=== PATIENT | male | born 1940 | race Caucasian/White ===

== ENCOUNTER → 2016-04-19 | Outpatient (CLI) | payer BC ==
[~2016-04-19] MED LIST: ACET-1256 PO; ASPI81TA28 PO; ATOR-22 PO; CARV12.5 PO; ESOM1CAP34 PO; FURO-85 PO; LISI40TA PO; NTRGSL/4 UT; SYMIN160 INH; URX/10 PO
[2016-04-19 12:24] LABS: MEAN CORPUSCULAR HEMOGLOBIN 34.9 pg (25-34); MEAN CORPUSCULAR HGB CONC 37.1 g/dl (32-36); MEAN PLATELET VOLUME 10.3 fL (7.4-10.4); PLATELET COUNT 162 K/uL (130-400); RED BLOOD COUNT 4.36 M/uL (4.7-6.1); WHITE BLOOD COUNT 7.56 K/uL (4.8-10.8)
[2016-04-19 12:33] LABS: ALT/SGPT 28 U/L (12-78); AST/SGOT 15 U/L (15-37); BLOOD UREA NITROGEN 13 mg/dl (7-18); BUN/CREATININE RATIO 15.6 (10-20); CARBON DIOXIDE 25 mmol/L (21-32); CHLORIDE 104 mmol/L (98-107); CHOLESTEROL 116 mg/dl (0-200); CREATININE 0.84 mg/dl (0.60-1.40); GLUCOSE 124 mg/dl (70-99); POTASSIUM 4.1 mmol/L (3.5-5.1); SODIUM 141 mmol/L (136-145); TRIGLYCERIDES 105 mg/dl (0-150); VERY LOW DENSITY LIPOPROT CALC 21 mg/dl
[2016-04-19 12:34] LABS: ALB/GLOB RATIO 1.2 (0.9-2); ALKALINE PHOSPHATASE 143 U/L (45-117); CHOLESTEROL/HDL RATIO 2.8; HDL CHOLESTEROL 42 mg/dl; LDL CHOLESTEROL CALCULATED 53 mg/dl
[2016-04-19 12:44] LABS: ESTIMATED AVERAGE GLUCOSE 128 mg/dl; HA1C FLAG Normal (Normal)
== END | disposition home or self-care (01) ==
LOC: C.LABBFT 08:46
PROVIDERS: ATTEND Internal Medicine
DX: J44.9 Chronic obstructive pulmonary disease, unspecified (principal); E78.5 Hyperlipidemia, unspecified; R73.01 Impaired fasting glucose

== ENCOUNTER → 2016-06-09 | Outpatient (CLI) | payer BC ==
--- NOTE | 2016-06-09 09:52 | DIAGNOSTIC IMAGING REPORT ---
BILATERAL CAROTID DOPPLER STUDY HISTORY: I65.29 Arteriosclerosis of carotid [id number] COMPARISON: None. TECHNIQUE: Real-time, grayscale, and color Doppler sonography of the carotid arteries was performed. Imaging reviewed in the transverse and longitudinal planes. All measurements were calculated based on NASCET criteria. FINDINGS: Antegrade flow is seen in the bilateral vertebral arteries. The brachial pressures were not performed. Mild right and moderate left carotid bifurcation calcification. The peak systolic velocity within the right ICA is 70 cm/s. The right systolic ratio is 1.1. The peak systolic velocity within the left ICA is 103 cm/s. The left systolic ratio is 1.5. Elevated velocities of approximately 170 cm/s within the bilateral external carotid arteries. IMPRESSION: No hemodynamically significant stenosis seen within the bilateral common or internal carotid arteries. Mild to moderate stenosis within the bilateral external carotid arteries due to the calcified plaque. Electronically signed by: Claudio Mallory M.D. 06/09/2016 9:51 AM Dictated Date/Time: 06/09/2016 9:48 AM
== END | disposition home or self-care (01) ==
LOC: C.ULTR 09:15
PROVIDERS: ATTEND Internal Medicine
DX: I65.23 Occlusion and stenosis of bilateral carotid arteries (principal)

== ENCOUNTER 2016-08-16 19:12 | Emergency (ER) | payer BC ==
[~2016-08-16] VITALS: Ht 177.8 cm; Wt 89.9 kg
[2016-08-16 19:31] VITALS: TEMP 36.7; Ht 177.8 cm; Wt 89.9 kg
[2016-08-16] MEDS ORDERED: ONDANSETRON INJ 2 MG/ML 2 ML VIAL IV STA (19:51)
[2016-08-16] MEDS ORDERED: SODIUM CHLORIDE 0.9% 500ML 500 ML IV STA (19:51)
[2016-08-16 20:02] LABS: BASO % 0.7 %; BASO ABS # 0.07 K/uL (0-0.2); COMPLETE YES; EOS % 2.2 %; HEMATOCRIT 44.8 % (42-52); IG% 0.2 %; LYMPH % 16.7 %; LYMPH ABS # 1.73 K/uL (1.2-3.4); MEAN CELL VOLUME 89.8 fL (80-100); MEAN CORPUSCULAR HEMOGLOBIN 31.5 pg (25-34); MEAN PLATELET VOLUME 9.8 fL (7.4-10.4); MONO % 7.1 %; NEUT % 73.1 %; PLATELET COUNT 199 K/uL (130-400); RED BLOOD COUNT 4.99 M/uL (4.7-6.1); WHITE BLOOD COUNT 10.38 K/uL (4.8-10.8)
[2016-08-16 20:19] LABS: MANUAL MICROSCOPIC REQUIRED? NO; REVIEW REQ? NO; URINE APPEARANCE CLEAR (CLEAR); URINE BILIRUBIN NEG (NEG); URINE COLOR YELLOW; URINE NITRITE NEG (NEG); URINE SPECIFIC GRAVITY 1.021 (1.000-1.030); UROBILINOGEN NEG (NEG); ZZUR CULT IF INDIC CLEAN CATCH NO
[2016-08-16 20:21] LABS: BUN/CREATININE RATIO 20.8 (10-20); CALCIUM 8.9 mg/dl (8.5-10.1); CREATININE 0.85 mg/dl (0.60-1.40); POTASSIUM 3.7 mmol/L (3.5-5.1)
--- NOTE | 2016-08-16 20:39 | DIAGNOSTIC IMAGING REPORT ---
ABDOMEN 2VIEW W/PA CHEST RTN CLINICAL HISTORY: abd pain pain COMPARISON STUDY: 03/04/2016 FINDINGS: The soft tissues, psoas shadows, renal outlines and intestinal gas pattern appear normal. There is no evidence for bowel obstruction. There is no evidence for free intraperitoneal air. No abnormal abdominal calcifications are seen. A frontal view of the chest was performed and is unremarkable. IMPRESSION: Normal study. Electronically signed by: German Rios M.D. 08/16/2016 8:38 PM Dictated Date/Time: 08/16/2016 8:37 PM
[2016-08-16 21:24] VITALS: BP 145/67; PULSE 67; O2SAT 95
--- NOTE | 2016-08-16 22:39 | EMERGENCY ROOM VISIT NOTE ---
History Report prepared by Connie: Kiara Barrett Under the Supervision of: Dr. Rojelio Raza D.O. First contact with patient: 19:37 Chief Complaint: ABDOMINAL PAIN Stated Complaint: SICK STOMACH, BLOODY NOSE (INGESTED CREAM) History of Present Illness The patient is a 76 year old male who presents to the Emergency Room with complaints of resolved nausea starting 1.5 hours ago. The patient applied an appointment which was an antifungal to his feet earlier today. After he was done , he washed his hands twice. He was eating a caramel 2 hours ago when it got stuck in his mouth. He stuck his finger into his mouth to loosen the caramel. 10 minutes later he began feeling nauseous. He has noticed some blood when blowing his nose. He had diarrhea upon arrival to the ED. His symptoms have resolved now. He denies any vomiting, abdominal pain, cough, runny nose, bloating, or sore throat. He did have one bowel movement of diarrhea. He denies any abdominal pain at all. He denies any sick contacts. He denies any previous abdominal surgeries. He is currently not on any blood thinners. 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 Source of History: patient Onset: 1.5 hours ago Position: other (global) Quality: other (nausea) Timing: resolved Associated Symptoms: + diarrhea, No abdominal pain, No cough, No sorethroat , No vomiting Note: Pt reports blood with blowing nose. Pt denies runny nose, bloating. Review of Systems See HPI for pertinent positives & negatives. A total of 10 systems reviewed and were otherwise negative. 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 Family History Cancer FH: heart disease FHx: lung disease Hypertension Social History Smoking Status: Never Smoker Alcohol Use: occasionally Housing Status: lives alone Occupation Status: retired Current/Historical Medications Scheduled Alfuzosin HCl (Alfuzosin HCl ER), 10 MG PO DAILY Aspirin (Aspirin Ec), 81 MG PO DAILY Atorvastatin (Lipitor), 20 MG PO QPM Budesonide/Formoterol Fumarate (Symbicort 160/4.5 Inhaler ), 2 PUFFS INH BID Carvedilol (Coreg), 12.5 MG PO BID Esomeprazole Magnesium (Esomeprazole Magnesium), 10 MG PO DAILY Furosemide (Lasix), 20 MG PO DAILY Lisinopril (Prinivil), 40 MG PO QAM Nitroglycerin (Nitrostat), 0.4 MG UT PRN Scheduled PRN Acetaminophen (Tylenol), 1 TAB PO Q6 PRN for Pain Allergies Coded Allergies: Atorvastatin (Verified Allergy, Unknown, per cardio note, 04/21/15) Tiotropium (Verified Allergy, Unknown, CHEST PAIN, PRESSURE, 04/21/15) Physical Exam Vital Signs Date Time Temp Pulse Resp B/P Pulse Ox O2 Delivery O2 Flow Rate FiO2 08/16/16 21:24 67 18 145/67 95 08/16/16 21:16 67 18 145/67 95 Room Air 08/16/16 19:31 36.7 67 21 134/74 96 Room Air Physical Exam GENERAL: sitting up in bed, disheveled, no acute distress, nontoxic EYE EXAM: normal conjunctiva NOSE: No bleeding in bilateral nares OROPHARYNX: no exudate, no erythema, lips, buccal mucosa, and tongue normal and mucous membranes are moist NECK: supple, no nuchal rigidity, no adenopathy, non-tender LUNGS: Clear to auscultation. Normal chest wall mechanics HEART: no murmurs, S1 normal and S2 normal ABDOMEN: abdomen soft, non-tender, normo-active bowel sounds, no masses, no rebound or guarding. BACK: Back is symmetrical on inspection and there is no deformity, no midline tenderness, no CVA tenderness. SKIN: no rashes and no bruising UPPER EXTREMITIES: upper extremities are grossly normal. LOWER EXTREMITIES: No pitting edema. NEURO EXAM: Normal sensorium, cranial nerves II-XII grossly intact, normal speech, no gross weakness of arms, no gross weakness of legs. Medical Decision & Procedures ER Provider Diagnostic Interpretation: Xray results as stated below per my and the radiologist's interpretation: ABDOMEN 2VIEW W/PA CHEST RTN CLINICAL HISTORY: abd pain pain COMPARISON STUDY: 03/04/2016 FINDINGS: The soft tissues, psoas shadows, renal outlines and intestinal gas pattern appear normal. There is no evidence for bowel obstruction. There is no evidence for free intraperitoneal air. No abnormal abdominal calcifications are seen. A frontal view of the chest was performed and is unremarkable. IMPRESSION: Normal study. Electronically signed by: German Rios M.D. 08/16/2016 8:38 PM Dictated Date/Time: 08/16/2016 8:37 PM Laboratory Results 08/16/16 19:48 Red Blood Count 4.99, Mean Corpuscular Volume 89.8, Mean Corpuscular Hemoglobin 31.5, Mean Corpuscular Hemoglobin Concent 35.0, Mean Platelet Volume 9.8, Neutrophils (%) (Auto) 73.1, Lymphocytes (%) (Auto) 16.7, Monocytes (%) (Auto) 7.1, Eosinophils (%) (Auto) 2.2, Basophils (%) (Auto) 0.7, Neutrophils # (Auto) 7.59, Lymphocytes # (Auto) 1.73, Monocytes # (Auto) 0.74, Eosinophils # (Auto) 0.23, Basophils # (Auto) 0.07 08/16/16 19:48 Test 08/16/16 19:48 08/16/16 20:00 White Blood Count 10.38 K/uL (4.8-10.8) Red Blood Count 4.99 M/uL (4.7-6.1) Hemoglobin 15.7 g/dL (14.0-18.0) Hematocrit 44.8 % (42-52) Mean Corpuscular Volume 89.8 fL (80-100) Mean Corpuscular Hemoglobin 31.5 pg (25-34) Mean Corpuscular Hemoglobin Concent 35.0 g/dl (32-36) Platelet Count 199 K/uL (130-400) Mean Platelet Volume 9.8 fL (7.4-10.4) Neutrophils (%) (Auto) 73.1 % Lymphocytes (%) (Auto) 16.7 % Monocytes (%) (Auto) 7.1 % Eosinophils (%) (Auto) 2.2 % Basophils (%) (Auto) 0.7 % Neutrophils # (Auto) 7.59 K/uL (1.4-6.5) Lymphocytes # (Auto) 1.73 K/uL (1.2-3.4) Monocytes # (Auto) 0.74 K/uL (0.11-0.59) Eosinophils # (Auto) 0.23 K/uL (0-0.5) Basophils # (Auto) 0.07 K/uL (0-0.2) RDW Standard Deviation 41.2 fL (36.4-46.3) RDW Coefficient of Variation 12.7 % (11.5-14.5) Immature Granulocyte % (Auto) 0.2 % Immature Granulocyte # (Auto) 0.02 K/uL (0.00-0.02) Anion Gap 8.0 mmol/L (3-11) Est Creatinine Clear Calc Drug Dose 80.8 ml/min Estimated GFR () 96.7 Estimated GFR (Non- 83.5 BUN/Creatinine Ratio 20.8 (10-20) Calcium Level 8.9 mg/dl (8.5-10.1) Total Bilirubin 0.5 mg/dl (0.2-1) Direct Bilirubin 0.1 mg/dl (0-0.2) Aspartate Amino Transf (AST/SGOT) 21 U/L (15-37) Alanine Aminotransferase (ALT/SGPT) 36 U/L (12-78) Alkaline Phosphatase 154 U/L (45-117) Total Protein 7.4 gm/dl (6.4-8.2) Albumin 4.2 gm/dl (3.4-5.0) Lipase 272 U/L (73-393) Urine Color YELLOW Urine Appearance CLEAR (CLEAR) Urine pH 5.0 (4.5-7.5) Urine Specific [place] 1.021 (1.000-1.030) Urine Protein NEG (NEG) Urine Glucose (UA) NEG (NEG) Urine Ketones NEG (NEG) Urine Occult Blood NEG (NEG) Urine Nitrite NEG (NEG) Urine Bilirubin NEG (NEG) Urine Urobilinogen NEG (NEG) Urine Leukocyte Esterase SMALL (NEG) Urine WBC (Auto) 1-5 /hpf (0-5) Urine RBC (Auto) 0-4 /hpf (0-4) Urine Hyaline Casts (Auto) 1-5 /lpf (0-5) Urine Epithelial Cells (Auto) 10-20 /lpf (0-5) Urine Bacteria (Auto) NEG (NEG) Laboratory results per my review. Medications Administered Medications (Trade) Dose Ordered Sig/Marky Route Start Time Stop Time Status Last Admin Dose Admin Ondansetron HCl 4 mg 4 mg NOW STAT IV 08/16/16 19:51 08/16/16 19:53 DC 08/16/16 20:10 4 MG Sodium Chloride (Nss 500ml) 500 ml @ 999 mls/hr Q31M STAT IV 08/16/16 19:51 08/16/16 20:21 DC 08/16/16 20:10 999 MLS/HR ED Course ED COURSE: Vital signs were reviewed and showed normal vitals. The patients medical record was reviewed The above diagnostic studies were performed and reviewed. ED treatments and interventions as stated above. 1944: The patient was evaluated in room A12B. A complete history and physical examination was performed. 1950: NSS 500 ml @ 999 mls/hr IV, Zofran Inj 4 mg IV. 2110: Upon reevaluation, the patient is resting comfortably and has no complaints. I discussed my findings with the patient and he understands and agrees with the treatment plan. Based on the patients age, coexisting illnesses, exam and lab findings the decision to treat as an outpatient was made. The patient remained stable while under my care. The patient appeared well at the time of discharge. Medical Decision Differential diagnoses includes but is not limited to gastritis, peptic ulcer disease, GERD, gallbladder disease, pancreatitis, small bowel obstruction, acute coronary syndrome, pericarditis, ischemic bowel, irritable bowel disease, irritable bowel syndrome, appendicitis, diverticulitis, malignancy, hernia, urinary tract infection, torsion, perforation, trauma, infectious. Patient is a 76-year-old male who presents the ER for an episode of nausea which has completely resolved associated with small flecks of blood from his nose. He denies any other complaints. He currently has no nausea or abdominal pain. He was concerned following using an antifungal cream on his leg and washing his hands twice that when he pulled the [place] off of the roof of his mouth he poison himself. I do not believe that he had any of the antifungal cream left after washing his hands twice. It was too short of an exposure. His abdominal exam was completely benign and he had no complaints. CBC along with BMP, LFTs, bilirubin and lipase are normal. UA was negative. Obstruction series was unremarkable. With him feeling completely back to baseline and felt was reasonable to discharge him and have him follow-up with his primary care doctor. Discussed with Pt concerning signs and symptoms to watch out for. Pt was instructed to follow up with their PCP and discussed with the patient their option to return to the ED at anytime for persistent or worsening symptoms. The appropriate anticipatory guidance and out-patient management, including indications for return to the emergency department, were explained at length to the patient and understood. Impression Primary Impression: Nausea Scribe Attestation The scribe's documentation has been prepared under my direction and personally reviewed by me in its entirety. I confirm that the note above accurately reflects all work, treatment, procedures, and medical decision making performed by me. Departure Information Dispostion Home / Self-Care Referrals No Doctor, Assigned (PCP) Forms HOME CARE DOCUMENTATION FORM, IMPORTANT VISIT INFORMATION Patient Instructions ED Nausea Vomiting, My [facility] Additional Instructions Please follow up with your primary care doctor with in the next 24 hours. Any worsening of your symptoms, please return to the ED immediately. This includes abdominal pain, persistent nausea vomiting, passing out, fevers greater than 100.4, or any recurrence of your symptoms/or any other concerning signs or symptoms from your standpoint.
[2017-01-14] MEDS ORDERED: ALFU10TA2 PO (06:25)
== END 2016-08-16 21:26 | disposition home or self-care (01) ==
LOC: C.EDB 19:14 → C.EDA 21:26
DX: R11.0 Nausea (principal); M16.10 Unilateral primary osteoarthritis, unspecified hip; Z82.49 Family history of ischemic heart disease and other diseases of the circulatory system; Z79.82 Long term (current) use of aspirin

== ENCOUNTER → 2016-09-06 | Outpatient (CLI) | payer BC ==
[~2016-09-06] MED LIST changes: +ALFU10TA2 PO; +MULT-506 PO; +NXM/40 PO; +SULF-183 PO; +TAMS0.4C38 PO
[2016-09-06 14:34] LABS: LYME DISEASE AB IGG NEG (NEG)
[2016-09-06 14:37] LABS: LYME DISEASE AB IGM NEG (NEG)
== END | disposition home or self-care (01) ==
LOC: C.LABBFT 09:50
PROVIDERS: ATTEND Physician Assistant Medical
DX: R21 Rash and other nonspecific skin eruption (principal)

== ENCOUNTER → 2016-11-22 | Outpatient (CLI) | payer BC ==
[~2016-11-22] MED LIST changes: -ALFU10TA2 PO; -MULT-506 PO; -NXM/40 PO; -SULF-183 PO; -TAMS0.4C38 PO
[2016-11-22 12:26] LABS: ALT/SGPT 35 U/L (12-78); BLOOD UREA NITROGEN 15 mg/dl (7-18); CALCIUM 8.6 mg/dl (8.5-10.1); CARBON DIOXIDE 26 mmol/L (21-32); CHLORIDE 105 mmol/L (98-107); CHOLESTEROL 101 mg/dl (0-200); CREATININE 0.72 mg/dl (0.60-1.40); GLUCOSE 118 mg/dl (70-99); SODIUM 140 mmol/L (136-145); TRIGLYCERIDES 75 mg/dl (0-150); VERY LOW DENSITY LIPOPROT CALC 15 mg/dl
[2016-11-22 12:35] LABS: ESTIMATED AVERAGE GLUCOSE 131 mg/dl; HA1C FLAG Normal (Normal)
[2016-11-22 12:36] LABS: ALB/GLOB RATIO 1.2 (0.9-2); ALKALINE PHOSPHATASE 131 U/L (45-117); AST/SGOT 19 U/L (15-37); CHOLESTEROL/HDL RATIO 2.7; HDL CHOLESTEROL 38 mg/dl; LDL CHOLESTEROL CALCULATED 48 mg/dl
[2016-11-22 12:38] LABS: BASO % 0.5 %; BASO ABS # 0.03 K/uL (0-0.2); COMPLETE YES; EOS % 3.1 %; HEMATOCRIT 38.7 % (42-52); IG% 0.4 %; LYMPH % 21.8 %; LYMPH ABS # 1.21 K/uL (1.2-3.4); MEAN CORPUSCULAR HEMOGLOBIN 35.7 pg (25-34); MEAN CORPUSCULAR HGB CONC 37.2 g/dl (32-36); MEAN PLATELET VOLUME 10.2 fL (7.4-10.4); MONO % 6.5 %; NEUT % 67.7 %; PLATELET COUNT 164 K/uL (130-400); RED BLOOD COUNT 4.03 M/uL (4.7-6.1); WHITE BLOOD COUNT 5.54 K/uL (4.8-10.8)
== END | disposition home or self-care (01) ==
LOC: C.LABBFT 07:27
PROVIDERS: ATTEND Internal Medicine
DX: J44.9 Chronic obstructive pulmonary disease, unspecified (principal); R73.01 Impaired fasting glucose; E78.5 Hyperlipidemia, unspecified

== ENCOUNTER → 2017-01-12 | Outpatient (CLI) | payer BC ==
[~2017-01-12] MED LIST changes: +ALFU10TA30 PO; +MULT-506 PO; +NXM/40 PO; +SULF-183 PO; +TAMS0.4C38 PO
[2017-01-12 12:22] LABS: URINE APPEARANCE CLEAR (CLEAR); URINE BILIRUBIN NEG (NEG); URINE COLOR DK YELLOW; URINE NITRITE NEG (NEG); URINE SPECIFIC GRAVITY 1.024 (1.000-1.030); UROBILINOGEN NEG (NEG)
[2017-01-12 12:25] LABS: MANUAL MICROSCOPIC REQUIRED? NO; REVIEW REQ? NO
== END | disposition home or self-care (01) ==
LOC: C.LABBFT 08:35
PROVIDERS: ATTEND Physician Assistant Medical
DX: R39.9 Unspecified symptoms and signs involving the genitourinary system (principal)

== ENCOUNTER 2017-01-14 06:01 | Emergency (ER) | payer BC ==
[~2017-01-14] VITALS: Ht 180.3 cm; Wt 90.9 kg
[~2017-01-14 06:01] MED LIST changes: -ALFU10TA30 PO; -MULT-506 PO; -NXM/40 PO; -SULF-183 PO; -TAMS0.4C38 PO
[2017-01-14 06:08] VITALS: TEMP 36.7; Ht 180.3 cm; Wt 90.9 kg
[2017-01-14] MEDS ORDERED: ALFU10TA30 PO (06:25)
[2017-01-14] MEDS ORDERED: NXM/40 PO (06:26)
[2017-01-14] MEDS ORDERED: MULT-506 PO (06:28)
[2017-01-14] MEDS ORDERED: SULF-183 PO (06:29)
[2017-01-14] MEDS ORDERED: MoRPHine SULFATE 4 MG/ML 1 ML CARP\\VIAL IV PRN (06:45)
--- NOTE | 2017-01-14 06:55 | EMERGENCY ROOM VISIT NOTE ---
History Report prepared by Connie: Julieth Ashton Under the Supervision of: Dr. Jose Balderas M.D. First contact with patient: 06:39 Chief Complaint: URINARY SYMPTOMS Stated Complaint: UTI,FEEL NEED TO URINATE CAN'T,BURINING PAIN History of Present Illness The patient is a 76 year old male who presents to the Emergency Room with complaints of persistent urinary symptoms that began over one week ago. He currently rates his discomfort as a 10/10 in severity. The patient states that 9 days ago he saw his primary care physician for his symptoms. He states that he was experiencing urinary retention. The patient states that he was placed on Bactrim and notes that he persistently has experienced burning with urination and urinary frequency. He states that he has been experiencing fever , chills, and diaphoresis. The patient states that he was recently on Prednisone for his lungs, but states that he has not been on that medication since last . He states that he follows with Dr. Omer from urology once per year, but denies any known history of an enlarged prostate. Source of History: patient Onset: over one week ago Position: other (global) Symptom Intensity: 10/10 Quality: other (urinary symptoms) Timing: other (persistent) Associated Symptoms: + fevers, + chills, + diaphoresis Review of Systems All systems have been listed, reviewed, and are negative other than those previously mentioned. Please see Additional Medical History Sheet. 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 (2) Hypertension Family History Cancer FH: heart disease FHx: lung disease Hypertension Social History Smoking Status: Never Smoker Smokeless Tobacco Use: No Alcohol Use: occasionally Marital Status: Housing Status: lives alone Occupation Status: retired Current/Historical Medications Scheduled Alfuzosin HCl (Alfuzosin HCl ER), 10 MG PO DAILY Aspirin (Aspirin Ec), 81 MG PO DAILY Carvedilol (Coreg), 12.5 MG PO BID Esomeprazole Magnesium (Nexium), 40 MG PO DAILY Furosemide (Lasix), 20 MG PO DAILY Lisinopril (Prinivil), 40 MG PO QAM Multivitamin (Multivitamin), 1 TAB PO DAILY Nitroglycerin (Nitrostat), 0.4 MG UT PRN Sulfamethoxazole-Trimethoprim (Smz-Tmp Ds), 1 TAB PO BID Tamsulosin Hcl (Flomax), 0.4 MG PO DAILY Allergies Coded Allergies: Atorvastatin (Verified Allergy, Unknown, per cardio note, 01/14/17) Tiotropium (Verified Allergy, Unknown, CHEST PAIN, PRESSURE, 01/14/17) Physical Exam Vital Signs Date Time Temp Pulse Resp B/P (MAP) Pulse Ox O2 Delivery O2 Flow Rate FiO2 01/14/17 10:02 69 16 129/76 95 01/14/17 08:40 67 15 133/74 91 Room Air 01/14/17 06:59 82 22 183/102 96 Room Air 01/14/17 06:08 36.7 84 20 214/84 97 Room Air Physical Exam GENERAL: Patient awake, alert, oriented x 3. Patient follows commands. Patient appears to be in moderate to severe distress. Patient is adequately hydrated and well-nourished. SKIN: No erythema, pallor, cyanosis or rash HEENT: Normal head, pupils equal, reactive to light and accommodation. Oral cavity and posterior pharynx appear normal. Neck: Without adenopathy, no neck vein distention. LUNGS: Clear to auscultation. No wheezes, no rales, no rhonchi. HEART: No murmurs. No gallops. No rubs ABDOMEN: Vague suprapubic tenderness, no CVA tenderness. No masses, no rebound, no hepatomegaly or splenomegaly. PROSTATE: Slightly enlarged, but nontender prostate. RECTAL: stool was brown and guaiac negative. EXTREMITIES: No signs of trauma or infection. NEUROLOGIC: Cranial nerves II-XII within normal limits. No gross motor sensory function deficits. Medical Decision & Procedures Laboratory Results 01/14/17 06:55 01/14/17 06:55 Test 01/14/17 06:45 01/14/17 06:55 Urine Color YELLOW Urine Appearance CLEAR (CLEAR) Urine pH 6.0 (4.5-7.5) Urine Specific [place] 1.011 (1.000-1.030) Urine Protein TRACE (NEG) Urine Glucose (UA) NEG (NEG) Urine Ketones NEG (NEG) Urine Occult Blood NEG (NEG) Urine Nitrite NEG (NEG) Urine Bilirubin NEG (NEG) Urine Urobilinogen NEG (NEG) Urine Leukocyte Esterase SMALL (NEG) Urine WBC (Auto) 5-10 /hpf (0-5) Urine RBC (Auto) 0-4 /hpf (0-4) Urine Hyaline Casts (Auto) 0 /lpf (0-5) Urine Epithelial Cells (Auto) 5-10 /lpf (0-5) Urine Bacteria (Auto) NEG (NEG) Red Blood Count 4.68 M/uL (4.7-6.1) Mean Corpuscular Volume 91.2 fL (80-100) Mean Corpuscular Hemoglobin 32.1 pg (25-34) Mean Corpuscular Hemoglobin Concent 35.1 g/dl (32-36) RDW Standard Deviation 42.9 fL (36.4-46.3) RDW Coefficient of Variation 12.9 % (11.5-14.5) Mean Platelet Volume 9.8 fL (7.4-10.4) Anion Gap 8.0 mmol/L (3-11) Est Creatinine Clear Calc Drug Dose 65.6 ml/min Estimated GFR () 76.7 Estimated GFR (Non- 66.1 BUN/Creatinine Ratio 10.5 (10-20) Calcium Level 8.8 mg/dl (8.5-10.1) Laboratory results as stated above per my review. Medications Administered Medications (Trade) Dose Ordered Sig/Marky Route Start Time Stop Time Status Last Admin Dose Admin Morphine Sulfate (MoRPHine SULFATE INJ) 4 mg Q1H PRN IV 01/14/17 06:45 01/14/17 10:35 DC 01/14/17 07:02 4 MG ED Course 0635: Past medical records reviewed. The patient was evaluated in room A11B. A complete history and physical examination was performed. 0645: Ordered Morphine Sulfate 4 mg IV. 0814: I reevaluated the patient and he is feeling much better with the Anne catheter in place. I additionally performed a Rectal and prostate examination at this time. See physical exam for further detail. 0923: I reevaluated the patient and I discussed all the exam findings with him and I discussed the treatment plan. He verbalized complete understanding and agreement. He is ready to go home. Medical Decision Nurses notes reviewed. Medical history sheet reviewed. Differential diagnosis includes but is not limited to: urinary retention, urinary tract infection, prostatic hypertrophy. 76-year-old male with urinary retention and probable urinary tract infection. Bladder scan revealed large amount of retained urine. After Anne was inserted 600 mL of urine was released. Urinalysis is consistent with a low-grade urinary tract infection. The patient is already on Bactrim. Prostate was slightly enlarged. The patient will go home with the catheter and leg bag. Patient will continue Bactrim and will be started on Flomax. The patient will need to follow-up with urology within the next few days. Medication Reconcilliation Current Medication List: was personally reviewed by me Blood Pressure Screening Patient's blood pressure: Elevated blood pressure Blood pressure disposition: Referred to PCP Impression Primary Impression: Urinary retention Additional Impression: Urinary tract infection Scribe Attestation The scribe's documentation has been prepared under my direction and personally reviewed by me in its entirety. I confirm that the note above accurately reflects all work, treatment, procedures, and medical decision making performed by me. Departure Information Dispostion Home / Self-Care Prescriptions Tamsulosin Hcl (FLOMAX) 0.4 Mg Cap 0.4 MG PO DAILY, #10 CAP Prov: Jose Balderas M.D. 01/14/17 Referrals Román Valentine M.D. (PCP) Forms HOME CARE DOCUMENTATION FORM, IMPORTANT VISIT INFORMATION Patient Instructions My [facility] Additional Instructions Take 1 Flomax every night. Follow-up with urology within the next 3-4 days. Continue your current antibiotic and all other current medications. Follow-up with your family physician regarding your blood pressure. Problem Qualifiers
[2017-01-14 07:08] LABS: URINE APPEARANCE CLEAR (CLEAR); URINE BILIRUBIN NEG (NEG); URINE COLOR YELLOW; URINE NITRITE NEG (NEG); URINE SPECIFIC GRAVITY 1.011 (1.000-1.030); UROBILINOGEN NEG (NEG); ZZURINE CULT IF INDIC CATH NO
[2017-01-14 07:09] LABS: MANUAL MICROSCOPIC REQUIRED? NO; REVIEW REQ? NO
[2017-01-14 07:11] LABS: HEMATOCRIT 42.7 % (42-52); MEAN CELL VOLUME 91.2 fL (80-100); MEAN CORPUSCULAR HEMOGLOBIN 32.1 pg (25-34); MEAN CORPUSCULAR HGB CONC 35.1 g/dl (32-36); MEAN PLATELET VOLUME 9.8 fL (7.4-10.4); PLATELET COUNT 153 K/uL (130-400); RED BLOOD COUNT 4.68 M/uL (4.7-6.1); WHITE BLOOD COUNT 9.51 K/uL (4.8-10.8)
[2017-01-14 07:27] LABS: BUN/CREATININE RATIO 10.5 (10-20); CALCIUM 8.8 mg/dl (8.5-10.1); CREATININE 1.07 mg/dl (0.60-1.40); POTASSIUM 4.3 mmol/L (3.5-5.1)
[2017-01-14] MEDS ORDERED: TAMS0.4C38 PO (09:46)
[2017-01-14 10:02] VITALS: BP 129/76; PULSE 69; O2SAT 95
== END 2017-01-14 10:04 | disposition home or self-care (01) ==
LOC: C.EDB 06:02 → C.EDA 10:04
DX: R33.9 Retention of urine, unspecified (principal); N39.0 Urinary tract infection, site not specified; R50.9 Fever, unspecified; R61 Generalized hyperhidrosis; I10 Essential (primary) hypertension; M16.10 Unilateral primary osteoarthritis, unspecified hip; Z79.82 Long term (current) use of aspirin; Z79.899 Other long term (current) drug therapy; Z83.49 Family history of other endocrine, nutritional and metabolic diseases; Z83.6 Family history of other diseases of the respiratory system

== ENCOUNTER → 2017-02-04 | Outpatient (CLI) | payer BC ==
[~2017-02-04] MED LIST changes: -ACET-1256 PO; -ATOR-22 PO; -ESOM1CAP34 PO; +MULT-506 PO; +NXM/40 PO; +OPTIRAY 320 IV PRN; +SULF-183 PO; -SYMIN160 INH
--- NOTE | 2017-02-04 11:16 | DIAGNOSTIC IMAGING REPORT ---
(CHEST FOR PE) ANGIO WITH CT DOSE: 668.04 mGy.cm HISTORY: Chest pain dyspnea TECHNIQUE: Multiaxial CT images of the chest were performed following the intravenous administration of contrast to evaluate the pulmonary arteries. Maximal intensity projection images were also obtained. A dose lowering technique was utilized adhering to the principles of ALARA. COMPARISON STUDY: None. FINDINGS: There is a normal caliber thoracic aorta with no evidence for dissection. There is no evidence for pulmonary embolus. No pleural effusions. No pneumothorax. The liver and spleen are unremarkable. No mediastinal or hilar lymphadenopathy. The central airways are patent. The lungs are clear. Slight basilar interstitial prominence IMPRESSION: 1. Study is negative for pulmonary embolus. 2. Slight bibasilar interstitial parenchymal prominence. The above report was generated using voice recognition software. It may contain grammatical, syntax or spelling errors. Electronically signed by: German Rios M.D. 02/04/2017 11:10 AM Dictated Date/Time: 02/04/2017 10:57 AM
== END | disposition home or self-care (01) ==
LOC: C.CTS 10:31
PROVIDERS: ATTEND Physician Assistant
DX: I82.409 Acute embolism and thrombosis of unspecified deep veins of unspecified lower extremity (principal)

== ENCOUNTER → 2017-07-20 | Outpatient (CLI) | payer BC ==
[~2017-07-20] MED LIST changes: +ATOR-22 PO; +DUTA0.5C PO; +FLUT1INH7 INH; -OPTIRAY 320 IV PRN; -SULF-183 PO; +SULF-302 PO
[2017-07-20 12:17] LABS: BASO % 0.3 %; BASO ABS # 0.02 K/uL (0-0.2); EOS % 1.9 %; EOS ABS # 0.12 K/uL (0-0.5); HEMATOCRIT 39.7 % (42-52); HEMOGLOBIN 14.4 g/dL (14.0-18.0); IG# 0.01 K/uL (0.00-0.02); LYMPH % 18.7 %; LYMPH ABS # 1.16 K/uL (1.2-3.4); MEAN CELL VOLUME 95.4 fL (80-100); MEAN CORPUSCULAR HEMOGLOBIN 34.6 pg (25-34); MEAN CORPUSCULAR HGB CONC 36.3 g/dl (32-36); MEAN PLATELET VOLUME 9.8 fL (7.4-10.4); MONO % 8.1 %; NEUT % 70.8 %; NEUT ABS # 4.38 K/uL (1.4-6.5); PLATELET COUNT 160 K/uL (130-400); RED CELL DISTRIBUTION WIDTH CV 13.3 % (11.5-14.5); RED CELL DISTRIBUTION WIDTH SD 45.2 fL (36.4-46.3); WHITE BLOOD COUNT 6.19 K/uL (4.8-10.8)
[2017-07-20 12:40] LABS: HEMOGLOBIN A1C 5.9 % (4.5-5.6)
[2017-07-20 13:25] LABS: ALBUMIN 3.4 gm/dl (3.4-5.0); BLOOD UREA NITROGEN 13 mg/dl (7-18); CALCIUM 8.8 mg/dl (8.5-10.1); CARBON DIOXIDE 28 mmol/L (21-32); CHOLESTEROL 99 mg/dl (0-200); CREATININE 0.82 mg/dl (0.60-1.40); GLUCOSE 114 mg/dl (70-99); POTASSIUM 4.1 mmol/L (3.5-5.1); SODIUM 140 mmol/L (136-145)
[2017-07-20 13:28] LABS: ALKALINE PHOSPHATASE 151 U/L (45-117); ALT/SGPT 39 U/L (12-78); AST/SGOT 26 U/L (15-37); LDL CHOLESTEROL CALCULATED 45 mg/dl; TOTAL PROTEIN 6.6 gm/dl (6.4-8.2)
== END | disposition home or self-care (01) ==
LOC: C.LABBFT 08:08
PROVIDERS: ATTEND Internal Medicine
DX: E78.5 Hyperlipidemia, unspecified (principal); R73.01 Impaired fasting glucose; I10 Essential (primary) hypertension

== ENCOUNTER 2017-07-30 13:56 | Emergency (ER) | payer BC ==
[~2017-07-30] VITALS: Ht 172.7 cm; Wt 90.0 kg
[~2017-07-30 13:56] MED LIST changes: -ATOR-22 PO; -DUTA0.5C PO; -FLUT1INH7 INH
[2017-07-30 14:01] VITALS: TEMP 36.7; Ht 172.7 cm; Wt 90.0 kg
[2017-07-30] MEDS ORDERED: SODIUM CHLORIDE 0.9% 500ML 500 ML IV STA (14:10)
[2017-07-30] MEDS ORDERED: SODIUM CHLORIDE 0.9% 1000ML 1,000 ML IV STA (14:10)
[2017-07-30] MEDS ORDERED: DUTA0.5C PO (14:42)
[2017-07-30] MEDS ORDERED: FLUT1INH7 INH (14:42)
[2017-07-30] MEDS ORDERED: ATOR-22 PO (14:42)
[2017-07-30 14:44] LABS: BASO % 0.1 %; BASO ABS # 0.01 K/uL (0-0.2); EOS % 1.4 %; EOS ABS # 0.14 K/uL (0-0.5); HEMATOCRIT 43.8 % (42-52); HEMOGLOBIN 15.6 g/dL (14.0-18.0); IG# 0.04 K/uL (0.00-0.02); LYMPH % 13.2 %; LYMPH ABS # 1.36 K/uL (1.2-3.4); MEAN CELL VOLUME 90.9 fL (80-100); MEAN CORPUSCULAR HEMOGLOBIN 32.4 pg (25-34); MEAN CORPUSCULAR HGB CONC 35.6 g/dl (32-36); MEAN PLATELET VOLUME 9.5 fL (7.4-10.4); MONO % 8.8 %; NEUT % 76.1 %; NEUT ABS # 7.83 K/uL (1.4-6.5); PLATELET COUNT 159 K/uL (130-400); RED CELL DISTRIBUTION WIDTH CV 13.2 % (11.5-14.5); RED CELL DISTRIBUTION WIDTH SD 43.6 fL (36.4-46.3); WHITE BLOOD COUNT 10.28 K/uL (4.8-10.8)
--- NOTE | 2017-07-30 15:01 | EMERGENCY ROOM VISIT NOTE ---
History Report prepared by Connie: Tanya Sherman Under the Supervision of: Dr. Miriam Escalera M.D. First contact with patient: 14:05 Chief Complaint: DIZZY Stated Complaint: DIZZINESS,PASSED OUT History of Present Illness The patient is a 77 year old male who presents to the Emergency Room with complaints of intermittent dizziness starting 11 hours ago. The patient states that he became dizzy when he woke up to use the restroom in the middle of the night. He states that he had a lot of diarrhea. He reports while sitting there he felt like he was getting diaphoretic, chills, lightening strikes in his vision, and hot flashes. He reports that he wanted to call 911, but could not get up to do so. He reports that it went away slowly and he went back to bed because he felt fine. He states that he awoke later and felt fine so he went out to breakfast. He states that when he came home he was tired so laid down for a nap. He reports that when he awoke he took a shower and had another bowel movement of diarrhea. He notes that the first bowel movement this morning was like baby poop and the second became watery. The patient states that at this time he took antidiarrheal pills. 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 He reports that it felt the same as the episode he had this morning on the toilet. He reports that he sat down and it helped his symptoms. He states that he tried to belch, but couldn't. The patient denies feeling like he was going to have a bowel movement before the most recent episode, vomiting, hematochezia, chest pain, shortness of breath, fevers, and taking blood thinners. 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 He states that he took the last dose two days ago. Source of History: patient Onset: 11 hours ago Position: other (global) Quality: other (dizziness) Timing: intermittent Modifying Factors (Relieving): other (sitting) Associated Symptoms: + chills, + diaphoresis, + diarrhea, + fatigue, No fevers, No chest pain, No SOB, No vomiting, No hematochezia Note: The patient complains of hot flashes and visions changes. The patient denies feeling like he needed to have a bowel movement before the last episode. Review of Systems See HPI for pertinent positives & negatives. A total of 10 systems reviewed and were otherwise negative. 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 (2) Hypertension Family History Cancer FH: heart disease FHx: lung disease Hypertension Social History Smoking Status: Never Smoker Alcohol Use: occasionally Marital Status: Housing Status: lives alone Occupation Status: retired Current/Historical Medications Scheduled Alfuzosin HCl (Alfuzosin HCl ER), 10 MG PO DAILY Aspirin (Aspirin Ec), 81 MG PO DAILY Atorvastatin (Lipitor), 20 MG PO DAILY Carvedilol (Coreg), 12.5 MG PO BID Dutasteride (Avodart), 0.5 MG PO DAILY Esomeprazole Magnesium (Nexium), 40 MG PO DAILY Furosemide (Lasix), 20 MG PO DAILY Lisinopril (Prinivil), 40 MG PO QAM Nitroglycerin (Nitrostat), 0.4 MG UT PRN Scheduled PRN Fluticasone Furoate-Vilanterol (Breo Ellipta 200-25 Mcg/INH), 1 DOSE INH DAILY PRN for Wheezing Allergies Coded Allergies: Tiotropium (Verified Adverse Reaction, Unknown, CHEST PAIN, PRESSURE, ) Physical Exam Vital Signs Date Time Temp Pulse Resp B/P (MAP) Pulse Ox O2 Delivery O2 Flow Rate FiO2 07/30/17 17:30 172/80 07/30/17 17:26 61 20 96 07/30/17 17:04 151/87 07/30/17 16:56 59 21 07/30/17 16:26 60 16 07/30/17 16:22 194/91 07/30/17 16:22 61 18 194/91 98 Room Air 07/30/17 14:33 62 20 166/80 68 126/74 74 139/76 07/30/17 14:33 62 20 166/80 97 Room Air 07/30/17 14:26 65 21 07/30/17 14:21 166/80 07/30/17 14:20 139/76 07/30/17 14:19 126/74 07/30/17 14:14 73 07/30/17 14:10 178/97 07/30/17 14:01 36.7 69 18 153/82 96 Room Air Physical Exam Vital signs reviewed. General: Well-appearing, in no significant distress. HEENT: No scleral icterus, PERRLA, neck supple. Atraumatic. Cardiovascular: Regular rate and rhythm, no extra sounds. Pulmonary: Clear to auscultation bilaterally, normal work of breathing. Abdomen: Soft, nontender, nondistended, positive bowel sounds. Musculoskeletal: Atraumatic, no peripheral edema. Neurologic: Patient awake alert and oriented x 3, full strength in all 4 extremities. Cranial nerves 2 through 12 grossly intact. Skin: Warm, dry, no rash Medical Decision & Procedures ER Provider Diagnostic Interpretation: Radiology results as stated below per my review and radiologist interpretation: ABDOMEN 2VIEW W/PA CHEST RTN CLINICAL HISTORY: 77 years-old Male presenting with diarrhea, sweats, near syncope. TECHNIQUE: PA view of the chest and supine and upright views of the abdomen were obtained. COMPARISON: 08/16/2016. FINDINGS: Atherosclerosis of the aortic arch. Cardiac silhouette top normal in size. Lungs and pleural spaces clear. Nonobstructive bowel gas pattern. No gross pneumoperitoneum. Allowing for bowel gas and stool, no calcifications to suggest nephrolithiasis. Splenic arterial calcification noted. Degenerative changes of the spine. Superior subluxation of the right humeral head with complete effacement of the acromiohumeral interval implying rotator cuff tear. 3 anchor fixation in the left humeral head. Total right hip arthroplasty. IMPRESSION: 1. No acute cardiopulmonary disease. 2. No radiographic evidence of acute intra-abdominal pathology. Electronically signed by: Derrick Kimble M.D. 07/30/2017 3:11 PM Dictated Date/Time: 07/30/2017 3:08 PM Laboratory Results 07/30/17 14:30 Red Blood Count 4.82, Mean Corpuscular Volume 90.9, Mean Corpuscular Hemoglobin 32.4, Mean Corpuscular Hemoglobin Concent 35.6, Mean Platelet Volume 9.5, Neutrophils (%) (Auto) 76.1, Lymphocytes (%) (Auto) 13.2, Monocytes (%) (Auto) 8.8, Eosinophils (%) (Auto) 1.4, Basophils (%) (Auto) 0.1, Neutrophils # (Auto) 7.83, Lymphocytes # (Auto) 1.36, Monocytes # (Auto) 0.90, Eosinophils # (Auto) 0.14, Basophils # (Auto) 0.01 07/30/17 14:30 Test 07/30/17 14:30 07/30/17 16:19 White Blood Count 10.28 K/uL (4.8-10.8) Red Blood Count 4.82 M/uL (4.7-6.1) Hemoglobin 15.6 g/dL (14.0-18.0) Hematocrit 43.8 % (42-52) Mean Corpuscular Volume 90.9 fL (80-100) Mean Corpuscular Hemoglobin 32.4 pg (25-34) Mean Corpuscular Hemoglobin Concent 35.6 g/dl (32-36) Platelet Count 159 K/uL (130-400) Mean Platelet Volume 9.5 fL (7.4-10.4) Neutrophils (%) (Auto) 76.1 % Lymphocytes (%) (Auto) 13.2 % Monocytes (%) (Auto) 8.8 % Eosinophils (%) (Auto) 1.4 % Basophils (%) (Auto) 0.1 % Neutrophils # (Auto) 7.83 K/uL (1.4-6.5) Lymphocytes # (Auto) 1.36 K/uL (1.2-3.4) Monocytes # (Auto) 0.90 K/uL (0.11-0.59) Eosinophils # (Auto) 0.14 K/uL (0-0.5) Basophils # (Auto) 0.01 K/uL (0-0.2) RDW Standard Deviation 43.6 fL (36.4-46.3) RDW Coefficient of Variation 13.2 % (11.5-14.5) Immature Granulocyte % (Auto) 0.4 % Immature Granulocyte # (Auto) 0.04 K/uL (0.00-0.02) Anion Gap 7.0 mmol/L (3-11) Est Creatinine Clear Calc Drug Dose 67.3 ml/min Estimated GFR () 85.7 Estimated GFR (Non- 73.9 BUN/Creatinine Ratio 21.9 (10-20) Calcium Level 8.5 mg/dl (8.5-10.1) Magnesium Level 2.0 mg/dl (1.8-2.4) Total Bilirubin 0.7 mg/dl (0.2-1) Direct Bilirubin 0.2 mg/dl (0-0.2) Aspartate Amino Transf (AST/SGOT) 17 U/L (15-37) Alanine Aminotransferase (ALT/SGPT) 39 U/L (12-78) Alkaline Phosphatase 177 U/L (45-117) Total Protein 6.5 gm/dl (6.4-8.2) Albumin 3.3 gm/dl (3.4-5.0) Lipase 211 U/L (73-393) Urine Color YELLOW Urine Appearance CLEAR (CLEAR) Urine pH 5.0 (4.5-7.5) Urine Specific [place] 1.019 (1.000-1.030) Urine Protein NEG (NEG) Urine Glucose (UA) NEG (NEG) Urine Ketones NEG (NEG) Urine Occult Blood NEG (NEG) Urine Nitrite NEG (NEG) Urine Bilirubin NEG (NEG) Urine Urobilinogen NEG (NEG) Urine Leukocyte Esterase MODERATE (NEG) Urine WBC (Auto) 1-5 /hpf (0-5) Urine RBC (Auto) 0-4 /hpf (0-4) Urine Hyaline Casts (Auto) 1-5 /lpf (0-5) Urine Epithelial Cells (Auto) 10-20 /lpf (0-5) Urine Bacteria (Auto) NEG (NEG) Laboratory results per my review. Medications Administered Medications (Trade) Dose Ordered Sig/Marky Route Start Time Stop Time Status Last Admin Dose Admin Sodium Chloride 500 ml @ 999 mls/hr Q31M STAT IV 07/30/17 14:10 07/30/17 14:40 DC 07/30/17 14:33 999 MLS/HR Sodium Chloride 1,000 ml @ 125 mls/hr Q8H STAT IV 07/30/17 14:10 07/30/17 19:07 DC 07/30/17 14:33 125 MLS/HR ECG Per My Interpretation Indication: other (dizziness) Rate (beats per minute): 61 Rhythm: sinus rhythm Findings: 1st degree AV block, PVC, no acute ischemic change, other (previosu inferior infarct, previous anterior infarct) ED Course 1407: Past medical records reviewed. The patient was evaluated in room C5. A complete history and physical examination was performed. 1410: Ordered NSS 1000 ml @ 125 mls/hr IV, NSS 500 ml @ 999 mls/hr IV. 1612: I reevlauted the patient and he is doing well. 1735: Upon reevaluation, the patient appeared to have improvement of his symptoms. I discussed findings with him. He verbalized agreement of the treatment plan. The patient was discharged home. Medical Decision Differential diagnoses include vasovagal reaction, dehydration, viral illness, electrolyte abnormality, cardiac arrhythmia, GI bleed. This patient was evaluated and appeared to be in no significant distress. IV access was obtained and laboratory work was drawn. 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 Patient did receive IV hydration. Vital signs have remained stable. Laboratory work is fairly unrevealing. Abdominal x-ray series reveals no evidence of obstruction or free air. Patient was not able to provide a stool specimen. I suspect he had a vasovagal reaction to the 2 episodes of diarrhea. At this time he is feeling well. He will be discharged to the care of his . He will return to the ER for worsening of symptoms or any medical concerns. Medication Reconcilliation Current Medication List: was personally reviewed by me Blood Pressure Screening Patient's blood pressure: Elevated blood pressure Blood pressure disposition: Referred to PCP Impression Primary Impression: Syncope, near Additional Impression: Diarrhea Scribe Attestation The scribe's documentation has been prepared under my direction and personally reviewed by me in its entirety. I confirm that the note above accurately reflects all work, treatment, procedures, and medical decision making performed by me. Departure Information Dispostion Home / Self-Care Referrals No Doctor, Assigned (PCP) Forms HOME CARE DOCUMENTATION FORM, IMPORTANT VISIT INFORMATION Patient Instructions My [facility] Additional Instructions Diagnosis: Near syncope, diarrhea Please drink plenty of clear fluids. Maintain a bland diet, avoid greasy and spicy foods. Avoid dairy until symptoms resolve. Follow-up with your primary care physician this week for reevaluation. Return to the ER for worsening of symptoms or any medical concerns. Problem Qualifiers
[2017-07-30 15:09] LABS: ALBUMIN 3.3 gm/dl (3.4-5.0); CALCIUM 8.5 mg/dl (8.5-10.1); CREATININE 0.97 mg/dl (0.60-1.40); POTASSIUM 3.7 mmol/L (3.5-5.1)
[2017-07-30 15:12] LABS: TOTAL PROTEIN 6.5 gm/dl (6.4-8.2)
--- NOTE | 2017-07-30 15:12 | DIAGNOSTIC IMAGING REPORT ---
ABDOMEN 2VIEW W/PA CHEST RTN CLINICAL HISTORY: 77 years-old Male presenting with diarrhea, sweats, near syncope. TECHNIQUE: PA view of the chest and supine and upright views of the abdomen were obtained. COMPARISON: 08/16/2016. FINDINGS: Atherosclerosis of the aortic arch. Cardiac silhouette top normal in size. Lungs and pleural spaces clear. Nonobstructive bowel gas pattern. No gross pneumoperitoneum. Allowing for bowel gas and stool, no calcifications to suggest nephrolithiasis. Splenic arterial calcification noted. Degenerative changes of the spine. Superior subluxation of the right humeral head with complete effacement of the acromiohumeral interval implying rotator cuff tear. 3 anchor fixation in the left humeral head. Total right hip arthroplasty. IMPRESSION: 1. No acute cardiopulmonary disease. 2. No radiographic evidence of acute intra-abdominal pathology. Electronically signed by: Derrick Kimble M.D. 07/30/2017 3:11 PM Dictated Date/Time: 07/30/2017 3:08 PM
[2017-07-30 17:26] VITALS: PULSE 61; O2SAT 96
[2017-07-30 17:30] VITALS: BP 172/80
== END 2017-07-30 18:00 | disposition home or self-care (01) ==
LOC: C.EDB 13:56 → C.EDC 18:00
DX: R55 Syncope and collapse (principal); R19.7 Diarrhea, unspecified; I10 Essential (primary) hypertension; Z79.82 Long term (current) use of aspirin; Z79.899 Other long term (current) drug therapy; Z88.8 Allergy status to other drugs, medicaments and biological substances

== ENCOUNTER → 2017-08-05 | Outpatient (CLI) | payer BC ==
[~2017-08-05] MED LIST changes: +ATOR-22 PO; +DUTA0.5C PO; +FLUT1INH7 INH; -MULT-506 PO; -SULF-302 PO
== END | disposition home or self-care (01) ==
LOC: C.LABBFT 12:46
PROVIDERS: ATTEND Nurse Practitioner
DX: R19.7 Diarrhea, unspecified (principal)

== ENCOUNTER 2017-11-08 08:13 | Inpatient (IN) | payer BC, OTHER ==
[2017-10-25 10:20] VITALS: BMI 26.0
[2017-10-26 09:13] VITALS: BMI 26.0
--- NOTE | 2017-10-26 09:41 | PAT Medication Instructions ---
Service Date Oct 26, 2017. Current Home Medication List Acetaminophen (Tylenol), 500 MG PO PRN Alfuzosin HCl (Alfuzosin HCl ER), 10 MG PO QAM Aspirin (Aspirin Ec), 81 MG PO QAM Atorvastatin (Lipitor), 20 MG PO QAM Carvedilol (Coreg), 12.5 MG PO BID Dutasteride (Avodart), 0.5 MG PO QAM Esomeprazole Magnesium (Nexium), 40 MG PO QAM Fluticasone Furoate-Vilanterol (Breo Ellipta 200-25 Mcg/INH), 1 PUFF INH QAM Furosemide (Lasix), 20 MG PO QAM Lisinopril (Prinivil), 40 MG PO QAM Nitroglycerin (Nitrostat), 0.4 MG UT PRN Medication Instructions For Your Scheduled Surgery -Continue as directed: Nitroglycerin (Nitrostat), 0.4 MG UT PRN - Hold the following medications the morning of surgery: Dutasteride (Avodart), 0.5 MG PO QAM Furosemide (Lasix), 20 MG PO QAM Lisinopril (Prinivil), 40 MG PO QAM - Take the following medications the morning of surgery with a sip of water: Acetaminophen (Tylenol), 500 MG PO PRN (if needed) Alfuzosin HCl (Alfuzosin HCl ER), 10 MG PO QAM Aspirin (Aspirin Ec), 81 MG PO QAM Atorvastatin (Lipitor), 20 MG PO QAM Carvedilol (Coreg), 12.5 MG PO BID Esomeprazole Magnesium (Nexium), 40 MG PO QAM Fluticasone Furoate-Vilanterol (Breo Ellipta 200-25 Mcg/INH), 1 PUFF INH QAM - Take the following medications as scheduled the night before surgery: Acetaminophen (Tylenol), 500 MG PO PRN (if needed) Carvedilol (Coreg), 12.5 MG PO BID If you have any questions please call us at [phone] or [phone] or [phone]
[2017-10-26 10:50] LABS: CALCIUM 8.9 mg/dl (8.5-10.1); CREATININE 0.87 mg/dl (0.60-1.40); PTT PATIENT 24.3 SECONDS (21.0-31.0)
[2017-10-26 11:33] LABS: HEMATOCRIT 41.5 % (42-52); HEMOGLOBIN 14.4 g/dL (14.0-18.0); MEAN CELL VOLUME 91.4 fL (80-100); MEAN CORPUSCULAR HEMOGLOBIN 31.7 pg (25-34); MEAN CORPUSCULAR HGB CONC 34.7 g/dl (32-36); MEAN PLATELET VOLUME 10.3 fL (7.4-10.4); PLATELET COUNT 153 K/uL (130-400); RED CELL DISTRIBUTION WIDTH CV 13.2 % (11.5-14.5); RED CELL DISTRIBUTION WIDTH SD 43.9 fL (36.4-46.3)
[2017-10-26 11:34] LABS: BASO % 0.3 %; BASO ABS # 0.02 K/uL (0-0.2); EOS % 1.7 %; EOS ABS # 0.11 K/uL (0-0.5); IG# 0.02 K/uL (0.00-0.02); LYMPH % 22.3 %; LYMPH ABS # 1.47 K/uL (1.2-3.4); MONO % 7.3 %; MONO ABS # 0.48 K/uL (0.11-0.59); NEUT % 68.1 %
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
[2017-11-08] VITALS (9 sets, daily range): BP systolic 144–198; BP diastolic 73–85; PULSE 48–71; TEMP 36.3–36.7; O2SAT 94–98; Ht 180.3 cm; Wt 85.9 kg
[~2017-11-08] VITALS: Ht 180.3 cm; Wt 85.9 kg
[~2017-11-08 08:13] MED LIST changes: +ACET-1256 PO; +ACETAMINOPHEN 500 MG TAB PO SCH; +BUPIVACAINE 0.25% 30 ML VIAL ONE; +CEFAZOLIN 2000MG IV PUSH 15 ML IV SCH; +DEXAMETHASONE SOD INJ 4 MG/ML VIAL ONE; +EpINEphrine INJ 1MG/ML AMP 1 MG/ML AMP ONE; +FAMOTIDINE 20 MG TAB PO SCH; +GABAPENTIN 300 MG CAP PO SCH; +LACTATED RINGER'S 1000ML 1,000 ML IV SCH; +ROPIVACAINE 5MG/ML 30 ML 150 MG, BUPIVACAINE 0.5% MPF INJ 30 ML, EpINEphrine HCL INJ 0.... INFIL SCH
--- NOTE | 2017-11-08 09:18 | History & Physical Bridge Note ---
H&P Re-Evaluation Bridge Note: I have examined the patient, reviewed the History & Physical and in the interval since the performance of the History & Physical I have noted the following changes of clinical significance: No changes noted
[2017-11-08] MEDS ORDERED: FENTANYL CITRATE INJ 50 MCG/1 ML 2 ML VIAL ONE ×2 (10:13→11:50)
[2017-11-08] MEDS ORDERED: LIDOCAINE HCL 2% 2 ML VIAL (20MG/ML) ONE ×2 (10:13→11:50)
[2017-11-08] MEDS ORDERED: ONDANSETRON INJ 2 MG/ML 2 ML VIAL ONE ×2 (10:13→11:50)
[2017-11-08] MEDS ORDERED: EpHEDrine SULFATE 50MG/5ML SYR ONE ×2 (10:13→12:06)
[2017-11-08] MEDS ORDERED: PHENYLEPHRINE HCL INJ 10 MG/ML VIAL ONE ×2 (10:13→12:05)
[2017-11-08] MEDS ORDERED: PROPOFOL IV EMULSION 10 MG/ML 20 ML VIAL ONE ×2 (10:13→11:50)
[2017-11-08] MEDS ORDERED: MIDAZOLAM HCL 1 MG/ML 2ML VIAL ONE (10:13)
[2017-11-08] MEDS ORDERED: ORTHO JOINT ANESTHETIC ONE (10:36)
[2017-11-08] MEDS ORDERED: BACITRACIN 50000 UNIT VIAL ONE (10:36)
[2017-11-08] MEDS: TRANEXAMIC ACID INJ 1,000 MG x 2 Bags IV SCH ×4 (11:03→14:56)
--- NOTE | 2017-11-08 12:36 | [facility] Post Operative Brief Note ---
Immediate Operative Summary Operative Date Nov 08, 2017. Pre-Operative Diagnosis Rotator cuff arthropathy of the left shoulder Post-Operative Diagnosis Rotator cuff arthropathy of the left shoulder Procedure(s) Performed Left Reverse Total Shoulder Arthroplasty Surgeon Dr. Oscar Pool Job Forwarder Surgeon(s) Wade Mancuso PA-C Estimated Blood Loss 150cc Findings Consistent with Post-Op Diagnosis Specimens humeral head Anesthesia Type General [facility]
[2017-11-08] MEDS ORDERED: OXYCODONE HCL IR 5 MG TAB (IMMEDIATE RELEASE) PO PRN (12:45)
[2017-11-08] MEDS ORDERED: BISACODYL 10 MG SUPP PR PRN (12:45)
[2017-11-08] MEDS ORDERED: MoRPHine SULFATE 2 MG/ML CARP IV PRN (12:45)
[2017-11-08] MEDS ORDERED: ONDANSETRON INJ 2 MG/ML 2 ML VIAL IV PRN (12:45)
[2017-11-08] MEDS ORDERED: SOD PHOSPHATE/SOD BIPHOSPHATE ENEMA 132 ML BTL PR PRN (12:45)
[2017-11-08] MEDS ORDERED: METOCLOPRAMIDE HCL INJ 5 MG/ML 2 ML VIAL IV PRN (12:45)
[2017-11-08] MEDS ORDERED: NITROGLYCERIN 0.4 MG SL PER TAB CHARGE UT SCH (12:45)
[2017-11-08] MEDS ORDERED: NALOXONE HCL 0.4 MG/1 ML VIAL/CARP IV PRN (12:45)
[2017-11-08] MEDS ORDERED: MAGNESIUM HYDROXIDE SUSP 30 ML UDC PO PRN (12:45)
--- NOTE | 2017-11-08 13:09 | Discharge Instructions ---
Discharge Instructions Date of Service Nov 08, 2017. Admission Reason for Admission: Left Shoulder Djd, Chronic Rotator Cuff Tear Discharge Discharge Diagnosis / Problem: Left Reverse Total Shoulder Discharge Goals Goal(s): Decrease discomfort, Improve function Activity Recommendations Activity Limitations: resume your previous activity . Instructions / Follow-Up Instructions / Follow-Up Activity and Therapy Recommendations: * Wear your sling for 3 weeks, unless otherwise instructed. You may remove your sling to shower and to dress, but otherwise, you should be in your sling at all times, including while sleeping * The shoulder replacement is very stable and you can use your hand while in the sling * Physical Therapy should start about 3-5 days from your day of surgery. Therapy will last about 8-12 weeks * You were shown a series of exercises in the hospital. Do these exercises daily including the exercises you were shown in physical therapy. Medications: * Narcotic You will likely be sent home from the hospital with a prescription for the narcotic pain medication that worked best throughout your stay. * Other medications may be prescribed for specific circumstances. If you have any questions, please call the office at . * Resume previous home medications unless otherwise instructed Dressing Care: If the incision is not draining then you may leave the katharina open to air. If there is a little bit of drainage or if the katharina are getting stuck on your clothing then cover the incision with a dry dressing. The katharina will be removed at your 2 week follow-up appointment. Showering: You may shower 5 days from the day of surgery. Let the soapy shower water run over the katharina and pat them dry. Do not scrub or soak the incision. Things To Watch For: * Drainage from the incision site that occurs more than one week after your surgery. * Increased redness at the incision site. * Fever above 102 degrees Fahrenheit. * Unusual chest pain or shortness of breath. * Call [facility] at with any of the above problems Follow-Up Visit: Follow-up with Dr. Pool 2 weeks after your day of surgery. An appointment was probably scheduled when you signed-up for surgery in the office. If you have any questions call Office Instructions: More detailed instructions as well as Frequently Asked Questions were provided in a folder by our office when you signed-up for surgery. Please review these instructions when you get home. If you have any further questions or concerns, please feel free to call the office at [phone] Current Hospital Diet Patient's current hospital diet: Regular Diet Discharge Diet Recommended Diet: Regular Diet Procedures Procedures Performed: Left Reverse Total Shoulder Arthroplasty Pending Studies Studies pending at discharge: no Medical Emergencies . Who to Call and When: Medical Emergencies: If at any time you feel your situation is an emergency, please call 911 immediately. . Non-Emergent Contact Non-Emergency issues call your: Surgeon Call Non-Emergent contact if: wound has increased drainage, wound has increased redness . "Provider Documentation" section prepared by Oscar Pool. .
--- NOTE | 2017-11-08 13:38 | DIAGNOSTIC IMAGING REPORT ---
L SHOULDER MIN 2 VIEWS ROUTINE CLINICAL HISTORY: 77 years-old Male presenting with Post shoulder surgery. TECHNIQUE: Frontal and transscapular Y views of the left shoulder were obtained. COMPARISON: 09/19/2017. FINDINGS: There has been interval reverse total shoulder arthroplasty. No malalignment. No gross evidence of a periprosthetic fracture. Expected soft tissue emphysema. Overlying skin katharina noted. No subluxation of the humeral component. The acromioclavicular joint is congruent. Visualized portion of the lungs demonstrates left basilar opacity, likely atelectasis. IMPRESSION: Expected postsurgical appearance status post reverse total left shoulder arthroplasty. Electronically signed by: Derrick Kimble M.D. 11/08/2017 1:36 PM Dictated Date/Time: 11/08/2017 1:35 PM
--- NOTE | 2017-11-08 13:50 | Anesthesiology Progress Note ---
Anesthesia Post Op Note Date & Time Nov 08, 2017 at 13:50 Vital Signs Pain Intensity: 0 Vital Signs Past 12 Hours Date Time Temp Pulse Resp B/P (MAP) Pulse Ox O2 Delivery O2 Flow Rate FiO2 11/08/17 13:40 54 18 140/72 7 Nasal Cannula 3 11/08/17 13:30 62 18 145/66 98 Nasal Cannula 3 11/08/17 13:20 62 18 157/69 97 Oxymask 10 11/08/17 13:10 66 18 166/76 97 Oxymask 10 11/08/17 13:04 36.1 62 12 159/93 99 Oxymask 10 11/08/17 08:54 36.6 57 18 182/85 94 Room Air Notes Mental Status: alert / awake / arousable, participated in evaluation Pt Amnestic to Procedure: Yes Nausea / Vomiting: adequately controlled Pain: adequately controlled Airway Patency, RR, SpO2: stable & adequate BP & HR: stable & adequate Hydration State: stable & adequate Anesthetic Complications: no major complications apparent Block working well in pacu
[2017-11-08] MEDS ORDERED: ATROPINE SULFATE 0.1 MG/ML 5ML SYR IV PRN (14:00)
[2017-11-08] MEDS ORDERED: EpHEDrine SULFATE INJ 50 MG/ML AMP IV PRN (14:00)
[2017-11-08] MEDS: POTASSIUM CHLORIDE INJ 10 MEQ in SODIUM CHLORIDE 0.9% 1000ML 1,000 ML IV SCH (14:58)
--- NOTE | 2017-11-08 15:12 | OPERATIVE REPORT ---
DATE OF OPERATION: 11/08/2017 PREOPERATIVE DIAGNOSIS: Rotator cuff arthropathy of the left shoulder. POSTOPERATIVE DIAGNOSIS: Rotator cuff arthropathy of the left shoulder. PROCEDURE: Reverse left total shoulder arthroplasty. SURGEON: Dr. Oscar Pool. APPLIANCE SERVICE SUPERVISOR: Maik Mancuso PA-C, whose assistance was necessary for retraction and closure. ANESTHESIA: General with a left interscalene nerve block. COMPLICATIONS: None. CONDITION: Stable to PACU. IMPLANTS USED: I used a [employer] comprehensive reverse left shoulder arthroplasty system with a size 10 mini pressfit stem, a 25 mm mini baseplate with a 45-mm central screw, 2 peripheral locking screws, a 36 mm standard eccentric glenosphere and a standard humeral tray and bearing. INDICATIONS: De is a pleasant 77-year-old male who underwent an open left rotator cuff repair many years ago. Unfortunately, more recently, he has been having increased shoulder pain and weakness. X-rays and clinical examination were diagnostic for rotator cuff arthropathy of the left shoulder. After failing conservative treatment, he elected to undergo a reverse left shoulder arthroplasty. DESCRIPTION OF PROCEDURE: On 11/08/2017, he arrived at [facility] for the above procedure. He was seen in the preoperative holding area and the operative extremity was identified and signed. He was given appropriate antibiotic and a left interscalene nerve block. He was taken back to the operating room, laid on the table in supine position and put under general anesthesia. He was then put into the beachchair position. Left shoulder was prepped and draped in sterile fashion. Time-out was done and the patient's operative extremity was properly identified. A deltopectoral approach was used. Dissection was taken down through the fascia and the deltoid was retracted laterally and the conjoined tendon was retracted medially. The subscapularis was already torn. The long head of the biceps tendon was tenodesed to the upper border of the pec major, but the intra-articular portion of the biceps was absent. The proximal humerus was then dislocated out of the wound. Sequential reaming of the humerus up to a size 10 reamer was done. Off that reamer, a proximal humeral resection guide was placed. The proximal humerus was resected at 135 degrees of inclination and 25 degrees of retroversion. The glenoid was then exposed. Time was spent doing a complete circumferential capsular and labral release. [employer] signature guide was then snapped on to the anterior rim of the glenoid and a guide pin was placed in the reverse shoulder arthroplasty hole. A 25 mm mini base plate reamer was then used to ream the glenoid and a 25 mm mini baseplate was then impacted into place. A single 45-mm central screw was placed followed by superior and inferior locking screws. A 36 mm eccentric glenosphere was then impacted into place. The proximal humerus was then exposed. Sequential broaching up to a size 10 broach was done. Off that broach, a standard humeral tray was trialed, the shoulder was reduced, brought through a full range of motion and felt to be stable. The broach was removed. The final size 10 mini pressfit stem was then impacted into place. The standard humeral bearing was snapped onto the humeral tray and the ring lock mechanism was engaged. The humeral tray was then impacted onto the humeral stem and the shoulder was reduced. The shoulder was brought through a full range of motion and once again felt to be stable. Surrounding soft tissues were then injected with 100 mL of an orthopedic pain control cocktail. The wound was then irrigated with 3 liters of normal saline solution with bacitracin. The subscapularis was not healthy enough to be repaired. Hemostasis was controlled. Skin was closed with 2-0 Vicryl, 3-0 V-Loc suture and katharina. He was then placed in a soft dressing and regular arm sling. He was then extubated, transferred to a [facility] and taken to the postanesthesia care unit in stable condition. He tolerated the procedure well. I attest to the content of the Intraoperative Record and any orders documented therein. Any exception s are noted below.
[2017-11-08] MEDS ORDERED: HydrALAZINE HCL 20 MG/ML VIAL IV. PRN (15:45)
--- NOTE | 2017-11-08 15:55 | History and Physical ---
History & Physical Date & Time of Service: Nov 08, 2017 at 15:45 Chief Complaint: Left Shoulder Djd, Chronic Rotator Cuff Tear Primary Care Physician: Román Valentine M.D. History of Present Illness Source: patient, hospital records, other 77 y/o M Hx HTN, HPL, BPH, COPD, diastolic CHF. The pt is post L total shoulder replacement. The medical service has been contacted to consult due to uncontrolled HTN in the post-op period. The pt is asymptomatic at the time of our evaluation. He denies a headache, visual changes, CP, SOB, N/V or fevers. He does not have excessive pain at the surgical site. Hi SBP has been as high as 195. He did not have his Lisinopril or Lasix prior to surgery. Past Medical/Surgical History 1) HTN 2) HPL 3) Diastolic dysfunction 4) BPH 5) COPD 6) Osteoarthritis Family History Cancer FH: heart disease FHx: lung disease Hypertension Social History Smoking Status: Never Smoker Marital Status: Occupational Status: retired Allergies Coded Allergies: Tiotropium (Verified Adverse Reaction, Unknown, CHEST PAIN, PRESSURE, 11/08) Home Medications Scheduled Acetaminophen (Tylenol), 500 MG PO PRN Alfuzosin HCl (Alfuzosin HCl ER), 10 MG PO QAM Aspirin (Aspirin Ec), 81 MG PO QAM Atorvastatin (Lipitor), 20 MG PO QAM Carvedilol (Coreg), 12.5 MG PO BID Dutasteride (Avodart), 0.5 MG PO QAM Esomeprazole Magnesium (Nexium), 40 MG PO QAM Fluticasone Furoate-Vilanterol (Breo Ellipta 200-25 Mcg/INH), 1 PUFF INH QAM Furosemide (Lasix), 20 MG PO QAM Lisinopril (Prinivil), 40 MG PO QAM Nitroglycerin (Nitrostat), 0.4 MG UT PRN Review of Systems Constitutional: No fever, No chills, No sweats Eyes: No worsening of vision ENT: No hearing loss, No unusual epistaxis, No nasal symptoms Respiratory: No cough, No sputum, No wheezing Cardiovascular: No chest pain, No orthopnea Abdomen: No pain, No nausea, No vomiting Musculoskeletal: No joint pain Genitourinary - Male: No hematuria, No dysuria Neurologic: No memory loss, No paralysis Psychiatric: No depression symptoms Endocrine: No excessive thirst Hematologic / Lymphatic: No abnormal bleeding/bruising Integumentary: No rash Allergic / Immunologic: No environmental allergies Physical Exam Vital Signs Date Time Temp Pulse Resp B/P (MAP) Pulse Ox O2 Delivery O2 Flow Rate FiO2 11/08/17 15:18 36.3 50 18 193/78 (116) 98 Nasal Cannula 2.0 11/08/17 15:03 Nasal Cannula 2.0 11/08/17 14:45 48 16 198/85 (122) 95 2.0 11/08/17 14:10 98 Nasal Cannula 2.0 11/08/17 14:10 98 Nasal Cannula 2.0 11/08/17 14:09 36.5 53 15 162/83 (109) 98 Nasal Cannula 2.0 11/08/17 13:50 36.2 52 18 140/89 98 Nasal Cannula 3 11/08/17 13:40 54 18 140/72 97 Nasal Cannula 3 11/08/17 13:30 62 18 145/66 98 Nasal Cannula 3 11/08/17 13:20 62 18 157/69 97 Oxymask 10 11/08/17 13:10 66 18 166/76 97 Oxymask 10 11/08/17 13:04 36.1 62 12 159/93 99 Oxymask 10 11/08/17 08:54 36.6 57 18 182/85 94 Room Air General Appearance: WD/WN, no apparent distress Head: normocephalic Eyes: normal inspection ENT: normal ENT inspection Neck: supple, no JVD Respiratory/Chest: chest non-tender, lungs clear, normal breath sounds Cardiovascular: regular rate, rhythm, no edema Abdomen/GI: normal bowel sounds, non tender, no organomegaly Back: normal inspection, no CVA tenderness Extremities/Musculoskelatal: + pertinent finding (L shoulder is splinted ) Neurologic/Psych: cane loader II-XII nml as tested, no motor/sensory deficits, alert Skin: normal color Impression Assessment and Plan 77 y/o M Hx HTN, HPL, BPH, COPD, diastolic CHF. The pt is post L total shoulder replacement. The medical service has been contacted to consult due to uncontrolled HTN in the post-op period. The pt is asymptomatic at the time of our evaluation. He denies a headache, visual changes, CP, SOB, N/V or fevers. He does not have excessive pain at the surgical site. Hi SBP has been as high as 195. He did not have his Lisinopril or Lasix prior to surgery. 1) HTN - uncontrolled post-op. We will start PRN Hydralazine. We will obtain post-op labs as if there is no acute derangement, we can likely administer Lisinopril this PM if needed. Lasix could be restarted AM. 2) CHF - euvolemic at the time of evaluation - Lasix held pre-op. Can provide additional if needed based on volume status. 3) COPD - no evidence of acute exacerbation - cont inhalers as prescribed 4) HPL - cont Atorvastatin 5) BPH - cont Alfuzosin Total time for this consult including review of labs, meds, imaging, records - discussion with pt and review of ortho notes - 33 min Please consider the above a consult Advanced Directives Existing Living Will: No Existing Power of Acute Care Clinical Nurse Specialist: No Resuscitation Status VTE Prophylaxis Will order VTE Prophylaxis: Yes
[2017-11-08] MEDS: ACETAMINOPHEN IV 1,000 MG in EMPTY BAG 0 ML IV SCH (16:23)
[2017-11-08] MEDS: KETOROLAC TROMETHAMINE 15 MG/ML VIAL IV. SCH ×2 (16:23→21:27)
[2017-11-08 16:48] LABS: CALCIUM 8.3 mg/dl (8.5-10.1); CREATININE 0.68 mg/dl (0.60-1.40); POTASSIUM 4.2 mmol/L (3.5-5.1)
[2017-11-08] MEDS: CEFAZOLIN IV 2,000 MG in SYRINGE 0 ML IV SCH (19:28)
[2017-11-08] MEDS ORDERED: SENNA 8.6 MG TAB PO SCH (21:00)
[2017-11-08] MEDS: CARVEDILOL 12.5 MG TAB PO SCH (21:24)
[2017-11-08] MEDS: DOCUSATE SODIUM 100 MG CAP PO SCH (21:24)
[2017-11-09] MEDS: ACETAMINOPHEN IV 1,000 MG in EMPTY BAG 0 ML IV SCH ×2 (00:27→07:57)
[2017-11-09] MEDS: POTASSIUM CHLORIDE INJ 10 MEQ in SODIUM CHLORIDE 0.9% 1000ML 1,000 ML IV SCH (00:29)
[2017-11-09 03:47] VITALS: BP 139/68; PULSE 67; TEMP 36.7; O2SAT 93
[2017-11-09] MEDS: KETOROLAC TROMETHAMINE 15 MG/ML VIAL IV. SCH ×2 (03:47→09:24)
[2017-11-09] MEDS: CEFAZOLIN IV 2,000 MG in SYRINGE 0 ML IV SCH (03:48)
[2017-11-09 07:04] LABS: HEMATOCRIT 36.6 % (42-52); HEMOGLOBIN 12.7 g/dL (14.0-18.0); MEAN CELL VOLUME 91.7 fL (80-100); MEAN CORPUSCULAR HEMOGLOBIN 31.8 pg (25-34); MEAN CORPUSCULAR HGB CONC 34.7 g/dl (32-36); MEAN PLATELET VOLUME 9.3 fL (7.4-10.4); PLATELET COUNT 137 K/uL (130-400); RED CELL DISTRIBUTION WIDTH CV 12.9 % (11.5-14.5); RED CELL DISTRIBUTION WIDTH SD 43.5 fL (36.4-46.3)
[2017-11-09] MEDS ORDERED: NURSING VERBAL MED ORDER ONE (07:15)
[2017-11-09] MEDS ORDERED: TRAM-10 PO (07:16)
[2017-11-09 07:37] VITALS: BP 177/72; PULSE 62; TEMP 36.8; O2SAT 94
[2017-11-09 07:37] LABS: CALCIUM 8.1 mg/dl (8.5-10.1); CREATININE 0.91 mg/dl (0.60-1.40); POTASSIUM 4.1 mmol/L (3.5-5.1)
--- NOTE | 2017-11-09 08:35 | PROGRESS NOTE ---
DATE: 11/09/2017 CHIEF COMPLAINT: Status post reverse left shoulder arthroplasty, postop day #1. SUBJECTIVE: De was seen and examined at bedside today. Overall, he has done very well. He does not have much pain in his shoulder. He was able to get some sleep last night. He has no complaints. OBJECTIVE: VITAL SIGNS: Stable on room air. He is voiding on his own. EXTREMITIES: On examination of the left shoulder, the dressing is clean and dry. He is wearing a sling as instructed. His radial, median, and ulnar nerves are checked and intact at his wrist. His axillary nerve is not definitively checked yet. LABORATORY DATA: He has an H and H today of 12.7 and 36.6. His PRP is still pending. IMAGING: X-rays postoperatively of the left shoulder show the prosthesis to be in anatomic alignment without any evidence of fracture, dislocation, or loosening. IMPRESSION: Status post reverse left shoulder arthroplasty, postop day #1. PLAN: At this point, he is doing about as well as expected. He will be seen by physical therapy today to do hand, wrist, elbow, and pendulum exercises. His pain is well controlled. He can be discharged to home later this morning.
--- NOTE | 2017-11-09 08:57 | Anesthesiology Progress Note ---
Anesthesia Post Op Note Date & Time Nov 09, 2017 at 08:57 Vital Signs Pain Intensity: 0.0 Vital Signs Past 12 Hours Date Time Temp Pulse Resp B/P (MAP) Pulse Ox O2 Delivery O2 Flow Rate FiO2 11/09/17 07:37 36.8 62 16 177/72 (107) 94 Room Air 11/09/17 03:47 36.7 67 17 139/68 (91) 93 Room Air 11/09/17 00:20 Room Air 11/08/17 23:30 36.7 62 16 144/76 (98) 94 Room Air Notes Mental Status: alert / awake / arousable, participated in evaluation Pt Amnestic to Procedure: Yes Nausea / Vomiting: adequately controlled Pain: adequately controlled Airway Patency, RR, SpO2: stable & adequate BP & HR: stable & adequate Hydration State: stable & adequate Anesthetic Complications: no major complications apparent
[2017-11-09] MEDS ORDERED: FUROSEMIDE 20 MG TAB PO SCH (09:00)
[2017-11-09] MEDS ORDERED: PANTOprazole SOD 40 MG TAB PO SCH (09:00)
[2017-11-09] MEDS ORDERED: MULTIVITAMIN TAB PO SCH (09:00)
[2017-11-09] MEDS ORDERED: LISINOPRIL 40 MG TAB PO SCH (09:00)
[2017-11-09] MEDS ORDERED: ATORVASTATIN 20 MG TAB PO SCH (09:00)
[2017-11-09] MEDS ORDERED: ASPIRIN 81 MG ECTAB PO SCH (09:00)
[2017-11-09] MEDS ORDERED: ALFUZosin TAB 10 MG TAB PO SCH (09:00)
[2017-11-09] MEDS: CARVEDILOL 12.5 MG TAB PO SCH (09:24)
[2017-11-09] MEDS: DOCUSATE SODIUM 100 MG CAP PO SCH (09:24)
--- NOTE | 2017-11-09 09:43 | DISCHARGE SUMMARY ---
DISCHARGE DIAGNOSIS: Rotator cuff arthropathy of the left shoulder. PROCEDURE: Left reverse shoulder arthroplasty on 11/08/[address] Oscar Pool. DISCHARGE INSTRUCTIONS: 1. Tramadol 50 mg every 4 hours as needed for pain. 2. Left arm sling for 3 weeks. 3. Start physical therapy this week. 4. Follow up with Dr. Pool in 2 weeks. 5. Call the office of Dr. Pool with any questions or concerns. 6. Tylenol 500 mg as needed for pain. 7. Alfuzosin 10 mg daily. 8. Aspirin 81 mg daily. 9. Lipitor 20 mg daily. 10. Coreg 12.5 mg twice a day. 11. Avodart 0.5 mg daily. 12. Nexium 40 mg daily. 13. Breo inhaler daily. 14. Lasix 20 mg daily. 15. Prinivil 40 mg daily. 16. Nitrostat 0.4 mg as needed. HOSPITAL COURSE: De is a pleasant 77-year-old male who presented to my office with chronic increasing left shoulder pain. He does have a history of an open rotator cuff repair many years ago. X-rays and clinical examination were diagnostic for rotator cuff arthropathy of the left shoulder. After failing conservative treatment, he elected to undergo a reverse left shoulder arthroplasty. On 11/08/2017, he arrived at [facility] and underwent a reverse left shoulder arthroplasty without complication. He had a general anesthetic and a left interscalene nerve block. Postoperatively, he was discharged to general orthopedic floor. His hospital course was uneventful. On postop day #1, his H and H was stable at 12.7 and 36.6 and is able to participate well with physical therapy, doing hand, wrist, elbow, and pendulum exercises. He was subsequently discharged to home with tramadol for pain and the above instructions.
[2017-11-09 10:11] VITALS: BP 148/77; PULSE 73; O2SAT 94
--- NOTE | 2017-11-09 10:12 | Hospitalist Progress Note ---
Hospitalist Progress Note Date of Service Nov 09, 2017. Subjective Pt evaluation today including: conversation w/ patient, physical exam, chart review, lab review, review of inpatient medication list Pain: None PO Intake: Tolerating PO diet Voiding: no voiding problems Patient reports feeling well. He denies any pain at this time. He does have some tingling in his first 3 digits of the left hand. He states that last night he did develop some nausea and lightheadedness but this is now resolved. He worked with physical and occupational therapy this morning without any lightheadedness. He is tolerating his PO diet well. He is voiding on his own and passing gas but has not yet had a bowel movement. The patient denies fevers , chills, sweats, chest pain, palpitations, claudication, cough, wheezing, shortness of breath, nausea, vomiting, abdominal pain, dysuria, hematuria, urinary retention, paralysis, weakness. Additional Comments: See HPI for pertinent positives and negatives. All other systems reviewed and negative. Objective Vital Signs Date Time Temp Pulse Resp B/P (MAP) Pulse Ox O2 Delivery O2 Flow Rate FiO2 11/09/17 07:37 36.8 62 16 177/72 (107) 94 Room Air 11/09/17 03:47 36.7 67 17 139/68 (91) 93 Room Air 11/09/17 00:20 Room Air 11/08/17 23:30 36.7 62 16 144/76 (98) 94 Room Air 11/08/17 19:06 36.7 71 16 151/74 (99) 94 Nasal Cannula 2.0 11/08/17 17:17 36.4 64 16 162/73 (102) 94 Nasal Cannula 2.0 11/08/17 16:01 36.4 54 18 191/74 (113) 98 Nasal Cannula 2.0 11/08/17 15:18 36.3 50 18 193/78 (116) 98 Nasal Cannula 2.0 11/08/17 15:03 Nasal Cannula 2.0 11/08/17 14:45 48 16 198/85 (122) 95 2.0 11/08/17 14:10 98 Nasal Cannula 2.0 11/08/17 14:10 98 Nasal Cannula 2.0 11/08/17 14:09 36.5 53 15 162/83 (109) 98 Nasal Cannula 2.0 11/08/17 13:50 36.2 52 18 140/89 98 Nasal Cannula 3 11/08/17 13:40 54 18 140/72 97 Nasal Cannula 3 11/08/17 13:30 62 18 145/66 98 Nasal Cannula 3 11/08/17 13:20 62 18 157/69 97 Oxymask 10 11/08/17 13:10 66 18 166/76 97 Oxymask 10 11/08/17 13:04 36.1 62 12 159/93 99 Oxymask 10 Physical Exam Notes: General appearance: Well-developed, well-nourished, no apparent distress Head: Normocephalic, atraumatic Eyes: Normal inspection, PERRL, EOMI ENT: Normal ENT inspection, hearing grossly normal, pharynx normal Neck: Supple, no JVD, trachea midline Respiratory/Chest: Lungs clear to auscultation, normal breath sounds, no respiratory distress Cardiovascular: Regular rate & rhythm, no gallop, no murmur Abdomen/GI: Normal bowel sounds, non-tender, soft Extremities/Musculoskeletal: +Left shoulder in sling. No calf tenderness, no pedal edema Neurological/Psych: Alert, normal mood/affect, oriented x 3 Skin: Normal color, warm/dry, no rash Laboratory Results Last 24 Hours Test 11/08/17 16:09 11/09/17 06:49 Sodium Level 140 mmol/L 138 mmol/L Potassium Level 4.2 mmol/L 4.1 mmol/L Chloride Level 105 mmol/L 106 mmol/L Carbon Dioxide Level 28 mmol/L 24 mmol/L Anion Gap 7.0 mmol/L 8.0 mmol/L Blood Urea Nitrogen 11 mg/dl 18 mg/dl Creatinine 0.68 mg/dl 0.91 mg/dl Est Creatinine Clear Calc Drug Dose 93.8 ml/min 70.1 ml/min Estimated GFR () 105.3 92.6 Estimated GFR (Non- 90.8 79.9 BUN/Creatinine Ratio 16.4 19.7 Random Glucose 140 mg/dl 130 mg/dl Calcium Level 8.3 mg/dl 8.1 mg/dl Magnesium Level 1.9 mg/dl White Blood Count 11.10 K/uL Red Blood Count 3.99 M/uL Hemoglobin 12.7 g/dL Hematocrit 36.6 % Mean Corpuscular Volume 91.7 fL Mean Corpuscular Hemoglobin 31.8 pg Mean Corpuscular Hemoglobin Concent 34.7 g/dl RDW Standard Deviation 43.5 fL RDW Coefficient of Variation 12.9 % Platelet Count 137 K/uL Mean Platelet Volume 9.3 fL Assessment and Plan 77 y/o male with a history of HTN, HLD, chronic diastolic CHF, COPD, BPH, and GERD who presents s/p left TSA with Dr. Pool on 11/08 for medical management of postop HTN. S/p left TSA--POD #1 -Pain management, DVT prophylaxis, and PT/OT as per primary team HTN--improving -BP up to 193/78 postop -Hydralazine 5 mg IV q8h prn SBP >165 -Given 1 dose hydralazine at 1600 on 11/08, BP improved since -Pt's home lisinopril and Lasix were held preop, this plus the surgery likely contributed -Renal function stable, home lisinopril 40 mg PO qd and Lasix 20 mg PO qd resumed today. SBP while working with PT in 140s -Continue Coreg 12.5 mg PO BID HLD -Continue Lipitor 20 mg PO qd Chronic diastolic CHF--stable, no acute exacerbation -Continue Coreg, lisinopril, Lasix as above COPD--stable, no acute exacerbation -Continue Breo BPH -Continue alfuzosin 10 mg PO qd and Avodart 0.5 mg PO qd GERD -Nexium converted to Protonix Code Status -Level I, FULL RESUSCITATION STATUS Pt. is stable from a medical standpoint, we will sign off. Clear for discharge as per primary team.
[2017-11-09 10:17] VITALS: BP_SYST 111; BP_SYST 177; BP_DIAS 66; BP_DIAS 72; PULSE 62; PULSE 71; TEMP 36.8; O2SAT 94
[2017-11-09 10:45] VITALS: BP 111/66; PULSE 71
== END 2017-11-09 11:34 | disposition home or self-care (01) | DRG 908 ==
LOC: C.ACU 08:13 → C.3E 12:40 → ENRESERV 13:52
PROVIDERS: ADMIT Orthopaedic Surgery; ATTEND Orthopaedic Surgery
PROC: 0RRK00Z Replacement of Left Shoulder Joint with Reverse Ball and Socket Synthetic Substitute, Open Approach (ICD-10-PCS; principal; 2017-11-08 11:20)
DX: S46.002A Unspecified injury of muscle(s) and tendon(s) of the rotator cuff of left shoulder, initial encounter (principal); I50.30 Unspecified diastolic (congestive) heart failure; I15.8 Other secondary hypertension; I11.0 Hypertensive heart disease with heart failure; E78.5 Hyperlipidemia, unspecified; N40.0 Benign prostatic hyperplasia without lower urinary tract symptoms; Z96.641 Presence of right artificial hip joint; K21.9 Gastro-esophageal reflux disease without esophagitis; J44.9 Chronic obstructive pulmonary disease, unspecified; M19.90 Unspecified osteoarthritis, unspecified site; Z82.49 Family history of ischemic heart disease and other diseases of the circulatory system; X50.0XXA Overexertion from strenuous movement or load, initial encounter; Y92.89 Other specified places as the place of occurrence of the external cause

== ENCOUNTER 2018-08-04 16:10 | Inpatient (IN) ==
[2018-08-04] MEDS ORDERED: GI COCKTAIL ED USE PO ONE (16:26)
[2018-08-04] MEDS ORDERED: ASPIRIN CHEW 324 MG PO STA (16:26)
[2018-08-04] MEDS ORDERED: NITROGLYCERIN SL 0.4 MG/TAB TAB SL STA (16:26)
[2018-08-04] MEDS ORDERED: SODIUM CHLORIDE 0.9% 500 ML IV SCH (16:30)
--- NOTE | 2018-08-04 16:41 | Emergency Department Note ---
Entered by Hortencia Weeks acting as a scribe for Paulino Ontiveros DO History of Present Illness General Chief complaint: Abdominal Pain Stated complaint: STOMACH FEELS LIKE IT'S GOING TO EXPLODE Time Seen by Provider: 08/04/18 16:19 Source: patient History of Present Illness Onset (ago): day(s) 1 Location: abdomen Severity: severe Pain Consistency: + other (Persistent) Maximum Pain Intensity: 10 Quality: + other (Abdominal pain) Relieved By: + medication (Pepto-Bismol, Tums) Associated symptoms: + nausea/vomiting (Positive nausea. Negative vomiting.) and + weakness Treatments prior to arrival: other (Pepto-Bismol, Tums) The patient is an 78 year old male presenting to the Emergency Department complaining of persistent abdominal pain starting 1 day ago. The patient reports that he has severe abdominal pain. He describes this pain as a pressure. He explains that he is nauseous and weak. He notes that his right knee became hot while he was experiencing this abdominal pain. The patient reports that he has been passing gas that partially relieved his abdominal pain. He states that he took Pepto-Bismol and Tums that also helped to relieve the pain but that the pain came back. He adds that he has a history of hypertension, heart attack and blood clots. He denies vomiting. Home Medications Home Medications Medication Instructions Recorded Confirmed Type acetaminophen 500 mg PO QID PRN 08/04/18 08/04/18 History alfuzosin 10 mg PO DAILY 08/04/18 08/04/18 History aspirin [Aspir-81] 81 mg PO DAILY 08/04/18 08/04/18 History atorvastatin 20 mg PO HS 08/04/18 08/04/18 History carvedilol 12.5 mg PO BID 08/04/18 08/04/18 History dutasteride 0.5 mg PO DAILY 08/04/18 08/04/18 History esomeprazole magnesium 40 mg PO DAILY 08/04/18 08/04/18 History fluticasone furoate-vilanterol 1 puff INHALATION DAILY 08/04/18 08/04/18 History [Breo Ellipta] furosemide 20 mg PO QAM 08/04/18 08/04/18 History lisinopril 40 mg PO DAILY 08/04/18 08/04/18 History nitroglycerin [Nitrostat] 0.4 mg SUBLINGUAL UD PRN 08/04/18 08/04/18 History tramadol 50 mg PO Q4H PRN 08/04/18 08/04/18 History Allergies Allergy/AdvReac Type Severity Reaction Status Date / Time tiotropium AdvReac Unknown CHEST Verified 11/08/17 08:50 PAIN, PRESSURE atorvastatin [From Lipitor] AdvReac Nausea Unverified 08/04/18 17:40 Past Med/Surg History Medical History Heart attack Degenerative joint disease (DJD) of hip Hypertension (Chronic) BPH (benign prostatic hyperplasia) COPD (chronic obstructive pulmonary disease) Essential (primary) hypertension HLD (hyperlipidemia) History of DVT (deep vein thrombosis) SVT (supraventricular tachycardia) Surgical History History of hip surgery History of shoulder surgery History of cardiac cath History of total hip replacement Family History Mother Coronary heart disease Stroke Father Hypertension Social History marital status: Current Living Situation: Spouse current occupational status: retired Feels Safe at Home: Yes Smoking Status: Never smoker Hx Alcohol Use: No Hx Substance Use: No Review of Systems See HPI for pertinent positives & negatives. and A total of 10 systems reviewed and were otherwise negative Physical Exam Vital Signs Vital Signs - 24 hr 08/04/18 16:12 08/04/18 17:17 08/04/18 18:46 Temperature 37.1 C Temperature Source Oral Sepsis Recent Fever Within 48 Hours No Sepsis New/Unexplained Change in Mental Status No Sepsis Action Taken by Nursing No Action Required Pulse Rate 72 Pulse Rate [Apical] 76 96 H Respiratory Rate 20 22 26 H Blood Pressure 204/79 H Blood Pressure [Left Arm] 168/95 H Blood Pressure Mean 120 Blood Pressure Mean [Left Arm] 119 Pulse Oximetry 97 95 94 Oxygen Delivery Method Room Air Room Air Nasal Cannula Oxygen Flow Rate 1 CONSTITUTIONAL/VITAL SIGNS: Reviewed / noted above. GENERAL: Non-toxic in appearance. INTEGUMENTARY: Warm, dry, and [place]. HEAD: Normocephalic. EYES: without scleral icterus or trauma. ENT/OROPHARYNX: clear and moist. LYMPHADENOPATHY/NECK: Is supple without lymphadenopathy or meningismus. RESPIRATORY: Lungs clear and equal. CARDIOVASCULAR: Regular rate and rhythm. GI/ABDOMEN: Soft. No organomegaly or pulsatile mass. No rebound or guarding. Normal bowel sounds. Tenderness in epigastric region. EXTREMITIES: Warm and well perfused. BACK: No CVA tenderness. NEUROLOGICAL: Intact without focal deficits. PSYCHIATRIC: normal affect. MUSCULOSKELETAL: Normally developed with good muscle tone. Course 1621: The patient was evaluated in room A3, and a complete history and physical examination were performed. 1814: I discussed the patients case with Dr. Dimitri ATKINS hospitalist. He will evaluate the patient for further management. 1904: I updated the patient at this time. Consultations Consultation #1: I discussed the patients case with Dr. Dimitri ATKINS hospitalist. He will evaluate the patient for further management. Time: 18:15 Administered Medications Ioversol (Optiray 320 100ml) 94 ml IV ONCE PRN PRN Reason: Interaction Checking Stop: 08/08/18 17:46 Last Admin: 08/04/18 17:48 Dose: 94 ml Documented by: [id number] Discontinued Medications Al Hydrox/Mg Hydrox/Simethicone () 1 dose PO ONE ONE Stop: 08/04/18 16:27 Last Admin: 08/04/18 16:44 Dose: 1 dose Documented by: [id number] Aspirin (Aspirin) 324 mg PO NOW STA Stop: 08/04/18 16:27 Last Admin: 08/04/18 16:43 Dose: 324 mg Documented by: [id number] Sodium Chloride (Nss) 500 mls @ 999 mls/hr IV .Q31M POLO Stop: 08/04/18 17:00 Last Infusion: 08/04/18 18:28 Dose: 0 mls/hr Documented by: [id number] Admin: 08/04/18 16:44 Dose: 999 mls/hr Documented by: [id number] Morphine Sulfate (Morphine Sulfate) 4 mg IV NOW STA Stop: 08/04/18 17:28 Last Admin: 08/04/18 17:30 Dose: 4 mg Documented by: [id number] Nitroglycerin (Nitrostat) 0.4 mg SL NOW STA Stop: 08/04/18 16:27 Last Admin: 08/04/18 16:44 Dose: 0.4 mg Documented by: [id number] Medical Decision Making Differential Diagnosis the differential was considered includes acute myocardial infarction, acute coronary syndrome, myocarditis, pericarditis, pericardial effusions /tamponad, esophageal perforation, thoracic aortic dissection, pulmonary embolism, pneumonia, pneumothorax, pancreatitis, shingles, acute cholecystitis, perforated abdominal viscus. Medical Records Attestation: I reviewed the patient's medical records. Home Medications Current Medication List: was personally reviewed by me Laboratory Data Attestation: I reviewed the patient's lab results. Result diagrams: 08/04/18 16:29 08/04/18 16:29 Lab Results 08/04/18 08/04/18 08/04/18 Range/Units 16:29 16:29 16:29 WBC 7.95 (4.8-10.8) K/uL RBC 4.66 L (4.7-6.1) M/uL Hgb 15.2 (14.0-18.0) g/dL Hct 42.0 (42-52) % MCV 90.1 (80-100) fL MCH 32.6 (25-34) pg MCHC 36.2 H (32-36) g/dL RDW Std Deviation 40.9 (36.4-46.3) fL RDW Coeff of Negro 12.7 (11.5-14.5) % Plt Count 168 (130-400) K/uL MPV 9.9 (7.4-10.4) fL Immature Gran % (Auto) 0.3 % Neut % (Auto) 82.8 % Lymph % (Auto) 11.3 % [place] % (Auto) 4.5 % Eos % (Auto) 0.8 % Baso % (Auto) 0.3 % Immature Gran # (Auto) 0.02 (0.00-0.02) K/uL Neut # (Auto) 6.59 H (1.4-6.5) K/uL Lymph # (Auto) 0.90 L (1.2-3.4) K/uL [place] # (Auto) 0.36 (0.11-0.59) K/uL Eos # (Auto) 0.06 (0-0.5) K/uL Baso # (Auto) 0.02 (0-0.2) K/uL PT 10.9 (9.0-12.0) Seconds INR 1.1 (0.9-1.1) Sodium 138 (136-145) mmol/L Potassium 3.7 (3.5-5.1) mmol/L Chloride 103 (98-107) mmol/L Carbon Dioxide 29 (21-32) mmol/L Anion Gap 6.0 (3-11) BUN 14 (7-18) mg/dl Creatinine 1.03 (0.6-1.4) mg/dl Est Cr Clr Drug Dosing 62.4 ml/min Est GFR ( Amer) 79.1 Est GFR (Non-Af Amer) 68.3 BUN/Creatinine Ratio 13.1 (10-20) Glucose 138 H (70-99) mg/dl Calcium 9.0 (8.5-10.1) mg/dl Total Bilirubin 2.2 H (0.2-1) mg/dl AST 211 H (15-37) U/L ALT 204 H (12-78) U/L Alkaline Phosphatase 280 H (45-117) U/L Troponin I < 0.015 (0-0.045) ng/ml Total Protein 6.9 (6.4-8.2) gm/dl Albumin 3.7 (3.4-5.0) gm/dl Globulin 3.2 (2.5-4.0) gm/dl Albumin/Globulin Ratio 1.2 (0.9-2) Lipase 166 (73-393) U/L Urine Color Urine Appearance (Clear) Urine pH (4.5-7.5) Ur Specific [place] (1.000-1.030) Urine Protein (Negative) Urine Glucose (UA) (Negative) Urine Ketones (Negative) Urine Blood (Negative) Urine Nitrite (Negative) Urine Bilirubin (Negative) Urine Urobilinogen (Negative) Ur Leukocyte Esterase (Negative) 08/04/18 08/04/18 Range/Units 16:29 16:29 WBC (4.8-10.8) K/uL RBC (4.7-6.1) M/uL Hgb (14.0-18.0) g/dL Hct (42-52) % MCV (80-100) fL MCH (25-34) pg MCHC (32-36) g/dL RDW Std Deviation (36.4-46.3) fL RDW Coeff of Negro (11.5-14.5) % Plt Count (130-400) K/uL MPV (7.4-10.4) fL Immature Gran % (Auto) % Neut % (Auto) % Lymph % (Auto) % [place] % (Auto) % Eos % (Auto) % Baso % (Auto) % Immature Gran # (Auto) (0.00-0.02) K/uL Neut # (Auto) (1.4-6.5) K/uL Lymph # (Auto) (1.2-3.4) K/uL [place] # (Auto) (0.11-0.59) K/uL Eos # (Auto) (0-0.5) K/uL Baso # (Auto) (0-0.2) K/uL PT (9.0-12.0) Seconds INR (0.9-1.1) Sodium (136-145) mmol/L Potassium (3.5-5.1) mmol/L Chloride (98-107) mmol/L Carbon Dioxide (21-32) mmol/L Anion Gap (3-11) BUN (7-18) mg/dl Creatinine (0.6-1.4) mg/dl Est Cr Clr Drug Dosing ml/min Est GFR ( Amer) Est GFR (Non-Af Amer) BUN/Creatinine Ratio (10-20) Glucose (70-99) mg/dl Calcium (8.5-10.1) mg/dl Total Bilirubin (0.2-1) mg/dl AST (15-37) U/L ALT (12-78) U/L Alkaline Phosphatase (45-117) U/L Troponin I Cancelled (0-0.045) ng/ml Total Protein (6.4-8.2) gm/dl Albumin (3.4-5.0) gm/dl Globulin (2.5-4.0) gm/dl Albumin/Globulin Ratio (0.9-2) Lipase (73-393) U/L Urine Color Yellow Urine Appearance Clear (Clear) Urine pH 8.5 H (4.5-7.5) Ur Specific [place] 1.015 (1.000-1.030) Urine Protein Negative (Negative) Urine Glucose (UA) Negative (Negative) Urine Ketones Negative (Negative) Urine Blood Negative (Negative) Urine Nitrite Negative (Negative) Urine Bilirubin Negative (Negative) Urine Urobilinogen Negative (Negative) Ur Leukocyte Esterase Negative (Negative) Imaging Data Radiologist's Impression: Radiology results as stated below per my review and the radiologist's interpretation: CT abd pelvis IV con only CLINICAL HISTORY: Right upper quadrant abdominal pain, elevated LFTs, elevated bilirubin. COMPARISON STUDY: None. TECHNIQUE: The patient was scanned in a dynamic helical fashion during intravenous administration of 94 cc of Optiray 320 A dose lowering technique was utilized adhering to the principles of ALARA. CT DOSE: 614.64 mGy.cm FINDINGS: Lower chest: There are bibasilar atelectatic changes. Liver: There is mild central intrahepatic biliary ductal dilatation. No focal hepatic masses are visualized. The hepatic veins and portal vein appear patent. Gallbladder: The gallbladder appears minimally distended. The common bile duct is dilated measuring 10 mm. There is a suspected distal common bile duct filling defect. Spleen: Normal in size and attenuation. Pancreas: There is no pancreatic ductal dilatation. 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 Adrenal glands: Unremarkable. Kidneys: No solid renal masses are visualized. There are bilateral renal cysts, the largest of which is located on the right measuring 21 mm Bowel: There are no transition zones indicate bowel obstruction. The appendix appears normal. There is no acute diverticulitis. Peritoneum: There are bilateral inguinal hernias. There is no free air. There is trace free fluid within the right lower quadrant. Vasculature: The abdominal aorta is normal in course and caliber. Adenopathy: None. Pelvic viscera: The prostate is mildly prominent. A portion of the right anterior lateral aspect of the bladder extends into the right inguinal hernia Skeletal structures: No destructive osseous lesions are seen. IMPRESSION: 1. Mild intra and extrahepatic biliary ductal dilatation. A distal common bile duct filling defect is visualized. On a statistical basis this represents a noncalcified stone. An MRCP or ERCP could be obtained in follow-up for confirmation 2. No evidence of bowel obstruction. No evidence of free air 3. Normal appendix. No evidence of acute diverticulitis. 4. Bilateral inguinal hernias Electronically signed by: Kip Atkinson M.D. 08/04/2018 5:59 PM US gallbladder CLINICAL HISTORY: Right upper quadrant abdominal pain. Elevated bilirubin. Abnormal CT scan. COMPARISON STUDY: CT scan dated 08/04/2018 FINDINGS: The pancreas was not visualized. There is mild central intrahepatic biliary ductal dilatation. No gallstones are visualized. There is borderline gallbladder wall thickening. The common bile duct is dilated measuring 17 mm. There is echogenic material within the common bile duct, possibly representing calculi. There is no right-sided hydronephrosis. There is a 23 mm mid pole cyst.. IMPRESSION: 1. Dilated common bile duct containing echogenic material, possibly representing calculi 2. Borderline gallbladder wall thickening. No gallbladder calculi identified 3. Nonvisualization of the pancreas Electronically signed by: Kip Atkinson M.D. 08/04/2018 6:39 PM XR chest 1V portable CLINICAL HISTORY: Atypical chest pain COMPARISON STUDY: 07/30/2017 FINDINGS: The heart is enlarged. There is no overt failure. There is no focal pulmonary consolidation. There are no pleural effusions. There is minor interstitial thickening. There are postsurgical changes involving the left shoulder.[ IMPRESSION: No active disease in the chest. Electronically signed by: Kip Atkinson M.D. 08/04/2018 7:03 PM ECG Data Attestation: I personally reviewed and interpreted this ECG as follows: Indication: abdominal pain Rate (beats per minute): 70 Rhythm: sinus rhythm Findings: + 1st degree AV block; no ST elevation and no ectopy Blood Pressure Blood Pressure Findings: Elevated blood pressure Blood Pressure Disposition: further management by hospitalist NIKKIE Narrative This is an 78-year-old male who presents to the ED with a chief complaint of abdominal pain. The patient's pain is in the epigastric area and in the chest. He states that this started yesterday evening. He took Pepto-Bismol and Tums that seemed to help. He also reported the burping helped. His symptoms resolved and then around 2 PM today, his symptoms returned. He tried Tums and Pepto-Bismol again without improvement. The patient reported some weakness today. He also describes his discomfort as a pressure in the retrosternal area with a little nausea. He has history of hypertension. He also reports history of DVT after a hip replacement in the past. He is not currently on anticoagulation. His EKG shows a sinus rhythm at a rate of 70 with a first- degree AV block and no acute injury or ectopy. A CT scan of the abdomen pelvis reveals some mild intra-and extrahepatic biliary ductal dilatation with possibly common bile duct stone. ERCP was recommended. CBC was normal. Total bilirubin is elevated 2.2, AST is 211, ALT is 204 and alkaline phosphatase was 281. Lipase was negative. Troponin was negative. Gallbladder ultrasound reveals a dilated common bile duct with some echogenic material possibly representing a stone. The patient was told the results of the test. He will be seen by the hospitalist for further inpatient evaluation care. He was treated with a GI cocktail and a sublingual nitroglycerin as well as aspirin p.o. initially. He was then given IV morphine for continued discomfort. A chest x- ray did not show acute disease and a urinalysis did not show infection. Impression & Plan Transaminitis, Hyperbilirubinemia, Common bile duct calculi Discharge Plan Visit Data Chief Complaint: Abdominal Pain Stated Complaint: STOMACH FEELS LIKE IT'S GOING TO EXPLODE ED Provider: Paulino Ontiveros Discharge Problem: Transaminitis, Hyperbilirubinemia, Common bile duct calculi Patient Disposition: Being Evaluated by Hospitalist Discharge Instructions Interventions: ED Discharge Assessment Last Done: 08/04/18 19:02 Forms Stand Alone Forms: Call Back Authorization, [facility], Important Visit Information Prescriptions Prescriptions: No Action acetaminophen 500 mg Tablet 500 mg PO QID PRN (Reason: Pain) RF: 0 alfuzosin 10 mg tablet extended release 24 hr 10 mg PO DAILY RF: 0 aspirin [Aspir-81] 81 mg Tablet,Delayed Release (Dr/Ec) 81 mg PO DAILY RF: 0 atorvastatin 20 mg tablet 20 mg PO HS RF: 0 Breo Ellipta 100-25 mcg/dose blister with device 1 puff inhalation DAILY RF: 0 dutasteride 0.5 mg capsule 0.5 mg PO DAILY RF: 0 esomeprazole magnesium 40 mg capsule,delayed release(DR/EC) 40 mg PO DAILY RF: 0 lisinopril 40 mg Tablet 40 mg PO DAILY RF: 0 carvedilol 12.5 mg Tablet 12.5 mg PO BID RF: 0 nitroglycerin [Nitrostat] 0.4 mg Tablet, Sublingual 0.4 mg sublingual UD PRN (Reason: Chest Pain) RF: 0 tramadol 50 mg tablet 50 mg PO Q4H PRN (Reason: Pain) RF: 0 furosemide 20 mg Tablet 20 mg PO QAM RF: 0 Referrals Referrals: Román Valentine III, MD [Primary Care Provider] - The scribe's documentation has been prepared under my direction and personally reviewed by me in its entirety. I confirm that the note above accurately reflects all work, treatment, procedures, and medical decision making performed by me.
[2018-08-04 16:50] LABS: Basophils # (auto) 0.02 K/uL (0-0.2); Basophils % (auto) 0.3 %; Eosinophils # (auto) 0.06 K/uL (0-0.5); Eosinophils % (auto) 0.8 %; Hemoglobin 15.2 g/dL (14.0-18.0); Immature Granulocytes # (auto) 0.02 K/uL (0.00-0.02); Immature Granulocytes % (auto) 0.3 %; Lymphocytes % (auto) 11.3 %; Mean Corpuscular Hgb Conc 36.2 g/dL (32-36); Mean Corpuscular Volume 90.1 fL (80-100); Mean Platelet Volume 9.9 fL (7.4-10.4); Monocytes # (auto) 0.36 K/uL (0.11-0.59); Monocytes % (auto) 4.5 %; Neutrophils # (auto) 6.59 K/uL (1.4-6.5); Neutrophils % (auto) 82.8 %; Platelet Count 168 K/uL (130-400); RDW Coefficient of Variation 12.7 % (11.5-14.5); RDW Standard Deviation 40.9 fL (36.4-46.3); Red Blood Count 4.66 M/uL (4.7-6.1); White Blood Count 7.95 K/uL (4.8-10.8)
[2018-08-04 17:01] LABS: INR 1.1 (0.9-1.1); Prothrombin Time 10.9 Seconds (9.0-12.0)
[2018-08-04 17:10] LABS: Appearance Urine Clear (Clear); Bilirubin Urine Negative (Negative); Blood Urine Negative (Negative); Color Urine Yellow; Glucose Urine UA Negative (Negative); Ketones Urine Negative (Negative); Leukocyte Esterase Urine Negative (Negative); Nitrite Urine Negative (Negative); Protein Urine Negative (Negative); Specific Gravity Urine 1.015 (1.000-1.030); Urobilinogen Urine Negative (Negative); pH Urine 8.5 (4.5-7.5)
[2018-08-04 17:19] LABS: Alanine Aminotransferase 204 U/L (12-78); Albumin Level 3.7 gm/dl (3.4-5.0); Aspartate Aminotransferase 211 U/L (15-37); BUN Creatinine Ratio 13.1 (10-20); Blood Urea Nitrogen 14 mg/dl (7-18); Carbon Dioxide 29 mmol/L (21-32); Chloride 103 mmol/L (98-107); Creatinine Clr Calc Pharmacy 62.4 ml/min; Est GFR (African American) 79.1; Est GFR (Non-African American) 68.3; Glucose 138 mg/dl (70-99); Potassium 3.7 mmol/L (3.5-5.1); Sodium 138 mmol/L (136-145)
[2018-08-04 17:22] LABS: Albumin Globulin Ratio 1.2 (0.9-2); Alkaline Phosphatase 280 U/L (45-117); Bilirubin,Total 2.2 mg/dl (0.2-1); Globulin 3.2 gm/dl (2.5-4.0); Total Protein 6.9 gm/dl (6.4-8.2)
[2018-08-04] MEDS ORDERED: MoRPHine SULFATE 4 MG/ML 1 ML CARP\\VIAL IV STA (17:27)
[2018-08-04 17:36] LABS: Troponin I < 0.015 ng/ml (0-0.045)
[2018-08-04] MEDS ORDERED: IOVERSOL 100ml IV PRN (17:47)
--- NOTE | 2018-08-04 18:01 | CT Scan Report ---
CT abd pelvis IV con only CLINICAL HISTORY: Right upper quadrant abdominal pain, elevated LFTs, elevated bilirubin. COMPARISON STUDY: None. TECHNIQUE: The patient was scanned in a dynamic helical fashion during intravenous administration of 94 cc of Optiray 320 A dose lowering technique was utilized adhering to the principles of ALARA. CT DOSE: 614.64 mGy.cm FINDINGS: Lower chest: There are bibasilar atelectatic changes. Liver: There is mild central intrahepatic biliary ductal dilatation. No focal hepatic masses are visu alized. The hepatic veins and portal vein appear patent. Gallbladder: The gallbladder appears minimally distended. The common bile duct is dilated measuring 1 0 mm. There is a suspected distal common bile duct filling defect. Spleen: Normal in size and attenuation. Pancreas: There is no pancreatic ductal dilatation. 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 Adrenal glands: Unremarkable. Kidneys: No solid renal masses are visualized. There are bilateral renal cysts, the largest of which is located on the right measuring 21 mm Bowel: There are no transition zones indicate bowel obstruction. The appendix appears normal. There i s no acute diverticulitis. Peritoneum: There are bilateral inguinal hernias. There is no free air. There is trace free fluid wit hin the right lower quadrant. Vasculature: The abdominal aorta is normal in course and caliber. Adenopathy: None. Pelvic viscera: The prostate is mildly prominent. A portion of the right anterior lateral aspect of t he bladder extends into the right inguinal hernia Skeletal structures: No destructive osseous lesions are seen. IMPRESSION: 1. Mild intra and extrahepatic biliary ductal dilatation. A distal common bile duct filling defect is visualized. On a statistical basis this represents a noncalcified stone. An MRCP or ERCP could be ob tained in follow-up for confirmation 2. No evidence of bowel obstruction. No evidence of free air 3. Normal appendix. No evidence of acute diverticulitis. 4. Bilateral inguinal hernias Electronically signed by: Kip Atkinson M.D. 08/04/2018 5:59 PM
--- NOTE | 2018-08-04 18:41 | Ultrasound Report ---
US gallbladder CLINICAL HISTORY: Right upper quadrant abdominal pain. Elevated bilirubin. Abnormal CT scan. COMPARISON STUDY: CT scan dated 08/04/2018 FINDINGS: The pancreas was not visualized. There is mild central intrahepatic biliary ductal dilatati on. No gallstones are visualized. There is borderline gallbladder wall thickening. The common bile du ct is dilated measuring 17 mm. There is echogenic material within the common bile duct, possibly repr esenting calculi. There is no right-sided hydronephrosis. There is a 23 mm mid pole cyst.. IMPRESSION: 1. Dilated common bile duct containing echogenic material, possibly representing calculi 2. Borderline gallbladder wall thickening. No gallbladder calculi identified 3. Nonvisualization of the pancreas Electronically signed by: Kip Atkinson M.D. 08/04/2018 6:39 PM
--- NOTE | 2018-08-04 18:56 | History & Physical Report ---
Date of Service August 04, 2018 Assessment & Plan (1) Abdominal pain: - Presented with acute abdominal pain in setting of elevated LFTs, bile duct obstruction. - Initial trop and EKG negative; will trend Trop q6hr x 2 and repeat EKG in the morning. Did receive Aspirin 325 mg & Nitro 0.4 mg in the ER. - CT A/P showed intra and extrahepatic biliary duct dilatation with noncalcified stone. - Gallbladder US showed dilated common bile duct with echogenic material (likely calculi) - MRCP is pending completion; will likely need ERCP. - GI consulted for evaluation; may require surgery consult for evaluation of lap peter. - Will start Zosyn for empiric coverage; has been afebrile, hemodynamically stable. - Morphine IV prn pain; Zofran prn N/V. - NPO except meds & sips of water; NS at 80 cc/hr for gentle fluid hydration. (2) Hyperbilirubinemia: - T bili elevated, 2.2 -- likely related to bile duct obstruction. - Trend qAM. (3) Transaminitis: - LFTs elevated in setting of bile duct obstruction. - Holding home statin. - Trend qAM. (4) COPD (chronic obstructive pulmonary disease): - Continue home Breo-Ellipta as prescribed. (5) HTN (hypertension): - Continue home Coreg 12.5 mg BID, Lisinopril 40 mg daily as prescribed. - Holding home Lasix as pt. is NPO. - Has been hypertensive -- Hydralazine 10 mg IV q6hr prn. (6) HLD (hyperlipidemia): - Continue home statin as prescribed. (7) BPH (benign prostatic hyperplasia): - Continue home meds. (8) History of DVT (deep vein thrombosis): - Not currently on anticoagulation therapy. - SCDs ordered; pharmacologic ppx contraindicated due to possible procedure. (9) Hyperglycemia: - Most recent A1C was 6.2 this spring. - Encourage CCD and exercise. (10) DVT prophylaxis: - SCDs; holding Lovenox due to possible procedure. Dispo: Med/surg for evaluation of abdominal pain. History of Present Illness Chief Complaint: Abdominal Pain Primary Care Provider: Román Valentine MD Mr. Adame is an 78 year old male with past medical history of COPD, HLD, HTN, BPH, h/o DVT who presented to the ER with acute abdominal pain. He developed acute epigastric pain yesterday afternoon around 4 pm. Pt. states pain was described as a pressure; he took Pepto-bismol and Tums with resolution. He developed recurrent epigastric pain around 2 pm today -- pain was very similar to previous episode. Pain was rated as a 10/10 on pain scale, constant and described as pressure. He had associated nausea, denied vomiting along with loss of appetite. He has chronic SOB in setting of SOB; denies acute shortness of breath or chest pain. Denies fever/chills, LE edema, URI symptoms, headache, dysuria or hematuria, diarrhea or constipation. ER course: He received Aspirin 324 mg, Nitroglycerin 0.4 mg SL and Morphine sulfate 4 mg IV due to concern for cardiac source. Had transaminitis noted on labs; CT showed mild intra and extrahepatic biliary duct dilatation. Pt. will be admitted for further evaluation of abdominal pain. Allergies Allergy/AdvReac Type Severity Reaction Status Date / Time tiotropium AdvReac Unknown CHEST Verified 11/08/17 08:50 PAIN, PRESSURE atorvastatin [From Lipitor] AdvReac Nausea Unverified 08/04/18 17:40 Home Medications Home Medications Medication Instructions Recorded Confirmed Type acetaminophen 500 mg PO QID PRN 08/04/18 08/04/18 History alfuzosin 10 mg PO DAILY 08/04/18 08/04/18 History aspirin [Aspir-81] 81 mg PO DAILY 08/04/18 08/04/18 History atorvastatin 20 mg PO HS 08/04/18 08/04/18 History carvedilol 12.5 mg PO BID 08/04/18 08/04/18 History dutasteride 0.5 mg PO DAILY 08/04/18 08/04/18 History esomeprazole magnesium 40 mg PO DAILY 08/04/18 08/04/18 History fluticasone furoate-vilanterol 1 puff INHALATION DAILY 08/04/18 08/04/18 History [Breo Ellipta] furosemide 20 mg PO QAM 08/04/18 08/04/18 History lisinopril 40 mg PO DAILY 08/04/18 08/04/18 History multivitamin [Multiple Vitamins] 1 tab PO DAILY 08/04/18 08/04/18 History nitroglycerin [Nitrostat] 0.4 mg SUBLINGUAL UD PRN 08/04/18 08/04/18 History Past Med/Surg History Medical History Heart attack Degenerative joint disease (DJD) of hip Hypertension (Chronic) BPH (benign prostatic hyperplasia) COPD (chronic obstructive pulmonary disease) Essential (primary) hypertension HLD (hyperlipidemia) History of DVT (deep vein thrombosis) SVT (supraventricular tachycardia) Surgical History History of hip surgery History of shoulder surgery History of cardiac cath History of total hip replacement Family History Mother Coronary heart disease Stroke Father Hypertension Social History Preferred Language: [place] Communication Ability: 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 Beliefs That Will Affect Care: None marital status: Current Living Situation: Alone current occupational status: retired Other Information That Helps Us Care for You: No Feels Safe at Home: Yes Safety Concerns: Feels Safe At This Time Smoking Status: Former smoker Hx Alcohol Use: Yes Alcohol type: beer Hx Substance Use: No Review of Systems Review of Systems: All systems reviewed & are unremarkable except as noted in HPI & below Constitutional: + fatigue, + weakness and + anorexia; no fever and no chills Ear, Nose, Mouth, Throat: no nasal congestion, no nasal discharge and no sore throat Respiratory: + dyspnea (Chronic ) and + dyspnea on exertion (Chronic ); no cough and no wheezing Cardiovascular: no chest pain, no chest pain at rest, no chest pain with activity, no radiating jaw, neck or arm pain, no palpitations, no lightheadedness, no syncope and no edema Gastrointestinal: + abdominal pain and + nausea; no vomiting, no constipation, no diarrhea/loose stools and no melena Genitourinary: no dysuria, no difficulty urinating and no urinary frequency Musculoskeletal: no back pain and no joint pain Integumentary: no non-healing lesions Neurologic: no dizziness, no headache(s) and no confusion Allergy / Immunological: no rash Physical Exam Physical Exam: General: Resting comfortably in no apparent distress HEENT: NC/AT; PERRLA with EOMI; [place] conjunctiva, MMM. No erythema of posterior pharynx Neck: Supple and nontender Cardiac: RRR w/o murmurs, gallops or rubs Lungs: on 2L via NC; scattered wheezing noted throughout. Abdomen: Bowel normoactive X 4; Nontender to palpation Rectal: Deferred : Deferred Back: NO spinous tenderness Extremities: Warm. No edema present Neuro: No focal weakness Skin: No rash Results & Data Vital Signs (Past 12 Hours) Vital Signs Temp Pulse Pulse Resp BP BP Pulse Ox 08/04/18 17:17 76 22 168/95 H 95 08/04/18 16:12 37.1 C 72 20 204/79 H 97 Laboratory Results 08/04/18 08/04/18 08/04/18 Range/Units 16:29 16:29 16:29 WBC (4.8-10.8) K/uL RBC (4.7-6.1) M/uL Hgb (14.0-18.0) g/dL Hct (42-52) % MCV (80-100) fL MCH (25-34) pg MCHC (32-36) g/dL RDW Std Deviation (36.4-46.3) fL RDW Coeff of Negro (11.5-14.5) % Plt Count (130-400) K/uL MPV (7.4-10.4) fL Immature Gran % (Auto) % Neut % (Auto) % Lymph % (Auto) % [place] % (Auto) % Eos % (Auto) % Baso % (Auto) % Immature Gran # (Auto) (0.00-0.02) K/uL Neut # (Auto) (1.4-6.5) K/uL Lymph # (Auto) (1.2-3.4) K/uL [place] # (Auto) (0.11-0.59) K/uL Eos # (Auto) (0-0.5) K/uL Baso # (Auto) (0-0.2) K/uL PT (9.0-12.0) Seconds INR (0.9-1.1) Sodium 138 (136-145) mmol/L Potassium 3.7 (3.5-5.1) mmol/L Chloride 103 (98-107) mmol/L Carbon Dioxide 29 (21-32) mmol/L Anion Gap 6.0 (3-11) BUN 14 (7-18) mg/dl Creatinine 1.03 (0.6-1.4) mg/dl Est Cr Clr Drug Dosing 62.4 ml/min Est GFR ( Amer) 79.1 Est GFR (Non-Af Amer) 68.3 BUN/Creatinine Ratio 13.1 (10-20) Glucose 138 H (70-99) mg/dl Calcium 9.0 (8.5-10.1) mg/dl Total Bilirubin 2.2 H (0.2-1) mg/dl AST 211 H (15-37) U/L ALT 204 H (12-78) U/L Alkaline Phosphatase 280 H (45-117) U/L Troponin I Cancelled < 0.015 (0-0.045) ng/ml Total Protein 6.9 (6.4-8.2) gm/dl Albumin 3.7 (3.4-5.0) gm/dl Globulin 3.2 (2.5-4.0) gm/dl Albumin/Globulin Ratio 1.2 (0.9-2) Lipase 166 (73-393) U/L Urine Color Yellow Urine Appearance Clear (Clear) Urine pH 8.5 H (4.5-7.5) Ur Specific [place] 1.015 (1.000-1.030) Urine Protein Negative (Negative) Urine Glucose (UA) Negative (Negative) Urine Ketones Negative (Negative) Urine Blood Negative (Negative) Urine Nitrite Negative (Negative) Urine Bilirubin Negative (Negative) Urine Urobilinogen Negative (Negative) Ur Leukocyte Esterase Negative (Negative) 08/04/18 08/04/18 Range/Units 16:29 16:29 WBC 7.95 (4.8-10.8) K/uL RBC 4.66 L (4.7-6.1) M/uL Hgb 15.2 (14.0-18.0) g/dL Hct 42.0 (42-52) % MCV 90.1 (80-100) fL MCH 32.6 (25-34) pg MCHC 36.2 H (32-36) g/dL RDW Std Deviation 40.9 (36.4-46.3) fL RDW Coeff of Negro 12.7 (11.5-14.5) % Plt Count 168 (130-400) K/uL MPV 9.9 (7.4-10.4) fL Immature Gran % (Auto) 0.3 % Neut % (Auto) 82.8 % Lymph % (Auto) 11.3 % Young % (Auto) 4.5 % Eos % (Auto) 0.8 % Baso % (Auto) 0.3 % Immature Gran # (Auto) 0.02 (0.00-0.02) K/uL Neut # (Auto) 6.59 H (1.4-6.5) K/uL Lymph # (Auto) 0.90 L (1.2-3.4) K/uL Young # (Auto) 0.36 (0.11-0.59) K/uL Eos # (Auto) 0.06 (0-0.5) K/uL Baso # (Auto) 0.02 (0-0.2) K/uL PT 10.9 (9.0-12.0) Seconds INR 1.1 (0.9-1.1) Sodium (136-145) mmol/L Potassium (3.5-5.1) mmol/L Chloride (98-107) mmol/L Carbon Dioxide (21-32) mmol/L Anion Gap (3-11) BUN (7-18) mg/dl Creatinine (0.6-1.4) mg/dl Est Cr Clr Drug Dosing ml/min Est GFR ( Amer) Est GFR (Non-Af Amer) BUN/Creatinine Ratio (10-20) Glucose (70-99) mg/dl Calcium (8.5-10.1) mg/dl Total Bilirubin (0.2-1) mg/dl AST (15-37) U/L ALT (12-78) U/L Alkaline Phosphatase (45-117) U/L Troponin I (0-0.045) ng/ml Total Protein (6.4-8.2) gm/dl Albumin (3.4-5.0) gm/dl Globulin (2.5-4.0) gm/dl Albumin/Globulin Ratio (0.9-2) Lipase (73-393) U/L Urine Color Urine Appearance (Clear) Urine pH (4.5-7.5) Ur Specific [place] (1.000-1.030) Urine Protein (Negative) Urine Glucose (UA) (Negative) Urine Ketones (Negative) Urine Blood (Negative) Urine Nitrite (Negative) Urine Bilirubin (Negative) Urine Urobilinogen (Negative) Ur Leukocyte Esterase (Negative) Code Status & VTE Plan Code Status FULL CODE Supervising Physician Co-Signing Physician Notes Patient was seen and examined by me. Discussed with SHAHID Gallegos. I agree with the assessment and plan.
--- NOTE | 2018-08-04 19:04 | XRay Report ---
XR chest 1V portable CLINICAL HISTORY: Atypical chest pain COMPARISON STUDY: 07/30/2017 FINDINGS: The heart is enlarged. There is no overt failure. There is no focal pulmonary consolidation . There are no pleural effusions. There is minor interstitial thickening. There are postsurgical doe ges involving the left shoulder.[ IMPRESSION: No active disease in the chest. Electronically signed by: Kip Atkinson M.D. 08/04/2018 7:03 PM
[2018-08-04] MEDS ORDERED: ONDANSETRON INJ 2 MG/ML 2 ML VIAL IV PRN (19:40)
[2018-08-04] MEDS ORDERED: POLYETHYLENE (MIRALAX) 17 GM PACK PO PRN (19:40)
[2018-08-04] MEDS ORDERED: TRAMADOL HCL 50 MG TABLET PO PRN (19:40)
[2018-08-04] MEDS ORDERED: PIPERACILL/TAZOBAC CONSULT ACTIVE PRN (19:40)
[2018-08-04] MEDS ORDERED: PIPERACILLIN/TAZOBACTAM 3.375 GM in DEXTROSE 5% 100 ML IV ONE (20:30)
--- NOTE | 2018-08-04 20:50 | Magnetic Resonance Report ---
MR MRCP CLINICAL HISTORY: Right upper quadrant abdominal pain, elevated bilirubin, abnormal CT scan. COMPARISON STUDY: CT scan dated 08/04/2018 FINDINGS: Breath-hold images were acquired in the axial and coronal planes. MIP imaging was acquired There is borderline gallbladder wall thickening. The common bile duct is dilated measuring 8 mm. Ther e is a 7 mm distal common bile duct filling defect consistent with a calculus. There is mild central intrahepatic biliary ductal prominence. There is mild dilatation of the pancreatic duct at the pancre atic head level. The duct within the pancreatic tail is of normal caliber. 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 There are bilateral renal cysts. The pancreatic nec k level. IMPRESSION: 7 mm filling defect within the distal common bile duct consistent with a calculus. Mild secondary ductal dilatation. Electronically signed by: Kip Atkinson M.D. 08/04/2018 8:49 PM
[2018-08-04] MEDS: SODIUM CHLORIDE 0.9% 1000ML 1,000 ML IV SCH (21:20)
[2018-08-04] MEDS: CARVEDILOL 12.5 MG TAB PO SCH (21:23)
[2018-08-04] MEDS ORDERED: ACETAMINOPHEN 65 ML IV ONE (21:44)
[2018-08-05] MEDS: PIPERACILLIN/TAZOBACTAM 3.375 GM in DEXTROSE 5% 100 ML IV SCH ×3 (02:29→17:39)
[2018-08-05 04:24] LABS: Hematocrit (blood only) 35.7 % (42-52); Mean Corpuscular Hgb Conc 36.4 g/dL (32-36); Mean Platelet Volume 9.6 fL (7.4-10.4); Platelet Count 140 K/uL (130-400); RDW Coefficient of Variation 12.7 % (11.5-14.5); RDW Standard Deviation 41.2 fL (36.4-46.3); Red Blood Count 4.01 M/uL (4.7-6.1); White Blood Count 10.42 K/uL (4.8-10.8)
[2018-08-05 05:04] LABS: Albumin Level 2.7 gm/dl (3.4-5.0); BUN Creatinine Ratio 17.4 (10-20); Bilirubin Direct 2.7 mg/dl (0-0.2); Bilirubin,Total 3.9 mg/dl (0.2-1); Calcium 8.2 mg/dl (8.5-10.1); Creatinine Clr Calc Pharmacy 62.6 ml/min; Est GFR (African American) 79.1; Est GFR (Non-African American) 68.3; Magnesium 1.8 mg/dl (1.8-2.4); Potassium 3.1 mmol/L (3.5-5.1); Total Protein 5.5 gm/dl (6.4-8.2); Troponin I 0.019 ng/ml (0-0.045)
[2018-08-05] MEDS: SODIUM CHLORIDE 0.9% 1000ML 1,000 ML IV SCH (05:46)
[2018-08-05] MEDS ORDERED: ACETAMINOPHEN 65 ML IV SCH (06:00)
[2018-08-05] MEDS: CARVEDILOL 12.5 MG TAB PO SCH ×2 (08:19→20:43)
[2018-08-05] MEDS: LISINOPRIL 40 MG TAB PO SCH (08:19)
[2018-08-05] MEDS: PANTOprazole 40 MG TAB PO SCH (08:21)
[2018-08-05] MEDS ORDERED: POTASSIUM CHLORIDE 20 MEQ TABCR PO STA (08:52)
[2018-08-05] MEDS ORDERED: ASPIRIN 81 MG ECTAB PO SCH (09:00)
--- NOTE | 2018-08-05 12:40 | Hospitalist Progress Note ---
Date of Service August 05, 2018 Assessment & Plan (1) Abdominal pain: - Presented with acute abdominal pain in setting of elevated LFTs, bile duct obstruction. - Trop was negative; EKG did show T waves in lateral leads -- denies cardiac symptoms. - CT A/P showed intra and extrahepatic biliary duct dilatation with noncalcified stone. - Gallbladder US showed dilated common bile duct with echogenic material (likely calculi) - MRCP: 7 mm filling defect within distal CBD. - GI consulted for evaluation, plan for ERCP on 08/06/18. - Continue Zosyn for empiric coverage. - Morphine IV prn pain; Zofran prn N/V. - CLD today, NPO after midnight. (2) Hyperbilirubinemia: - T bili trending up in setting of bile duct obstruction. - Trend qAM. (3) Transaminitis: - LFTs trending up in setting of bile duct obstruction. - Holding home statin; avoid all Tylenol containing products. - Trend qAM. (4) COPD (chronic obstructive pulmonary disease): - Continue home Breo-Ellipta as prescribed (will need to bring from home) (5) HTN (hypertension): - Continue home Coreg 12.5 mg BID, Lisinopril 40 mg daily as prescribed. - Holding home Lasix due to NPO status. - Hydralazine 10 mg IV q6hr prn. (6) HLD (hyperlipidemia): - Holding home statin due to elevated LFTs. (7) BPH (benign prostatic hyperplasia): - Continue home meds. (8) History of DVT (deep vein thrombosis): - Not currently on anticoagulation therapy. - SCDs ordered; pharmacologic ppx contraindicated due to possible procedure. (9) Hyperglycemia: - Most recent A1C was 6.2 this spring. - Encourage CCD and exercise. (10) Electrolyte abnormality: - K level was 3.1 -- ordered K 60 mEq PO. - Monitor qAM. (11) DVT prophylaxis: - SCDs; holding Lovenox due to procedure. Dispo: Med/surg for evaluation of abdominal pain. Plan for ERCP on 08/06/18. Supervising Physician Co-Signing Physician Notes Attending Attestation: Chart reviewed in detail, care plan d/w SHAHID Oconnell. I agree w/ the truong components of her documentation. Patient with choledocholithiasis and abnormal LFTs including elevated bilirubin. In light of fever last evening cannot exclude element of cholangitis. ERCP planned for tomorrow. Remains on IV antibiotic therapy. Fortunately BPs are stable. Robert Sanchez MD Subjective Pt. is doing well today. Did not have abd pain overnight. Had mild epigastric abd pain this morning after drinking sip of water with AM pills. Denies nausea/vomiting. Has not had a BM, is passing gas. Had urinary retention overnight, was bladder scanned. Pt. has h/o BPH, has been voiding without difficulty this morning. Denies chest pain, SOB. Plan for GI consult today. Review of Systems Review of Systems: All systems reviewed & are unremarkable except as noted in HPI & below Constitutional: no fever, no chills, no fatigue and no weakness Respiratory: no cough, no dyspnea, no dyspnea on exertion and no wheezing Cardiovascular: no chest pain, no palpitations, no lightheadedness, no syncope and no edema Gastrointestinal: + abdominal pain and + constipation; no bloating, no nausea, no vomiting and no diarrhea/loose stools Genitourinary: no dysuria and no difficulty urinating Musculoskeletal: no back pain and no joint pain Integumentary: no non-healing lesions Allergy / Immunological: no rash Physical Exam Physical Exam: General: Resting comfortably in no apparent distress HEENT: NC/AT; PERRLA with EOMI; [place] conjunctiva, MMM. No erythema of posterior pharynx Neck: Supple and nontender Cardiac: RRR w/o murmurs, gallops or rubs Lungs: room air; clear throughout all lung garcia. Abdomen: Bowel normoactive X 4; Nontender to palpation Extremities: Warm. No edema present Neuro: No focal weakness Skin: No rash Results & Data Vital Signs (Past 12 Hours) Vital Signs Temp Pulse Resp BP Pulse Ox 08/05/18 07:31 36.4 C L 48 L 16 112/56 L 94 08/05/18 05:40 36.4 C L Laboratory Results 08/05/18 08/05/18 08/04/18 Range/Units 04:12 04:12 22:31 WBC 10.42 (4.8-10.8) K/uL RBC 4.01 L (4.7-6.1) M/uL Hgb 13.0 L (14.0-18.0) g/dL Hct 35.7 L (42-52) % MCV 89.0 (80-100) fL MCH 32.4 (25-34) pg MCHC 36.4 H (32-36) g/dL RDW Std Deviation 41.2 (36.4-46.3) fL RDW Coeff of Negro 12.7 (11.5-14.5) % Plt Count 140 (130-400) K/uL MPV 9.6 (7.4-10.4) fL Immature Gran % (Auto) % Neut % (Auto) % Lymph % (Auto) % [place] % (Auto) % Eos % (Auto) % Baso % (Auto) % Immature Gran # (Auto) (0.00-0.02) K/uL Neut # (Auto) (1.4-6.5) K/uL Lymph # (Auto) (1.2-3.4) K/uL [place] # (Auto) (0.11-0.59) K/uL Eos # (Auto) (0-0.5) K/uL Baso # (Auto) (0-0.2) K/uL PT (9.0-12.0) Seconds INR (0.9-1.1) Sodium 137 (136-145) mmol/L Potassium 3.1 L D (3.5-5.1) mmol/L Chloride 104 (98-107) mmol/L Carbon Dioxide 26 (21-32) mmol/L Anion Gap 7.0 (3-11) BUN 18 (7-18) mg/dl Creatinine 1.03 (0.6-1.4) mg/dl Est Cr Clr Drug Dosing 62.6 ml/min Est GFR ( Amer) 79.1 Est GFR (Non-Af Amer) 68.3 BUN/Creatinine Ratio 17.4 (10-20) Glucose 160 H (70-99) mg/dl Calcium 8.2 L (8.5-10.1) mg/dl Magnesium 1.8 (1.8-2.4) mg/dl Total Bilirubin 3.9 H D (0.2-1) mg/dl Direct Bilirubin 2.7 H (0-0.2) mg/dl AST 512 H (15-37) U/L ALT 566 H (12-78) U/L Alkaline Phosphatase 277 H (45-117) U/L Troponin I 0.019 0.020 (0-0.045) ng/ml Total Protein 5.5 L D (6.4-8.2) gm/dl Albumin 2.7 L (3.4-5.0) gm/dl Globulin (2.5-4.0) gm/dl Albumin/Globulin Ratio (0.9-2) Lipase (73-393) U/L Urine Color Urine Appearance (Clear) Urine pH (4.5-7.5) Ur Specific [place] (1.000-1.030) Urine Protein (Negative) Urine Glucose (UA) (Negative) Urine Ketones (Negative) Urine Blood (Negative) Urine Nitrite (Negative) Urine Bilirubin (Negative) Urine Urobilinogen (Negative) Ur Leukocyte Esterase (Negative) 08/04/18 08/04/18 08/04/18 Range/Units 16:29 16:29 16:29 WBC (4.8-10.8) K/uL RBC (4.7-6.1) M/uL Hgb (14.0-18.0) g/dL Hct (42-52) % MCV (80-100) fL MCH (25-34) pg MCHC (32-36) g/dL RDW Std Deviation (36.4-46.3) fL RDW Coeff of [place] (11.5-14.5) % Plt Count (130-400) K/uL MPV (7.4-10.4) fL Immature Gran % (Auto) % Neut % (Auto) % Lymph % (Auto) % [place] % (Auto) % Eos % (Auto) % Baso % (Auto) % Immature Gran # (Auto) (0.00-0.02) K/uL Neut # (Auto) (1.4-6.5) K/uL Lymph # (Auto) (1.2-3.4) K/uL [place] # (Auto) (0.11-0.59) K/uL Eos # (Auto) (0-0.5) K/uL Baso # (Auto) (0-0.2) K/uL PT (9.0-12.0) Seconds INR (0.9-1.1) Sodium 138 (136-145) mmol/L Potassium 3.7 (3.5-5.1) mmol/L Chloride 103 (98-107) mmol/L Carbon Dioxide 29 (21-32) mmol/L Anion Gap 6.0 (3-11) BUN 14 (7-18) mg/dl Creatinine 1.03 (0.6-1.4) mg/dl Est Cr Clr Drug Dosing 62.4 ml/min Est GFR ( Amer) 79.1 Est GFR (Non-Af Amer) 68.3 BUN/Creatinine Ratio 13.1 (10-20) Glucose 138 H (70-99) mg/dl Calcium 9.0 (8.5-10.1) mg/dl Magnesium (1.8-2.4) mg/dl Total Bilirubin 2.2 H (0.2-1) mg/dl Direct Bilirubin (0-0.2) mg/dl AST 211 H (15-37) U/L ALT 204 H (12-78) U/L Alkaline Phosphatase 280 H (45-117) U/L Troponin I Cancelled < 0.015 (0-0.045) ng/ml Total Protein 6.9 (6.4-8.2) gm/dl Albumin 3.7 (3.4-5.0) gm/dl Globulin 3.2 (2.5-4.0) gm/dl Albumin/Globulin Ratio 1.2 (0.9-2) Lipase 166 (73-393) U/L Urine Color Yellow Urine Appearance Clear (Clear) Urine pH 8.5 H (4.5-7.5) Ur Specific [place] 1.015 (1.000-1.030) Urine Protein Negative (Negative) Urine Glucose (UA) Negative (Negative) Urine Ketones Negative (Negative) Urine Blood Negative (Negative) Urine Nitrite Negative (Negative) Urine Bilirubin Negative (Negative) Urine Urobilinogen Negative (Negative) Ur Leukocyte Esterase Negative (Negative) 08/04/18 08/04/18 Range/Units 16:29 16:29 WBC 7.95 (4.8-10.8) K/uL RBC 4.66 L (4.7-6.1) M/uL Hgb 15.2 (14.0-18.0) g/dL Hct 42.0 (42-52) % MCV 90.1 (80-100) fL MCH 32.6 (25-34) pg MCHC 36.2 H (32-36) g/dL RDW Std Deviation 40.9 (36.4-46.3) fL RDW Coeff of Negro 12.7 (11.5-14.5) % Plt Count 168 (130-400) K/uL MPV 9.9 (7.4-10.4) fL Immature Gran % (Auto) 0.3 % Neut % (Auto) 82.8 % Lymph % (Auto) 11.3 % [place] % (Auto) 4.5 % Eos % (Auto) 0.8 % Baso % (Auto) 0.3 % Immature Gran # (Auto) 0.02 (0.00-0.02) K/uL Neut # (Auto) 6.59 H (1.4-6.5) K/uL Lymph # (Auto) 0.90 L (1.2-3.4) K/uL [place] # (Auto) 0.36 (0.11-0.59) K/uL Eos # (Auto) 0.06 (0-0.5) K/uL Baso # (Auto) 0.02 (0-0.2) K/uL PT 10.9 (9.0-12.0) Seconds INR 1.1 (0.9-1.1) Sodium (136-145) mmol/L Potassium (3.5-5.1) mmol/L Chloride (98-107) mmol/L Carbon Dioxide (21-32) mmol/L Anion Gap (3-11) BUN (7-18) mg/dl Creatinine (0.6-1.4) mg/dl Est Cr Clr Drug Dosing ml/min Est GFR ( Amer) Est GFR (Non-Af Amer) BUN/Creatinine Ratio (10-20) Glucose (70-99) mg/dl Calcium (8.5-10.1) mg/dl Magnesium (1.8-2.4) mg/dl Total Bilirubin (0.2-1) mg/dl Direct Bilirubin (0-0.2) mg/dl AST (15-37) U/L ALT (12-78) U/L Alkaline Phosphatase (45-117) U/L Troponin I (0-0.045) ng/ml Total Protein (6.4-8.2) gm/dl Albumin (3.4-5.0) gm/dl Globulin (2.5-4.0) gm/dl Albumin/Globulin Ratio (0.9-2) Lipase (73-393) U/L Urine Color Urine Appearance (Clear) Urine pH (4.5-7.5) Ur Specific [place] (1.000-1.030) Urine Protein (Negative) Urine Glucose (UA) (Negative) Urine Ketones (Negative) Urine Blood (Negative) Urine Nitrite (Negative) Urine Bilirubin (Negative) Urine Urobilinogen (Negative) Ur Leukocyte Esterase (Negative)
[2018-08-05] MEDS ORDERED: POTASSIUM CHLORIDE 20 MEQ TABCR PO ONE (13:00)
--- NOTE | 2018-08-05 13:00 | Gastrointestinal Consultation ---
Date of Consultation August 05, 2018 Assessment & Plan (1) Common bile duct calculi: 78 yo male admitted with abd pain, nausea, vomiting and labs and imaging consistent with choledocholithiasis. No evidence of concomitant pancreatitis. No fevers. - OK to have sips of clear liquids today. - continue IV abx. - Please hold aspirin. - NPO after midnight tonight for ERCP in the OR with at 7:30 Am tomorrow. - Discussed in detail with patient and his family at the bedside. (2) Hyperbilirubinemia: (3) Transaminitis: (4) Abdominal pain: History of Present Illness Reason for Consultation: elevated LFTs; choledocholithiasis Attending Physician: Robert Sanchez History of Present Illness Mr. Sharma is an 78 yo male with a PMH significant for CAD, COPD, HTN who presented to the ER yesterday evening with complaints of worsening generalized abdominal with associated nausea and vomiting which began around 2PM yesterday. On arrival in the ER he was noted to have elevated bilirubin and AP and transaminases suggestive of biliary obstruction. Imaging (US and MRCP ) confirmed biliary dilation to 17mm as well as a stone in the CBD. Lfts this AM up a bit from yesterday. No fevers. Lipase is OK. Feeling better this AM. No further nausea or vomiting. He did receive ASA 325 mg in the ER when concern for cardiac source was raised. On ASA 81 mg daily at home. Allergies Allergy/AdvReac Type Severity Reaction Status Date / Time tiotropium AdvReac Unknown CHEST Verified 11/08/17 08:50 PAIN, PRESSURE atorvastatin [From Lipitor] AdvReac Nausea Unverified 08/04/18 17:40 Home Medications Home Medications Medication Instructions Recorded Confirmed Type acetaminophen 500 mg PO QID PRN 08/04/18 08/04/18 History alfuzosin 10 mg PO DAILY 08/04/18 08/04/18 History aspirin [Aspir-81] 81 mg PO DAILY 08/04/18 08/04/18 History atorvastatin 20 mg PO HS 08/04/18 08/04/18 History carvedilol 12.5 mg PO BID 08/04/18 08/04/18 History dutasteride 0.5 mg PO DAILY 08/04/18 08/04/18 History esomeprazole magnesium 40 mg PO DAILY 08/04/18 08/04/18 History fluticasone furoate-vilanterol 1 puff INHALATION DAILY 08/04/18 08/04/18 History [Breo Ellipta] furosemide 20 mg PO QAM 08/04/18 08/04/18 History lisinopril 40 mg PO DAILY 08/04/18 08/04/18 History multivitamin [Multiple Vitamins] 1 tab PO DAILY 08/04/18 08/04/18 History nitroglycerin [Nitrostat] 0.4 mg SUBLINGUAL UD PRN 08/04/18 08/04/18 History Patient History Medical History Heart attack Degenerative joint disease (DJD) of hip Hypertension (Chronic) BPH (benign prostatic hyperplasia) COPD (chronic obstructive pulmonary disease) Essential (primary) hypertension HLD (hyperlipidemia) History of DVT (deep vein thrombosis) SVT (supraventricular tachycardia) Surgical History History of hip surgery History of shoulder surgery History of cardiac cath History of total hip replacement Family History Mother Coronary heart disease Stroke Father Hypertension Social History Preferred Language: Tamazight Communication Ability: Effective 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 Required: No Beliefs That Will Affect Care: None marital status: Current Living Situation: Alone current occupational status: retired Other Information That Helps Us Care for You: No Feels Safe at Home: Yes Safety Concerns: Feels Safe At This Time Smoking Status: Former smoker Hx Alcohol Use: Yes Alcohol type: beer Hx Substance Use: No Review of Systems Review of Systems: 12 systems reviewed and negative except as noted Physical Exam Constitutional: WD/WN, vitals as above Respiratory: normal respiratory effort, lungs clear to auscultation Cardiovascular: RRR, no murmur, no edema Gastrointestinal (Abdomen): normal bowel sounds, soft, nontender, no hepatosplenomegaly Results & Data Vital Signs (Past 12 Hours) Vital Signs Temp Pulse Resp BP Pulse Ox 08/05/18 07:31 36.4 C L 48 L 16 112/56 L 94 08/05/18 05:40 36.4 C L
[2018-08-05] MEDS: MoRPHine SULFATE 2 MG/ML CARP IV PRN ×2 (15:00→19:00)
[2018-08-05] MEDS: HydrALAZINE HCL 20 MG/ML VIAL IV PRN (15:00)
[2018-08-05] MEDS ORDERED: LISINOPRIL 40 MG TAB PO ONE (17:25)
[2018-08-05] MEDS: ALFUZOSIN HCL 10 MG TAB PO SCH (17:33)
--- NOTE | 2018-08-05 20:36 | Ultrasound Report ---
US venous doppler LE RT CLINICAL HISTORY: Rule out DVT in setting of calf pain PAIN. EDEMA. COMPARISON STUDY: No previous studies for comparison. FINDINGS: Real-time and color flow Doppler imaging were performed. Flow was seen within the femoral, popliteal and calf veins with no intraluminal thrombus demonstrated. The saphenous vein is patent. IMPRESSION: No evidence of deep venous thrombosis. The above report was generated using voice recognition software. It may contain grammatical, syntax or spelling errors. Electronically signed by: German Rios M.D. 08/05/2018 8:35 PM
[2018-08-06] MEDS: PIPERACILLIN/TAZOBACTAM 3.375 GM in DEXTROSE 5% 100 ML IV SCH ×3 (02:09→17:38)
[2018-08-06 06:08] LABS: Hematocrit (blood only) 37.1 % (42-52); Hemoglobin 13.2 g/dL (14.0-18.0); Mean Corpuscular Hgb Conc 35.6 g/dL (32-36); Mean Corpuscular Volume 89.6 fL (80-100); Mean Platelet Volume 9.6 fL (7.4-10.4); Platelet Count 108 K/uL (130-400); RDW Coefficient of Variation 13.1 % (11.5-14.5); RDW Standard Deviation 42.8 fL (36.4-46.3); Red Blood Count 4.14 M/uL (4.7-6.1); White Blood Count 6.74 K/uL (4.8-10.8)
[2018-08-06 06:26] LABS: Albumin Level 2.6 gm/dl (3.4-5.0); BUN Creatinine Ratio 21.8 (10-20); Bilirubin Direct 1.5 mg/dl (0-0.2); Calcium 8.2 mg/dl (8.5-10.1); Creatinine Clr Calc Pharmacy 70.8 ml/min; Est GFR (African American) 91.9; Est GFR (Non-African American) 79.3; Potassium 3.6 mmol/L (3.5-5.1)
[2018-08-06 06:32] LABS: Bilirubin,Total 2.4 mg/dl (0.2-1); Total Protein 5.7 gm/dl (6.4-8.2)
--- NOTE | 2018-08-06 07:37 | History & Physical Bridge Note ---
Date of Service August 06, 2018 History & Physical Bridge Note Dr. Esquivel evalauted the patient on 08/05/18 and requested ERCP for a stone in the distal CBD seen on MRCP. The patient continues to have abdominal pain today in addition to nausea. PE: No distress mild scleral icterus RUQ tender to palpation Impression: symptomatic choledocholithiaiss. Plan ERCP today Indocin 100 mg DC please obtain a general surgery consultation for cholecystectomy. I have examined the patient, reviewed the History & Physical and in the interval since the performance of the History & Physical I have noted the following changes of clinical significance: no changes noted
[2018-08-06] MEDS ORDERED: LIDOCAINE HCL 2% 2 ML VIAL/AMP(20MG/ML) INFIL ONE (07:42)
[2018-08-06] MEDS ORDERED: PROPOFOL IV EMULSION 10 MG/ML 20 ML VIAL IV ONE (07:42)
[2018-08-06] MEDS ORDERED: ONDANSETRON INJ 2 MG/ML 2 ML VIAL ONE (07:42)
[2018-08-06] MEDS ORDERED: fentaNYL citrate 100 MCG/2 ML VIAL ONE (07:42)
[2018-08-06] MEDS ORDERED: INDOMETHACIN 50 MG SUPP PR ONE (07:48)
[2018-08-06] MEDS ORDERED: INDOMETHACIN 50 MG SUPP PR SCH (07:50)
--- NOTE | 2018-08-06 08:20 | Anesthesiology Consultation ---
Date of Service August 06, 2018 Assessment & Plan Chart Review Chart Review: Acceptable Risk for Surgery and Patient NOT seen in Pre Admission Testing Consults Requested none ASA ASA4 Proposed Anesthesia Anesthesia Type: General Risk / Benefits Reviewed With: PT / POA / Parent / Guardian, Accepts Plan and Informed Consent Obtained History Surgery Operation Date: 08/06/18 08:00 Proposed Procedures p Endoscopic Retrograde Cholangiopancreato - Juan Jose Jean Baptiste Height/Weight Height: 5 ft 9 in Weight: 87.3 kg Allergies Allergy/AdvReac Type Severity Reaction Status Date / Time tiotropium AdvReac Unknown CHEST Verified 11/08/17 08:50 PAIN, PRESSURE atorvastatin [From Lipitor] AdvReac Nausea Unverified 08/04/18 17:40 Medications Home Medications Medication Instructions Recorded Confirmed Last Taken acetaminophen 500 mg PO QID PRN 08/04/18 08/04/18 Unknown alfuzosin 10 mg PO DAILY 08/04/18 08/04/18 Unknown aspirin [Aspir-81] 81 mg PO DAILY 08/04/18 08/04/18 Unknown atorvastatin 20 mg PO HS 08/04/18 08/04/18 Unknown carvedilol 12.5 mg PO BID 08/04/18 08/04/18 Unknown dutasteride 0.5 mg PO DAILY 08/04/18 08/04/18 Unknown esomeprazole magnesium 40 mg PO DAILY 08/04/18 08/04/18 Unknown fluticasone furoate-vilanterol 1 puff INHALATION DAILY 08/04/18 08/04/18 Unknown [Breo Ellipta] furosemide 20 mg PO QAM 08/04/18 08/04/18 Unknown lisinopril 40 mg PO DAILY 08/04/18 08/04/18 Unknown multivitamin [Multiple Vitamins] 1 tab PO DAILY 08/04/18 08/04/18 Unknown nitroglycerin [Nitrostat] 0.4 mg SUBLINGUAL UD PRN 08/04/18 08/04/18 Unknown Active Medications Generic Name Dose Route Start Last Admin Trade Name Freq PRN Reason Stop Dose Admin Alfuzosin HCl 10 mg 08/05/18 17:30 08/05/18 17:33 Uroxatral PO 09/04/18 17:29 10 mg DAILY@1730 POLO Administration Aspirin 81 mg 08/05/18 09:00 08/05/18 08:21 Ecotrin Ectab PO 09/04/18 08:59 81 mg DAILY OPLO Administration Carvedilol 12.5 mg 08/04/18 21:00 08/05/18 20:43 Coreg PO 09/03/18 20:59 12.5 mg BID POLO Administration Hydralazine HCl 10 mg 08/04/18 19:40 08/05/18 15:00 Hydralazine Hcl IV 09/03/18 19:39 10 mg Q6H PRN Administration hypertension Piperacillin Sod/Tazobactam 115 mls @ 28.75 mls/hr 08/05/18 02:00 08/06/18 06:09 Sod 3.375 gm/ Dextrose IV 08/15/18 01:59 Infused Q8H POLO Infusion Protocol Ioversol 94 ml 08/04/18 17:47 08/04/18 17:48 Optiray 320 100ml IV 08/08/18 17:46 94 ml ONCE PRN Administration Interaction Checking Lisinopril 40 mg 08/05/18 09:00 08/05/18 08:19 Zestril PO 09/04/18 08:59 Not Given DAILY POLO Miscellaneous 1 ea 08/05/18 00:00 08/06/18 07:34 Order Awaiting Action N/A 09/04/18 00:00 Not Given QS POLO Miscellaneous 1 ea 08/05/18 00:00 08/06/18 07:34 Order Awaiting Action N/A 09/04/18 00:00 Not Given QS POLO Morphine Sulfate 2 mg 08/04/18 19:40 08/05/18 19:00 Morphine Sulfate IV 08/18/18 19:39 2 mg Q4H PRN Administration Pain Ondansetron HCl 4 mg 08/04/18 19:40 08/05/18 16:56 Zofran IV 09/03/18 19:39 4 mg Q6H PRN Administration Nausea Pantoprazole Sodium 40 mg 08/05/18 09:00 08/05/18 08:21 Protonix PO 09/04/18 08:59 40 mg QAM POLO Administration NPO Date Last Intake of Fluids: 08/05/18 Time Last Intake of Fluids: 21:00 Date Last Intake of Solids: 08/04/18 Time Last Intake of Solids: 11:30 Past Medical History Medical History Heart attack Degenerative joint disease (DJD) of hip Hypertension (Chronic) BPH (benign prostatic hyperplasia) CAD (coronary artery disease) COPD (chronic obstructive pulmonary disease) Essential (primary) hypertension HLD (hyperlipidemia) History of DVT (deep vein thrombosis) SVT (supraventricular tachycardia) Exercise / Class Metabolic Activity III < 4 Walking/Shop/Light housework Past Family History Family History Mother Coronary heart disease Stroke Father Hypertension Past Surgical History Surgical History History of hip surgery History of shoulder surgery History of cardiac cath History of total hip replacement Past Anesthesia History No Hx of Anesthesia Complications and No Family Hx of Anesthesia Complications History of PONV No Hx of PONV and No Hx of Motion Sickness Social History Smoking Status: Former smoker Hx Alcohol Use: Yes Alcohol type: beer alcohol intake frequency: a few times a month Hx Substance Use: No Physical Exam Vital Signs Last Vital Signs Temp 37.1 C 08/06/18 07:11 Pulse 56 L 08/06/18 07:11 Resp 16 08/06/18 07:11 BP 144/68 H 08/06/18 07:11 Pulse Ox 93 08/06/18 07:11 Constitutional not obese ENMT Mouth: + edentulous Thyromental Distance: > or= 3.5 Finger Breadths Mallampati Class: II Neck normal visual inspection and trachea midline; neck extension not limited Respiratory normal respiratory effort Auscultation: lungs clear to auscultation bilaterally Cardiovascular Rate/Rhythm: regular rate and regular rhythm Heart Sounds: no murmur Vessels: no carotid bruit Musculoskeletal Spine: normal cervical ROM Neurologic moves all extremities Motor/Sensory: no sensory deficit Psychiatric Orientation: alert and oriented x 3 Testing Electrocardiogram Date: 08/05/18 Findings: + SB @ (at 46;1st degree AV block;T wave abnormality;? lateral ischemi a) Chest X-Ray Date: 08/04/18 Findings: + NAD and + cardiomegaly Laboratory Results 08/06/18 05:55 08/06/18 05:55 PT 10.9 Seconds (9.0-12.0) 08/04/18 16:29 INR 1.1 (0.9-1.1) 08/04/18 16:29 Urine Color Yellow 08/04/18 16:29 Urine Appearance Clear (Clear) 08/04/18 16: Urine pH 8.5 (4.5-7.5) H 08/04/18 16:29 Ur Specific [place] 1.015 (1.000-1.030) 08/04/18 16:29 Urine Protein Negative (Negative) 08/04/18 16:29 Urine Glucose (UA) Negative (Negative) 08/04/18 16:29 Urine Ketones Negative (Negative) 08/04/18 16:29 Urine Nitrite Negative (Negative) 08/04/18 16:29 Ur Leukocyte Esterase Negative (Negative) 08/04/18 16:29
--- NOTE | 2018-08-06 09:10 | Post Operative Brief Note ---
Immediate Post Op Note v1 Date of Surgery August 06, 2018 Pre & Post Diagnosis Operation Date: 08/06/18 08:00 Pre-Op Diagnosis: Common Bile Duct Calculi Post-Op Diagnosis: Common Bile Duct Calculi Procedure Operation Date: 08/06/18 08:00 Actual Procedures p Endoscopic Retrograde Cholangiopancreatography in Operating Room with In sertion of Pancreatic and Biliary Stents(Not Applicable) - Juan Jose Jean Baptiste Surgeon Juan Jose Jean Baptiste Sewer Line Repairer none Estimated Blood Loss 0 Findings Consistent with Post-Op Diagnosis
[2018-08-06] MEDS ORDERED: SUCCINYLCHOLINE CHLORIDE 20 MG/ML 10 ML VIAL ONE (09:24)
--- NOTE | 2018-08-06 09:27 | GI REPORT ---
Patient Name: De Sharma Procedure Date: 08/06/2018 7:51 AM Date of : 1940 Admit Type: Inpatient Age: 78 Gender: Male Attending MD: Juan Jose Jean Baptiste DO Procedure: ERCP Providers: Juan Jose Jean Baptiste DO Referring MD: Robert Sanchez, Román Valentine, Sabina Esquivel DO Indications: Abdominal pain of suspected biliary origin, Abnormal MRCP, Elevated liver enzymes Medicines: General Anesthesia Complications: No immediate complications. Estimated blood loss: Minimal. Estimated Blood Loss: Estimated blood loss was minimal. Procedure: Pre-Anesthesia Assessment: - Prior to the procedure, a History and Physical was performed, and patient medications, allergies and sensitivities were reviewed. The patient's tolerance of previous anesthesia was reviewed. - The risks and benefits of the procedure and the sedation options and risks were discussed with the patient. All questions were answered and informed consent was obtained. - Patient identification and proposed procedure were verified prior to the procedure by the physician, the anesthesiologist and the stock plan administrator. The procedure was verified in the procedure room. - Pre-procedure physical examination revealed no contraindications to sedation. - ASA Grade Assessment: III - A patient with severe systemic disease. - After reviewing the risks and benefits, the patient was deemed in satisfactory condition to undergo the procedure. - The anesthesia plan was to use general anesthesia. - Immediately prior to administration of medications, the patient was re-assessed for adequacy to receive sedatives. - The heart rate, respiratory rate, oxygen saturations, blood pressure, adequacy of pulmonary ventilation, and response to care were monitored throughout the procedure. - The physical status of the patient was re-assessed after the procedure. After obtaining informed consent, the scope was passed under direct vision. Throughout the procedure, the patient's blood pressure, pulse, and oxygen saturations were monitored continuously. The Scope was introduced through the mouth, and advanced to the duodenum and used to inject contrast into the bile duct. The patient tolerated the procedure well. The ERCP was somewhat difficult due to challenging cannulation because of abnormal anatomy. Successful completion of the procedure was aided by performing the maneuvers documented (below) in this report. Findings: The pleat taper film was normal. The esophagus was successfully intubated under direct vision without detailed examination of the pharynx, larynx, and associated structures, and upper GI tract. The upper GI tract was grossly normal. The major papilla was located partially within a diverticulum. The major papilla was bulging. Inital cannulation was performed and after some investigation we found that we had cannulated the ventral pancreatic duct. The ventral pancreatic duct was cannulated and opacified with the short-nosed traction sphincterotome and guidewire. The ventral pancreatic duct in the head of the pancreas was dilated mildly and locally. 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 A short sphincterotomy was made with a monofilament Fusion OMNI sphincterotome using ERBE electrocautery. There was no post-sphincterotomy bleeding. The bile duct was then deeply cannulated with the short-nosed traction sphincterotome and guidewire, an obstructing stone made passage of the wire difficult. Contrast was injected. The lower third of the main bile duct contained a single mild stenosis. The lower third of the main bile duct contained stone(s). The biliary sphincterotomy was extended with a Fusion OMNI sphincterotome using ERBE electrocautery. There was no post-sphincterotomy bleeding. To discover objects, the biliary tree was swept with an 8.5 to 15 mm balloon starting at the bifurcation. Sludge was swept from the duct. A few stones were removed. One 5 Fr by 7 cm pancreatic stent with a full external pigtail and a single internal flap was placed 7 cm into the ventral pancreatic duct. Clear fluid flowed through the stent. The stent was in good position. One 10 Fr by 8 cm biliary stent with a single external flap and a single internal flap was placed 8 cm into the common bile duct. Bile and sludge flowed through the stent. The stent was in good position. Indomethacin 100 mg was given via suppository to decrease the risk of post-ERCP pancreatitis (PEP). The endoscope was withdrawn from the patient. Impression: - The major papilla was located partially within a diverticulum. - The major papilla appeared to be bulging. - A single mild biliary stricture was found in the lower third of the main bile duct. The stricture was inflammatory. 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 Complete removal was accomplished by biliary sphincterotomy and balloon extraction. - One pancreatic stent was placed into the ventral pancreatic duct. - One biliary stent was placed into the common bile duct. - Indomethacin given to decrease risk of post-ERCP pancreatitis. Recommendation: - Avoid aspirin and nonsteroidal anti-inflammatory medicines for 5 days. - Clear liquid diet today. - Refer to a surgeon for cholecystectomy. - Repeat ERCP in 6 weeks to remove stent. - Continue broade spectrum antibiotics. Juan Jose Jean Baptiste D.O. Juan Jose Jean Baptiste DO 08/06/2018 9:27:16 AM This report has been signed electronically. Note Initiated On: 08/06/2018 7:51 AM Number of Addenda: 0 I attest to the content of the Intraoperative Record and orders documented therein, exceptions below {[id number]}
--- NOTE | 2018-08-06 09:30 | Fluoroscopy Report ---
[place] ERCP biliary ductal CLINICAL HISTORY: Choledocholithiasis COMPARISON STUDY: MRCP dated 08/04/2018 FLUOROSCOPY TIME: 133 seconds. NUMBER OF FLUOROSCOPIC IMAGES: 12 FINDINGS: 12 fluoroscopic spot images were acquired during an ERCP. The common bile duct was cannulat ed and contrast was instilled. Contrast is also visualized within the pancreatic duct. The pancreatic duct was also cannulated and a guidewire was visualized in the pancreatic duct. A sphincterotomy fortino ears to have been performed. A biliary enteric stent was placed. A pancreatic ductal stent was also p laced. IMPRESSION: Fluoroscopic spot images during ERCP with placement of a pancreatic enteric duct stent a nd biliary enteric stent Electronically signed by: Kip Atkinson M.D. 08/06/2018 9:29 AM
[2018-08-06] MEDS ORDERED: ONDANSETRON INJ 2 MG/ML 2 ML VIAL IV PRN (09:43)
[2018-08-06] MEDS ORDERED: LABETALOL HCL IV 5 MG/ML 20ML IV PRN (09:43)
[2018-08-06] MEDS ORDERED: fentaNYL citrate 100 MCG/2 ML VIAL IV PRN (09:43)
[2018-08-06] MEDS ORDERED: FLUMAZENIL 0.1 MG/1 ML 10 ML VIAL IV PRN (09:43)
[2018-08-06] MEDS ORDERED: NALOXONE HCL 0.4 MG/1 ML VIAL/CARP IV PRN (09:43)
[2018-08-06] MEDS ORDERED: ePHEDrine sulfate 50 MG/ML AMP IV PRN (09:43)
[2018-08-06] MEDS ORDERED: PROMETHAZINE HCL 12.5 MG in SODIUM CHLORIDE 0.9% 50 ML IV PRN (09:43)
--- NOTE | 2018-08-06 10:03 | Anesthesiology Progress Note ---
Date of Service August 06, 2018 Anesthesia Post Procedure Vital Signs Vital Signs: Temp Pulse Pulse Pulse Resp BP Pulse Ox 08/06/18 09:55 36.3 C L 58 L 21 146/69 H 96 08/06/18 09:45 36.3 C L 58 L 16 151/79 H 97 08/06/18 09:35 59 L 16 154/79 H 97 08/06/18 09:25 36.1 C L 65 16 155/83 H 97 08/06/18 09:17 36.1 C L 62 16 139/65 99 08/06/18 07:11 37.1 C 56 L 16 144/68 H 93 08/06/18 06:15 37.1 C 57 L 16 147/58 H 93 08/05/18 23:39 74 08/05/18 22:47 37.8 C H 120 H 20 148/77 H 91 08/05/18 20:42 78 180/76 H 08/05/18 18:56 87 20 215/83 H 92 08/05/18 16:45 37.4 C 81 20 186/79 H 92 08/05/18 15:15 201/75 H 08/05/18 14:47 37.5 C 62 18 205/92 H 97 08/05/18 14:18 57 L Pain Intensity Abdomen: Pain Intensity: 6 Transfer of Care Handoff Completed per policy Notes Mental Status: alert / awake / arousable Patient Amnestic to Procedure: Yes Nausea / Vomiting: adequately controlled Pain: adequately controlled Airway Patency, RR, SpO2: stable & adequate BP & HR: stable & adequate Hydration State: stable & adequate Anesthetic Complications: no major complications apparent
[2018-08-06] MEDS ORDERED: ACETAMINOPHEN 500 MG TAB PO PRN (10:14)
[2018-08-06] MEDS ORDERED: NITROGLYCERIN SL 0.4 MG/TAB TAB SL PRN (10:14)
[2018-08-06] MEDS: CARVEDILOL 12.5 MG TAB PO SCH ×2 (10:16→20:42)
[2018-08-06] MEDS: PANTOprazole 40 MG TAB PO SCH (10:17)
[2018-08-06] MEDS: LISINOPRIL 40 MG TAB PO SCH (10:17)
[2018-08-06] MEDS: LACTATED RINGER'S 1,000 ML IV SCH ×2 (12:40→20:42)
--- NOTE | 2018-08-06 14:32 | Hospitalist Progress Note ---
Date of Service August 06, 2018 Assessment & Plan (1) Abdominal pain: - Presented with acute abdominal pain in setting of elevated LFTs, bile duct obstruction. - CT A/P showed intra and extrahepatic biliary duct dilatation with noncalcified stone. - Gallbladder US showed dilated common bile duct with echogenic material (likely calculi) - MRCP: 7 mm filling defect within distal CBD. - GI consulted for evaluation, s/p ERCP today with placement of one pancreatic stent and one CBD stent. - Continue Zosyn for empiric coverage. - Morphine IV prn pain; Zofran prn N/V. - CLD as tolerated; IVF at 125 cc/hr per GI. (2) Hyperbilirubinemia: - T bili improving over last 24 hours. - Trend qAM. (3) Transaminitis: - LFTs now improving; s/p ERCP today, expect levels to continue to improve. - Holding home statin; avoid all Tylenol containing products. - Trend qAM. (4) COPD (chronic obstructive pulmonary disease): - Continue home Breo-Ellipta as prescribed (will need to bring from home) (5) HTN (hypertension): - Continue home Coreg 12.5 mg BID (with hold parameters, pt. has been bradycardic), Lisinopril 40 mg daily as prescribed. - Resume home Lasix at 20 mg PO daily. - BP remains elevated - Hydralazine IV prn. (6) HLD (hyperlipidemia): - Holding home statin due to elevated LFTs. (7) BPH (benign prostatic hyperplasia): - Continue home meds. (8) History of DVT (deep vein thrombosis): - Not currently on anticoagulation therapy. - SCDs ordered; will resume pharmacologic ppx on 08/07 if no procedure is planned per surgery. (9) Hyperglycemia: - Most recent A1C was 6.2 this spring. - Encourage CCD and exercise. (10) Electrolyte abnormality: - No replacement required. (11) DVT prophylaxis: - SCDs; holding Lovenox, can restart on 08/07 if no procedure is scheduled. Dispo: Med/surg for evaluation of abdominal pain. Discharge on 08/07 if pt. is tolerating PO intake, abd pain resolved. Supervising Physician Co-Signing Physician Notes Attending Attestation: Chart reviewed in detail, care plan d/w SHAHID Oconnell. I agree w/ the truong components of her documentation. ERCP today with significant choledocholithiasis. Successful stone extraction and placement of pancreatic duct stent and CBD stent. Needs lap peter. Remains on IV antibiotic therapy to cover for cholangitis. Labs and vitals stable. Repeat labs in am including LFTs. Robert Sanchez MD Subjective Pt. is doing well. Abd pain now improving, took PO meds this morning with water and did not develop increased pain. Restarted CLD following ERCP with stent placement. LFTs improving. Doppler RLE was negative for DVT. Review of Systems Review of Systems: All systems reviewed & are unremarkable except as noted in HPI & below Constitutional: no fever, no chills, no fatigue and no weakness Respiratory: no cough, no dyspnea, no dyspnea on exertion and no wheezing Cardiovascular: no chest pain, no palpitations and no edema Gastrointestinal: + abdominal pain; no nausea, no vomiting, no constipation and no diarrhea/loose stools Genitourinary: no difficulty urinating Musculoskeletal: no back pain and no joint pain Integumentary: no non-healing lesions Allergy / Immunological: no rash Physical Exam Physical Exam: General: Resting comfortably in no apparent distress HEENT: NC/AT; PERRLA with EOMI; [place] conjunctiva, MMM. No erythema of posterior pharynx Neck: Supple and nontender Cardiac: RRR w/o murmurs, gallops or rubs Lungs: room air; clear throughout all lung garcia. Abdomen: Bowel normoactive X 4; Nontender to palpation Extremities: Warm. No edema present Neuro: No focal weakness Skin: No rash Results & Data Vital Signs (Past 12 Hours) Vital Signs Temp Pulse Pulse Resp BP Pulse Ox 08/06/18 13:24 36.3 C L 46 L 14 167/67 H 94 08/06/18 12:09 36.5 C 48 L 16 175/76 H 94 08/06/18 11:10 54 L 16 186/73 H 94 08/06/18 10:37 54 L 16 162/64 H 95 08/06/18 10:10 37 C 56 L 18 153/70 H 94 08/06/18 09:55 36.3 C L 58 L 21 146/69 H 96 08/06/18 09:45 36.3 C L 58 L 16 151/79 H 97 08/06/18 09:35 59 L 16 154/79 H 97 08/06/18 09:25 36.1 C L 65 16 155/83 H 97 08/06/18 09:17 36.1 C L 62 16 139/65 99 08/06/18 07:11 37.1 C 56 L 16 144/68 H 93 08/06/18 06:15 37.1 C 57 L 16 147/58 H 93 Laboratory Results 08/06/18 08/06/18 Range/Units 05:55 05:55 WBC 6.74 (4.8-10.8) K/uL RBC 4.14 L (4.7-6.1) M/uL Hgb 13.2 L (14.0-18.0) g/dL Hct 37.1 L (42-52) % MCV 89.6 (80-100) fL MCH 31.9 (25-34) pg MCHC 35.6 (32-36) g/dL RDW Std Deviation 42.8 (36.4-46.3) fL RDW Coeff of Negro 13.1 (11.5-14.5) % Plt Count 108 L (130-400) K/uL MPV 9.6 (7.4-10.4) fL Sodium 138 (136-145) mmol/L Potassium 3.6 D (3.5-5.1) mmol/L Chloride 106 (98-107) mmol/L Carbon Dioxide 24 (21-32) mmol/L Anion Gap 8.0 (3-11) BUN 20 H (7-18) mg/dl Creatinine 0.91 (0.6-1.4) mg/dl Est Cr Clr Drug Dosing 70.8 ml/min Est GFR ( Amer) 91.9 Est GFR (Non-Af Amer) 79.3 BUN/Creatinine Ratio 21.8 H (10-20) Glucose 151 H (70-99) mg/dl Calcium 8.2 L (8.5-10.1) mg/dl Total Bilirubin 2.4 H (0.2-1) mg/dl Direct Bilirubin 1.5 H (0-0.2) mg/dl AST 168 H (15-37) U/L ALT 355 H (12-78) U/L Alkaline Phosphatase 210 H (45-117) U/L Total Protein 5.7 L (6.4-8.2) gm/dl Albumin 2.6 L (3.4-5.0) gm/dl
--- NOTE | 2018-08-06 15:56 | Surgery Consultation ---
Date of Consultation August 06, 2018 Assessment & Plan (1) Abdominal pain: 78 yo male- elevated bili, LFTs, Choledocholithiasis, s/p ERCP (stent placement x 2) today with Dr. Jean Baptiste -labwork, recent imaging, provider notes reviewed. -LFTs, bili trending down. -denies abdominal pain, abdomen non-tender on exam, denies nausea -pt started on clear liquid diet following ERCP and is tolerating well. -continue IV abx. -discussed case with Dr. Hart- patient may require Cholecystectomy during this hospital stay. Discussed possible surgery with patient and patient is agreeable. Will continue to follow closely for possible Cholecystectomy. -All questions answered. Patient voiced understanding and agreement with treatment plan. Dr Hart- I evaluated pt and discussed need for cholecystectomy sometime before stent removed and he would rather proceed while here- will plan for tomorrow- npo, on Zosyn- Dr Hart History of Present Illness Reason for Consultation: Evaluate for cholecystectomy Attending Physician: Robert Sanchez History of Present Illness Mr. Sharma is an 78-year-old male with past medical history significant for COPD, CAD, hyperlipidemia, hypertension , DVT of right lower extremity roughly 3 years ago per patient, VT (s/p cardiac catheterization, patient unaware of date) who presented to [facility] 2 days ago with abdominal pain, nausea and vomiting. Patient reports that pain radiated up into his chest. Admission bloodwork revealed elevated bilirubin, AST, ALT, and Alk Phos. WBC within normal limits. Lipase level within normal limits. Patient does take a daily 81 mg Aspirin. Patient denies prior abdominal surgeries. Imaging in ED: GB US: IMPRESSION: 1. Dilated common bile duct containing echogenic material, possibly representing calculi 2. Borderline gallbladder wall thickening. No gallbladder calculi identified CT Abdomen/Pelvis w IV con 1. Mild intra and extrahepatic biliary ductal dilatation. A distal common bile duct filling defect is visualized. On a statistical basis this represents a noncalcified stone. An MRCP or ERCP could be obtained in follow-up for confirmation MRCP: IMPRESSION: 7 mm filling defect within the distal common bile duct consistent with a calculus. Mild secondary ductal dilatation. Patient was evaluated by GI- ERCP (08/06/18)- Choledocholithiasis- biliary sphincterotomy, pancreatic stent placement, biliary stent placement into CBD. Currently, patient is afebrile. Pt denies abdominal pain, denies nausea. Tolerating clear liquids following ERCP this AM. Allergies Allergy/AdvReac Type Severity Reaction Status Date / Time tiotropium AdvReac Unknown CHEST Verified 11/08/17 08:50 PAIN, PRESSURE atorvastatin [From Lipitor] AdvReac Nausea Unverified 08/04/18 17:40 Home Medications Home Medications Medication Instructions Recorded Confirmed Type acetaminophen 500 mg PO QID PRN 08/04/18 08/04/18 History alfuzosin 10 mg PO DAILY 08/04/18 08/04/18 History aspirin [Aspir-81] 81 mg PO DAILY 08/04/18 08/04/18 History atorvastatin 20 mg PO HS 08/04/18 08/04/18 History carvedilol 12.5 mg PO BID 08/04/18 08/04/18 History dutasteride 0.5 mg PO DAILY 08/04/18 08/04/18 History esomeprazole magnesium 40 mg PO DAILY 08/04/18 08/04/18 History fluticasone furoate-vilanterol 1 puff INHALATION DAILY 08/04/18 08/04/18 History [Breo Ellipta] furosemide 20 mg PO QAM 08/04/18 08/04/18 History lisinopril 40 mg PO DAILY 08/04/18 08/04/18 History multivitamin [Multiple Vitamins] 1 tab PO DAILY 08/04/18 08/04/18 History nitroglycerin [Nitrostat] 0.4 mg SUBLINGUAL UD PRN 08/04/18 08/04/18 History Patient History Medical History Heart attack Degenerative joint disease (DJD) of hip Hypertension (Chronic) BPH (benign prostatic hyperplasia) CAD (coronary artery disease) COPD (chronic obstructive pulmonary disease) Essential (primary) hypertension HLD (hyperlipidemia) History of DVT (deep vein thrombosis) SVT (supraventricular tachycardia) Surgical History History of hip surgery History of shoulder surgery History of cardiac cath History of total hip replacement Family History Mother Coronary heart disease Stroke Father Hypertension Social History Preferred Language: Maltese Communication Ability: Effective Marketing Liaison Required: No Beliefs That Will Affect Care: None marital status: Current Living Situation: Alone current occupational status: retired Other Information That Helps Us Care for You: No Feels Safe at Home: Yes Safety Concerns: Feels Safe At This Time Smoking Status: Former smoker Hx Alcohol Use: Yes Alcohol type: beer Hx Substance Use: No Physical Exam Constitutional: no acute distress Gastrointestinal (Abdomen): Percussion/Palpation: abdomen soft; abdomen nontender Results & Data Vital Signs (Past 12 Hours) Vital Signs Temp Pulse Pulse Pulse Resp BP Pulse Ox 08/06/18 15:00 36.6 C 49 L 16 169/72 H 95 08/06/18 13:24 36.3 C L 46 L 14 167/67 H 94 08/06/18 12:09 36.5 C 48 L 16 175/76 H 94 08/06/18 11:10 54 L 16 186/73 H 94 08/06/18 10:37 54 L 16 162/64 H 95 08/06/18 10:10 37 C 56 L 18 153/70 H 94 08/06/18 09:55 36.3 C L 58 L 21 146/69 H 96 08/06/18 09:45 36.3 C L 58 L 16 151/79 H 97 08/06/18 09:35 59 L 16 154/79 H 97 08/06/18 09:25 36.1 C L 65 16 155/83 H 97 08/06/18 09:17 36.1 C L 62 16 139/65 99 08/06/18 07:11 37.1 C 56 L 16 144/68 H 93 08/06/18 06:15 37.1 C 57 L 16 147/58 H 93
[2018-08-06] MEDS: ALFUZOSIN HCL 10 MG TAB PO SCH (17:37)
[2018-08-06] MEDS: ATORVASTATIN 20 MG TAB PO SCH (20:42)
[2018-08-07] MEDS: PIPERACILLIN/TAZOBACTAM 3.375 GM in DEXTROSE 5% 100 ML IV SCH ×3 (02:31→18:50)
[2018-08-07] MEDS: LACTATED RINGER'S 1,000 ML IV SCH ×2 (04:50→11:52)
[2018-08-07 06:31] LABS: Albumin Level 2.2 gm/dl (3.4-5.0); BUN Creatinine Ratio 25.8 (10-20); Calcium 8.3 mg/dl (8.5-10.1); Creatinine Clr Calc Pharmacy 83.7 ml/min; Est GFR (African American) 99.3; Est GFR (Non-African American) 85.7; Potassium 3.4 mmol/L (3.5-5.1)
[2018-08-07 06:37] LABS: Albumin Globulin Ratio 0.7 (0.9-2); Bilirubin,Total 1.4 mg/dl (0.2-1); Total Protein 5.2 gm/dl (6.4-8.2)
--- NOTE | 2018-08-07 06:45 | Anesthesiology Consultation ---
Date of Service August 07, 2018 Assessment & Plan Chart Review Chart Review: Acceptable Risk for Surgery and Patient NOT seen in Pre Admission Testing Consults Requested none ASA ASA3 Proposed Anesthesia Anesthesia Type: General Risk / Benefits Reviewed With: PT / POA / Parent / Guardian, Accepts Plan and Informed Consent Obtained History Surgery Operation Date: 08/06/18 08:00 Proposed Procedures p Endoscopic Retrograde Cholangiopancreato - Juan Jose Jean Baptiste Operation Date: 08/07/18 08:50 Proposed Procedures p Laparoscopic Cholecystectomy - Arian Hargrove MD Height/Weight Height: 1.75 m Weight: 87.3 kg Allergies Allergy/AdvReac Type Severity Reaction Status Date / Time tiotropium AdvReac Unknown CHEST Verified 11/08/17 08:50 PAIN, PRESSURE atorvastatin [From Lipitor] AdvReac Nausea Unverified 08/04/18 17:40 Medications Home Medications Medication Instructions Recorded Confirmed Last Taken acetaminophen 500 mg PO QID PRN 08/04/18 08/04/18 Unknown alfuzosin 10 mg PO DAILY 08/04/18 08/04/18 Unknown aspirin [Aspir-81] 81 mg PO DAILY 08/04/18 08/04/18 Unknown atorvastatin 20 mg PO HS 08/04/18 08/04/18 Unknown carvedilol 12.5 mg PO BID 08/04/18 08/04/18 Unknown dutasteride 0.5 mg PO DAILY 08/04/18 08/04/18 Unknown esomeprazole magnesium 40 mg PO DAILY 08/04/18 08/04/18 Unknown fluticasone furoate-vilanterol 1 puff INHALATION DAILY 08/04/18 08/04/18 Unknown [Breo Ellipta] furosemide 20 mg PO QAM 08/04/18 08/04/18 Unknown lisinopril 40 mg PO DAILY 08/04/18 08/04/18 Unknown multivitamin [Multiple Vitamins] 1 tab PO DAILY 08/04/18 08/04/18 Unknown nitroglycerin [Nitrostat] 0.4 mg SUBLINGUAL UD PRN 08/04/18 08/04/18 Unknown Active Medications Generic Name Dose Route Start Last Admin Trade Name Freq PRN Reason Stop Dose Admin Alfuzosin HCl 10 mg 08/05/18 17:30 08/06/18 17:37 Uroxatral PO 09/04/18 17:29 10 mg DAILY@1730 POLO Administration Aspirin 81 mg 08/05/18 09:00 08/05/18 08:21 Ecotrin Ectab PO 09/04/18 08:59 81 mg DAILY POLO Administration Atorvastatin Calcium 20 mg 08/06/18 21:00 08/06/18 20:42 Lipitor PO 09/05/18 20:59 20 mg HS POLO Administration Carvedilol 12.5 mg 08/04/18 21:00 08/06/18 20:42 Coreg PO 09/03/18 20:59 Not Given BID POLO Hydralazine HCl 10 mg 08/04/18 19:40 08/05/18 15:00 Hydralazine Hcl IV 09/03/18 19:39 10 mg Q6H PRN Administration hypertension Piperacillin Sod/Tazobactam 115 mls @ 28.75 mls/hr 08/05/18 02:00 08/07/18 06:31 Sod 3.375 gm/ Dextrose IV 08/15/18 01:59 Infused Q8H POLO Infusion Protocol Lactated Ringer's 1,000 mls @ 125 mls/hr 08/06/18 09:15 08/07/18 04:50 Lr IV 09/05/18 09:14 125 mls/hr .Q8H POLO Administration Ioversol 94 ml 08/04/18 17:47 08/04/18 17:48 Optiray 320 100ml IV 08/08/18 17:46 94 ml ONCE PRN Administration Interaction Checking Lisinopril 40 mg 08/05/18 09:00 08/06/18 10:17 Zestril PO 09/04/18 08:59 40 mg DAILY POLO Administration Miscellaneous 1 ea 08/05/18 00:00 08/06/18 23:39 Order Awaiting Action N/A 09/04/18 00:00 Not Given QS POLO Morphine Sulfate 2 mg 08/04/18 19:40 08/05/18 19:00 Morphine Sulfate IV 08/18/18 19:39 2 mg Q4H PRN Administration Pain Ondansetron HCl 4 mg 08/04/18 19:40 08/05/18 16:56 Zofran IV 09/03/18 19:39 4 mg Q6H PRN Administration Nausea Pantoprazole Sodium 40 mg 08/05/18 09:00 08/06/18 10:17 Protonix PO 09/04/18 08:59 40 mg QAM POLO Administration NPO Date Last Intake of Fluids: 08/06/18 Time Last Intake of Fluids: 21:00 Date Last Intake of Solids: 08/06/18 Time Last Intake of Solids: 17:00 Past Medical History Medical History Heart attack 20 years ago per patient. No stents/angioplasty. No recent issues. Has never had to use NTG Degenerative joint disease (DJD) of hip Hypertension (Chronic) BPH (benign prostatic hyperplasia) CAD (coronary artery disease) COPD (chronic obstructive pulmonary disease) No h/o hospitalization or intubation. No home O2 Essential (primary) hypertension HLD (hyperlipidemia) History of DVT (deep vein thrombosis) SVT (supraventricular tachycardia) Exercise / Class Metabolic Activity II 4-5 Yardwork/Stairs/Walk up hill (No CP. Does get SOB) Past Family History Family History Mother Coronary heart disease Stroke Father Hypertension Past Surgical History Surgical History History of hip surgery History of shoulder surgery History of cardiac cath History of total hip replacement S/P ERCP 08/06/18 Past Anesthesia History No Hx of Anesthesia Complications and No Family Hx of Anesthesia Complications History of PONV No Hx of PONV and No Hx of Motion Sickness Social History Smoking Status: Former smoker Hx Alcohol Use: Yes Alcohol type: beer alcohol intake frequency: a few times a month Hx Substance Use: No Review of Systems Respiratory: no dyspnea Cardiovascular: no chest pain and no chest pain with activity Gastrointestinal: no nausea and no vomiting Physical Exam Vital Signs Last Vital Signs Temp 36.8 C 08/07/18 04:03 Pulse 53 L 08/07/18 04:03 Resp 16 08/07/18 04:03 BP 155/67 H 08/07/18 04:03 Pulse Ox 93 08/07/18 04:03 ENMT Mouth: + edentulous; no TMJ abnormality and no TMJ clicking Thyromental Distance: > or= 3.5 Finger Breadths Mallampati Class: II Neck normal visual inspection; neck extension not limited Respiratory Auscultation: lungs clear to auscultation bilaterally Cardiovascular Rate/Rhythm: regular rate and regular rhythm Psychiatric Orientation: alert and oriented x 3 Testing Electrocardiogram Date: 08/05/18 Findings: + SB @ (at 46;1st degree AV block;T wave abnormality;? lateral ischem ia) Chest X-Ray Date: 08/04/18 Findings: + NAD and + cardiomegaly Stress Test Date: 02/06/15 Type: exercise Resting EF: 65-70% Resting LV Function: normal Resting RWMA: + none Valvular Disease: (Mild) Nondiagnostic @ 67% MPHR. Hypertensive response. Laboratory Results 08/06/18 05:55 08/07/18 05:39 PT 10.9 Seconds (9.0-12.0) 08/04/18 16:29 INR 1.1 (0.9-1.1) 08/04/18 16:29 Urine Color Yellow 08/04/18 16:29 Urine Appearance Clear (Clear) 08/04/18 16:29 Urine pH 8.5 (4.5-7.5) H 08/04/18 16:29 Ur Specific [place] 1.015 (1.000-1.030) 08/04/18 16:29 Urine Protein Negative (Negative) 08/04/18 16:29 Urine Glucose (UA) Negative (Negative) 08/04/18 16:29 Urine Ketones Negative (Negative) 08/04/18 16:29 Urine Nitrite Negative (Negative) 08/04/18 16:29 Ur Leukocyte Esterase Negative (Negative) 08/04/18 16:29
--- NOTE | 2018-08-07 07:36 | History & Physical Bridge Note ---
Date of Service August 07, 2018 History & Physical Bridge Note I have examined the patient, reviewed the History & Physical and in the interval since the performance of the History & Physical I have noted the following changes of clinical significance: no changes noted minaml abd tenderness ruq guarding all questions answered pt states he will call SO post op chart reviewed permit signed Supervising Physician Co-Signing Physician Notes Patient was seen and examined by me. Discussed with SHAHID Oconnell. I agree with the assessment and plan.
[2018-08-07] MEDS ORDERED: LIDOCAINE HCL 2% 2 ML VIAL/AMP(20MG/ML) INFIL ONE (07:40)
[2018-08-07] MEDS ORDERED: PROPOFOL IV EMULSION 10 MG/ML 20 ML VIAL IV ONE (07:40)
[2018-08-07] MEDS ORDERED: ROCURONIUM BROMIDE 10 MG/ML 5 ML VIAL ONE (07:40)
[2018-08-07] MEDS ORDERED: fentaNYL citrate 100 MCG/2 ML VIAL ONE ×2 (07:40→09:54)
[2018-08-07] MEDS ORDERED: ePHEDrine sulfate 50 MG/ML AMP IV PRN (07:49)
[2018-08-07] MEDS ORDERED: ONDANSETRON INJ 2 MG/ML 2 ML VIAL IV PRN (07:49)
[2018-08-07] MEDS ORDERED: HYDROmorphone INJ 1 MG/ML SYRINGE IV PRN (07:49)
[2018-08-07] MEDS ORDERED: PHENYLEPHRINE 100MCG/ML 5ML SYR IV PRN (07:49)
[2018-08-07] MEDS ORDERED: ATROPINE SULFATE 0.1 MG/ML 10ML SYR IV PRN (07:49)
[2018-08-07] MEDS ORDERED: POTASSIUM CHLORIDE 20 MEQ TABCR PO STA (08:03)
[2018-08-07] MEDS ORDERED: LIDOCAINE/EPINEPHRINE 1% 20 ML VIAL ONE (08:24)
[2018-08-07] MEDS ORDERED: CONRAY 60% 50 ML VIAL ONE (08:24)
[2018-08-07] MEDS ORDERED: NON-FORMULARY MEDICATION (Esomeprazole Magnesium 40 MG) PO SCH (09:00)
[2018-08-07] MEDS ORDERED: GLUCAGON FOR INJ 1 MG VIAL ONE (09:25)
[2018-08-07] MEDS ORDERED: ENDOSCOPIC MARKER 5 ML SYR TOP ONE (09:25)
[2018-08-07] MEDS ORDERED: ONDANSETRON INJ 2 MG/ML 2 ML VIAL ONE (09:50)
[2018-08-07] MEDS ORDERED: NEOSTIGMINE METHYLSULFATE 5 MG/5 ML SYR ONE (09:50)
[2018-08-07] MEDS ORDERED: GLYCOPYRROLATE 0.2 MG/ML VIAL ONE (09:50)
--- NOTE | 2018-08-07 09:53 | Post Operative Brief Note ---
Immediate Post Op Note v1 Date of Surgery August 07, 2018 Pre & Post Diagnosis Operation Date: 08/06/18 08:00 Pre-Op Diagnosis: Common Bile Duct Calculi Post-Op Diagnosis: Common Bile Duct Calculi Operation Date: 08/07/18 08:50 Pre-Op Diagnosis: Choledocholithiasis Post-Op Diagnosis: Choledocholithiasis Procedure Operation Date: 08/06/18 08:00 Actual Procedures p Endoscopic Retrograde Cholangiopancreatography in Operating Room with Insertion of Pancreatic and Biliary Stents(Not Applicable) - Juan Jose Jean Baptiste Operation Date: 08/07/18 08:50 Actual Procedures p Laparoscopic Cholecystectomy with cholangiogram(Not Applicable) - Arian Hargrove MD Surgeon Arian Hargrove MD [employer] [place] KEY Estimated Blood Loss 15 Findings Consistent with Post-Op Diagnosis Drains Natalio Drain
--- NOTE | 2018-08-07 10:17 | Operative Report ---
Post Operative Report Pre & Post Diagnosis Operation Date: 08/06/18 08:00 Pre-Op Diagnosis: Common Bile Duct Calculi Post-Op Diagnosis: Common Bile Duct Calculi Operation Date: 08/07/18 08:50 Pre-Op Diagnosis: Choledocholithiasis Post-Op Diagnosis: Choledocholithiasis Procedure Operation Date: 08/06/18 08:00 Actual Procedures p Endoscopic Retrograde Cholangiopancreatography in Operating Room with Insertion of Pancreatic and Biliary Stents(Not Applicable) - Juan Jose Jean Baptiste Operation Date: 08/07/18 08:50 Actual Procedures p Laparoscopic Cholecystectomy with cholangiogram(Not Applicable) - Arian Hargrove MD The patient was brought into the operating theater supine position general endotracheal anesthesia the abdomen was prepped Betadine solution properly draped patient identified timeout was had small incision was made supraumbilically sufficient for a Veress needle followed by CO2 followed by 5 mm trocar point of entry inspected no injury identified direct visualization 5 mm gastric to family also positive trochars were placed under preemptive analgesic 0.5% Marcaine plain gallbladder was thick-walled adhesions to the gallbladder were taken down by blunt dissection we worked our way towards the neck of the gallbladder with significant amount of edema and wall thickness was appreciated he had placed the patient in reverse Trendelenburg position and rotated to the left we worked bluntly to identify the triangle REKHA where the cystic duct appea red to be a bit larger than normal we freed it up sufficiently into its takeoff small artery along with the duct was clipped clipped was placed into the takeoff of the cystic duct small opening the cystic duct was made and #4 urethral catheter transverse to the abdominal wall was positioned in the cystic duct serial x-rays were taken cystic duct was slightly corkscrewed the common bile duct was dilated the stent visualized at this point the catheter was removed the cystic duct was doubly clipped and divided the artery some identified doubly clipped and divided gallbladder was removed in antegrade fashion using electrocautery trying to leave as much as the peritoneum posteriorly as possible although the gallbladder was quite friable small opening some pale drainage from the gallbladder was appreciated no stones gallbladder was then taken off completely off the liver placed in an Endopouch taken out through the epigastric port cultures will be taken we then suctioned out the subhepatic suprahepatic area small bleeder from the liver bed was appreciated nothing significant we placed the camera right upper quadrant port to visualize the entry in the umbilical area there were no lesions appreciated at this point I elected to drain the subhepatic area with a Natalio drain putting a 5 mm entering from the 5 mm epigastric port taken out lateral to the 5 mm lateral port placement subhepatically attached to skin edge with 2-0 silk individual trochars removed under direct visualization last the umbilical trocar wounds were closed with 4-0 Monocryl Steri-Strips applied procedure was tolerated well estimated blood loss approximately 15 cc addendum [place] present whole case help with exposure retraction and wound closure Surgeon Arian Hargrove MD [employer] Sorting Machine Operator [place] [facility] Estimated Blood Loss 15 Findings Consistent with Post-Op Diagnosis Specimens gallbladder and contents Description of Procedure merda I attest to the content of the Intraoperative Record and any orders documented therein. Any exceptions are noted below. Supervising Physician Co-Signing Physician Notes Patient was seen and examined by me. Discussed with SHAHID Oconnell. I agree with the assessment and plan.
[2018-08-07] MEDS: fentaNYL citrate 100 MCG/2 ML VIAL IV PRN ×2 (10:25→10:47)
[2018-08-07] MEDS ORDERED: HydrALAZINE HCL 20 MG/ML VIAL IV ONE (10:27)
--- NOTE | 2018-08-07 10:38 | History & Physical Bridge Note ---
Date of Service August 07, 2018 History & Physical Bridge Note GI short note: Pt is a 78 y/o male s/p ERCP on 08/06/[address] Jean Baptiste for choledocholithiasis removal, sphincterectomy, biliary and pancreatic ducts stents placement. He is currently in OR for lap cholecystectomy. Chart reviewed, afebrile overnight, LFTs decreasing, Lipase normal. Will f/u after lap peter is completed.
--- NOTE | 2018-08-07 10:51 | Fluoroscopy Report ---
INTRAOPERATIVE CHOLANGIOGRAM HISTORY: Post cholecystectomy. FLUOROSCOPY TIME: 3 seconds. FINDINGS: Fluoroscopy was provided for an intraoperative cholangiogram status post cholecystectomy. C ontrast was injected through the cystic duct remnant. The common bile duct is normal in course and ca liber. There are no filling defects seen within the common bile duct to suggest a retained stone. Co ntrast extends into the small bowel. There is no intrahepatic bile duct dilatation. The common bile d uct stent is in good position and appears patent. There is also a stent within the main pancreatic du ct which is likely in good position. IMPRESSION: Fluoroscopy provided for an intraoperative cholangiogram status post cholecystectomy. No filling defects within the common bile duct. The common bile duct stent appears patent. Electronically signed by: Claudio Mallory M.D. 08/07/2018 10:50 AM
--- NOTE | 2018-08-07 11:03 | Anesthesiology Progress Note ---
Date of Service August 07, 2018 Anesthesia Post Procedure Vital Signs Vital Signs: Temp Pulse Pulse Pulse Resp BP Pulse Ox 08/07/18 10:55 57 L 20 144/60 H 95 08/07/18 10:45 57 L 18 180/69 H 97 08/07/18 10:35 51 L 18 181/70 H 95 08/07/18 10:25 56 L 19 209/79 H 98 08/07/18 10:15 53 L 20 174/83 H 97 08/07/18 10:07 36.3 C L 55 L 17 185/73 H 98 08/07/18 07:42 36.8 C 96 H 58 L 18 203/75 H 08/07/18 04:03 36.8 C 53 L 16 155/67 H 93 08/06/18 22:13 36.6 C 50 L 16 173/82 H 93 08/06/18 20:41 52 L 164/104 H 08/06/18 15:00 36.6 C 49 L 16 169/72 H 95 08/06/18 13:24 36.3 C L 46 L 14 167/67 H 94 08/06/18 12:09 36.5 C 48 L 16 175/76 H 94 08/06/18 11:10 54 L 16 186/73 H 94 Pain Intensity Abdomen: Pain Intensity: 3 Transfer of Care Handoff Completed per policy Notes Mental Status: alert / awake / arousable Patient Amnestic to Procedure: Yes Nausea / Vomiting: adequately controlled Pain: adequately controlled Airway Patency, RR, SpO2: stable & adequate BP & HR: stable & adequate Hydration State: stable & adequate Anesthetic Complications: no major complications apparent Notes: Pt doing well. BP improved after 10mg IV of hydralazine. VSS.
[2018-08-07] MEDS: FUROSEMIDE 20 MG TAB PO SCH (11:47)
[2018-08-07] MEDS: FLUTICASONE/VILANTEROL INHALER INH SCH (11:47)
[2018-08-07] MEDS: MULTIVITAMIN TAB PO SCH (11:47)
[2018-08-07] MEDS: LISINOPRIL 40 MG TAB PO SCH (11:47)
[2018-08-07] MEDS: PANTOprazole 40 MG TAB PO SCH (11:48)
[2018-08-07] MEDS: CARVEDILOL 12.5 MG TAB PO SCH ×2 (11:51→21:26)
--- NOTE | 2018-08-07 12:13 | Gastroenterology Progress Note ---
Date of Service August 07, 2018 Assessment & Plan (1) Common bile duct calculi: 78 yo male admitted with abd pain, nausea, vomiting and labs and imaging consistent with choledocholithiasis. No evidence of concomitant pancreatitis. No fevers. -Now status post ERCP 1 day as well as cholecystectomy today. No apparent complications and tolerated well. -Advance diet per surgery -We will need stent removal per Dr. Jean Baptiste of the biliary stent, and pancreatic stent should pass spontaneously. Will need x-ray in 10 to 12 days if not documented passing on this admission. -Call with questions (2) Hyperbilirubinemia: (3) Transaminitis: (4) Abdominal pain: Subjective Walking in the room postoperative from cholecystectomy, no complaints. No complaints earlier this morning concerning for complication from ERCP prior to cholecystectomy. Physical Exam Physical Exam: Alert and oriented x3 Heart is regular Lungs are clear Normal active soft nontender No peripheral edema Ambulatory Results & Data Vital Signs (Past 12 Hours) Vital Signs Temp Pulse Pulse Pulse Resp BP Pulse Ox 08/07/18 11:42 37.1 C 19 157/72 H 92 08/07/18 11:15 54 L 17 143/62 H 96 08/07/18 11:05 36.6 C 54 L 20 141/64 H 95 08/07/18 10:55 57 L 20 144/60 H 95 08/07/18 10:45 57 L 18 180/69 H 97 08/07/18 10:35 51 L 18 181/70 H 95 08/07/18 10:25 56 L 19 209/79 H 98 08/07/18 10:15 53 L 20 174/83 H 97 08/07/18 10:07 36.3 C L 55 L 17 185/73 H 98 08/07/18 07:42 36.8 C 96 H 58 L 18 203/75 H 08/07/18 04:03 36.8 C 53 L 16 155/67 H 93
[2018-08-07] MEDS: MoRPHine SULFATE 2 MG/ML CARP IV PRN (12:30)
--- NOTE | 2018-08-07 13:13 | Hospitalist Progress Note ---
Date of Service August 07, 2018 Assessment & Plan (1) Abdominal pain: - Presented with acute abdominal pain in setting of elevated LFTs, bile duct obstruction. - CT A/P showed intra and extrahepatic biliary duct dilatation with noncalcified stone. - Gallbladder US showed dilated common bile duct with echogenic material (likely calculi) - MRCP: 7 mm filling defect within distal CBD. - GI consulted for evaluation, s/p ERCP on 08/06/18 with placement of one pancreatic stent and one CBD stent. - Will need XR in 10-12 days for re-evaluation of stent; will need removed in future by Dr. Jean Baptiste. - General surgery consulted, s/p lap cholecystectomy today. - Continue Zosyn for empiric coverage. - Morphine IV prn pain; Zofran prn N/V. - CLD as tolerated following procedure; d/c IV fluids. (2) Hyperbilirubinemia: - T bili trending down, monitor qAM. (3) Transaminitis: - LFTs improving following ERCP with stone removal. - Holding home statin; avoid Tylenol - Trend qAM. (4) COPD (chronic obstructive pulmonary disease): - Continue home Breo-Ellipta as prescribed (will need to bring from home) (5) HTN (hypertension): - Continue home Coreg 12.5 mg BID (has been held for persistent bradycardia), Lisinopril 40 mg daily as prescribed. - Resumed home Lasix 20 mg daily. - BP remains elevated with SBP 150-170's - Hydralazine IV prn. (6) HLD (hyperlipidemia): - Holding home statin due to elevated LFTs. - Holding home aspirin for procedure. (7) BPH (benign prostatic hyperplasia): - Continue home meds. (8) History of DVT (deep vein thrombosis): - Not currently on anticoagulation therapy. - SCDs; resume pharmacologic ppx per surgery. (9) Hyperglycemia: - Most recent A1C was 6.2 this spring. - Encourage CCD and exercise. (10) Electrolyte abnormality: - K level 3.4 - ordered KCl 20 mEq PO. (11) DVT prophylaxis: - SCDs; restart Lovenox ppx per surgery recs. Dispo: Med/surg; s/p ERCP on 08/06 and lap peter today. Discharge likely on 08/08 pending pain control. Subjective Pt. is doing well overall. Did have abd pain this afternoon post op, received IV morphine with relief. Denies chest pain, SOB, N/V, constipation. Plan for discharge tomorrow pending pain control. Review of Systems Review of Systems: All systems reviewed & are unremarkable except as noted in HPI & below Constitutional: no fever, no chills, no fatigue and no weakness Respiratory: no cough, no dyspnea, no dyspnea on exertion and no wheezing Cardiovascular: no chest pain, no palpitations and no edema Gastrointestinal: + abdominal pain; no nausea, no vomiting and no constipation Genitourinary: no difficulty urinating Musculoskeletal: no back pain and no joint pain Integumentary: no non-healing lesions Allergy / Immunological: no rash Physical Exam Physical Exam: General: Resting comfortably in no apparent distress HEENT: NC/AT; PERRLA with EOMI; [place] conjunctiva, MMM. No erythema of posterior pharynx Neck: Supple and nontender Cardiac: RRR w/o murmurs, gallops or rubs Lungs: CTA bilaterally; No rhonchi, wheezing, or rales Abdomen: Bowel normoactive X 4; Tender to light palpation over RUQ Extremities: Warm. No edema present Neuro: No focal weakness Skin: No rash Results & Data Vital Signs (Past 12 Hours) Vital Signs Temp Pulse Pulse Pulse Resp BP Pulse Ox 08/07/18 12:40 36.8 C 54 L 18 169/72 H 94 08/07/18 12:10 36.6 C 58 L 20 170/76 H 92 08/07/18 11:42 37.1 C 19 157/72 H 92 08/07/18 11:15 54 L 17 143/62 H 96 08/07/18 11:05 36.6 C 54 L 20 141/64 H 95 08/07/18 10:55 57 L 20 144/60 H 95 08/07/18 10:45 57 L 18 180/69 H 97 08/07/18 10:35 51 L 18 181/70 H 95 08/07/18 10:25 56 L 19 209/79 H 98 08/07/18 10:15 53 L 20 174/83 H 97 08/07/18 10:07 36.3 C L 55 L 17 185/73 H 98 08/07/18 07:42 36.8 C 96 H 58 L 18 203/75 H 08/07/18 04:03 36.8 C 53 L 16 155/67 H 93 Laboratory Results 08/07/18 Range/Units 05:39 Sodium 139 (136-145) mmol/L Potassium 3.4 L (3.5-5.1) mmol/L Chloride 107 (98-107) mmol/L Carbon Dioxide 27 (21-32) mmol/L Anion Gap 5.0 (3-11) BUN 20 H (7-18) mg/dl Creatinine 0.77 (0.6-1.4) mg/dl Est Cr Clr Drug Dosing 83.7 ml/min Est GFR ( Amer) 99.3 Est GFR (Non-Af Amer) 85.7 BUN/Creatinine Ratio 25.8 H (10-20) Glucose 103 H (70-99) mg/dl Calcium 8.3 L (8.5-10.1) mg/dl Total Bilirubin 1.4 H (0.2-1) mg/dl AST 56 H (15-37) U/L ALT 208 H (12-78) U/L Alkaline Phosphatase 145 H (45-117) U/L Total Protein 5.2 L (6.4-8.2) gm/dl Albumin 2.2 L (3.4-5.0) gm/dl Globulin 3.0 (2.5-4.0) gm/dl Albumin/Globulin Ratio 0.7 L (0.9-2) Lipase 249 (73-393) U/L
[2018-08-07] MEDS: HydrALAZINE HCL 20 MG/ML VIAL IV PRN (16:42)
[2018-08-07] MEDS: ALFUZOSIN HCL 10 MG TAB PO SCH (18:50)
[2018-08-07] MEDS: ATORVASTATIN 20 MG TAB PO SCH (21:26)
[2018-08-08] MEDS: PIPERACILLIN/TAZOBACTAM 3.375 GM in DEXTROSE 5% 100 ML IV SCH ×3 (03:04→18:39)
[2018-08-08 06:35] LABS: Eosinophils # (auto) 0.05 K/uL (0-0.5); Eosinophils % (auto) 1.1 %; Hematocrit (blood only) 33.5 % (42-52); Hemoglobin 11.8 g/dL (14.0-18.0); Immature Granulocytes # (auto) 0.01 K/uL (0.00-0.02); Immature Granulocytes % (auto) 0.2 %; Lymphocytes # (auto) 0.58 K/uL (1.2-3.4); Lymphocytes % (auto) 13.1 %; Mean Corpuscular Hgb Conc 35.2 g/dL (32-36); Mean Corpuscular Volume 89.6 fL (80-100); Monocytes # (auto) 0.45 K/uL (0.11-0.59); Monocytes % (auto) 10.1 %; Neutrophils # (auto) 3.35 K/uL (1.4-6.5); Neutrophils % (auto) 75.5 %; Platelet Count 117 K/uL (130-400); RDW Coefficient of Variation 13.1 % (11.5-14.5); RDW Standard Deviation 43.2 fL (36.4-46.3); Red Blood Count 3.74 M/uL (4.7-6.1); White Blood Count 4.44 K/uL (4.8-10.8)
[2018-08-08 07:13] LABS: Albumin Level 2.2 gm/dl (3.4-5.0); BUN Creatinine Ratio 18.1 (10-20); Bilirubin Direct 0.5 mg/dl (0-0.2); Calcium 7.8 mg/dl (8.5-10.1); Creatinine Clr Calc Pharmacy 92.1 ml/min; Est GFR (African American) 103.3; Est GFR (Non-African American) 89.1; Potassium 3.3 mmol/L (3.5-5.1)
[2018-08-08 07:15] LABS: Bilirubin,Total 1.2 mg/dl (0.2-1); Total Protein 5.6 gm/dl (6.4-8.2)
[2018-08-08] MEDS: HydrALAZINE HCL 20 MG/ML VIAL IV PRN (07:16)
[2018-08-08] MEDS: LISINOPRIL 40 MG TAB PO SCH (07:56)
[2018-08-08] MEDS: PANTOprazole 40 MG TAB PO SCH (07:57)
[2018-08-08] MEDS: MULTIVITAMIN TAB PO SCH (07:57)
[2018-08-08] MEDS: FUROSEMIDE 20 MG TAB PO SCH (07:57)
[2018-08-08] MEDS: CARVEDILOL 12.5 MG TAB PO SCH ×2 (07:57→21:06)
[2018-08-08] MEDS: FLUTICASONE/VILANTEROL INHALER INH SCH (07:57)
--- NOTE | 2018-08-08 11:29 | Surgery Progress Note ---
Date of Service August 08, 2018 Assessment & Plan (1) Common bile duct calculi: POD #1 s/p Laparoscopic Cholecystectomy with Intraoperative Cholangiogram, POD #2 s/p Endoscopic Retrograde Cholangiopancreatography in Operating Room with Insertion of Pancreatic and Biliary Stents Pt seen and examined with Dr. Hargrove. Patient has minimal pain. Tolerating diet. +PEDRO drain with approximately 270cc of bloody drainage since surgery. Will monitor H and H Q6H BPs have been elevated- on PRN Hydralazine- management per primary service. If H and H remain stable, possible discharge tomorrow. Subjective Patient resting comfortably in bed- states that he only having discomfort at surgical incision sites. Tolerating diet without issue. Physical Exam Gastrointestinal (Abdomen): Percussion/Palpation: + abdomen tender (at surgical incision sites. ) and abdomen soft +PEDRO drain in right abdomen- bloody drainage 270 cc total drainage since arriving back on floor following surgery. Results & Data Vital Signs (Past 12 Hours) Vital Signs Temp Pulse Resp BP Pulse Ox 08/08/18 10:30 37.0 C 59 L 18 172/67 H 93 08/08/18 07:05 37.2 C 58 L 20 186/78 H 90 08/08/18 03:01 37.0 C 57 L 16 177/71 H 93 08/08/18 00:10 175/75 H
[2018-08-08 12:06] LABS: Eosinophils # (auto) 0.03 K/uL (0-0.5); Eosinophils % (auto) 0.5 %; Hematocrit (blood only) 34.5 % (42-52); Hemoglobin 12.2 g/dL (14.0-18.0); Immature Granulocytes # (auto) 0.03 K/uL (0.00-0.02); Immature Granulocytes % (auto) 0.5 %; Lymphocytes % (auto) 8.3 %; Mean Corpuscular Hgb Conc 35.4 g/dL (32-36); Mean Corpuscular Volume 89.4 fL (80-100); Mean Platelet Volume 10.2 fL (7.4-10.4); Monocytes # (auto) 0.49 K/uL (0.11-0.59); Monocytes % (auto) 8.2 %; Neutrophils # (auto) 4.95 K/uL (1.4-6.5); Neutrophils % (auto) 82.5 %; Platelet Count 135 K/uL (130-400); RDW Coefficient of Variation 13.2 % (11.5-14.5); RDW Standard Deviation 42.9 fL (36.4-46.3); Red Blood Count 3.86 M/uL (4.7-6.1)
[2018-08-08] MEDS: ALFUZOSIN HCL 10 MG TAB PO SCH (18:04)
[2018-08-08 18:41] LABS: Eosinophils # (auto) 0.08 K/uL (0-0.5); Eosinophils % (auto) 1.1 %; Hematocrit (blood only) 35.8 % (42-52); Hemoglobin 12.9 g/dL (14.0-18.0); Immature Granulocytes # (auto) 0.02 K/uL (0.00-0.02); Immature Granulocytes % (auto) 0.3 %; Lymphocytes # (auto) 0.97 K/uL (1.2-3.4); Lymphocytes % (auto) 13.8 %; Mean Corpuscular Volume 89.9 fL (80-100); Monocytes # (auto) 0.77 K/uL (0.11-0.59); Monocytes % (auto) 10.9 %; Neutrophils # (auto) 5.21 K/uL (1.4-6.5); Neutrophils % (auto) 73.9 %; Platelet Count 153 K/uL (130-400); RDW Coefficient of Variation 13.1 % (11.5-14.5); RDW Standard Deviation 42.8 fL (36.4-46.3); Red Blood Count 3.98 M/uL (4.7-6.1); White Blood Count 7.05 K/uL (4.8-10.8)
[2018-08-08] MEDS: ATORVASTATIN 20 MG TAB PO SCH (21:06)
--- NOTE | 2018-08-08 21:17 | Hospitalist Progress Note ---
Date of Service August 08, 2018 Assessment & Plan (1) Common bile duct calculi: - CT with intra and extrahepatic biliary duct dilatation with noncalcified stone; GB U/S with dilated CBD and possible calculi with MRCP with filing defect within distal CBD - S/P ERCP 08/06 with pancreatic and CBD stenting -- Will need F/U XR in 10-12 days for re-evaluation and then removal by Dr. Jean Baptiste - S/P Kaitlyn Vilma on 08/07 - Diet to be advanced as tolerated and currently on low fat diet - Zosyn for empiric coverage - [facility] following - appreciate input Present on Admission?: Yes (2) Acute blood loss anemia: - Likely in the setting of surgical losses and dilution; asymptomatic - Due to continued increased PEDRO output will trend H&H through the day which is actually showing an up trend Present on Admission?: Yes (3) Hyperbilirubinemia: - T bili trending down will check CMP in AM - cause from above Present on Admission?: Yes (4) Transaminitis: - LFTs improving following ERCP with stone removal; check CMP in AM - Resumed Atorvastatin 20 mg daily Present on Admission?: Yes (5) COPD (chronic obstructive pulmonary disease): - STABLE without exacerbation - Continue home Breo-Ellipta as prescribed (will need to bring from home) Present on Admission?: Yes (6) HTN (hypertension): - Continue home Coreg 12.5 mg BID (has been held for persistent bradycardia), Lisinopril 40 mg daily; Lasix 20 mg daily - BP remains elevated with SBP 150-170's - Hydralazine IV prn. - Can be monitored when acute issues improved and adjusted per PCP Present on Admission?: Yes (7) HLD (hyperlipidemia): - Statin therapy resumed - Holding home aspirin for procedure - likely can be resumed in coming days Present on Admission?: Yes (8) BPH (benign prostatic hyperplasia): - Continue Alfuzosin 10 mg daily; Dutasteride 0.5 mg daily Present on Admission?: Yes (9) History of DVT (deep vein thrombosis): - Not currently on anticoagulation therapy. - SCDs; resume pharmacologic ppx per surgery however still with increased bloody PEDRO output Present on Admission?: Yes (10) Hyperglycemia: - Most recent A1C was 6.2 this spring. - Encourage CCD and exercise. Present on Admission?: Yes (11) DVT prophylaxis: - SCDs Dispo: Pending stability of H&H and decreased PEDRO drainage can likely D/C tomorrow Subjective Reports feeling well and tolerating diet advancement. Mild surgical site pain but otherwise no complaints. States he plans to stay with his lady friend on D/C for he next couple days while he recovers. Still having increased PEDRO drainage and planned to monitor H&H through the day Still hasnt moved his bowels but states he normally doesn't everyday and currently doesnt feel constipated Review of Systems Constitutional: no fever, no chills and no anorexia Ear, Nose, Mouth, Throat: no sore throat and no dysphagia Respiratory: no cough and no dyspnea Cardiovascular: no chest pain, no palpitations and no edema Gastrointestinal: + abdominal pain (mild at surgical incisions); no nausea, no vomiting, no constipation and no diarrhea/loose stools Genitourinary: no dysuria Musculoskeletal: no joint pain Integumentary: no rash Physical Exam Constitutional: well developed and well nourished; no acute distress and not ill appearing Eyes: + anicteric sclerae Neck: normal visual inspection and trachea midline Respiratory: normal respiratory effort, lungs clear to auscultation Cardiovascular: Rate/Rhythm: regular rate and regular rhythm Gastrointestinal (Abdomen): Inspection/Auscultation: normal bowel sounds Percussion/Palpation: abdomen soft; abdomen nontender surgical incisions open to air and well-approximated without redness or drainage; PEDRO drain with bloody discharge Musculoskeletal: Head/Neck/Chest: normocephalic and head atraumatic Extremities: no cyanosis and no clubbing Skin: no rashes, warm and dry Neurologic: moves all extremities Psychiatric: A+Ox3, euthymic affect Results & Data Vital Signs (Past 12 Hours) Vital Signs Temp Pulse Pulse Resp BP Pulse Ox 08/08/18 21:04 63 168/74 H 08/08/18 15:22 37.1 C 63 17 189/68 H 94 08/08/18 10:30 37.0 C 59 L 18 172/67 H 93
[2018-08-09 00:04] LABS: Basophils # (auto) 0.01 K/uL (0-0.2); Basophils % (auto) 0.2 %; Eosinophils # (auto) 0.13 K/uL (0-0.5); Eosinophils % (auto) 2.2 %; Hematocrit (blood only) 33.9 % (42-52); Hemoglobin 12.1 g/dL (14.0-18.0); Immature Granulocytes # (auto) 0.02 K/uL (0.00-0.02); Immature Granulocytes % (auto) 0.3 %; Lymphocytes # (auto) 0.77 K/uL (1.2-3.4); Lymphocytes % (auto) 12.8 %; Mean Corpuscular Hgb Conc 35.7 g/dL (32-36); Mean Corpuscular Volume 89.4 fL (80-100); Mean Platelet Volume 9.8 fL (7.4-10.4); Monocytes # (auto) 0.58 K/uL (0.11-0.59); Monocytes % (auto) 9.6 %; Neutrophils # (auto) 4.52 K/uL (1.4-6.5); Neutrophils % (auto) 74.9 %; Platelet Count 133 K/uL (130-400); RDW Coefficient of Variation 13.1 % (11.5-14.5); RDW Standard Deviation 42.9 fL (36.4-46.3); Red Blood Count 3.79 M/uL (4.7-6.1); White Blood Count 6.03 K/uL (4.8-10.8)
[2018-08-09] MEDS: PIPERACILLIN/TAZOBACTAM 3.375 GM in DEXTROSE 5% 100 ML IV SCH ×2 (01:50→09:03)
[2018-08-09] MEDS: HydrALAZINE HCL 20 MG/ML VIAL IV PRN ×2 (01:52→16:44)
[2018-08-09] MEDS ORDERED: POTASSIUM CHLORIDE 20 MEQ TABCR PO STA (07:57)
[2018-08-09] MEDS: FLUTICASONE/VILANTEROL INHALER INH SCH (08:59)
[2018-08-09] MEDS: CARVEDILOL 12.5 MG TAB PO SCH (09:00)
[2018-08-09] MEDS: FUROSEMIDE 20 MG TAB PO SCH (09:00)
[2018-08-09] MEDS: MULTIVITAMIN TAB PO SCH (09:00)
[2018-08-09] MEDS: PANTOprazole 40 MG TAB PO SCH (09:01)
[2018-08-09] MEDS: LISINOPRIL 40 MG TAB PO SCH (09:01)
--- NOTE | 2018-08-09 09:04 | Surgery Progress Note ---
Date of Service August 09, 2018 Assessment & Plan (1) Common bile duct calculi: POD #2 Pt seen and examined with Dr. Hargrove Doing well this AM. Potassium was low yesterday- will give 20mEq this AM and then 5 days worth as outpatient. PO Cipro for 5 days. Patient to follow-up in clinic for drain removal- case management made appointment. Patient to follow-up as outpatient with GI for stent removal Return precautions reviewed. Discharge instructions provided. POD #1 s/p Laparoscopic Cholecystectomy with Intraoperative Cholangiogram, POD #2 s/p Endoscopic Retrograde Cholangiopancreatography in Operating Room with Insertion of Pancreatic and Biliary Stents Pt seen and examined with Dr. Hargrove. Patient has minimal pain. Tolerating diet. +PEDRO drain with approximately 270cc of bloody drainage since surgery. Will monitor H and H Q6H BPs have been elevated- on PRN Hydralazine- management per primary service. If H and H remain stable, possible discharge tomorrow. Subjective Patient resting comfortably in bed- pain well controlled. No new concerns or issues. Physical Exam Gastrointestinal (Abdomen): Inspection/Auscultation: abdomen not distended Percussion/Palpation: abdomen nontender and no guarding PEDRO drain- more serosang drainage today. Results & Data Vital Signs (Past 12 Hours) Vital Signs Temp Pulse Pulse Pulse Resp BP BP 08/09/18 07:48 37.2 C 62 49 H 148/72 H 08/09/18 07:07 37.2 C 56 L 18 189/72 H 08/09/18 05:51 59 L 179/73 H 08/09/18 03:36 164/69 H 08/09/18 01:52 194/73 H 08/08/18 23:36 37.3 C 65 16 179/76 H 08/08/18 21:04 63 168/74 H Pulse Ox 08/09/18 07:48 93 08/09/18 07:07 94 08/09/18 05:51 08/09/18 03:36 08/09/18 01:52 08/08/18 23:36 91 08/08/18 21:04
--- NOTE | 2018-08-09 13:56 | Discharge Summary ---
Date of Service August 09, 2018 Admission HPI Per Admitting Provider Mr. Adame is an 78 year old male with past medical history of COPD, HLD, HTN, BPH, h/o DVT who presented to the ER with acute abdominal pain. He developed acute epigastric pain yesterday afternoon around 4 pm. Pt. states pain was described as a pressure; he took Pepto-bismol and Tums with resolution. He developed recurrent epigastric pain around 2 pm today -- pain was very similar to previous episode. Pain was rated as a 10/10 on pain scale, constant and described as pressure. He had associated nausea, denied vomiting along with loss of appetite. He has chronic SOB in setting of SOB; denies acute shortness of sakina ath or chest pain. Denies fever/chills, LE edema, URI symptoms, headache, dysuria or hematuria, diarrhea or constipation. ER course: He received Aspirin 324 mg, Nitroglycerin 0.4 mg SL and Morphine sulfate 4 mg IV due to concern for cardiac source. Had transaminitis noted on labs; CT showed mild intra and extrahepatic biliary duct dilatation. Pt. will be admitted for further evaluation of abdominal pain. Principal Diagnosis Biliary Calculi with Transaminitis S/P Stenting and Lap Vilma Discharge Exam Constitutional well developed and well nourished; no acute distress and not ill appearing Eyes + anicteric sclerae ENMT Ears: no hearing impairment Neck normal visual inspection and trachea midline Respiratory normal respiratory effort, lungs clear to auscultation Cardiovascular Rate/Rhythm: regular rate and regular rhythm Gastrointestinal (Abdomen) Inspection/Auscultation: normal bowel sounds Percussion/Palpation: abdomen soft; abdomen nontender PEDRO drain present; lap incisions well-approximated without drainage or erythema Musculoskeletal Head/Neck/Chest: normocephalic and head atraumatic Extremities: no cyanosis and no clubbing Skin no rashes, warm and dry Neurologic moves all extremities Psychiatric A+Ox3, euthymic affect Discharge Data Allergies Allergy/AdvReac Type Severity Reaction Status Date / Time tiotropium AdvReac Unknown CHEST Verified 11/08/17 08:50 PAIN, PRESSURE atorvastatin [From Lipitor] AdvReac Nausea Unverified 08/04/18 17:40 Consultations 08/04/18 19:40 Consult Gastroenterology Routine 08/06/18 08:22 Consult General Surgery Routine Procedures Performed Operation Date: 08/06/18 08:00 Actual Procedures p Endoscopic Retrograde Cholangiopancreatography in Operating Room with Insertion of Pancreatic and Biliary Stents(Not Applicable) - Juan Jose Jean Baptiste Operation Date: 08/07/18 08:50 Actual Procedures p Laparoscopic Cholecystectomy with cholangiogram(Not Applicable) - Arian Hargrove MD Ordered Studies 08/04/18 17:24 US gallbladder Stat 08/04/18 17:25 CT abd pelvis IV con only Stat 08/04/18 19:40 MR MRCP Routine 08/05/18 17:16 US venous doppler LE RT Routine 08/06/18 07:30 FL ERCP biliary ductal Routine 08/07/18 08:30 FL cholangiogram OR Routine Hospital Course (1) Common bile duct calculi: - CT with intra and extrahepatic biliary duct dilatation with noncalcified stone; GB U/S with dilated CBD and possible calculi with MRCP with filing defect within distal CBD - S/P ERCP 08/06 with pancreatic and CBD stenting -- Will need F/U XR in 10-12 days for re-evaluation and then removal by Dr. Jean Baptiste ([facility]) - S/P Lap Vilma on 08/[address] Hargrove - plan to keep PEDRO drain in until F/U in 5 days for removal - Will finish course of Ciprofloxacin for antibiotic coverage (2) Acute blood loss anemia: - Likely in the setting of surgical losses and dilution; asymptomatic - Due to continued increased PEDRO output his H&H was trended on 08/08 with stable cunts (3) Hyperbilirubinemia: - T bili trending down (4) Transaminitis: - LFTs improving following ERCP with stone removal - Resumed Atorvastatin 20 mg daily (5) COPD (chronic obstructive pulmonary disease): - STABLE without exacerbation - Continue home Breo-Ellipta (6) HTN (hypertension): - Continue home Coreg 12.5 mg BID, Lisinopril 40 mg daily; Lasix 20 mg daily (7) HLD (hyperlipidemia): - Statin therapy resumed (8) BPH (benign prostatic hyperplasia): - Continue Alfuzosin 10 mg daily; Dutasteride 0.5 mg daily (9) History of DVT (deep vein thrombosis): - Not currently on anticoagulation therapy. (10) Hyperglycemia: - Most recent A1C was 6.2 this spring Total Time Total Time Spent Total Time Spent (In Minutes): Greater than 30 minutes Discharge Plan Discharge Items Patient Disposition: Home - Self-Care Reason For Visit: CONTRAINDICATED Discharge Diagnosis: Gallbladder Stone and Gallbladder Removal Discharge Goals: Decrease discomfort, Improve disease control and Increase independence Activity: As commented below Bathing Comment: May shower, but do not soak or scrub your incisions. Driving/Machine Use Comment: Do not drive until drain is removed. Non-emergency contact: Surgeon Call non-emergency contact if: you have any medication questions, your pain is not controlled, your temperature is above 101.5, your wound has increased redness and your wound has increased drainage Follow-up/Referrals: Román Valentine III, MD [Primary Care Provider] - 08/17/18 3:00 pm (Please, follow up at Dr. Valentine's office with his chiropractor assistant, Christina Deal PA-C on August 17 at 3:00 pm. *If you need to change this appointment, call their office at [phone].) Arian Hargrove MD [Surgeon] - 08/14/18 1:10 pm (Please, follow up at [facility] with Dr. Hargrove on TuesdayAugust 14 at 1:10 pm. *This office is located at [address] [facility] in [place]. If you need to reschedule this appointment, call the office at [phone]. ) Juan Jose Jean Baptiste [Physician] - (Please, follow up with Dr. Juan Jose Jean Baptiste. *A nurse from this office will call you to coordinate the appointment. If you have any questions, call his office at [phone].) Diet: Low Fat Addtl Provider Instructions: Gallstone in Bile Ducts and Gallbladder Removal - You had stents placed in the pancreatic duct and the common bile ducts due to gallstones and ultimately had your gallbladder out. - The stents are still in place and the GI doctors ([facility]) will have these removed in the near future. They will have a follow-up appointment with you -- If you do not hear from them in the coming days please call their office [phone] - they can direct you to the GI Office which is located in [place] - You will finish a course of antibiotics and a prescription will be provided. This is Ciprofloxacin which you will take twice a day - You still have a drain placed and will have this removed in the coming days at the Surgeon's office (Dr. Hargrove) Prescriptions: New potassium chloride [Klor-Con M20] 20 mEq tablet,ER particles/crystals 20 meq PO DAILY 5 Days Qty: 5 RF: 0 ciprofloxacin HCl [Cipro] 500 mg tablet 500 mg PO BID 5 Days Qty: 10 RF: 0 Continued acetaminophen 500 mg Tablet 500 mg PO QID PRN (Reason: Pain) RF: 0 alfuzosin 10 mg tablet extended release 24 hr 10 mg PO DAILY RF: 0 aspirin [Aspir-81] 81 mg Tablet,Delayed Release (Dr/Ec) 81 mg PO DAILY RF: 0 atorvastatin 20 mg tablet 20 mg PO HS RF: 0 Breo Ellipta 100-25 mcg/dose blister with device 1 puff inhalation DAILY RF: 0 dutasteride 0.5 mg capsule 0.5 mg PO DAILY RF: 0 esomeprazole magnesium 40 mg capsule,delayed release(DR/EC) 40 mg PO DAILY RF: 0 lisinopril 40 mg Tablet 40 mg PO DAILY RF: 0 carvedilol 12.5 mg Tablet 12.5 mg PO BID RF: 0 nitroglycerin [Nitrostat] 0.4 mg Tablet, Sublingual 0.4 mg sublingual UD PRN (Reason: Chest Pain) RF: 0 furosemide 20 mg Tablet 20 mg PO QAM RF: 0 multivitamin [Multiple Vitamins] Tablet 1 tab PO DAILY RF: 0 Stand-Alone Forms: Call Back Authorization, [facility]/Other Patient Handouts: Surgery Prevent DVT After, Cholecystectomy Laparoscopic Discharge Orders: Discharge Order (Routine); Ordered 08/09/18 Ordered By: Rosalinda Crawford Admission Data Admit Date/Time: 08/04/18 18:34 Attending Provider: [employer] Admit Provider: Bridgette Gallegos Primary Care Provider: Román Valentine III Other Providers: Sabina Esquivel ; Harlan Hart Service: Medical Other Interventions: Discharge Summary Assessment (RN) Last Done: 08/09/18 17:47 Pending Studies at Discharge: No DC Date/Time DO NOT enter until pt leaves facility: 08/09/18 17:55 Supervising Physician Co-Signing Physician Notes Attending note: patient seen and examined with Rosalinda Crawford PA-C. I agree with her discharge summary. Patient feeling well after lap vilma. Tolerating diet, minimal pain. Cleared to go home from surgery standpoint. - s/p lap vilma for cholecystitis pain controlled, drain still in place, will follow up with Dr. Hargrove in two days tolerating diet - HTN: pressures up prior to discharge, improved with Hydralazine likely from anxiety no symptoms
== END 2018-08-09 17:55 | disposition home or self-care (01) | DRG 418 ==
LOC: ED 16:10 → 3N 18:34 → SUATTDRO 18:34 → 3N 19:02

== ENCOUNTER 2020-11-21 21:51 | Inpatient (IN) ==
[2020-11-21] MEDS ORDERED: ONDANSETRON INJ 2 MG/ML 2 ML VIAL IV STA (22:58)
[2020-11-21] MEDS ORDERED: MoRPHine SULFATE 2 MG/ML CARP IV STA (22:58)
--- NOTE | 2020-11-21 23:01 | Emergency Department Note ---
History of Present Illness General Chief complaint: Chest Pain Stated complaint: CHEST PAINS Time Seen by Provider: 11/21/20 22:45 History of Present Illness This is an 80-year-old male who presents to the ED with a chief complaint that he started not feeling well around 5 PM. He states that he ate some spaghetti and then laid down. He was having some epigastric abdominal pain. He states that he passing gas from below and burped and that did not seem to help. He vomited once and that seemed to help a little. He states that he did have a little diarrhea earlier in the morning. He also reported that it felt like it was a little hard for him to breathe. Getting oxygen here seem to help. He was noted to be 88% on room air. The patient does report a recent runny nose and a slight scratchy throat but otherwise no upper respiratory symptoms. Denies any specific chest pains. No fevers. No injury. Prior cholecystectomy. Home Medications Medication Instructions Recorded Confirmed Type acetaminophen 500 mg tablet 500 mg PO QID PRN 08/04/18 07/24/20 History aspirin 81 mg tablet,delayed 81 mg PO QAM 08/04/18 07/24/20 History release (Aspir-) multivitamin (Multiple Vitamins) 1 tab PO QAM 08/04/18 07/24/20 History nitroglycerin 0.4 mg sublingual 0.4 mg SUBLINGUAL UD PRN 08/04/18 07/24/20 History tablet (Nitrostat) betamethasone, augmented 0.05 % 1 appln TOP BID PRN #45 gm 02/26/19 07/24/20 Rx topical ointment (Diprolene (augmented)) esomeprazole magnesium 40 mg 40 mg PO QAM #90 cap 12/06/19 07/24/20 Rx capsule,delayed release atorvastatin 20 mg tablet 20 mg PO HS #90 tab 01/10/20 07/24/20 Rx carvedilol 12.5 mg tablet 12.5 mg PO BID #180 tab 01/23/20 07/24/20 Rx dutasteride 0.5 mg capsule 0.5 mg PO DAILY #90 cap 02/04/20 07/24/20 Rx amlodipine 5 mg tablet 5 mg PO DAILY #90 tab 03/06/20 07/24/20 Rx furosemide 20 mg tablet 20 mg PO DAILY #90 tab 05/29/20 07/24/20 Rx alfuzosin 10 mg tablet,extended 10 mg PO DAILY 07/23/20 07/24/20 History release 24 hr fluticasone furoate 200 1 inh INHALATION DAILY #3 inhaler 07/23/20 07/24/20 Rx mcg-vilanterol 25 mcg/dose inhalation powder (Breo Ellipta) Allergies Allergy/AdvReac Type Severity Reaction Status Date / Time tiotropium Allergy Mild CHEST Verified 07/23/20 10:07 PAIN, PRESSURE ciprofloxacin [From Cipro] Allergy Unknown Unknown Verified 07/23/20 10:07 metronidazole Allergy Unknown Unknown Verified 07/23/20 10:07 atorvastatin [From Lipitor] AdvReac Intermediate Nausea Verified 07/23/20 10:07 lisinopril AdvReac Mild Cough Verified 07/23/20 10:07 Past Med/Surg History Medical History Acquired deviated nasal septum Actinic keratosis Acute blood loss anemia BPH (benign prostatic hyperplasia) CAD (coronary artery disease) Cerumen impaction Common bile duct calculi COPD (chronic obstructive pulmonary disease) Degenerative joint disease (DJD) of hip Essential (primary) hypertension GERD (gastroesophageal reflux disease) Heart attack 20 years ago per patient. No stents/angioplasty. No recent issues. Has never had to use NTG Hemorrhoids History of DVT (deep vein thrombosis) RLE - 3-4 YEARS AGO - POST OP HIP REPLACEMENT - TREATED WITH AC THERAPY History of DVT (deep vein thrombosis) HLD (hyperlipidemia) Hyperbilirubinemia Hypertension Hypertrophy of nasal turbinates Prostatitis SVT (supraventricular tachycardia) Transaminitis Surgical History History of cardiac cath 2000 - [facility] - NO STENTS/ANGIOPLASTY - FOLLOWS W/ DR. FONTENOT History of cholecystectomy 08/07/18 [facility] History of colonoscopy (03/06/19) Dr. Conti, 4 polyps removed (2 tubular adenomas and 2 hyperplastic), diverticulosis noted, recheck not recommended due to age History of hip surgery History of knee surgery History of left shoulder replacement History of right cataract extraction History of right hip replacement History of shoulder surgery History of shoulder surgery left rotator cuff tear---had pins placed S/P ERCP w/ stenting - 08/06/18 [facility] Family History Mother Coronary heart disease Stroke Myocardial infarction Father Hypertension Brother Alopecia Hypertension Grandmother (Maternal) Coronary heart disease Grandfather (Maternal) Coronary heart disease Uncle Coronary heart disease Other No family history of adverse response to anesthesia Denies family history of Ovarian cancer Prostate cancer Breast cancer Colorectal cancer Social History Smoking Status: Never smoker Tobacco Type: Pipe Second Hand Exposure: Yes (previous exposure); Hx Alcohol Use: Yes Alcohol type: beer Alcohol Intake Frequency: 2-3 x/Week Alcohol Intake Frequency Comment: 1-2, 6pks Hx Substance Use: No Preferred Language: Irish Communication Ability: Effective Visual Impairment: No Limitations Hearing Ability: Normal Styrene Dehydration Reactor 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 Required: No Beliefs That Will Affect Care: None marital status: Current Living Situation: Significant Other current occupational status: retired Feels Safe at Home: Yes Dental Care, Regularly: No Physical Activity Frequency: Does not Exercise Seatbelt Use: never Assistive Devices: Denture - Upper Review of Systems A total of 10 systems reviewed and were otherwise negative Physical Exam Vital Signs Vital Signs - 24 hr 11/21/20 21:52 11/21/20 22:45 11/21/20 22:46 Temperature 36.6 C 36.7 C Temperature Source Temporal Artery Scan Oral Pulse Rate 94 H Pulse Rate from SpO2 Sensor Respiratory Rate 20 25 H Respiratory Effort / Characteristics Non-Labored Non-Labored Respiratory Depth Normal Normal Blood Pressure Blood Pressure [Right Arm] 185/68 H Blood Pressure Mean Blood Pressure Mean [Right Arm] 107 Pulse Oximetry 96 88 L Oxygen Delivery Method Room Air Nasal Cannula Oxygen Flow Rate 2 Sepsis Recent Fever Within 48 Hours No Sepsis New/Unexplained Change in Mental Status N/A Sepsis Action Taken by Nursing No Action Required Pulse Oximetry Post Tiitration 95 11/21/20 22:48 11/21/20 23:05 Temperature Temperature Source Pulse Rate 77 Pulse Rate from SpO2 Sensor 77 Respiratory Rate 24 Respiratory Effort / Characteristics Respiratory Depth Blood Pressure 187/116 H Blood Pressure [Right Arm] 187/116 H Blood Pressure Mean 139 Blood Pressure Mean [Right Arm] 139 Pulse Oximetry 96 96 Oxygen Delivery Method Room Air Oxygen Flow Rate Sepsis Recent Fever Within 48 Hours Sepsis New/Unexplained Change in Mental Status Sepsis Action Taken by Nursing Pulse Oximetry Post Tiitration CONSTITUTIONAL/VITAL SIGNS: Reviewed / noted above. GENERAL: Non-toxic in appearance. INTEGUMENTARY: Warm, dry, and [place]. HEAD: Normocephalic. EYES: without scleral icterus or trauma. ENT/OROPHARYNX: clear and moist. LYMPHADENOPATHY/NECK: Is supple without lymphadenopathy or meningismus. RESPIRATORY: Clear to auscultation bilaterally. No increased work of breathing. CARDIOVASCULAR: Regular rate and rhythm. GI/ABDOMEN: Soft and tender in the epigastric area and left upper quadrant. No organomegaly or pulsatile mass. EXTREMITIES: Warm and well perfused. BACK: No CVA tenderness. NEUROLOGICAL: Intact without focal deficits. PSYCHIATRIC: normal affect. MUSCULOSKELETAL: Normally developed with good muscle tone. TRIAGE NURSING DOCUMENTATION REVIEWED. Course Administered Medications Discontinued Medications Ioversol (Optiray 320 125ml) 120 ml IV ONCE ONE Stop: 11/21/20 23:49 Last Admin: 11/21/20 23:49 Dose: 120 ml Documented by: [id number] Morphine Sulfate (Morphine Sulfate 2 Mg/Ml Carp) 2 mg IV NOW STA Stop: 11/21/20 22:59 Last Admin: 11/21/20 23:07 Dose: 2 mg Documented by: [id number] Ondansetron HCl (Ondansetron Inj 2 Mg/Ml 2 Ml Vial) 4 mg IV NOW STA Stop: 11/21/20 22:59 Last Admin: 11/21/20 23:07 Dose: 4 mg Documented by: [id number] Ondansetron HCl (Ondansetron Inj 2 Mg/Ml 2 Ml Vial) 4 mg IV NOW STA Stop: 11/22/20 00:46 Last Admin: 11/22/20 01:06 Dose: 4 mg Documented by: [id number] Medical Decision Making Differential Diagnosis Differential considered: pancreatitis, hepatitis, acute cholecystitis, AAA, UTI, pyelonephritis, kidney stones, appendicitis, diverticulitis, shingles, bowel obstruction, mesenteric ischemia, intussusception,hernia, testicular torsion, ovarian torsion, ruptured ovarian cyst,ectopic , . Medical Records Attestation: I reviewed the patient's medical records. Home Medications Current Medication List: was personally reviewed by me Laboratory Data Attestation: I reviewed the patient's lab results. Result diagrams: 11/21/20 22:41 11/21/20 22:48 Lab Results 11/21/20 11/21/20 11/21/20 Range/Units 22:41 22:48 23:10 WBC 16.85 H (4.8-10.8) K/uL RBC 4.93 (4.7-6.1) M/uL Hgb 16.4 (14.0-18.0) g/dL Hct 44.5 (42-52) % MCV 90.3 (80-100) fL MCH 33.3 (25-34) pg MCHC 36.9 H (32-36) g/dL RDW Std Deviation 41.3 (36.4-46.3) fL RDW Coeff of Negro 12.7 (11.5-14.5) % Plt Count 253 (130-400) K/uL MPV 9.9 (7.4-10.4) fL Immature Gran % (Auto) 0.3 % Neut % (Auto) 80.0 % Lymph % (Auto) 14.2 % [place] % (Auto) 5.0 % Eos % (Auto) 0.4 % Baso % (Auto) 0.1 % Neut # (Auto) 13.48 H (1.4-6.5) K/uL Lymph # (Auto) 2.40 (1.2-3.4) K/uL [place] # (Auto) 0.84 H (0.11-0.59) K/uL Eos # (Auto) 0.06 (0-0.5) K/uL Baso # (Auto) 0.02 (0-0.2) K/uL Immature Gran # (Auto) 0.05 H (0.00-0.02) K/uL Sodium 139 (136-145) mmol/L Potassium 3.2 L (3.5-5.1) mmol/L Chloride 105 (98-107) mmol/L Carbon Dioxide 23 (21-32) mmol/L Anion Gap 11.0 (3-11) BUN 10 (7-18) mg/dl Creatinine 0.84 (0.6-1.4) mg/dl Est Cr Clr Drug Dosing 72.2 ml/min Est GFR ( Amer) 94.5 ml/min Est GFR (Non-Af Amer) 81.5 ml/min BUN/Creatinine Ratio 11.8 (10-20) Glucose 148 H (70-99) mg/dl Calcium 9.2 (8.5-10.1) mg/dl Total Bilirubin 0.7 (0.2-1) mg/dl AST 24 (15-37) U/L ALT 31 (12-78) U/L Alkaline Phosphatase 164 H (45-117) U/L Troponin I < 0.015 (0-0.045) ng/ml Total Protein 7.1 (6.4-8.2) gm/dl Albumin 3.8 (3.4-5.0) gm/dl Globulin 3.3 (2.5-4.0) gm/dl Albumin/Globulin Ratio 1.2 (0.9-2) Specimen Hemolysis Urine Color Urine Appearance (Clear) Urine pH (4.5-7.5) Ur Specific [place] (1.000-1.030) Urine Protein (Negative) Urine Glucose (UA) (Negative) Urine Ketones (Negative) Urine Blood (Negative) Urine Nitrite (Negative) Urine Bilirubin (Negative) Urine Urobilinogen (Negative) Ur Leukocyte Esterase (Negative) COVID-19 Eval Order Covid19 at [facility] SARS-CoV-2 (PCR) (Negative) 11/21/20 11/22/20 Range/Units 23:10 00:43 WBC (4.8-10.8) K/uL RBC (4.7-6.1) M/uL Hgb (14.0-18.0) g/dL Hct (42-52) % MCV (80-100) fL MCH (25-34) pg MCHC (32-36) g/dL RDW Std Deviation (36.4-46.3) fL RDW Coeff of Negro (11.5-14.5) % Plt Count (130-400) K/uL MPV (7.4-10.4) fL Immature Gran % (Auto) % Neut % (Auto) % Lymph % (Auto) % [place] % (Auto) % Eos % (Auto) % Baso % (Auto) % Neut # (Auto) (1.4-6.5) K/uL Lymph # (Auto) (1.2-3.4) K/uL [place] # (Auto) (0.11-0.59) K/uL Eos # (Auto) (0-0.5) K/uL Baso # (Auto) (0-0.2) K/uL Immature Gran # (Auto) (0.00-0.02) K/uL Sodium (136-145) mmol/L Potassium (3.5-5.1) mmol/L Chloride (98-107) mmol/L Carbon Dioxide (21-32) mmol/L Anion Gap (3-11) BUN (7-18) mg/dl Creatinine (0.6-1.4) mg/dl Est Cr Clr Drug Dosing ml/min Est GFR ( Amer) ml/min Est GFR (Non-Af Amer) ml/min BUN/Creatinine Ratio (10-20) Glucose (70-99) mg/dl Calcium (8.5-10.1) mg/dl Total Bilirubin (0.2-1) mg/dl AST (15-37) U/L ALT (12-78) U/L Alkaline Phosphatase (45-117) U/L Troponin I (0-0.045) ng/ml Total Protein (6.4-8.2) gm/dl Albumin (3.4-5.0) gm/dl Globulin (2.5-4.0) gm/dl Albumin/Globulin Ratio (0.9-2) Specimen Hemolysis Urine Color Yellow Urine Appearance Clear (Clear) Urine pH 7.5 (4.5-7.5) Ur Specific [place] 1.039 H (1.000-1.030) Urine Protein Negative (Negative) Urine Glucose (UA) Negative (Negative) Urine Ketones 2+ H (Negative) Urine Blood Negative (Negative) Urine Nitrite Negative (Negative) Urine Bilirubin Negative (Negative) Urine Urobilinogen Negative (Negative) Ur Leukocyte Esterase Negative (Negative) COVID-19 Eval Order SARS-CoV-2 (PCR) NEGATIVE (Negative) Imaging Data Radiologist's Impression: CT scan of the abdomen pelvis shows findings suggesting a focal colitis or possibly an inflammatory neoplasm at the hepatic flexure. Colonoscopy recommended. CT scan of the chest was negative for PE. Again the inflammatory neoplasm versus focal colitis was noted. ECG Data Attestation: I personally reviewed and interpreted this ECG as follows: Additional Comments: Twelve-lead EKG: Per my interpretation there is a sinus rhythm at a rate of 87 with a first-degree AV block. No ST elevation. No PVCs. Normal QTC. MDM Narrative Patient presents with epigastric abdominal pain and tenderness in that area. He is hypertensive. His twelve-lead EKG shows a sinus rhythm. The patient's white blood cell count was 16.85. Troponin was negative. Metabolic panel was unremarkable. Urine showed 2+ ketones. Covid test was negative. A CT scan of the abdomen pelvis shows findings suggesting inflammatory neoplasm versus focal colitis in the hepatic flexure of the intestine. The CT scan of the abdomen pelvis showed the same. No CT findings suggesting an acute pulmonary issue. The patient was treated with some IV Zofran, IV morphine and additional IV Zofran. He still rather uncomfortable. He was told the results. He does not feel comfortable going home at this point. He would like to stay overnight to monitor his symptoms to see if things worsen. I will speak to the hospitalist about the patient. Impression & Plan Colitis, Abdominal pain, acute, epigastric, Vomiting Discharge Plan Visit Data Chief Complaint: Chest Pain Stated Complaint: CHEST PAINS Discharge Problem: Colitis, Abdominal pain, acute, epigastric, Vomiting Patient Disposition: Being Evaluated by Hospitalist Forms Stand Alone Forms: My [facility] Prescriptions Prescriptions: No Action esomeprazole magnesium 40 mg capsule,delayed release(DR/EC) 40 mg PO QAM Qty: 90 RF: 3 atorvastatin 20 mg tablet 20 mg PO HS Qty: 90 RF: 3 amlodipine 5 mg tablet 5 mg PO DAILY Qty: 90 RF: 3 furosemide 20 mg tablet 20 mg PO DAILY Qty: 90 RF: 3 betamethasone, augmented [Diprolene (augmented)] 0.05 % ointment 1 appln TOP BID PRN (Reason: skin irritation) Qty: 45 RF: 0 carvedilol 12.5 mg tablet 12.5 mg PO BID Qty: 180 RF: 3 dutasteride 0.5 mg capsule 0.5 mg PO DAILY Qty: 90 RF: 3 fluticasone furoate-vilanterol [Breo Ellipta] 200-25 mcg/dose blister with device RF: 0 alfuzosin 10 mg tablet extended release 24 hr 10 mg PO DAILY RF: 0 Breo Ellipta 200-25 mcg/dose blister with device 1 inh INHALATION DAILY Qty: 3 RF: 1 Hold Instructions: Home Medication placed on hold at Doctor's office acetaminophen 500 mg Tablet 500 mg PO QID PRN (Reason: Pain) RF: 0 aspirin [Aspir-81] 81 mg Tablet,Delayed Release (Dr/Ec) 81 mg PO QAM RF: 0 nitroglycerin [Nitrostat] 0.4 mg Tablet, Sublingual 0.4 mg sublingual UD PRN (Reason: Chest Pain) RF: 0 multivitamin [Multiple Vitamins] Tablet 1 tab PO QAM RF: 0 Referrals Referrals: Román Valentine III, MD [Primary Care Provider] -
[2020-11-21 23:03] LABS: Basophils # (auto) 0.02 K/uL (0-0.2); Basophils % (auto) 0.1 %; Eosinophils # (auto) 0.06 K/uL (0-0.5); Eosinophils % (auto) 0.4 %; Hematocrit (blood only) 44.5 % (42-52); Hemoglobin 16.4 g/dL (14.0-18.0); Immature Granulocytes # (auto) 0.05 K/uL (0.00-0.02); Immature Granulocytes % (auto) 0.3 %; Lymphocytes % (auto) 14.2 %; Mean Corpuscular Hemoglobin 33.3 pg (25-34); Mean Corpuscular Hgb Conc 36.9 g/dL (32-36); Mean Corpuscular Volume 90.3 fL (80-100); Mean Platelet Volume 9.9 fL (7.4-10.4); Monocytes # (auto) 0.84 K/uL (0.11-0.59); Neutrophils # (auto) 13.48 K/uL (1.4-6.5); Platelet Count 253 K/uL (130-400); RDW Coefficient of Variation 12.7 % (11.5-14.5); RDW Standard Deviation 41.3 fL (36.4-46.3); Red Blood Count 4.93 M/uL (4.7-6.1); White Blood Count 16.85 K/uL (4.8-10.8)
[2020-11-21 23:36] LABS: Alanine Aminotransferase 31 U/L (12-78); Albumin Level 3.8 gm/dl (3.4-5.0); Aspartate Aminotransferase 24 U/L (15-37); BUN Creatinine Ratio 11.8 (10-20); Blood Urea Nitrogen 10 mg/dl (7-18); Calcium 9.2 mg/dl (8.5-10.1); Carbon Dioxide 23 mmol/L (21-32); Chloride 105 mmol/L (98-107); Creatinine Clr Calc Pharmacy 72.2 ml/min; Est GFR (African American) 94.5 ml/min; Est GFR (Non-African American) 81.5 ml/min; Glucose 148 mg/dl (70-99); Potassium 3.2 mmol/L (3.5-5.1); Sodium 139 mmol/L (136-145)
[2020-11-21 23:37] LABS: Albumin Globulin Ratio 1.2 (0.9-2); Alkaline Phosphatase 164 U/L (45-117); Bilirubin,Total 0.7 mg/dl (0.2-1); Globulin 3.3 gm/dl (2.5-4.0); Total Protein 7.1 gm/dl (6.4-8.2); Troponin I < 0.015 ng/ml (0-0.045)
[2020-11-21] MEDS ORDERED: OPTIRAY 320 125ml IV ONE (23:48)
[2020-11-22] MEDS ORDERED: ONDANSETRON INJ 2 MG/ML 2 ML VIAL IV STA (00:45)
[2020-11-22 01:09] LABS: Appearance Urine Clear (Clear); Bilirubin Urine Negative (Negative); Blood Urine Negative (Negative); Color Urine Yellow; Glucose Urine UA Negative (Negative); Ketones Urine 2+ (Negative); Leukocyte Esterase Urine Negative (Negative); Nitrite Urine Negative (Negative); Protein Urine Negative (Negative); Specific Gravity Urine 1.039 (1.000-1.030); Urobilinogen Urine Negative (Negative); pH Urine 7.5 (4.5-7.5)
--- NOTE | 2020-11-22 02:10 | History & Physical Report ---
Date of Service November 22, 2020 Assessment & Plan (1) Abdominal pain, acute, epigastric: Plan: De Sharma is a 80-year-old male with past medical history significant for coronary artery disease, COPD, peripheral artery disease, hypertension, hyperlipidemia, BPH; who presents for concerns of upper abdominal pain. Abdominal pain: -CT demonstrating concerns for focal colitis versus inflammatory neoplasm -Previously had colonoscopy in 2019 with multiple polyps (4) removed at that time; 2/4 demonstrating tubular adenomas, other 2 demonstrating hyperplastic polyps -Given persistent pain, and inability to tolerate oral intake will admit for observation -Alk phos of 164 on admission -Patient is status post cholecystectomy (08/07/2018) -Zofran 4 mg IV PRN -Morphine 2 mg PRN -N.p.o. overnight, with consideration of advancement of diet as pain subsides Diet: N.p.o. CODE STATUS: Conditional (no chest compressions) DVT prophylaxis: Deferred at this time (2) Vomiting: History of Present Illness Primary Care Provider: Román Valentine MD De Sharma is a 80-year-old male with past medical history significant for coronary artery disease, COPD, peripheral artery disease, hypertension, hyperlipidemia, BPH; who presents for concerns of upper abdominal pain. Started this evening following eating dinner, despite passing gas and belching/burping continued without improvement. Did have multiple rounds of vomiting, as well as an episode of diarrhea earlier in the day. Feels like the pain is causing for him to be hard to get her breath, and given his heart history he wanted to make sure to get checked. Denies any specific chest pains, shortness of breath, dyspnea on exertion, fevers, chills, sweats. Did have nasal congestion and sore throat several days ago. Allergies Allergy/AdvReac Type Severity Reaction Status Date / Time tiotropium Allergy Mild CHEST Verified 07/23/20 10:07 PAIN, PRESSURE ciprofloxacin [From Cipro] Allergy Unknown Unknown Verified 07/23/20 10:07 metronidazole Allergy Unknown Unknown Verified 07/23/20 10:07 atorvastatin [From Lipitor] AdvReac Intermediate Nausea Verified 07/23/20 10:07 lisinopril AdvReac Mild Cough Verified 07/23/20 10:07 Home Medications Medication Instructions Recorded Confirmed Type acetaminophen 500 mg tablet 500 mg PO QID PRN 08/04/18 07/24/20 History aspirin 81 mg tablet,delayed 81 mg PO QAM 08/04/18 07/24/20 History release (Aspir-) multivitamin (Multiple Vitamins) 1 tab PO QAM 08/04/18 07/24/20 History nitroglycerin 0.4 mg sublingual 0.4 mg SUBLINGUAL UD PRN 08/04/18 07/24/20 History tablet (Nitrostat) betamethasone, augmented 0.05 % 1 appln TOP BID PRN #45 gm 02/26/19 07/24/20 Rx topical ointment (Diprolene (augmented)) esomeprazole magnesium 40 mg 40 mg PO QAM #90 cap 12/06/19 07/24/20 Rx capsule,delayed release atorvastatin 20 mg tablet 20 mg PO HS #90 tab 01/10/20 11/22/20 Rx carvedilol 12.5 mg tablet 12.5 mg PO BID #180 tab 01/23/20 07/24/20 Rx dutasteride 0.5 mg capsule 0.5 mg PO DAILY #90 cap 02/04/20 07/24/20 Rx amlodipine 5 mg tablet 5 mg PO DAILY #90 tab 03/06/20 11/22/20 Rx furosemide 20 mg tablet 20 mg PO DAILY #90 tab 05/29/20 11/22/20 Rx alfuzosin 10 mg tablet,extended 10 mg PO DAILY 07/23/20 07/24/20 History release 24 hr fluticasone furoate 200 1 inh INHALATION DAILY #3 inhaler 07/23/20 07/24/20 Rx mcg-vilanterol 25 mcg/dose inhalation powder (Breo Ellipta) Past Med/Surg History Medical History Acquired deviated nasal septum Actinic keratosis Acute blood loss anemia BPH (benign prostatic hyperplasia) CAD (coronary artery disease) Cerumen impaction Common bile duct calculi COPD (chronic obstructive pulmonary disease) Degenerative joint disease (DJD) of hip Essential (primary) hypertension GERD (gastroesophageal reflux disease) Heart attack 20 years ago per patient. No stents/angioplasty. No recent issues. Has never had to use NTG Hemorrhoids History of DVT (deep vein thrombosis) RLE - 3-4 YEARS AGO - POST OP HIP REPLACEMENT - TREATED WITH AC THERAPY History of DVT (deep vein thrombosis) HLD (hyperlipidemia) Hyperbilirubinemia Hypertension Hypertrophy of nasal turbinates Prostatitis SVT (supraventricular tachycardia) Transaminitis Surgical History History of cardiac cath 2000 - [facility] - NO STENTS/ANGIOPLASTY - FOLLOWS W/ DR. FONTENOT History of cholecystectomy 08/07/18 [facility] History of colonoscopy (03/06/19) Dr. Conti, 4 polyps removed (2 tubular adenomas and 2 hyperplastic), diverticulosis noted, recheck not recommended due to age History of hip surgery History of knee surgery History of left shoulder replacement History of right cataract extraction History of right hip replacement History of shoulder surgery History of shoulder surgery left rotator cuff tear---had pins placed S/P ERCP w/ stenting - 08/06/18 [facility] Family History Mother Coronary heart disease Stroke Myocardial infarction Father Hypertension Brother Alopecia Hypertension Grandmother (Maternal) Coronary heart disease Grandfather (Maternal) Coronary heart disease Uncle Coronary heart disease Other No family history of adverse response to anesthesia Denies family history of Ovarian cancer Prostate cancer Breast cancer Colorectal cancer Social History Smoking Status: Never smoker Tobacco Type: Pipe Second Hand Exposure: Yes (previous exposure); Hx Alcohol Use: Yes Alcohol type: beer Alcohol Intake Frequency: 2-3 x/Week Alcohol Intake Frequency Comment: 1-2, 6pks Hx Substance Use: No Preferred Language: Syrian Communication Ability: Effective Visual Impairment: No Limitations Hearing Ability: Normal Tunnel Man Required: No Beliefs That Will Affect Care: None marital status: Current Living Situation: Significant Other current occupational status: retired Other Information That Helps Us Care for You: No Feels Safe at Home: Yes Safety Concerns: Feels Safe At This Time Dental Care, Regularly: No Physical Activity Frequency: Does not Exercise Seatbelt Use: never Assistive Devices: None Review of Systems Review of Systems: All systems reviewed & are unremarkable except as noted in HPI & below Physical Exam Constitutional: WD/WN, vitals as above Eyes: PERRL, conjunctivae normal, anicteric sclerae Respiratory: normal respiratory effort, lungs clear to auscultation Auscultation: no crackles, no rales, no rhonchi and no wheezes Cardiovascular: Rate/Rhythm: regular rate and regular rhythm Heart Sounds: no gallop, no murmur and no cardiac rub Vessels: normal peripheral pulses; no JVD Extremities: no edema Gastrointestinal (Abdomen): Inspection/Auscultation: abdomen normal to inspection and normal bowel sounds; abdomen not distended Percussion/ Palpation: + abdomen tender, + guarding and abdomen soft; abdomen not rigid and no hepatosplenomegaly Neurologic: PERRL, EOMI, accommodation nl, no face palsy, no dysarthria CN's II-XI intact bilaterally and moves all extremities Psychiatric: Orientation: alert and oriented x 3 Results & Data Results & Data ([facility]) Vital Signs (Past 12 Hours) Vital Signs Temp Pulse Resp BP BP Pulse Ox 11/22/20 01:00 37 C 24 98 11/22/20 00:42 90 25 H 166/91 H 96 11/21/20 23:05 77 24 187/116 H 187/116 H 96 11/21/20 22:48 96 11/21/20 22:46 36.7 C 25 H 11/21/20 22:45 185/68 H 88 L 11/21/20 21:52 36.6 C 94 H 20 96 Laboratory Results 11/22/20 11/21/20 11/21/20 Range/Units 00:43 23:10 23:10 WBC (4.8-10.8) K/uL RBC (4.7-6.1) M/uL Hgb (14.0-18.0) g/dL Hct (42-52) % MCV (80-100) fL MCH (25-34) pg MCHC (32-36) g/dL RDW Std Deviation (36.4-46.3) fL RDW Coeff of Negro (11.5-14.5) % Plt Count (130-400) K/uL MPV (7.4-10.4) fL Immature Gran % (Auto) % Neut % (Auto) % Lymph % (Auto) % [place] % (Auto) % Eos % (Auto) % Baso % (Auto) % Neut # (Auto) (1.4-6.5) K/uL Lymph # (Auto) (1.2-3.4) K/uL [place] # (Auto) (0.11-0.59) K/uL Eos # (Auto) (0-0.5) K/uL Baso # (Auto) (0-0.2) K/uL Immature Gran # (Auto) (0.00-0.02) K/uL Sodium (136-145) mmol/L Potassium (3.5-5.1) mmol/L Chloride (98-107) mmol/L Carbon Dioxide (21-32) mmol/L Anion Gap (3-11) BUN (7-18) mg/dl Creatinine (0.6-1.4) mg/dl Est Cr Clr Drug Dosing ml/min Est GFR ( Amer) ml/min Est GFR (Non-Af Amer) ml/min BUN/Creatinine Ratio (10-20) Glucose (70-99) mg/dl Calcium (8.5-10.1) mg/dl Total Bilirubin (0.2-1) mg/dl AST (15-37) U/L ALT (12-78) U/L Alkaline Phosphatase (45-117) U/L Troponin I (0-0.045) ng/ml Total Protein (6.4-8.2) gm/dl Albumin (3.4-5.0) gm/dl Globulin (2.5-4.0) gm/dl Albumin/Globulin Ratio (0.9-2) Specimen Hemolysis Urine Color Yellow Urine Appearance Clear (Clear) Urine pH 7.5 (4.5-7.5) Ur Specific [place] 1.039 H (1.000-1.030) Urine Protein Negative (Negative) Urine Glucose (UA) Negative (Negative) Urine Ketones 2+ H (Negative) Urine Blood Negative (Negative) Urine Nitrite Negative (Negative) Urine Bilirubin Negative (Negative) Urine Urobilinogen Negative (Negative) Ur Leukocyte Esterase Negative (Negative) COVID-19 Eval Order Covid19 at [facility] SARS-CoV-2 (PCR) NEGATIVE (Negative) 11/21/20 11/21/20 Range/Units 22:48 22:41 WBC 16.85 H (4.8-10.8) K/uL RBC 4.93 (4.7-6.1) M/uL Hgb 16.4 (14.0-18.0) g/dL Hct 44.5 (42-52) % MCV 90.3 (80-100) fL MCH 33.3 (25-34) pg MCHC 36.9 H (32-36) g/dL RDW Std Deviation 41.3 (36.4-46.3) fL RDW Coeff of Negro 12.7 (11.5-14.5) % Plt Count 253 (130-400) K/uL MPV 9.9 (7.4-10.4) fL Immature Gran % (Auto) 0.3 % Neut % (Auto) 80.0 % Lymph % (Auto) 14.2 % [place] % (Auto) 5.0 % Eos % (Auto) 0.4 % Baso % (Auto) 0.1 % Neut # (Auto) 13.48 H (1.4-6.5) K/uL Lymph # (Auto) 2.40 (1.2-3.4) K/uL [place] # (Auto) 0.84 H (0.11-0.59) K/uL Eos # (Auto) 0.06 (0-0.5) K/uL Baso # (Auto) 0.02 (0-0.2) K/uL Immature Gran # (Auto) 0.05 H (0.00-0.02) K/uL Sodium 139 (136-145) mmol/L Potassium 3.2 L (3.5-5.1) mmol/L Chloride 105 (98-107) mmol/L Carbon Dioxide 23 (21-32) mmol/L Anion Gap 11.0 (3-11) BUN 10 (7-18) mg/dl Creatinine 0.84 (0.6-1.4) mg/dl Est Cr Clr Drug Dosing 72.2 ml/min Est GFR ( Amer) 94.5 ml/min Est GFR (Non-Af Amer) 81.5 ml/min BUN/Creatinine Ratio 11.8 (10-20) Glucose 148 H (70-99) mg/dl Calcium 9.2 (8.5-10.1) mg/dl Total Bilirubin 0.7 (0.2-1) mg/dl AST 24 (15-37) U/L ALT 31 (12-78) U/L Alkaline Phosphatase 164 H (45-117) U/L Troponin I < 0.015 (0-0.045) ng/ml Total Protein 7.1 (6.4-8.2) gm/dl Albumin 3.8 (3.4-5.0) gm/dl Globulin 3.3 (2.5-4.0) gm/dl Albumin/Globulin Ratio 1.2 (0.9-2) Specimen Hemolysis Urine Color Urine Appearance (Clear) Urine pH (4.5-7.5) Ur Specific [place] (1.000-1.030) Urine Protein (Negative) Urine Glucose (UA) (Negative) Urine Ketones (Negative) Urine Blood (Negative) Urine Nitrite (Negative) Urine Bilirubin (Negative) Urine Urobilinogen (Negative) Ur Leukocyte Esterase (Negative) COVID-19 Eval Order SARS-CoV-2 (PCR) (Negative) Diagnostic Findings CT ABDOMEN & PELVIS With Contrast: Mild bilateral lower lobe atelectasis. Borderline cardiomegaly with coronary artery calcifications. Atherosclerotic disease of aorta with tortuosity. No an eurysm. Status post cholecystectomy with mild biliary distention, nonspecific. Otherwise unremarkable liver, pancreas, spleen, bilateral adrenal glands. Normal right kidney. Small left mid lower renal pole simple cyst measuring 1.5 cm, otherwise normal left kidney. Unremarkable stomach and small bowel. Normal appendix. Abnormal thickening of the wall with irregularity and surrounding stranding of the colon at the level of the hepatic flexure concerning for focal colitis, cannot exclude inflammatory neoplasm. Recommend follow-up with colonoscopy. There is mild scattered diverticulosis. No signs of bowel obstruction. Unremarkable urinary bladder. Normal size of prostate gland. Small fat- containing bilateral inguinal hernias. Osteopenia with multilevel degenerative disease of the spine, bilateral SI joints and visualized left hip. Status post surgery through the right hip with prosthesis normal alignment. Radiologist: Arianna Parr MD CTA CHEST: Mild posterior subpleural dependent atelectasis from the lower lobes with minimal bronchiectasis. Interstitial changes does not exclude early pulmonary fibrosis. Remainder of the lung parenchyma unremarkable. No pleural effusion or pneumothorax. Atherosclerotic disease of aorta with no aneurysm or dissection. Normal enhancement of the pulmonary arteries with no evidence of pulmonary embolus. Mild cardiomegaly with coronary artery calcifications. Upper abdomen reveals peripheral calcifications with a spleen, likely dystrophic. Thickening of the wall throughout the colon with irregularity and surrounding stranding raising the concern of inflammatory neoplasm versus focal colitis. Follow-up with colonoscopy recommended. Status post cholecystectomy,. Possible minimal hiatal hernia. Remainder of the visualized upper abdominal structures unremarkable. Degenerative disease of the spine. Radiologist: Arianna Parr MD Medications Administered Home Medication List Medication Instructions Recorded acetaminophen 500 mg tablet 500 mg PO QID PRN 08/04/18 aspirin 81 mg tablet,delayed 81 mg PO QAM 08/04/18 release (Aspir-) multivitamin (Multiple Vitamins) 1 tab PO QAM 08/04/18 nitroglycerin 0.4 mg sublingual 0.4 mg SUBLINGUAL UD PRN 08/04/18 tablet (Nitrostat) betamethasone, augmented 0.05 % 1 appln TOP BID PRN #45 gm 02/26/19 topical ointment (Diprolene (augmented)) esomeprazole magnesium 40 mg 40 mg PO QAM #90 cap 12/06/19 capsule,delayed release atorvastatin 20 mg tablet 20 mg PO HS #90 tab 01/10/20 carvedilol 12.5 mg tablet 12.5 mg PO BID #180 tab 01/23/20 dutasteride 0.5 mg capsule 0.5 mg PO DAILY #90 cap 02/04/20 amlodipine 5 mg tablet 5 mg PO DAILY #90 tab 03/06/20 furosemide 20 mg tablet 20 mg PO DAILY #90 tab 05/29/20 alfuzosin 10 mg tablet,extended 10 mg PO DAILY 07/23/20 release 24 hr fluticasone furoate 200 1 inh INHALATION DAILY #3 inhaler 07/23/20 mcg-vilanterol 25 mcg/dose inhalation powder (Breo Ellipta) Supervising Physician Co-Signing Physician Notes Attending addendum: I have physically seen this patient, have supervised the medical residents activities, and agree with the H&P unless as otherwise noted. Assessment and Plan: Focal colitis versus inflammatory neoplasm- N.p.o. Follow stool studies NSS + KCl 20 mEq 100 mils per hour Zofran 4 mg IV every 6 hours as needed Famotidine 20 mg IV every 12 hours Allergic to Cipro and Flagyl with unknown reactions. When stool studies return, may add IV Zosyn at that time Consult gastroenterology. If no improvement with therapy, will need repeat colonoscopy. Remaining orders and notations as noted Resident Activity Tracking Resident Involvement: Resident Care Provided Care Provided: Adult [facility]
[2020-11-22] MEDS ORDERED: ONDANSETRON INJ 2 MG/ML 2 ML VIAL IV PRN (03:27)
[2020-11-22] MEDS: MoRPHine SULFATE 2 MG/ML CARP IV PRN ×2 (04:21→09:23)
[2020-11-22 07:16] LABS: Basophils # (auto) 0.01 K/uL (0-0.2); Basophils % (auto) 0.1 %; Eosinophils # (auto) 0.01 K/uL (0-0.5); Eosinophils % (auto) 0.1 %; Hemoglobin 16.3 g/dL (14.0-18.0); Immature Granulocytes # (auto) 0.04 K/uL (0.00-0.02); Immature Granulocytes % (auto) 0.2 %; Lymphocytes # (auto) 1.46 K/uL (1.2-3.4); Lymphocytes % (auto) 8.1 %; Mean Corpuscular Hemoglobin 33.9 pg (25-34); Mean Corpuscular Volume 91.5 fL (80-100); Monocytes # (auto) 1.02 K/uL (0.11-0.59); Monocytes % (auto) 5.7 %; Neutrophils % (auto) 85.8 %; Platelet Count 227 K/uL (130-400); RDW Coefficient of Variation 12.9 % (11.5-14.5); RDW Standard Deviation 41.6 fL (36.4-46.3); Red Blood Count 4.81 M/uL (4.7-6.1); White Blood Count 18.04 K/uL (4.8-10.8)
[2020-11-22 07:34] LABS: Albumin Level 3.4 gm/dl (3.4-5.0); BUN Creatinine Ratio 12.3 (10-20); Calcium 8.5 mg/dl (8.5-10.1); Creatinine Clr Calc Pharmacy 84.2 ml/min; Est GFR (African American) 100.7 ml/min; Est GFR (Non-African American) 86.9 ml/min; Magnesium 1.4 mg/dl (1.8-2.4)
--- NOTE | 2020-11-22 07:35 | CT Scan Report ---
CT ANGIOGRAM OF THE CHEST; CT SCAN OF THE ABDOMEN AND PELVIS WITH IV CONTRAST CLINICAL HISTORY: Dyspnea. Epigastric abdominal pain. COMPARISON STUDY: Chest CT dated 09/20/2019. Abdominal CT dated 08/04/2018. TECHNIQUE: Following the IV administration of 120 of Optiray 320, CT angiogram of the chest is perfor med from the upper abdomen to the thoracic inlet utilizing the pulmonary embolus protocol. Images are reviewed in the axial, sagittal, coronal planes. 3-D MIPS images are created and assessed. Subsequen tly, CT scan of the abdomen and pelvis was performed from the lung bases to the proximal femora. Imag es are reviewed in the axial, sagittal, and coronal planes. IV contrast was administered without comp lication. A dose lowering technique was utilized adhering to the principles of ALARA. CT DOSE: 1117.73 mGy.cm FINDINGS: CHEST: Thyroid: Imaged portions of the thyroid gland are normal in size and attenuation. Thoracic aorta: There is atherosclerotic calcification of the thoracic aorta, which is normal in batsheva kilo and demonstrates standard 3-vessel arch anatomy. No dissection is seen. Pulmonary vasculature: The pulmonary trunk is normal in caliber. There are no filling defects identif ied in the main, lobar, or segmental pulmonary arteries to indicate pulmonary embolus. Heart: The heart is mildly enlarged and without pericardial effusion. The coronary arteries are dense ly calcified. Lungs and pleural spaces: There is no airspace consolidation typical for pneumonia or pleural effusio n. Scarring/atelectasis is seen at the lung bases. There are scattered calcified granulomas. The trac hea and central airways are clear. Mediastinum: There is no mediastinal lymphadenopathy. Diane: Clear. Axillae: There is no axillary lymphadenopathy. Bony thorax: The skeletal structures are osteopenic. Spondylotic change is seen throughout the thorac ic spine. No lytic or blastic lesions are identified. A left shoulder arthroplasty is in place. Advan karol arthritic change is seen in the right shoulder. There are healed left-sided rib fractures. ABDOMEN AND PELVIS: Liver: The contrast-enhanced liver is normal in size, contour, and attenuation. There is mild intrahe patic biliary ductal dilatation. The hepatic veins and portal veins are patent. Minimal pneumobilia i s similar to previous. Gallbladder: Surgically absent noting clips in the gallbladder fossa. Spleen: Normal in size and attenuation. Calcification of the splenic capsule is unchanged. Pancreas: There is trace gas within the pancreatic duct. The pancreas is otherwise normal as imaged. Adrenal glands: Unremarkable. Kidneys: The contrast enhanced kidneys demonstrate mild cortical atrophy and are without hydronephros is. The kidneys enhance and excrete symmetrically. A 2.6 cm exophytic cyst is seen in the right. A 1. 8 cm cortical cyst is noted on the left. Abdominal vasculature: There is advanced atherosclerotic calcification and mild ectasia of the abdomi nal aorta. Stomach and bowel: There is a small to moderate hiatal hernia. No bowel obstruction is seen. Duodenal diverticula are noted. There is a long segment of wall thickening and edema involving the right colo n. This is greatest involving the ascending colon and hepatic flexure, and there are surrounding infl ammation. The appearance is consistent with a nonspecific colitis. There is no pneumatosis intestinal is or mesenteric venous gas. There are scattered colonic diverticula without CT evidence of acute div erticulitis. The appendix is well-visualized and normal. Peritoneum: There is no intraperitoneal free air or abdominal ascites. Lymphadenopathy: None. Pelvic viscera: Evaluation of the pelvis is degraded by streak artifact from a right hip arthroplasty . The prostate gland is mildly enlarged and heterogeneous noting median lobe hypertrophy. The bladder wall appears thickened and trabeculated indicating chronic outlet obstruction. There are bilateral f at-containing inguinal hernias. Skeletal structures: The skeletal structures are osteopenic. There is moderate lumbosacral spondylosi s. A right hip arthroplasty is in place. No lytic or blastic lesions are seen. IMPRESSION: 1. There is no evidence of pulmonary embolus in the main, lobar, or segmental pulmonary arteries. 2. There is no airspace consolidation or pleural effusion. 3. Cardiomegaly. 4. Findings consistent with a nonspecific colitis of the right colon as detailed above. This could be on an infectious, inflammatory, or ischemic basis and clinical correlation will be essential. 5. No intraperitoneal free air is identified. 6. Additional findings as above. ACT 112: Negative or not required by law. Electronically signed by: Kenney Herrera M.D. 11/22/2020 7:34 AM
[2020-11-22 07:36] LABS: Albumin Globulin Ratio 1.1 (0.9-2); Bilirubin,Total 0.9 mg/dl (0.2-1); Globulin 3.1 gm/dl (2.5-4.0); Phosphorus 3.2 mg/dl (2.5-4.9); Total Protein 6.5 gm/dl (6.4-8.2)
[2020-11-22] MEDS ORDERED: POTASSIUM CHLORIDE / WTR 10 MEQ/100 ML PLCT IV ONE (08:45)
[2020-11-22] MEDS: NSS + 20MEQ KCL 20 MEQ/1,000 ML BAG IV SCH ×2 (09:24→19:11)
[2020-11-22] MEDS ORDERED: PIPERACILL/TAZOBAC CONSULT ACTIVE PRN (09:34)
[2020-11-22] MEDS: MAGNESIUM SULFATE / D5W 1 GM/100 ML BAG IV SCH ×2 (09:45→11:46)
[2020-11-22] MEDS ORDERED: PIPERACILLIN/TAZOBACTAM 3.375 GM in DEXTROSE 5% 100 ML IV SCH (10:00)
[2020-11-22] MEDS ORDERED: MoRPHine SULFATE 2 MG/ML CARP IV PRN (12:27)
[2020-11-22] MEDS ORDERED: NITROGLYCERIN SL 0.4 MG/TAB TAB SL PRN (12:49)
[2020-11-22] MEDS ORDERED: ALBUTEROL 0.083% NEBU SOLN 3 ML VIAL NEB PRN (12:50)
--- NOTE | 2020-11-22 12:52 | Hospitalist Progress Note ---
Date of Service November 22, 2020 Assessment & Plan (1) Abdominal pain, acute, epigastric: Plan: BRIDGE NOTE, ADMITTED AFTER MIDNIGHT Several days abd pain, fever, chills, worsening abd pain with vomiting CTA/P IMPRESSION: 1. There is no evidence of pulmonary embolus in the main, lobar, or segmental pulmonary arteries. 2. There is no airspace consolidation or pleural effusion. 3. Cardiomegaly. 4. Findings consistent with a nonspecific colitis of the right colon as detailed above. This could be on an infectious, inflammatory, or ischemic basis and clinical correlation will be essential. 5. No intraperitoneal free air is identified. 6. Additional findings as above. CTA Chest negative for PE WBC elevated, L shift --> no abx on admission and will start Zosyn ALP elevated, hx cholecystectomy July 2018. TB wnl. ?maybe retained stone Mag 1.4 on admit, no replacement --> IV replacement ordered Dehydrated on exam, no IVF on admission and patient NPO --> will order NSS + 20K @ 100cc/hr K low (IV rider and added to IVF) Increased frequency of morphine given significant discomfort on examination No acidosis at this time, but will add lactic acid to labs Messaged Dr Fletcher about consultation for concerns for ischemic bowel -- will await CT results Adding lactic acid, none ordered on admission GI consulted -- Dr Conti did last c-scope 2018 for hx unexplained CONTRERAS which showed polyps, diverticulosis (see HPI). 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 Placing on IVP protonix daily while NPO, may need to increase if evidence of bleeding Continue to monitor (2) Vomiting: Plan: no further since admit -- unclear if blood in emesis due to eating spaghetti (3) CAD (coronary artery disease): Plan: Most recent ECHO 2019 with normal LV size, wall motion and systolic function. Mild LVH. EF 55-60%. Mild TR No appreciated murmur on examination NPO at current time --> may need moved to monitored bed if need for IV medications if needed On carvedilol 12.5mg PO BID, atorvastatin 20mg HS, [id number], amlodipine 5mg daily, furosemide 20mg donna for cardiac meds Nitro prn Trop negative on admission but will add w AM labs given L shoulder pain EKG c CP Continue to monitor (4) Dyspnea: Plan: reported secondary to pain 95% on 2L currently Lungs diminished, but also with hx of COPD CTA negative for PE Resumed home inhalers, but will add nebs prn (5) Hypertension: Plan: BP currently stable at 143/77 however remains NPO Continue to monitor and if needed move to tele for IV medications (6) Arteriosclerosis of carotid artery: Plan: Noted Concerns for ischemic bowel as above (7) Diastolic dysfunction: Plan: Dehydrated at present IVF as above Resume PO when appropriate based on volume status (8) HLD (hyperlipidemia): Plan: Resume meds when no longer NPO (9) Hypokalemia: Plan: K 3.0 -- IV replacement and added to IVF Mag also low and ordered IV replacement Continue to monitor (10) Hypomagnesemia: Plan: as above continue to monitor Admission and Anticipated Discharge Date Admission Date: November 22, 2020 Subjective BRIDGE NOTE, ADMITTED AFTER MIDNIGHT patient seen around lunch extreme pain in abd but not wanting to continue dosing of morphine pain to abdomen from epigastric to suprapubic region, coming and doing in extreme bouts of pain lasting for several minutes discussed dose of pain medication may help w pain and that we have recently starting IVF and antibiotics for findings on imaging but concerns for colitis but now ischemic bowel given exam he states fevers, chills, shortness of breath from pain endorses night sweats and back pain (which has gone away since last night) diarrhea for past several weeks after eating and eating causing significant pain hx c-scope in 2019 w ab polyps and discussed getting GI/general surgery on consult along w CTangio of abd/pelvis he notes no known cardiac hx NH except being told he must have had one in the past endorses L shoulder pain along with chest pain but coming and going no jaw pain does endorse headache and n/v. not clear if blood in emesis as he was having spaghetti and vegetable soup no blood reported in stool no further bowel movements since admission no futher vomiting at this time he did endorse increased urinary frequency and pain with urination over previous several days prior to admission Review of Systems Review of Systems: All systems reviewed & are unremarkable except as noted in HPI & below Physical Exam Physical Exam: seen around lunch in room 281-1 laying flat in bed, not moving due to discomfort well developed/well nourished, appears stated age but in mild distress due to pain Eyes anicteric, PERRLA ENT: dry mm Neck: trachea midline without deviation skin: warm, clammy Resp: no respiratory distress but diminished in the bases with crackles, no wheezing appreciated, 95% on 2L NC CV: RRR, no m/r/g appreciated GI: +BS throughout, tympanic, however exquisitely tender to palpation diffusely with voluntary guarding and rigidity Neuro/Psych: AOx4, answers questions appropriately, no focal deficits : no reis Results & Data Results & Data ([facility]) Vital Signs (Past 12 Hours) Vital Signs Temp Pulse Pulse Resp BP BP BP 11/22/20 12:15 37.1 C 75 16 143/77 H 11/22/20 08:16 37.0 C 83 20 160/69 H 11/22/20 07:48 80 11/22/20 04:56 36.8 C 94 H 22 162/88 H 11/22/20 04:20 89 22 159/75 H 11/22/20 03:38 88 11/22/20 02:58 37.1 C 75 22 11/22/20 02:45 22 186/87 H 11/22/20 01:00 37 C 24 11/22/20 00:42 90 25 H 166/91 H Pulse Ox 11/22/20 12:15 95 11/22/20 08:16 90 11/22/20 07:48 11/22/20 04:56 95 11/22/20 04:20 93 11/22/20 03:38 11/22/20 02:58 11/22/20 02:45 96 11/22/20 01:00 98 11/22/20 00:42 96 Laboratory Results 11/22/20 11/22/20 11/22/20 Range/Units 08:32 06:41 06:41 WBC 18.04 H (4.8-10.8) K/uL RBC 4.81 (4.7-6.1) M/uL Hgb 16.3 (14.0-18.0) g/dL Hct 44.0 (42-52) % MCV 91.5 (80-100) fL MCH 33.9 (25-34) pg MCHC 37.0 H (32-36) g/dL RDW Std Deviation 41.6 (36.4-46.3) fL RDW Coeff of Negro 12.9 (11.5-14.5) % Plt Count 227 (130-400) K/uL MPV 10.0 (7.4-10.4) fL Immature Gran % (Auto) 0.2 % Neut % (Auto) 85.8 % Lymph % (Auto) 8.1 % [place] % (Auto) 5.7 % Eos % (Auto) 0.1 % Baso % (Auto) 0.1 % Neut # (Auto) 15.50 H (1.4-6.5) K/uL Lymph # (Auto) 1.46 (1.2-3.4) K/uL [place] # (Auto) 1.02 H (0.11-0.59) K/uL Eos # (Auto) 0.01 (0-0.5) K/uL Baso # (Auto) 0.01 (0-0.2) K/uL Immature Gran # (Auto) 0.04 H (0.00-0.02) K/uL Sodium 139 (136-145) mmol/L Potassium 3.0 L (3.5-5.1) mmol/L Chloride 104 (98-107) mmol/L Carbon Dioxide 27 (21-32) mmol/L Anion Gap 8.0 (3-11) BUN 9 (7-18) mg/dl Creatinine 0.72 (0.6-1.4) mg/dl Est Cr Clr Drug Dosing 84.2 ml/min Est GFR ( Amer) 100.7 ml/min Est GFR (Non-Af Amer) 86.9 ml/min BUN/Creatinine Ratio 12.3 (10-20) Glucose 147 H (70-99) mg/dl Calcium 8.5 (8.5-10.1) mg/dl Phosphorus 3.2 (2.5-4.9) mg/dl Magnesium 1.4 L (1.8-2.4) mg/dl Total Bilirubin 0.9 (0.2-1) mg/dl AST 16 (15-37) U/L ALT 27 (12-78) U/L Alkaline Phosphatase 124 H (45-117) U/L Troponin I (0-0.045) ng/ml Total Protein 6.5 (6.4-8.2) gm/dl Albumin 3.4 (3.4-5.0) gm/dl Globulin 3.1 (2.5-4.0) gm/dl Albumin/Globulin Ratio 1.1 (0.9-2) Procalcitonin < 0.05 (0-0.5) ng/ml Specimen Hemolysis Urine Color Urine Appearance (Clear) Urine pH (4.5-7.5) Ur Specific [place] (1.000-1.030) Urine Protein (Negative) Urine Glucose (UA) (Negative) Urine Ketones (Negative) Urine Blood (Negative) Urine Nitrite (Negative) Urine Bilirubin (Negative) Urine Urobilinogen (Negative) Ur Leukocyte Esterase (Negative) COVID-19 Eval Order SARS-CoV-2 (PCR) (Negative) 11/22/20 11/21/20 11/21/20 Range/Units 00:43 23:10 23:10 WBC (4.8-10.8) K/uL RBC (4.7-6.1) M/uL Hgb (14.0-18.0) g/dL Hct (42-52) % MCV (80-100) fL MCH (25-34) pg MCHC (32-36) g/dL RDW Std Deviation (36.4-46.3) fL RDW Coeff of Negro (11.5-14.5) % Plt Count (130-400) K/uL MPV (7.4-10.4) fL Immature Gran % (Auto) % Neut % (Auto) % Lymph % (Auto) % [place] % (Auto) % Eos % (Auto) % Baso % (Auto) % Neut # (Auto) (1.4-6.5) K/uL Lymph # (Auto) (1.2-3.4) K/uL [place] # (Auto) (0.11-0.59) K/uL Eos # (Auto) (0-0.5) K/uL Baso # (Auto) (0-0.2) K/uL Immature Gran # (Auto) (0.00-0.02) K/uL Sodium (136-145) mmol/L Potassium (3.5-5.1) mmol/L Chloride (98-107) mmol/L Carbon Dioxide (21-32) mmol/L Anion Gap (3-11) BUN (7-18) mg/dl Creatinine (0.6-1.4) mg/dl Est Cr Clr Drug Dosing ml/min Est GFR ( Amer) ml/min Est GFR (Non-Af Amer) ml/min BUN/Creatinine Ratio (10-20) Glucose (70-99) mg/dl Calcium (8.5-10.1) mg/dl Phosphorus (2.5-4.9) mg/dl Magnesium (1.8-2.4) mg/dl Total Bilirubin (0.2-1) mg/dl AST (15-37) U/L ALT (12-78) U/L Alkaline Phosphatase (45-117) U/L Troponin I (0-0.045) ng/ml Total Protein (6.4-8.2) gm/dl Albumin (3.4-5.0) gm/dl Globulin (2.5-4.0) gm/dl Albumin/Globulin Ratio (0.9-2) Procalcitonin (0-0.5) ng/ml Specimen Hemolysis Urine Color Yellow Urine Appearance Clear (Clear) Urine pH 7.5 (4.5-7.5) Ur Specific [place] 1.039 H (1.000-1.030) Urine Protein Negative (Negative) Urine Glucose (UA) Negative (Negative) Urine Ketones 2+ H (Negative) Urine Blood Negative (Negative) Urine Nitrite Negative (Negative) Urine Bilirubin Negative (Negative) Urine Urobilinogen Negative (Negative) Ur Leukocyte Esterase Negative (Negative) COVID-19 Eval Order Covid19 at [facility] SARS-CoV-2 (PCR) NEGATIVE (Negative) 11/21/20 11/21/20 Range/Units 22:48 22:41 WBC 16.85 H (4.8-10.8) K/uL RBC 4.93 (4.7-6.1) M/uL Hgb 16.4 (14.0-18.0) g/dL Hct 44.5 (42-52) % MCV 90.3 (80-100) fL MCH 33.3 (25-34) pg MCHC 36.9 H (32-36) g/dL RDW Std Deviation 41.3 (36.4-46.3) fL RDW Coeff of Negro 12.7 (11.5-14.5) % Plt Count 253 (130-400) K/uL MPV 9.9 (7.4-10.4) fL Immature Gran % (Auto) 0.3 % Neut % (Auto) 80.0 % Lymph % (Auto) 14.2 % [place] % (Auto) 5.0 % Eos % (Auto) 0.4 % Baso % (Auto) 0.1 % Neut # (Auto) 13.48 H (1.4-6.5) K/uL Lymph # (Auto) 2.40 (1.2-3.4) K/uL [place] # (Auto) 0.84 H (0.11-0.59) K/uL Eos # (Auto) 0.06 (0-0.5) K/uL Baso # (Auto) 0.02 (0-0.2) K/uL Immature Gran # (Auto) 0.05 H (0.00-0.02) K/uL Sodium 139 (136-145) mmol/L Potassium 3.2 L (3.5-5.1) mmol/L Chloride 105 (98-107) mmol/L Carbon Dioxide 23 (21-32) mmol/L Anion Gap 11.0 (3-11) BUN 10 (7-18) mg/dl Creatinine 0.84 (0.6-1.4) mg/dl Est Cr Clr Drug Dosing 72.2 ml/min Est GFR ( Amer) 94.5 ml/min Est GFR (Non-Af Amer) 81.5 ml/min BUN/Creatinine Ratio 11.8 (10-20) Glucose 148 H (70-99) mg/dl Calcium 9.2 (8.5-10.1) mg/dl Phosphorus (2.5-4.9) mg/dl Magnesium (1.8-2.4) mg/dl Total Bilirubin 0.7 (0.2-1) mg/dl AST 24 (15-37) U/L ALT 31 (12-78) U/L Alkaline Phosphatase 164 H (45-117) U/L Troponin I < 0.015 (0-0.045) ng/ml Total Protein 7.1 (6.4-8.2) gm/dl Albumin 3.8 (3.4-5.0) gm/dl Globulin 3.3 (2.5-4.0) gm/dl Albumin/Globulin Ratio 1.2 (0.9-2) Procalcitonin (0-0.5) ng/ml Specimen Hemolysis Urine Color Urine Appearance (Clear) Urine pH (4.5-7.5) Ur Specific [place] (1.000-1.030) Urine Protein (Negative) Urine Glucose (UA) (Negative) Urine Ketones (Negative) Urine Blood (Negative) Urine Nitrite (Negative) Urine Bilirubin (Negative) Urine Urobilinogen (Negative) Ur Leukocyte Esterase (Negative) COVID-19 Eval Order SARS-CoV-2 (PCR) (Negative) Diagnostic Findings Abdomen/Pelvis CT 11/21/20 22:52 CT ANGIOGRAM OF THE CHEST; CT SCAN OF THE ABDOMEN AND PELVIS WITH IV CONTRAST CLINICAL HISTORY: Dyspnea. Epigastric abdominal pain. COMPARISON STUDY: Chest CT dated 09/20/2019. Abdominal CT dated 08/04/2018. TECHNIQUE: Following the IV administration of 120 of Optiray 320, CT angiogram of the chest is performed from the upper abdomen to the thoracic inlet utilizing the pulmonary embolus protocol. Images are reviewed in the axial, sagittal, coronal planes. 3-D MIPS images are created and assessed. Subsequently, CT scan of the abdomen and pelvis was performed from the lung bases to the proximal femora. Images are reviewed in the axial, sagittal, and coronal planes. IV contrast was administered without complication. A dose lowering technique was utilized adhering to the principles of ALARA. CT DOSE: 1117.73 mGy.cm FINDINGS: CHEST: Thyroid: Imaged portions of the thyroid gland are normal in size and attenuation. Thoracic aorta: There is atherosclerotic calcification of the thoracic aorta, which is normal in caliber and demonstrates standard 3-vessel arch anatomy. No dissection is seen. Pulmonary vasculature: The pulmonary trunk is normal in caliber. There are no filling defects identified in the main, lobar, or segmental pulmonary arteries to indicate pulmonary embolus. Heart: The heart is mildly enlarged and without pericardial effusion. The coronary arteries are densely calcified. Lungs and pleural spaces: There is no airspace consolidation typical for pneumonia or pleural effusion. Scarring/atelectasis is seen at the lung bases. There are scattered calcified granulomas. The trachea and central airways are clear. Mediastinum: There is no mediastinal lymphadenopathy. Diane: Clear. Axillae: There is no axillary lymphadenopathy. Bony thorax: The skeletal structures are osteopenic. Spondylotic change is seen throughout the thoracic spine. No lytic or blastic lesions are identified. A left shoulder arthroplasty is in place. Advanced arthritic change is seen in the right shoulder. There are healed left-sided rib fractures. ABDOMEN AND PELVIS: Liver: The contrast-enhanced liver is normal in size, contour, and attenuation. There is mild intrahepatic biliary ductal dilatation. The hepatic veins and portal veins are patent. Minimal pneumobilia is similar to previous. Gallbladder: Surgically absent noting clips in the gallbladder fossa. Spleen: Normal in size and attenuation. Calcification of the splenic capsule is unchanged. Pancreas: There is trace gas within the pancreatic duct. The pancreas is otherwise normal as imaged. Adrenal glands: Unremarkable. Kidneys: The contrast enhanced kidneys demonstrate mild cortical atrophy and are without hydronephrosis. The kidneys enhance and excrete symmetrically. A 2.6 cm exophytic cyst is seen in the right. A 1.8 cm cortical cyst is noted on the left. Abdominal vasculature: There is advanced atherosclerotic calcification and mild ectasia of the abdominal aorta. Stomach and bowel: There is a small to moderate hiatal hernia. No bowel obstruction is seen. Duodenal diverticula are noted. There is a long segment of wall thickening and edema involving the right colon. This is greatest involving the ascending colon and hepatic flexure, and there are surrounding inflammation. The appearance is consistent with a nonspecific colitis. There is no pneumatosis intestinalis or mesenteric venous gas. There are scattered colonic diverticula without CT evidence of acute diverticulitis. The appendix is well-visualized and normal. Peritoneum: There is no intraperitoneal free air or abdominal ascites. Lymphadenopathy: None. Pelvic viscera: Evaluation of the pelvis is degraded by streak artifact from a right hip arthroplasty. The prostate gland is mildly enlarged and heterogeneous noting median lobe hypertrophy. The bladder wall appears thickened and trabeculated indicating chronic outlet obstruction. There are bilateral fat- containing inguinal hernias. Skeletal structures: The skeletal structures are osteopenic. There is moderate lumbosacral spondylosis. A right hip arthroplasty is in place. No lytic or blastic lesions are seen. IMPRESSION: 1. There is no evidence of pulmonary embolus in the main, lobar, or segmental pulmonary arteries. 2. There is no airspace consolidation or pleural effusion. 3. Cardiomegaly. 4. Findings consistent with a nonspecific colitis of the right colon as detailed above. This could be on an infectious, inflammatory, or ischemic basis and clinical correlation will be essential. 5. No intraperitoneal free air is identified. 6. Additional findings as above. ACT 112: Negative or not required by law. Electronically signed by: Kenney Herrera M.D. 11/22/2020 7:34 AM Chest CTA 11/21/20 22:52 CT ANGIOGRAM OF THE CHEST; CT SCAN OF THE ABDOMEN AND PELVIS WITH IV CONTRAST CLINICAL HISTORY: Dyspnea. Epigastric abdominal pain. COMPARISON STUDY: Chest CT dated 09/20/2019. Abdominal CT dated 08/04/2018. TECHNIQUE: Following the IV administration of 120 of Optiray 320, CT angiogram of the chest is performed from the upper abdomen to the thoracic inlet utilizing the pulmonary embolus protocol. Images are reviewed in the axial, sagittal, coronal planes. 3-D MIPS images are created and assessed. Subsequently, CT scan of the abdomen and pelvis was performed from the lung bases to the proximal femora. Images are reviewed in the axial, sagittal, and coronal planes. IV contrast was administered without complication. A dose lowering technique was utilized adhering to the principles of ALARA. CT DOSE: 1117.73 mGy.cm FINDINGS: CHEST: Thyroid: Imaged portions of the thyroid gland are normal in size and attenuation. Thoracic aorta: There is atherosclerotic calcification of the thoracic aorta, which is normal in caliber and demonstrates standard 3-vessel arch anatomy. No dissection is seen. Pulmonary vasculature: The pulmonary trunk is normal in caliber. There are no filling defects identified in the main, lobar, or segmental pulmonary arteries to indicate pulmonary embolus. Heart: The heart is mildly enlarged and without pericardial effusion. The coronary arteries are densely calcified. Lungs and pleural spaces: There is no airspace consolidation typical for pneumonia or pleural effusion. Scarring/atelectasis is seen at the lung bases. There are scattered calcified granulomas. The trachea and central airways are clear. Mediastinum: There is no mediastinal lymphadenopathy. Diane: Clear. Axillae: There is no axillary lymphadenopathy. Bony thorax: The skeletal structures are osteopenic. Spondylotic change is seen throughout the thoracic spine. No lytic or blastic lesions are identified. A left shoulder arthroplasty is in place. Advanced arthritic change is seen in the right shoulder. There are healed left-sided rib fractures. ABDOMEN AND PELVIS: Liver: The contrast-enhanced liver is normal in size, contour, and attenuation. There is mild intrahepatic biliary ductal dilatation. The hepatic veins and portal veins are patent. Minimal pneumobilia is similar to previous. Gallbladder: Surgically absent noting clips in the gallbladder fossa. Spleen: Normal in size and attenuation. Calcification of the splenic capsule is unchanged. Pancreas: There is trace gas within the pancreatic duct. The pancreas is otherwise normal as imaged. Adrenal glands: Unremarkable. Kidneys: The contrast enhanced kidneys demonstrate mild cortical atrophy and are without hydronephrosis. The kidneys enhance and excrete symmetrically. A 2.6 cm exophytic cyst is seen in the right. A 1.8 cm cortical cyst is noted on the left. Abdominal vasculature: There is advanced atherosclerotic calcification and mild ectasia of the abdominal aorta. Stomach and bowel: There is a small to moderate hiatal hernia. No bowel obstruction is seen. Duodenal diverticula are noted. There is a long segment of wall thickening and edema involving the right colon. This is greatest involving the ascending colon and hepatic flexure, and there are surrounding inflammation. The appearance is consistent with a nonspecific colitis. There is no pneumatosis intestinalis or mesenteric venous gas. There are scattered colonic diverticula without CT evidence of acute diverticulitis. The appendix is well-visualized and normal. Peritoneum: There is no intraperitoneal free air or abdominal ascites. Lymphadenopathy: None. Pelvic viscera: Evaluation of the pelvis is degraded by streak artifact from a right hip arthroplasty. The prostate gland is mildly enlarged and heterogeneous noting median lobe hypertrophy. The bladder wall appears thickened and trabeculated indicating chronic outlet obstruction. There are bilateral fat-containing inguinal hernias. Skeletal structures: The skeletal structures are osteopenic. There is moderate lumbosacral spondylosis. A right hip arthroplasty is in place. No lytic or blastic lesions are seen. IMPRESSION: 1. There is no evidence of pulmonary embolus in the main, lobar, or segmental pulmonary arteries. 2. There is no airspace consolidation or pleural effusion. 3. Cardiomegaly. 4. Findings consistent with a nonspecific colitis of the right colon as detailed above. This could be on an infectious, inflammatory, or ischemic basis and clinical correlation will be essential. 5. No intraperitoneal free air is identified. 6. Additional findings as above. ACT 112: Negative or not required by law. Electronically signed by: Kenney Herrera M.D. 11/22/2020 7:34 AM PG Care Time/CCT Total # of Minutes Spent Total Time Spent with Patient: Total time spent is greater than 50% in coordination of care (as documented) at patient's floor/unit and/or counseling patient: Coding Level of Care Code None Diagnoses Abdominal pain, acute, epigastric R10.13 Vomiting R11.10 CAD (coronary artery disease) I25.10 Dyspnea R06.00 Hypertension I10 Arteriosclerosis of carotid artery I65.29 Diastolic dysfunction I51.89 HLD (hyperlipidemia) E78.5 Hypokalemia E87.6 Hypomagnesemia E83.42
[2020-11-22] MEDS ORDERED: SODIUM CHLORIDE 0.9% 1000ML 500 ML IV ONE (13:39)
[2020-11-22] MEDS ORDERED: VANCOMYCIN CONSULT ACTIVE PRN (13:58)
[2020-11-22] MEDS ORDERED: VANCOMYCIN HCL 2,000 MG in SODIUM CHLORIDE 0.9% 500 ML IV ONE (14:30)
[2020-11-22] MEDS: FLUTICASONE/VILANTEROL 200/25MCG 14 PUFFS/INHALER INH SCH (15:32)
[2020-11-22] MEDS ORDERED: OPTIRAY 320 125ml IV ONE (15:36)
--- NOTE | 2020-11-22 16:54 | CT Scan Report ---
CT ANGIOGRAM OF THE ABDOMEN AND PELVIS COMBO CLINICAL HISTORY: Generalized abdominal pain. Colitis. COMPARISON STUDY: Abdominal CT dated 11/21/2020. TECHNIQUE: Before and following the IV administration of 119 of Optiray 320, CT angiogram of the abdo men and pelvis is performed from the upper abdomen to the pelvic inlet. Images are reviewed in the ax ial, sagittal, coronal planes. 3-D MIPS images are created and assessed. IV contrast was administered without complication. A dose lowering technique was utilized adhering to the principles of ALARA. CT DOSE: 1242.15 mGy.cm FINDINGS: Lower chest: The heart is top normal in size noting trace pericardial effusion. The coronary arteries and aortic valve leaflets are densely calcified. There is trace right pleural effusion. Scarring/ate lectasis is noted at both lung bases. There is no airspace consolidation typical for pneumonia or ple ural effusion. A small hiatal hernia is noted. Liver: The contrast-enhanced liver is normal in size, contour, and attenuation. There is mild intrahe patic biliary ductal dilatation. The hepatic veins and portal veins are patent. Minimal pneumobilia i s similar to previous. Gallbladder: Surgically absent noting clips in the gallbladder fossa. Spleen: Normal in size and attenuation. Calcification of the splenic capsule is unchanged. Pancreas: There is trace gas within the pancreatic duct. The pancreas is otherwise normal as imaged. Adrenal glands: Unremarkable. Kidneys: The contrast enhanced kidneys demonstrate mild cortical atrophy and are without hydronephros is. No renal calculi are identified on the unenhanced series. The kidneys enhance symmetrically. Bila teral renal cysts are unchanged and measure up to 2.6 cm. Abdominal aorta and iliac arteries: There is advanced atherosclerotic calcification of the abdominal aorta which is normal in course and caliber. The abdominal aorta and iliac arteries are widely patent . No dissection is seen. 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 This is best seen on axial image #161 and extends approximately 1.5 c m in length. There may be of the celiac artery is normal in caliber. Hepatic arterial anatomy is conv entional. The splenic artery is patent noting atherosclerotic calcification and irregularity. There i s advanced atherosclerotic calcification an irregularity of the superior mesenteric artery which is p atent. The inferior mesenteric artery is patent. There is likely moderate stenosis at the origin of t he SHAN. Single bilateral renal arteries are patent noting atherosclerotic plaque and irregularity Bowel: No bowel obstruction is seen. Duodenal diverticula are noted. There is unchanged appearance of a long segment of wall thickening and edema involving the right colon. This is greatest involving th e ascending colon and hepatic flexure, and there is surrounding inflammation and fluid. The appearanc e remains consistent with a nonspecific colitis. There is no pneumatosis intestinalis or mesenteric v enous gas. There are scattered colonic diverticula without CT evidence of acute diverticulitis. The a ppendix is well-visualized and normal. Peritoneum: No intraperitoneal free air is identified. Trace fluid is seen in the right paracolic gut ter and pelvis. Lymphadenopathy: None. Pelvic viscera: Evaluation of the pelvis is degraded by streak artifact from a right hip arthroplasty . The bladder is filled with excreted IV contrast. The prostate gland is mildly enlarged and heteroge neous noting median lobe hypertrophy. The bladder wall appears thickened and trabeculated indicating chronic outlet obstruction. There are bilateral fat-containing inguinal hernias. Skeletal structures: The skeletal structures are osteopenic. There is moderate lumbosacral spondylosi s. A right hip arthroplasty is in place. No lytic or blastic lesions are seen. There are healed left- sided rib fractures. IMPRESSION: 1. There is unchanged appearance of a nonspecific colitis of the right colon as detailed above. This could be on an infectious, inflammatory, or ischemic basis. 2. There is no intraperitoneal free air, pneumatosis intestinalis, or mesenteric venous gas. 3. There is a short segment of high-grade stenosis with near complete occlusion at the origin of the celiac artery. The remainder of the vessel is patent. 4. The superior mesenteric artery is patent noting atherosclerotic plaque and irregularity. 5. Suspect at least moderate stenosis at the origin of the inferior mesenteric artery. 6. Additional findings as above. ACT 112: Negative or not required by law. Electronically signed by: Kenney Herrera M.D. 11/22/2020 4:53 PM
--- NOTE | 2020-11-22 17:07 | Surgery Consultation ---
Date of Consultation November 22, 2020 Assessment & Plan (1) Abdominal pain, acute, epigastric: (2) Colitis: No indication for emergent surgery. We will need to keep a close eye on him. If his symptoms rapidly worsen or he deteriorates we would have a low threshold for exploratory laparotomy. Clinically more consistent with an infectious colitis than an ischemic colitis. Currently asymptomatic and his vitals are stable. I agree with the Zosyn and IV fluid. I would keep him n.p.o. I would consider vascular surgery consult regarding the celiac stenosis. This would not be the etiology of his right colitis but could be contributing to his postprandial pain and vomiting. We will follow along closely. (3) Stenosis of celiac artery: History of Present Illness Attending Physician: Naman Cisneros MD History of Present Illness 80-year-old male who presented with postprandial epigastric pain as well as nausea and vomiting. He has a rather extensive past medical history including peripheral artery disease coronary artery disease hypertension COPD hyperlipidemia among others. CT scan last night revealed a right colon colitis potentially being infectious versus ischemic versus other. He was started on IV fluids and antibiotics earlier today and actually is already feeling some improvement. During my interview he was not having any pain. CT angiogram performed this afternoon shows high-grade stenosis of his celiac artery, persistent right-sided colitis as well as some additional findings as described in the report. Allergies Allergy/AdvReac Type Severity Reaction Status Date / Time tiotropium Allergy Mild CHEST Verified 07/23/20 10:07 PAIN, PRESSURE ciprofloxacin [From Cipro] Allergy Unknown Unknown Verified 07/23/20 10:07 metronidazole Allergy Unknown Unknown Verified 07/23/20 10:07 atorvastatin [From Lipitor] AdvReac Intermediate Nausea Verified 07/23/20 10:07 lisinopril AdvReac Mild Cough Verified 07/23/20 10:07 Home Medications Medication Instructions Recorded Confirmed Type acetaminophen 500 mg tablet 500 mg PO QID PRN 08/04/18 07/24/20 History aspirin 81 mg tablet,delayed 81 mg PO QAM 08/04/18 07/24/20 History release (Aspir-) multivitamin (Multiple Vitamins) 1 tab PO QAM 08/04/18 07/24/20 History nitroglycerin 0.4 mg sublingual 0.4 mg SUBLINGUAL UD PRN 08/04/18 07/24/20 History tablet (Nitrostat) betamethasone, augmented 0.05 % 1 appln TOP BID PRN #45 gm 02/26/19 07/24/20 Rx topical ointment (Diprolene (augmented)) esomeprazole magnesium 40 mg 40 mg PO QAM #90 cap 12/06/19 07/24/20 Rx capsule,delayed release atorvastatin 20 mg tablet 20 mg PO HS #90 tab 01/10/20 11/22/20 Rx carvedilol 12.5 mg tablet 12.5 mg PO BID #180 tab 01/23/20 07/24/20 Rx dutasteride 0.5 mg capsule 0.5 mg PO DAILY #90 cap 02/04/20 07/24/20 Rx amlodipine 5 mg tablet 5 mg PO DAILY #90 tab 03/06/20 11/22/20 Rx furosemide 20 mg tablet 20 mg PO DAILY #90 tab 05/29/20 11/22/20 Rx alfuzosin 10 mg tablet,extended 10 mg PO DAILY 07/23/20 07/24/20 History release 24 hr fluticasone furoate 200 1 inh INHALATION DAILY #3 inhaler 07/23/20 07/24/20 Rx mcg-vilanterol 25 mcg/dose inhalation powder (Breo Ellipta) Patient History Medical History Acquired deviated nasal septum Actinic keratosis Acute blood loss anemia BPH (benign prostatic hyperplasia) CAD (coronary artery disease) Cerumen impaction Common bile duct calculi COPD (chronic obstructive pulmonary disease) Degenerative joint disease (DJD) of hip Essential (primary) hypertension GERD (gastroesophageal reflux disease) Heart attack 20 years ago per patient. No stents/angioplasty. No recent issues. Has never had to use NTG Hemorrhoids History of DVT (deep vein thrombosis) RLE - 3-4 YEARS AGO - POST OP HIP REPLACEMENT - TREATED WITH AC THERAPY History of DVT (deep vein thrombosis) HLD (hyperlipidemia) Hyperbilirubinemia Hypertension Hypertrophy of nasal turbinates Prostatitis SVT (supraventricular tachycardia) Transaminitis Surgical History History of cardiac cath 2000 - [facility] - NO STENTS/ANGIOPLASTY - FOLLOWS W/ DR. FONTENOT History of cholecystectomy 08/07/18 [facility] History of colonoscopy (03/06/19) Dr. Conti, 4 polyps removed (2 tubular adenomas and 2 hyperplastic), diverticulosis noted, recheck not recommended due to age History of hip surgery History of knee surgery History of left shoulder replacement History of right cataract extraction History of right hip replacement History of shoulder surgery History of shoulder surgery left rotator cuff tear---had pins placed S/P ERCP w/ stenting - 08/06/18 [facility] Family History Mother Coronary heart disease Stroke Myocardial infarction Father Hypertension Brother Alopecia Hypertension Grandmother (Maternal) Coronary heart disease Grandfather (Maternal) Coronary heart disease Uncle Coronary heart disease Other No family history of adverse response to anesthesia Denies family history of Ovarian cancer Prostate cancer Breast cancer Colorectal cancer Social History Smoking Status: Never smoker Tobacco Type: Pipe Second Hand Exposure: Yes (previous exposure); Hx Alcohol Use: Yes Alcohol type: beer Alcohol Intake Frequency: 2-3 x/Week Alcohol Intake Frequency Comment: 1-2, 6pks Hx Substance Use: No Preferred Language: Bahraini Communication Ability: Effective Visual Impairment: No Limitations Hearing Ability: Normal 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: No Beliefs That Will Affect Care: None marital status: Current Living Situation: Significant Other current occupational status: retired Other Information That Helps Us Care for You: No Feels Safe at Home: Yes Safety Concerns: Feels Safe At This Time Dental Care, Regularly: No Physical Activity Frequency: Does not Exercise Seatbelt Use: never Assistive Devices: None Physical Exam Constitutional: WD/WN, vitals as above no acute distress and not ill appearing Eyes: PERRL, conjunctivae normal, anicteric sclerae EOM intact bilaterally ENMT: external ear and nose normal, oropharynx normal Ears: no hearing impairment Neck: trachea midline, no thyromegaly Respiratory: normal respiratory effort; no respiratory distress and does not use accessory muscles Cardiovascular: Rate/Rhythm: regular rate and regular rhythm Gastrointestinal (Abdomen): Soft. Mild distention ( baseline per patient). Mild epigastric tenderness. Mild right mid abdominal tenderness. No peritoneal signs. Skin: no rashes, warm and dry Psychiatric: Orientation: alert, oriented x 3 and cooperative Results & Data ([facility]) Vital Signs (Past 12 Hours) Vital Signs Temp Pulse Pulse Resp BP Pulse Ox 11/22/20 16:22 37.6 C H 84 18 171/70 H 93 11/22/20 15:44 76 11/22/20 12:15 37.1 C 75 16 143/77 H 95 11/22/20 08:16 37.0 C 83 20 160/69 H 90 11/22/20 07:48 80 PG Care Time/CCT Total # of Minutes Spent Total Time Spent with Patient: Total time spent is greater than 50% in coordination of care (as documented) at patient's floor/unit and/or counseling patient: Coding Level of Care Code 12808 Initial Inpt Care Lvl 3 Diagnoses Abdominal pain, acute, epigastric R10.13 Colitis K52.9 Stenosis of celiac artery I77.4
[2020-11-22] MEDS: PIPERACILLIN/TAZOBACTAM 3.375 GM in DEXTROSE 5% 100 ML IV SCH (18:02)
[2020-11-22] MEDS: HEPARIN SOD 5,000 UNIT/0.5 ML VIAL SQ SCH (20:42)
--- NOTE | 2020-11-22 20:46 | Pharmacy Report ---
Pharmacy Vanc AUC Short Note - Date of Service November 22, 2020 - Assessment & Plan Assessment 80 year old M receiving empiric vancomycin and zosyn for treatment of possible infectious colitis, r/o endocarditis. * BC pending Plan Vancomycin * Loading dose: 2000 mg IV (23.5 mg/mL) * Maintenance dose: 1000 mg (12 mg/kg) IV every 12 hours * Will target an AUC/LAW of 400-600 mg/L.hr * AUC/LAW is the preferred PK/PD target for vancomycin * AUC guided dosing is effective and associated with decreased risk of nephrotoxicity compared to traditional trough targets * Trough level will be ordered if therapy is planned to continue beyond 48 hours Zosyn * 3.375 g IV q8h (extended infusion) for CrCl > 20 mL/min Pharmacy will continue to follow and will adjust dose/frequency as necessary. Thank you.
--- NOTE | 2020-11-22 23:04 | Consultation Report ---
REFERRED BY: Dr. Zac Molina. HISTORY OF PRESENT ILLNESS: I was asked by Dr. Molina to consult on this gentleman for evaluation of abdominal pain. The patient is an 80-year-old gentleman who states over the past month or so, he has had bouts of colicky abdominal pain starting in the periumbilical area and radiating to the epigastric area and right upper quadrant. Over the past several days, this got significantly worse and was so severe that he presented to the Emergency Room. He denies fevers. He states he had his gallbladder removed several years ago for gallstone disease. He does not feel that these symptoms are related. He denies any diarrhea or rectal bleeding. He has had no vomiting, though he has had some associated nausea. He states that he gets occasional diarrhea with the severe pain and it does relieve his symptoms for a brief period of time. The pain is colicky in nature. I reviewed his medical records and his past medical history. PAST MEDICAL HISTORY: Significant for BPH, coronary artery disease, COPD, degenerative joint disease, hypertension, GERD. He is status post NM. He has a history of DVT. He has hyperlipidemia, hypertension, history of SVT. PAST SURGICAL HISTORY: Significant for cardiac catheterization, right hip replacement, left shoulder replacement. He had a colonoscopy 02/[address] Conti removing multiple polyps. FAMILY HISTORY: Negative for gastrointestinal disease. OUTPATIENT MEDICATIONS: Include baby aspirin a day, vitamins, Nexium, atorvastatin, carvedilol, dutasteride, amlodipine, furosemide, alfuzosin, inhaler. ALLERGIES: He states he is allergic to TIOTROPIUM, CIPROFLOXACIN, LIPITOR, LISINOPRIL, AND METRONIDAZOLE. SOCIAL HISTORY: Significant for pipe smoking and social alcohol use. REVIEW OF SYSTEMS: As above, otherwise, he denies any fevers. He has had no heat or cold intolerance. He has had no hair loss. He has had no easy bruising. He denies any change in vision or hearing. He denies any change in mood or seizure activity. He has had no joint swelling. He has had no productive cough or worsening shortness of breath. He denies any exertional chest pain or palpitations recently. He has had no dysuria or polyuria. He denies any easy bruising. He denies any icterus or pruritus. PHYSICAL EXAMINATION: GENERAL: Reveals a pleasant gentleman, lying in bed. Blood pressure is 143/77, pulse is 75, temperature is 37.1. SKIN: Anicteric. HEENT: Eyes show anicteric sclerae. Mouth is clear lesions. NECK: Supple. CHEST: Clear. HEART: Regular. ABDOMEN: Good bowel sounds, but some tenderness to deep palpation in the right upper quadrant, but no masses or rebound tenderness. EXTREMITIES: Warm with fair distal pulses. NEUROLOGICAL: He is grossly intact. Alert and oriented x 3. LABORATORY DATA: Show a white blood cell count of 18 that is up from 16 from admission, hemoglobin is 16.3. Lactate is 2.9. Liver enzymes show a normal AST and ALT and total bilirubin. His alkaline phosphatase is slightly elevated at 124. IMAGING: CT of the abdomen and pelvis shows surgically absent gallbladder. Minimal pneumobilia consistent with prior ERCP, but there is wall thickening and edema involving the right colon at the area of the ascending colon and hepatic flexure with some surrounding inflammation. IMPRESSION: An 80-year-old gentleman with abdominal pain which seems to have been progressive and abnormal imaging of the colon. I am concerned about possible ischemic colitis or infectious colitis. This also could be a more sinister pathology such as invasive polyp or even a micro perforation. This does not appear to be biliary in origin given the available data. I agree with covering him with broad-spectrum antibiotics given his increasing white blood cell count, elevated lactate and symptoms. I do not think a colonoscopy is appropriate at this time because of possible concerns of perforation risk. He may need colonoscopy in the near future to evaluate CT findings of colon, but I would recommend following him symptomatically and hoping he will respond to his antibiotics. Consider repeat CT if symptoms get worse. Job ID: [id number] G[facility] CORNING HOSPITALVeronica
[2020-11-23] MEDS: VANCOMYCIN HCL 1,000 MG in SODIUM CHLORIDE 0.9% 250 ML IV SCH ×3 (00:39→23:36)
[2020-11-23] MEDS: PIPERACILLIN/TAZOBACTAM 3.375 GM in DEXTROSE 5% 100 ML IV SCH ×4 (02:00→23:39)
[2020-11-23] MEDS: NSS + 20MEQ KCL 20 MEQ/1,000 ML BAG IV SCH ×3 (05:17→23:36)
[2020-11-23] MEDS: HEPARIN SOD 5,000 UNIT/0.5 ML VIAL SQ SCH ×3 (05:21→22:08)
--- NOTE | 2020-11-23 06:01 | Billing Data ---
Date of Service November 23, 2020 Coding Level of Care Code 71018 Initial Inpt Care Lvl 2
--- NOTE | 2020-11-23 06:23 | Surgery Progress Note ---
Date of Service November 23, 2020 Assessment & Plan (1) Colitis: Plan: Patient has been admitted by the hospitalist service and we recommend proceeding as follows: Continue analgesics Continue antiemetics Continue hydration with IV fluid Continue antibiotics in the form of Zosyn We will continue to follow along closely with the patient. His symptoms have markedly improved with antibiotics and fluid resuscitation. At the present time there is not appear to be any indication for acute surgical intervention. as above. clinically improving. wbc slightly improved. will continue to follow closely. would keep npo one more day...if continues to improve could start clears tomorrow. Admission and Anticipated Discharge Date Admission Date: November 22, 2020 Subjective Patient is resting in bed. He denies any nausea vomiting overnight. He says his bowels have not moved since admission. Patient notes that the abdominal pain that was present at time of admission is markedly improved. Physical Exam Gastrointestinal (Abdomen): Patient's abdomen is soft and nondistended. He does have pain noted with palpation which is greatest in the right lower and right upper quadrants. There is no rebound tenderness or guarding. Results & Data ([facility]) Vital Signs (Past 12 Hours) Vital Signs Temp Pulse Pulse Resp BP Pulse Ox 11/23/20 04:07 37.0 C 64 18 144/64 H 91 11/23/20 00:00 64 11/22/20 22:28 37.6 C H 70 18 166/72 H 91 11/22/20 19:00 37.8 C H 73 18 176/72 H 90 PG Care Time/CCT Total # of Minutes Spent Total Time Spent with Patient: Total time spent is greater than 50% in coordination of care (as documented) at patient's floor/unit and/or counseling patient: Coding Level of Care Code 34049 Subseq Hosp Care Lvl 3 Diagnoses Colitis K52.9
[2020-11-23 06:53] LABS: Basophils # (auto) 0.02 K/uL (0-0.2); Basophils % (auto) 0.1 %; Eosinophils # (auto) 0.06 K/uL (0-0.5); Eosinophils % (auto) 0.4 %; Hematocrit (blood only) 38.1 % (42-52); Hemoglobin 13.9 g/dL (14.0-18.0); Immature Granulocytes # (auto) 0.03 K/uL (0.00-0.02); Immature Granulocytes % (auto) 0.2 %; Lymphocytes # (auto) 1.46 K/uL (1.2-3.4); Lymphocytes % (auto) 10.1 %; Mean Corpuscular Hemoglobin 34.7 pg (25-34); Mean Corpuscular Hgb Conc 36.5 g/dL (32-36); Monocytes # (auto) 0.97 K/uL (0.11-0.59); Monocytes % (auto) 6.7 %; Neutrophils # (auto) 11.92 K/uL (1.4-6.5); Neutrophils % (auto) 82.5 %; Platelet Count 212 K/uL (130-400); RDW Coefficient of Variation 13.3 % (11.5-14.5); RDW Standard Deviation 44.7 fL (36.4-46.3); Red Blood Count 4.01 M/uL (4.7-6.1); White Blood Count 14.46 K/uL (4.8-10.8)
[2020-11-23 07:32] LABS: Albumin Globulin Ratio 0.9 (0.9-2); Albumin Level 2.8 gm/dl (3.4-5.0); BUN Creatinine Ratio 13.2 (10-20); Bilirubin,Total 1.1 mg/dl (0.2-1); Calcium 8.2 mg/dl (8.5-10.1); Est GFR (African American) 99.6 ml/min; Est GFR (Non-African American) 85.9 ml/min; Magnesium 1.9 mg/dl (1.8-2.4); Potassium 3.5 mmol/L (3.5-5.1); Total Protein 5.8 gm/dl (6.4-8.2)
--- NOTE | 2020-11-23 07:36 | Electrocardiogram Report ---
Test Reason : Blood Pressure : / mmHG Vent. Rate : 087 BPM Atrial Rate : 087 BPM P-R Int : 294 ms QRS Dur : 108 ms QT Int : 362 ms P-R-T Axes : 030 007 008 degrees QTc Int : 435 ms Sinus rhythm with 1st degree A-V block Septal infarct (cited on or before 19-AUG-2019) Inferior infarct (cited on or before 19-AUG-2019) Abnormal ECG When compared with ECG of 19-AUG-2019 06:07, Premature ventricular complexes are no longer Present Septal infarct is now Present Confirmed by Tony Trujillo ([id number]) on 11/23/2020 7:35:58 AM Referred By: REFERRED SELF Confirmed By:Tony Trujillo
[2020-11-23] MEDS: FLUTICASONE/VILANTEROL 200/25MCG 14 PUFFS/INHALER INH SCH (07:44)
--- NOTE | 2020-11-23 08:58 | Hospitalist Progress Note ---
Date of Service November 23, 2020 Assessment & Plan (1) Colitis: Plan: Several days abd pain, fever, chills, worsening abd pain with vomiting (reported red emesis but after sphaghetti) CTA/P IMPRESSION: 1. There is no evidence of pulmonary embolus in the main, lobar, or segmental pulmonary arteries. 2. There is no airspace consolidation or pleural effusion. 3. Cardiomegaly. 4. Findings consistent with a nonspecific colitis of the right colon as detailed above. This could be on an infectious, inflammatory, or ischemic basis and clinical correlation will be essential. 5. No intraperitoneal free air is identified. 6. Additional findings as above. CTA Chest negative for PE WBC elevated, L shift --> no abx on admission and started Zosyn ALP elevated, hx cholecystectomy July 2018. TB wnl Mag 1.4 on admit, no replacement --> IV replacement ordered Dehydrated on exam, no IVF on admission and patient NPO --> will order NSS + 20K @ 100cc/hr K low (IV rider and added to IVF) Increased frequency of morphine given significant discomfort on examination --> has not required dose since initiation of IVF/ABX No acidosis at this time, but lactic was elevated to 2.9 --> 2.1 --> 1.5 after fluid bolus. GI consulted -- Dr Conti did last c-scope 2018 for hx unexplained CONTRERAS which showed polyps, diverticulosis (see HPI). 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 Placed on IVP protonix daily while NPO, may need to increase if evidence of bleeding Added Heparin SQ for DVT prophylaxis (resumed ASA but will hold given bleeding now 11/23) Messaged Dr Fletcher about consultation for concerns for ischemic bowel CT angio done last night for concerns for ischemic bowel/acute abdomen 11/22 * IMPRESSION: * 1. There is unchanged appearance of a nonspecific colitis of the right colon as detailed above. This could be on an infectious, inflammatory, or ischemic basis. * 2. There is no intraperitoneal free air, pneumatosis intestinalis, or mesenteric venous gas. * 3. There is a short segment of high-grade stenosis with near complete occlusion at the origin of the celiac artery. The remainder of the vessel is patent. * 4. The superior mesenteric artery is patent noting atherosclerotic plaque and irregularity * 5. Suspect at least moderate stenosis at the origin of the inferior mesenteric artery. * 6. Additional findings as above. Discussed with general surgery --> celiac near occlusion not at side of most reported pain (RUQ) however if epigastric discomfort worsens, worsening concerns/need for transfer/more urgent vascular evaluation CHANGED TO A FULL ADMIT, WAS OBSERVATION ON ADMISSION Lactic elevated, bolus provided -- now wnl WBC trending down 18k--> 14k Low grade temp, likely atelectasis. NO further fevers NO further shortness of breath since abdominal pain controlled. Breathing stable on ROOM AIR Remains on Zosyn, but added Vanco 11/22 for concerns of back pain/cardiac involvement but will continue empirically ECHO pending. Trop negative. SR on telemetry Hgb 16.3--> 13.9 but suspected significant dehydration on admission/sepsis as Hgb appears to be closer to 11-13 over past 2 years. (will also add iron studies to AM labs) Sending fecal occult for reported dark stools (reported had been happening at home for every diarrhea as well) Protonix increased to IV BID GI on consult last evening -- no inpatient scope at this time for risk for perf, obv concerns for ischemic colitis as above Resumed his Discussed with general surgery this morning and given clinical improvement will continue current course for now, Vascular surgery consulted to see tomorrow (would also discuss with Dr. Mehta coag clinic to see about options at d/c to prevent progression) Continue IVF, supportive care, pain control, antiemetics at this time --> replacement of mag/potassium to ensure stable (2) Melena: Plan: Reported this morning (had been happening at home) Hx anemia (3) Stenosis of celiac artery: Plan: As above On Heparin for DVT prophylaxis as also with SMA noting plaque/irregularity and at least moderate stenosis at origin of inferior mesenteric artery as well Also checking A1c given vascular disease given prior hx pre-DM with A1c July 2019 6.2 to better control other modifiable risk factors (4) Vomiting: Plan: no further since admit -- unclear if blood in emesis due to eating spaghetti (5) CAD (coronary artery disease): Plan: Most recent ECHO 2019 with normal LV size, wall motion and systolic function. Mild LVH. EF 55-60%. Mild TR No appreciated murmur on examination NPO at current time --> may need moved to monitored bed if need for IV medications if needed On carvedilol 12.5mg PO BID, atorvastatin 20mg HS, [id number], amlodipine 5mg daily, furosemide 20mg donna for cardiac meds --> Resumed his carvedilol, amlodipine but will hold ASA, Atorvastatin, lasix for now Nitro prn Trop negative EKG c CP Continue to monitor (6) Dyspnea: Plan: reported secondary to pain 95% on 2L --> titrated to ROOM AIR, and reports no further SOB Lungs diminished, but also with hx of COPD CTA negative for PE Resumed home inhalers, but will add nebs prn (7) Hypertension: Plan: BP currently stable at 145/73 Resumed his BB, CCB but hold diuretic Continue to monitor (8) Arteriosclerosis of carotid artery: Plan: Noted Concerns for ischemic bowel as above (9) Diastolic dysfunction: Plan: Dehydrated at present IVF as above, holding diuretics No volume overload at this time (10) HLD (hyperlipidemia): Plan: Resume meds when able, will hold for today (but may also need increased does given significant atherosclerosis throughout as above) Will add lipid panel to AM labs (11) Hypokalemia: Plan: K 3.0 -- IV replacement and added to IVF Mag also low and ordered IV replacement Additional 40meq K to keep closer to 4/mag 2 RESOLVED --> continued to monitor and replace as needed (12) Hypomagnesemia: Plan: as above continue to monitor Plan: Continue to monitor response on supportive treatment Vascular consult for tomorrow GI/General surgery following Repeat imaging if condition worsens Discuss with coag clinic for celiac stenosis/coag at d/c Admission and Anticipated Discharge Date Admission Date: November 22, 2020 Subjective Patient evaluated this morning. Feeling MUCH better. Much less abdominal pain and not required any further medications. RUQ/epigastric (however not very tender to palpation on exam). Still not very hungry and ok to keep NPO except meds/sips. Had multiple dark/blackened stools x 3. He states this is always how it is with his diarrhea. Will check for blood to make sure but discussed likely from the colitis. Denies any NSAID use ibuprofen/aleeve/Motrin but does endorse daily baby aspirin. No further fevers. Discussed with general surgery and ok to monitor response. Vascular to see tomorrow. No further shortness of breath. No fever, chills, chest pain, nausea or vomiting, dysuria at this time. Questions/concerns addressed at this time -- he is to alert nursing of any increased pain/nausea/vomiting/fevers/any worsening of symptoms that would prompt repeat eval/further imaging/possible transfer as discussed. Review of Systems Review of Systems: All systems reviewed & are unremarkable except as noted in HPI & below Physical Exam Physical Exam: WD/WN, no acute distress, laying comfortably in bed, NAD Eyes anicteric, PERRLA ENT: slightly dry mm (improved) Neck: trachea midline without deviation skin: warm, moist Resp: no respiratory distress but diminished in the bases with crackles, no wheezing appreciated, 92% on RA CV: regular rhythm, NOT tachycardic, no m/r/g appreciated, no edema, cap refill normal GI: +BS throughout, tympanic, less distended, mild discomfort epigastric/RUQ but only on deep palpation, not on light palpation. no ecchymosis Neuro/Psych: AOx4, answers questions appropriately, no focal deficits : no reis *darkened liquid stool noted in bathroom -- asked RN to collect and send for occult blood Results & Data Results & Data ([facility]) Vital Signs (Past 12 Hours) Vital Signs Temp Pulse Pulse Resp BP Pulse Ox 11/23/20 07:27 62 11/23/20 07:06 37.3 C 61 18 145/73 H 92 11/23/20 04:07 37.0 C 64 18 144/64 H 91 11/23/20 00:00 64 11/22/20 22:28 37.6 C H 70 18 166/72 H 91 Laboratory Results 11/23/20 11/23/20 11/23/20 Range/Units 06:05 06:05 06:05 WBC 14.46 H (4.8-10.8) K/uL RBC 4.01 L (4.7-6.1) M/uL Hgb 13.9 L (14.0-18.0) g/dL Hct 38.1 L (42-52) % MCV 95.0 (80-100) fL MCH 34.7 H (25-34) pg MCHC 36.5 H (32-36) g/dL RDW Std Deviation 44.7 (36.4-46.3) fL RDW Coeff of Negro 13.3 (11.5-14.5) % Plt Count 212 (130-400) K/uL MPV 10.0 (7.4-10.4) fL Immature Gran % (Auto) 0.2 % Neut % (Auto) 82.5 % Lymph % (Auto) 10.1 % [place] % (Auto) 6.7 % Eos % (Auto) 0.4 % Baso % (Auto) 0.1 % Neut # (Auto) 11.92 H (1.4-6.5) K/uL Lymph # (Auto) 1.46 (1.2-3.4) K/uL [place] # (Auto) 0.97 H (0.11-0.59) K/uL Eos # (Auto) 0.06 (0-0.5) K/uL Baso # (Auto) 0.02 (0-0.2) K/uL Immature Gran # (Auto) 0.03 H (0.00-0.02) K/uL Sodium 140 (136-145) mmol/L Potassium 3.5 D (3.5-5.1) mmol/L Chloride 108 H (98-107) mmol/L Carbon Dioxide 26 (21-32) mmol/L Anion Gap 6.0 (3-11) BUN 10 (7-18) mg/dl Creatinine 0.74 (0.6-1.4) mg/dl Est Cr Clr Drug Dosing 82.0 ml/min Est GFR ( Amer) 99.6 ml/min Est GFR (Non-Af Amer) 85.9 ml/min BUN/Creatinine Ratio 13.2 (10-20) Glucose 122 H (70-99) mg/dl Estimat Average Glucose Pending Hemoglobin A1c Pending Lactate (0.4-2.0) mmol/L Calcium 8.2 L (8.5-10.1) mg/dl Magnesium 1.9 (1.8-2.4) mg/dl Total Bilirubin 1.1 H (0.2-1) mg/dl AST 14 L (15-37) U/L ALT 20 (12-78) U/L Alkaline Phosphatase 82 (45-117) U/L Troponin I (0-0.045) ng/ml Total Protein 5.8 L (6.4-8.2) gm/dl Albumin 2.8 L (3.4-5.0) gm/dl Globulin 3.0 (2.5-4.0) gm/dl Albumin/Globulin Ratio 0.9 (0.9-2) Procalcitonin (0-0.5) ng/ml 11/22/20 11/22/20 11/22/20 Range/Units 20:16 17:57 12:47 WBC (4.8-10.8) K/uL RBC (4.7-6.1) M/uL Hgb (14.0-18.0) g/dL Hct (42-52) % MCV (80-100) fL MCH (25-34) pg MCHC (32-36) g/dL RDW Std Deviation (36.4-46.3) fL RDW Coeff of Negro (11.5-14.5) % Plt Count (130-400) K/uL MPV (7.4-10.4) fL Immature Gran % (Auto) % Neut % (Auto) % Lymph % (Auto) % [place] % (Auto) % Eos % (Auto) % Baso % (Auto) % Neut # (Auto) (1.4-6.5) K/uL Lymph # (Auto) (1.2-3.4) K/uL [place] # (Auto) (0.11-0.59) K/uL Eos # (Auto) (0-0.5) K/uL Baso # (Auto) (0-0.2) K/uL Immature Gran # (Auto) (0.00-0.02) K/uL Sodium (136-145) mmol/L Potassium (3.5-5.1) mmol/L Chloride (98-107) mmol/L Carbon Dioxide (21-32) mmol/L Anion Gap (3-11) BUN (7-18) mg/dl Creatinine (0.6-1.4) mg/dl Est Cr Clr Drug Dosing ml/min Est GFR ( Amer) ml/min Est GFR (Non-Af Amer) ml/min BUN/Creatinine Ratio (10-20) Glucose (70-99) mg/dl Estimat Average Glucose Hemoglobin A1c Lactate 1.5 2.1 H* 2.9 H* (0.4-2.0) mmol/L Calcium (8.5-10.1) mg/dl Magnesium (1.8-2.4) mg/dl Total Bilirubin (0.2-1) mg/dl AST (15-37) U/L ALT (12-78) U/L Alkaline Phosphatase (45-117) U/L Troponin I (0-0.045) ng/ml Total Protein (6.4-8.2) gm/dl Albumin (3.4-5.0) gm/dl Globulin (2.5-4.0) gm/dl Albumin/Globulin Ratio (0.9-2) Procalcitonin (0-0.5) ng/ml 11/22/20 11/22/20 Range/Units 12:47 08:32 WBC (4.8-10.8) K/uL RBC (4.7-6.1) M/uL Hgb (14.0-18.0) g/dL Hct (42-52) % MCV (80-100) fL MCH (25-34) pg MCHC (32-36) g/dL RDW Std Deviation (36.4-46.3) fL RDW Coeff of Negro (11.5-14.5) % Plt Count (130-400) K/uL MPV (7.4-10.4) fL Immature Gran % (Auto) % Neut % (Auto) % Lymph % (Auto) % [place] % (Auto) % Eos % (Auto) % Baso % (Auto) % Neut # (Auto) (1.4-6.5) K/uL Lymph # (Auto) (1.2-3.4) K/uL [place] # (Auto) (0.11-0.59) K/uL Eos # (Auto) (0-0.5) K/uL Baso # (Auto) (0-0.2) K/uL Immature Gran # (Auto) (0.00-0.02) K/uL Sodium (136-145) mmol/L Potassium (3.5-5.1) mmol/L Chloride (98-107) mmol/L Carbon Dioxide (21-32) mmol/L Anion Gap (3-11) BUN (7-18) mg/dl Creatinine (0.6-1.4) mg/dl Est Cr Clr Drug Dosing ml/min Est GFR ( Amer) ml/min Est GFR (Non-Af Amer) ml/min BUN/Creatinine Ratio (10-20) Glucose (70-99) mg/dl Estimat Average Glucose Hemoglobin A1c Lactate (0.4-2.0) mmol/L Calcium (8.5-10.1) mg/dl Magnesium (1.8-2.4) mg/dl Total Bilirubin (0.2-1) mg/dl AST (15-37) U/L ALT (12-78) U/L Alkaline Phosphatase (45-117) U/L Troponin I < 0.015 (0-0.045) ng/ml Total Protein (6.4-8.2) gm/dl Albumin (3.4-5.0) gm/dl Globulin (2.5-4.0) gm/dl Albumin/Globulin Ratio (0.9-2) Procalcitonin < 0.05 (0-0.5) ng/ml Diagnostic Findings Abdomen/Pelvis CTA 11/22/20 12:23 CT ANGIOGRAM OF THE ABDOMEN AND PELVIS COMBO CLINICAL HISTORY: Generalized abdominal pain. Colitis. COMPARISON STUDY: Abdominal CT dated 11/21/2020. TECHNIQUE: Before and following the IV administration of 119 of Optiray 320, CT angiogram of the abdomen and pelvis is performed from the upper abdomen to the pelvic inlet. Images are reviewed in the axial, sagittal, coronal planes. 3-D MIPS images are created and assessed. IV contrast was administered without complication. A dose lowering technique was utilized adhering to the principles of ALARA. CT DOSE: 1242.15 mGy.cm FINDINGS: Lower chest: The heart is top normal in size noting trace pericardial effusion. The coronary arteries and aortic valve leaflets are densely calcified. There is trace right pleural effusion. Scarring/atelectasis is noted at both lung bases. There is no airspace consolidation typical for pneumonia or pleural effusion. A small hiatal hernia is noted. Liver: The contrast-enhanced liver is normal in size, contour, and attenuation. There is mild intrahepatic biliary ductal dilatation. The hepatic veins and portal veins are patent. Minimal pneumobilia is similar to previous. Gallbladder: Surgically absent noting clips in the gallbladder fossa. Spleen: Normal in size and attenuation. Calcification of the splenic capsule is unchanged. Pancreas: There is trace gas within the pancreatic duct. The pancreas is otherwise normal as imaged. Adrenal glands: Unremarkable. Kidneys: The contrast enhanced kidneys demonstrate mild cortical atrophy and are without hydronephrosis. No renal calculi are identified on the unenhanced series. The kidneys enhance symmetrically. Bilateral renal cysts are unchanged and measure up to 2.6 cm. Abdominal aorta and iliac arteries: There is advanced atherosclerotic calcification of the abdominal aorta which is normal in course and caliber. The abdominal aorta and iliac arteries are widely patent. No dissection is seen. 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 This is best seen on axial image #161 and extends approximately 1.5 cm in length. There may be of the celiac artery is normal in caliber. Hepatic arterial anatomy is conventional. The splenic artery is patent noting atherosclerotic calcification and irregularity. There is advanced atherosclerotic calcification an irregularity of the superior mesenteric artery which is patent. The inferior mesenteric artery is patent. There is likely moderate stenosis at the origin of the SHAN. Single bilateral renal arteries are patent noting atherosclerotic plaque and irregularity Bowel: No bowel obstruction is seen. Duodenal diverticula are noted. There is unchanged appearance of a long segment of wall thickening and edema involving the right colon. This is greatest involving the ascending colon and hepatic flexure, and there is surrounding inflammation and fluid. The appearance remains consistent with a nonspecific colitis. There is no pneumatosis intestinalis or mesenteric venous gas. There are scattered colonic diverticula without CT evidence of acute diverticulitis. The appendix is well-visualized and normal. Peritoneum: No intraperitoneal free air is identified. Trace fluid is seen in the right paracolic gutter and pelvis. Lymphadenopathy: None. Pelvic viscera: Evaluation of the pelvis is degraded by streak artifact from a right hip arthroplasty. The bladder is filled with excreted IV contrast. The prostate gland is mildly enlarged and heterogeneous noting median lobe hypertrophy. The bladder wall appears thickened and trabeculated indicating chronic outlet obstruction. There are bilateral fat-containing inguinal hernias. Skeletal structures: The skeletal structures are osteopenic. There is moderate lumbosacral spondylosis. A right hip arthroplasty is in place. No lytic or blastic lesions are seen. There are healed left-sided rib fractures. IMPRESSION: 1. There is unchanged appearance of a nonspecific colitis of the right colon as detailed above. This could be on an infectious, inflammatory, or ischemic basis. 2. There is no intraperitoneal free air, pneumatosis intestinalis, or mesenteric venous gas. 3. There is a short segment of high-grade stenosis with near complete occlusion at the origin of the celiac artery. The remainder of the vessel is patent. 4. The superior mesenteric artery is patent noting atherosclerotic plaque and irregularity. 5. Suspect at least moderate stenosis at the origin of the inferior mesenteric artery. 6. Additional findings as above. ACT 112: Negative or not required by law. Electronically signed by: Kenney Herrera M.D. 11/22/2020 4:53 PM PG Care Time/CCT Total # of Minutes Spent Total Time Spent with Patient: Total time spent is greater than 50% in coordination of care (as documented) at patient's floor/unit and/or counseling patient: Coding Level of Care Code 20185 Subseq Hosp Care Lvl 3 Diagnoses Vomiting R11.10 CAD (coronary artery disease) I25.10 Dyspnea R06.00 Hypertension I10 Arteriosclerosis of carotid artery I65.29 Diastolic dysfunction I51.89 HLD (hyperlipidemia) E78.5 Hypokalemia E87.6 Hypomagnesemia E83.42 Colitis K52.9 Stenosis of celiac artery I77.4 Melena K92.1
[2020-11-23] MEDS ORDERED: ASPIRIN 81 MG ECTAB PO SCH (09:00)
[2020-11-23] MEDS: amLODIPine BESYLATE 5 MG TAB PO SCH (10:00)
[2020-11-23] MEDS: carvediloL 12.5 MG TAB PO SCH ×2 (10:00→22:07)
[2020-11-23] MEDS ORDERED: PANTOprazole 40 MG in SYRINGE 0 ML IV SCH (11:00)
[2020-11-23] MEDS ORDERED: POTASSIUM CHLORIDE CRTAB 20 MEQ TABCR PO STA (11:44)
[2020-11-23] MEDS: ATORVASTATIN 20 MG TAB PO SCH (22:08)
[2020-11-23] MEDS: PANTOprazole 40 MG in SYRINGE 0 ML IV SCH (22:08)
[2020-11-24] MEDS: HEPARIN SOD 5,000 UNIT/0.5 ML VIAL SQ SCH ×3 (05:59→21:13)
[2020-11-24 08:01] LABS: Basophils # (auto) 0.02 K/uL (0-0.2); Basophils % (auto) 0.2 %; Eosinophils % (auto) 2.2 %; Hematocrit (blood only) 39.6 % (42-52); Hemoglobin 13.9 g/dL (14.0-18.0); Immature Granulocytes # (auto) 0.01 K/uL (0.00-0.02); Immature Granulocytes % (auto) 0.1 %; Lymphocytes % (auto) 14.5 %; Mean Corpuscular Hemoglobin 32.4 pg (25-34); Mean Corpuscular Volume 92.3 fL (80-100); Mean Platelet Volume 9.8 fL (7.4-10.4); Monocytes # (auto) 0.52 K/uL (0.11-0.59); Monocytes % (auto) 5.8 %; Neutrophils % (auto) 77.2 %; Platelet Count 177 K/uL (130-400); RDW Standard Deviation 43.7 fL (36.4-46.3); Red Blood Count 4.29 M/uL (4.7-6.1); White Blood Count 8.95 K/uL (4.8-10.8)
[2020-11-24] MEDS: amLODIPine BESYLATE 5 MG TAB PO SCH (08:10)
[2020-11-24] MEDS: PIPERACILLIN/TAZOBACTAM 3.375 GM in DEXTROSE 5% 100 ML IV SCH ×3 (08:10→23:44)
[2020-11-24] MEDS: carvediloL 12.5 MG TAB PO SCH ×2 (08:10→21:11)
[2020-11-24] MEDS: FLUTICASONE/VILANTEROL 200/25MCG 14 PUFFS/INHALER INH SCH (08:11)
[2020-11-24] MEDS: PANTOprazole 40 MG in SYRINGE 0 ML IV SCH ×2 (08:11→21:13)
[2020-11-24 08:21] LABS: Estimated Average Glucose 131 mg/dl; Hemoglobin A1C 6.2 % (4.5-5.6)
[2020-11-24 08:23] LABS: Mean Corpuscular Hgb Conc 35.1 g/dL (32-36)
--- NOTE | 2020-11-24 08:28 | Surgery Progress Note ---
Date of Service November 24, 2020 Assessment & Plan (1) Colitis: Plan: clinically improving. wbc now normal will start clears. will add questran for loose bm's. h/h stable. Admission and Anticipated Discharge Date Admission Date: November 23, 2020 Subjective pt feeling better regarding pain but now having diarrhea.... overall feeling well though. Physical Exam Physical Exam: alert. nad abd: soft. nt. +bs's. Results & Data ([facility]) Vital Signs (Past 12 Hours) Vital Signs Temp Pulse Pulse Resp BP BP Pulse Ox 11/24/20 06:59 37.3 C 56 L 18 163/73 H 94 11/24/20 03:12 36.8 C 62 18 167/78 H 92 11/23/20 23:06 36.7 C 60 20 170/76 H 92 11/23/20 22:31 63 PG Care Time/CCT Total # of Minutes Spent Total Time Spent with Patient: Total time spent is greater than 50% in coordination of care (as documented) at patient's floor/unit and/or counseling patient: Coding Level of Care Code 94877 Subseq Hosp Care Lvl 3 Diagnoses Colitis K52.9
[2020-11-24 08:36] LABS: Albumin Level 2.7 gm/dl (3.4-5.0); BUN Creatinine Ratio 10.2 (10-20); Calcium 8.4 mg/dl (8.5-10.1); Creatinine Clr Calc Pharmacy 102.8 ml/min; Est GFR (African American) 109.3 ml/min; Est GFR (Non-African American) 94.3 ml/min; Magnesium 1.9 mg/dl (1.8-2.4)
[2020-11-24 08:37] LABS: Creatinine Clr Calc Pharmacy 104.6 ml/min; Est GFR (Non-African American) 94.9 ml/min
[2020-11-24 08:39] LABS: Albumin Globulin Ratio 0.8 (0.9-2); Bilirubin,Total 0.9 mg/dl (0.2-1); Globulin 3.3 gm/dl (2.5-4.0)
[2020-11-24 08:41] LABS: Ferritin 181.5 ng/ml (8-388)
[2020-11-24] MEDS: NSS + 20MEQ KCL 20 MEQ/1,000 ML BAG IV SCH ×2 (09:44→23:44)
[2020-11-24] MEDS: CHOLESTYRAMINE LIGHT 4 GM PKT PO SCH ×3 (09:45→21:14)
--- NOTE | 2020-11-24 10:31 | Gastroenterology Progress Note ---
Date of Service November 24, 2020 Assessment & Plan (1) Colitis: Plan: --Continue antibiotics for a total of 10 days to cover for secondary infection. --Diet advancement to low residue as tolerated. --Continue supportive care. --Outpatient colonoscopy in 6 weeks for further evaluation. Thank you for allowing us to participating in the care of this pleasant patient. If you have any questions or concerns, please do not hesitate to contact us. Admission and Anticipated Discharge Date Admission Date: November 23, 2020 Supervising Physician Co-Signing Physician Notes I personally evaluated the patient and agree with the findings as documented by LAXMI Szymanski Exam: abd: soft, nt, nd Subjective Patient reports feeling better overall clinically. He is tolerating a clear liquid diet. Passed a small loose bm this morning. No rectal bleeding. Minimal lower abdominal pain that waxes and wanes. No fevers or chills. Leukocytosis has resolved. H&H is stable. Followed by Dr. Fletcher. Review of Systems Constitutional: as per Subjective / HPI Respiratory: no cough and no dyspnea Cardiovascular: no chest pain and no palpitations Gastrointestinal: as per Subjective / HPI Physical Exam Constitutional: WD/WN, vitals as above Respiratory: normal respiratory effort, lungs clear to auscultation Cardiovascular: Rate/Rhythm: regular rate and regular rhythm Gastrointestinal (Abdomen): Inspection/Auscultation: + hyperactive bowel sounds Percussion/Palpation: + abdomen tender (minimal RLQ) and abdomen soft Psychiatric: A+Ox3, euthymic affect Results & Data Results & Data ([facility]) Vital Signs (Past 12 Hours) Vital Signs Temp Pulse Pulse Resp BP BP Pulse Ox 11/24/20 07:45 61 11/24/20 07:00 58 L 11/24/20 06:59 37.3 C 56 L 18 163/73 H 94 11/24/20 03:12 36.8 C 62 18 167/78 H 92 11/23/20 23:06 36.7 C 60 20 170/76 H 92 11/23/20 22:31 63 Laboratory Results Abnormal lab results 11/23/20 11/23/20 11/24/20 Range/Units 06:05 Unknown 07:41 RBC (4.7-6.1) M/uL Hgb (14.0-18.0) g/dL Hct (42-52) % Neut # (Auto) (1.4-6.5) K/uL BUN (7-18) mg/dl Creatinine 0.58 L (0.6-1.4) mg/dl Hemoglobin A1c 6.2 H (4.5-5.6) % Calcium (8.5-10.1) mg/dl TIBC 236 L (250-450) mcg/dl Transferrin 195 L (200-360) mg/dl Transferrin % Sat 17 L (20-50) % Total Protein (6.4-8.2) gm/dl Albumin (3.4-5.0) gm/dl Albumin/Globulin Ratio (0.9-2) Stool Occult Bld Scrn Positive A (Negative) 11/24/20 11/24/20 Range/Units 07:41 07:41 RBC 4.29 L (4.7-6.1) M/uL Hgb 13.9 L (14.0-18.0) g/dL Hct 39.6 L (42-52) % Neut # (Auto) 6.90 H (1.4-6.5) K/uL BUN 6 L (7-18) mg/dl Creatinine 0.59 L (0.6-1.4) mg/dl Hemoglobin A1c (4.5-5.6) % Calcium 8.4 L (8.5-10.1) mg/dl TIBC (250-450) mcg/dl Transferrin (200-360) mg/dl Transferrin % Sat (20-50) % Total Protein 6.0 L (6.4-8.2) gm/dl Albumin 2.7 L (3.4-5.0) gm/dl Albumin/Globulin Ratio 0.8 L (0.9-2) Stool Occult Bld Scrn (Negative) PG Care Time/CCT Total # of Minutes Spent Total Time Spent with Patient: Total time spent is greater than 50% in coordination of care (as documented) at patient's floor/unit and/or counseling patient: Coding Level of Care Code 39980 Subseq Hosp Care Lvl 3 Diagnoses Colitis K52.9
--- NOTE | 2020-11-24 10:38 | Consultation ---
Date of Consultation November 24, 2020 Assessment & Plan (1) Stenosis of celiac artery: Pt imaging reviewed with Dr Mendoza. Pt with mild mesenteric disease and is asymptomatic from this. No indications for vascular surgical intervention at this time. Would be happy to reeval pt in office if he develops sx of mesenteric stenosis including unintentional weight loss, change in meal size and frequency, and/or post prandial abd pain/food fear. This was also discussed with pt and advised him to call if those sx develop. Colitis tx per gen surgery/medicine. Please call if needed. History of Present Illness Reason for Consultation: mesenteric stenosis Attending Physician: Zan Kirby MD History of Present Illness 80 yo m with hx of COPD, CAD, osteoarthritis, HTN, hx DVT after orthopedic surgery, BPH, hyperlipidemia, admitted with severe abd pain, seen in consultation today for celiac artery stenosis noted on testing. Pt states he occasionally has abd pain which he has attributed to GERD in past and takes nexium chronnically. States he has noted pain in L abdomen approx 20 min after eating and then experiences fecal urgency with diarrhea for the past 2 months. States he typically eats about 3 meals a day, with occasional snacks, but he admits that he eats a lot of "junk food." Denies any significant weight loss over past year, states weight has been steadily between 185-190 lbs. Pt denies post prandial abd pain(aside from the cramping of fecal urgency) or abd pain that stops him from eating. States the abd pain episode that prompted ED eval was different and located in mid-abdomen, then remained in epigastric area and he noted N/V, dry heaves, and diarrhea. Denies fever, recent illness, OBRIEN, chest pain, SOB, rest pain, claudication, other complaints. States abd pain is resolved currently and he is eating clear liquid diet today. CT imaging demonstrated nonspecific colitis, atherosclerosis of aorta and mesenteric arteries. SMA with plaque near origin without stenosis, celiac artery with significant stenosis, SHAN with mild atherosclerosis. All are patent. Allergies Allergy/AdvReac Type Severity Reaction Status Date / Time tiotropium Allergy Mild CHEST Verified 07/23/20 10:07 PAIN, PRESSURE ciprofloxacin [From Cipro] Allergy Unknown Unknown Verified 07/23/20 10:07 metronidazole Allergy Unknown Unknown Verified 07/23/20 10:07 atorvastatin [From Lipitor] AdvReac Intermediate Nausea Verified 07/23/20 10:07 lisinopril AdvReac Mild Cough Verified 07/23/20 10:07 Home Medications Medication Instructions Recorded Confirmed Type acetaminophen 500 mg tablet 500 mg PO QID PRN 08/04/18 07/24/20 History aspirin 81 mg tablet,delayed 81 mg PO QAM 08/04/18 07/24/20 History release (Aspir-) multivitamin (Multiple Vitamins) 1 tab PO QAM 08/04/18 07/24/20 History nitroglycerin 0.4 mg sublingual 0.4 mg SUBLINGUAL UD PRN 08/04/18 07/24/20 History tablet (Nitrostat) betamethasone, augmented 0.05 % 1 appln TOP BID PRN #45 gm 02/26/19 07/24/20 Rx topical ointment (Diprolene (augmented)) esomeprazole magnesium 40 mg 40 mg PO QAM #90 cap 12/06/19 07/24/20 Rx capsule,delayed release atorvastatin 20 mg tablet 20 mg PO HS #90 tab 01/10/20 11/22/20 Rx carvedilol 12.5 mg tablet 12.5 mg PO BID #180 tab 01/23/20 07/24/20 Rx dutasteride 0.5 mg capsule 0.5 mg PO DAILY #90 cap 02/04/20 07/24/20 Rx amlodipine 5 mg tablet 5 mg PO DAILY #90 tab 03/06/20 11/22/20 Rx furosemide 20 mg tablet 20 mg PO DAILY #90 tab 05/29/20 11/22/20 Rx alfuzosin 10 mg tablet,extended 10 mg PO DAILY 07/23/20 07/24/20 History release 24 hr fluticasone furoate 200 1 inh INHALATION DAILY #3 inhaler 07/23/20 07/24/20 Rx mcg-vilanterol 25 mcg/dose inhalation powder (Breo Ellipta) Patient History Medical History Acquired deviated nasal septum Actinic keratosis Acute blood loss anemia BPH (benign prostatic hyperplasia) CAD (coronary artery disease) Cerumen impaction Common bile duct calculi COPD (chronic obstructive pulmonary disease) Degenerative joint disease (DJD) of hip Essential (primary) hypertension GERD (gastroesophageal reflux disease) Heart attack 20 years ago per patient. No stents/angioplasty. No recent issues. Has never had to use NTG Hemorrhoids History of DVT (deep vein thrombosis) RLE - 3-4 YEARS AGO - POST OP HIP REPLACEMENT - TREATED WITH AC THERAPY History of DVT (deep vein thrombosis) HLD (hyperlipidemia) Hyperbilirubinemia Hypertension Hypertrophy of nasal turbinates Prostatitis SVT (supraventricular tachycardia) Transaminitis Surgical History History of cardiac cath 2000 - [facility] - NO STENTS/ANGIOPLASTY - FOLLOWS W/ DR. FONTENOT History of cholecystectomy 08/07/18 [facility] History of colonoscopy (03/06/19) Dr. Conti, 4 polyps removed (2 tubular adenomas and 2 hyperplastic), diverticulosis noted, recheck not recommended due to age History of hip surgery History of knee surgery History of left shoulder replacement History of right cataract extraction History of right hip replacement History of shoulder surgery History of shoulder surgery left rotator cuff tear---had pins placed S/P ERCP w/ stenting - 08/06/18 [facility] Family History Mother Coronary heart disease Stroke Myocardial infarction Father Hypertension Brother Alopecia Hypertension Grandmother (Maternal) Coronary heart disease Grandfather (Maternal) Coronary heart disease Uncle Coronary heart disease Other No family history of adverse response to anesthesia Denies family history of Ovarian cancer Prostate cancer Breast cancer Colorectal cancer Social History Smoking Status: Never smoker Tobacco Type: Pipe Second Hand Exposure: Yes (previous exposure); Hx Alcohol Use: Yes Alcohol type: beer Alcohol Intake Frequency: 2-3 x/Week Alcohol Intake Frequency Comment: 1-2, 6pks Hx Substance Use: No Preferred Language: Korean Communication Ability: Effective Visual Impairment: No Limitations Hearing Ability: Normal Reference Services Head Required: No Beliefs That Will Affect Care: None marital status: Current Living Situation: Significant Other current occupational status: retired Other Information That Helps Us Care for You: No Feels Safe at Home: Yes Safety Concerns: Feels Safe At This Time Dental Care, Regularly: No Physical Activity Frequency: Does not Exercise Seatbelt Use: never Assistive Devices: None Review of Systems Review of Systems: 14 systems reviewed and negative aside from what is related in HPI Physical Exam Constitutional: WD/WN, vitals as above + obese, healthy appearing, cooperative and comfortable; not in distress ENMT: Ears: no hearing impairment Neck: trachea midline Respiratory: normal respiratory effort, lungs clear to auscultation Auscultation: + diminished lung sounds Cardiovascular: RRR, no murmur, no edema Vessels: femoral pulses present, posterior tibial pulses present (nonpalpable), dorsalis pedis pulses present and radial pulses present Extremities: normal capillary refill; no edema Gastrointestinal (Abdomen): Inspection/Auscultation: abdomen normal to inspection and + abdomen distended (d/t body habitus) Percussion/Palpation: + abdomen tender (mild epigastric) Musculoskeletal: no cyanosis or clubbing, extremities motor strength 5/5 Skin: no rashes, warm and dry Neurologic: moves all extremities; no focal motor deficits and not confused Psychiatric: A+Ox3, euthymic affect Results & Data ([facility]) Vital Signs (Past 12 Hours) Vital Signs Temp Pulse Pulse Resp BP BP Pulse Ox 11/24/20 07:45 61 11/24/20 07:00 58 L 11/24/20 06:59 37.3 C 56 L 18 163/73 H 94 11/24/20 03:12 36.8 C 62 18 167/78 H 92 11/23/20 23:06 36.7 C 60 20 170/76 H 92 11/23/20 22:31 63
--- NOTE | 2020-11-24 11:03 | Hospitalist Progress Note ---
Date of Service November 24, 2020 Assessment & Plan (1) Stenosis of celiac artery: Plan: -This is suspected to be cause of patient's abdominal pain. Pain intensifies after eating. -Vascular surgery consultedappreciate recommendations. -Patient is currently on aspirin (2) Colitis: Plan: -? Infectious versus ischemic -Did have leukocytosis upon admission which has normalized. Continue empiric antibiotic therapy. Patient currently on Zosyn/Vanco. DC Vanco as Zosyn should provide adequate gram-negative/anaerobic coverage -Patient is tolerating clear liquids; however, pain elicited with palpation. Appreciate recommendations from vascular -since tolerating clear, will decrease IVF rate. -GI on board. Will need colonoscopy as an outpatient (6 weeks) (3) Peripheral arterial disease: Plan: -Continue aspirin (4) COPD (chronic obstructive pulmonary disease): Plan: -Continue Breo Ellipta (5) HTN (hypertension): Plan: -BP above goal. -Increase amlodipine to 10 mg daily. Continue Coreg. Heart rate will not tolerate increased beta-blockade (6) HLD (hyperlipidemia): Plan: -continue lipitor (7) BPH (benign prostatic hyperplasia): Plan: -voiding without issues (8) CAD (coronary artery disease): Plan: - continue ASA, coreg, and lipitor. - chronic without acute issues. Plan: -Continue empiric antibiotic therapy (with de-escalationstop vancomycin), and continue clear liquid diet. -Awaiting vascular consultationwe will discuss -Plan of care will be discussed with Dr. Kirby. Further orders as warranted. Admission and Anticipated Discharge Date Admission Date: November 23, 2020 Subjective Patient seen on daily rounds today. He is an 80 y/o WM with a PMHX of CAD/PAD, COPD, HTN, HLD, BPH and h/o DVT. He was hospitalized on 11/22 with intractable abd pain with associated vomiting and diarrhea. WBC count on admission was elevated at 18.04. CT of the A/P showed focal colitis of the hepatic flexure; however, inflammatory neoplasm could not be ruled out. CTA of the chest done (as pt was c/o SOB that he reported to be secondary to the intense abd pain). This showed no evidence of cardiopulmonary process; however, thickening of the colon with surrounding stranding noted consistent with focal colitis vs inflammatory colitis. Patient hospitalized and made NPO. Empirically started on Zosyn with later addition of IV Vancomycin. Seen by GI and General Surgery. CTA of the A/P o btained given concern for ischemic bowel. This showed near occlusion of Celiac Artery with high grade stenosis. Vascular surgery consulted- awaiting recommendations. Appreciate recommendations. Patient currently tolerating a clear liquid diet. Denies N/V/D. No abd pain at rest (until palpation). Review of Systems Review of Systems: All systems reviewed and are unremarkable except as noted in HPI and below Denies fevers, chills, headache, nasal congestion, sore throat, cough, chest pain, shortness of breath, abdominal pain, nausea, vomiting, dysuria, hematuria, frequency, skin lesions or rashes. Physical Exam Physical Exam: General: Resting comfortably in his hospital bed. NAD. Neck: No JVD. Negative hepatojugular reflex Cardiac: RRR with 2-3/6 TOAN Lungs: CTA without W/R/R Abdomen: Normoactive X4. RUQ tenderness Extremities: No peripheral clubbing cyanosis or edema Neuro: A&O X4 cranial nerves II through XII are grossly intact no focal neuro deficits Skin: No obvious skin lesions or rashes Results & Data Results & Data ([facility]) Vital Signs (Past 12 Hours) Vital Signs Temp Pulse Pulse Resp BP BP Pulse Ox 11/24/20 07:45 61 11/24/20 07:00 58 L 11/24/20 06:59 37.3 C 56 L 18 163/73 H 94 11/24/20 03:12 36.8 C 62 18 167/78 H 92 11/23/20 23:06 36.7 C 60 20 170/76 H 92 Laboratory Results 11/24/20 07:41 11/24/20 07:41 Magnesium: 1.9 Diagnostic Findings CTA of the abdomen and pelvis: IMPRESSION: 1. There is unchanged appearance of a nonspecific colitis of the right colon as detailed above. This could be on an infectious, inflammatory, or ischemic basis. 2. There is no intraperitoneal free air, pneumatosis intestinalis, or mesenteric venous gas. 3. There is a short segment of high-grade stenosis with near complete occlusion at the origin of the celiac artery. The remainder of the vessel is patent. 4. The superior mesenteric artery is patent noting atherosclerotic plaque and irregularity. 5. Suspect at least moderate stenosis at the origin of the inferior mesenteric artery. 6. Additional findings as above PG Care Time/CCT Total # of Minutes Spent Total Time Spent with Patient: Total time spent is greater than 50% in co ordination of care (as documented) at patient's floor/unit and/or counseling patient: [place] [address] Subseq Hosp Care Lvl 2 Patient Type Established History Expanded Problem Focused Exam Expanded Problem Focused Medical Decision Making Moderate Complexity Diagnoses Stenosis of celiac artery I77.4 Colitis K52.9 Peripheral arterial disease I73.9 COPD (chronic obstructive pulmonary disease) J44.9 HTN (hypertension) I10 Hypertension type: essential hypertension HLD (hyperlipidemia) E78.5 BPH (benign prostatic hyperplasia) N40.0 CAD (coronary artery disease) I25.10 (1) HTN (hypertension) Hypertension type: essential hypertension Qualified Code(s): I10 - Essential (primary) hypertension
[2020-11-24] MEDS ORDERED: VANCOMYCIN TROUGH ONE (11:30)
[2020-11-24] MEDS: VANCOMYCIN HCL 1,000 MG in SODIUM CHLORIDE 0.9% 250 ML IV SCH (11:32)
[2020-11-24 17:23] LABS: Appearance Urine Clear (Clear); Bilirubin Urine Negative (Negative); Blood Urine Negative (Negative); Color Urine Yellow; Glucose Urine UA Negative (Negative); Ketones Urine Negative (Negative); Leukocyte Esterase Urine Negative (Negative); Nitrite Urine Negative (Negative); Protein Urine Negative (Negative); Specific Gravity Urine 1.005 (1.000-1.030); Urobilinogen Urine Negative (Negative)
[2020-11-24] MEDS: ATORVASTATIN 20 MG TAB PO SCH (21:11)
[2020-11-25] MEDS: HEPARIN SOD 5,000 UNIT/0.5 ML VIAL SQ SCH (05:41)
[2020-11-25 07:30] LABS: Basophils # (auto) 0.02 K/uL (0-0.2); Basophils % (auto) 0.3 %; Eosinophils % (auto) 2.6 %; Hematocrit (blood only) 40.8 % (42-52); Hemoglobin 14.6 g/dL (14.0-18.0); Immature Granulocytes # (auto) 0.02 K/uL (0.00-0.02); Immature Granulocytes % (auto) 0.3 %; Lymphocytes # (auto) 1.16 K/uL (1.2-3.4); Mean Corpuscular Hemoglobin 32.2 pg (25-34); Mean Corpuscular Hgb Conc 35.8 g/dL (32-36); Mean Corpuscular Volume 90.1 fL (80-100); Mean Platelet Volume 9.6 fL (7.4-10.4); Monocytes # (auto) 0.57 K/uL (0.11-0.59); Monocytes % (auto) 7.4 %; Neutrophils # (auto) 5.76 K/uL (1.4-6.5); Neutrophils % (auto) 74.4 %; Platelet Count 200 K/uL (130-400); RDW Coefficient of Variation 12.7 % (11.5-14.5); RDW Standard Deviation 41.9 fL (36.4-46.3); Red Blood Count 4.53 M/uL (4.7-6.1); White Blood Count 7.73 K/uL (4.8-10.8)
[2020-11-25 07:56] LABS: Calcium 8.9 mg/dl (8.5-10.1); Creatinine Clr Calc Pharmacy 91.9 ml/min; Est GFR (African American) 104.4 ml/min; Magnesium 1.7 mg/dl (1.8-2.4); Potassium 3.5 mmol/L (3.5-5.1)
[2020-11-25] MEDS: PANTOprazole 40 MG in SYRINGE 0 ML IV SCH (08:16)
[2020-11-25] MEDS: FLUTICASONE/VILANTEROL 200/25MCG 14 PUFFS/INHALER INH SCH (08:16)
[2020-11-25] MEDS: carvediloL 12.5 MG TAB PO SCH (08:16)
--- NOTE | 2020-11-25 08:18 | Surgery Progress Note ---
Date of Service November 25, 2020 Assessment & Plan (1) Colitis: Plan: clinically improving. will advance diet no indication for urgent surgery...will s/o. call if any questions/concerns. Admission and Anticipated Discharge Date Admission Date: November 23, 2020 Subjective pt seen. continues to slowly improve. no pain this am. still with loose stools but improved. ashleigh diet. Physical Exam Physical Exam: alert. nad. abd: soft. minimal ttp. improved. Results & Data ([facility]) Vital Signs (Past 12 Hours) Vital Signs Temp Pulse Pulse Resp BP BP Pulse Ox 11/25/20 07:33 36.5 C 62 16 184/78 H 93 11/25/20 03:37 36.4 C L 64 18 175/69 H 95 11/24/20 22:50 36.7 C 58 L 18 174/73 H 94 11/24/20 22:19 59 L PG Care Time/CCT Total # of Minutes Spent Total Time Spent with Patient: Total time spent is greater than 50% in coordination of care (as documented) at patient's floor/unit and/or counseling patient: Coding Level of Care Code 03028 Subseq Hosp Care Lvl 2 Diagnoses Colitis K52.9
[2020-11-25] MEDS: PIPERACILLIN/TAZOBACTAM 3.375 GM in DEXTROSE 5% 100 ML IV SCH (08:21)
[2020-11-25] MEDS ORDERED: hydrALAZINE 10 MG TAB PO SCH (09:00)
[2020-11-25] MEDS ORDERED: MAGNESIUM OXIDE 400 MG TAB PO ONE (09:00)
[2020-11-25] MEDS ORDERED: amLODIPine BESYLATE 5 MG TAB PO SCH (09:00)
[2020-11-25] MEDS: CHOLESTYRAMINE LIGHT 4 GM PKT PO SCH (10:51)
--- NOTE | 2020-11-25 14:28 | Discharge Summary ---
Date of Service November 25, 2020 Admission HPI Per Admitting Provider De Sharma is a 80-year-old male with past medical history significant for coronary artery disease, COPD, peripheral artery disease, hypertension, hyperlipidemia, BPH; who presents for concerns of upper abdominal pain. Started this evening following eating dinner, despite passing gas and belching/burping continued without improvement. Did have multiple rounds of vomiting, as well as an episode of diarrhea earlier in the day. Feels like the pain is causing for him to be hard to get her breath, and given his heart history he wanted to make sure to get checked. Denies any specific chest pains, shortness of breath, dyspnea on exertion, fevers, chills, sweats. Did have nasal congestion and sore throat several days ago. Principal Diagnosis Working Diagnoses: 1. Colitis (? ischemic vs infectious vs both) 2. Diarrhea- likely antibiotic associated 3. 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 COPD 2. PAD 3. COPD 4. HTN 5. CAD 6. BPH Discharge Exam General: Resting comfortably in his hospital bed. NAD. Neck: No JVD. Negative hepatojugular reflex Cardiac: RRR with 2-3/6 TOAN Lungs: CTA without W/R/R Abdomen: Normoactive X4. RUQ tenderness Rectal: prostate enlarged and very boggy. exquisitely tender to palpation Extremities: No peripheral clubbing cyanosis or edema Neuro: A&O X4 cranial nerves II through XII are grossly intact no focal neuro deficits Skin: No obvious skin lesions or rashes Discharge Data Allergies Allergy/AdvReac Type Severity Reaction Status Date / Time tiotropium Allergy Mild CHEST Verified 07/23/20 10:07 PAIN, PRESSURE ciprofloxacin [From Cipro] Allergy Unknown Unknown Verified 07/23/20 10:07 metronidazole Allergy Unknown Unknown Verified 07/23/20 10:07 atorvastatin [From Lipitor] AdvReac Intermediate Nausea Verified 07/23/20 10:07 lisinopril AdvReac Mild Cough Verified 07/23/20 10:07 Consultations 11/22/20 08:27 Consult Gastroenterology Routine Assessment & Plan (1) Colitis: Plan: --Continue antibiotics for a total of 10 days to cover for secondary infection. --Diet advancement to low residue as tolerated. --Continue supportive care. --Outpatient colonoscopy in 6 weeks for further evaluation. Thank you for allowing us to participating in the care of this pleasant patient. If you have any questions or concerns, please do not hesitate to contact us. 11/22/20 12:27 Consult General Surgery Routine Assessment & Plan (1) Colitis: Plan: clinically improving. will advance diet no indication for urgent surgery...will s/o. call if any questions/concerns. 11/22/20 17:49 Consult Vascular Surgery Routine Assessment & Plan (1) Stenosis of celiac artery: Pt imaging reviewed with Dr Mendoza. Pt with mild mesenteric disease and is asymptomatic from this. No indications for vascular surgical intervention at this time. Would be happy to reeval pt in office if he develops sx of mesenteric stenosis including unintentional weight loss, change in meal size and frequency, and/or post prandial abd pain/food fear. This was also discussed with pt and advised him to call if those sx develop. Colitis tx per gen surgery/medicine. Please call if needed. Ordered Studies 11/21/20 22:52 CT abd pelvis IV con only Urgent IMPRESSION: 1. There is unchanged appearance of a nonspecific colitis of the right colon as detailed above. This could be on an infectious, inflammatory, or ischemic basis. 2. There is no intraperitoneal free air, pneumatosis intestinalis, or mesenteric venous gas. 3. There is a short segment of high-grade stenosis with near complete occlusion at the origin of the celiac artery. The remainder of the vessel is patent. 4. The superior mesenteric artery is patent noting atherosclerotic plaque and irregularity. 5. Suspect at least moderate stenosis at the origin of the inferior mesenteric artery. 6. Additional findings as above. 11/22/20 12:23 CT angio abd pelvis wo/w con Stat CT angio chest PE protocol Urgent FINDINGS: CHEST: Thyroid: Imaged portions of the thyroid gland are normal in size and attenuation. Thoracic aorta: There is atherosclerotic calcification of the thoracic aorta, which is normal in caliber and demonstrates standard 3-vessel arch anatomy. No dissection is seen. Pulmonary vasculature: The pulmonary trunk is normal in caliber. There are no filling defects identified in the main, lobar, or segmental pulmonary arteries to indicate pulmonary embolus. Heart: The heart is mildly enlarged and without pericardial effusion. The coronary arteries are densely calcified. Lungs and pleural spaces: There is no airspace consolidation typical for pneumonia or pleural effusion. Scarring/atelectasis is seen at the lung bases. There are scattered calcified granulomas. The trachea and central airways are clear. Mediastinum: There is no mediastinal lymphadenopathy. Diane: Clear. Axillae: There is no axillary lymphadenopathy. Bony thorax: The skeletal structures are osteopenic. Spondylotic change is seen throughout the thoracic spine. No lytic or blastic lesions are identified. A left shoulder arthroplasty is in place. Advanced arthritic change is seen in the right shoulder. There are healed left-sided rib fractures. ABDOMEN AND PELVIS: Liver: The contrast-enhanced liver is normal in size, contour, and attenuation. There is mild intrahepatic biliary ductal dilatation. The hepatic veins and portal veins are patent. Minimal pneumobilia is similar to previous. Gallbladder: Surgically absent noting clips in the gallbladder fossa. Spleen: Normal in size and attenuation. Calcification of the splenic capsule is unchanged. Pancreas: There is trace gas within the pancreatic duct. The pancreas is otherwise normal as imaged. Adrenal glands: Unremarkable. Kidneys: The contrast enhanced kidneys demonstrate mild cortical atrophy and are without hydronephrosis. The kidneys enhance and excrete symmetrically. A 2.6 cm exophytic cyst is seen in the right. A 1.8 cm cortical cyst is noted on the left. Abdominal vasculature: There is advanced atherosclerotic calcification and mild ectasia of the abdominal aorta. Stomach and bowel: There is a small to moderate hiatal hernia. No bowel obstruction is seen. Duodenal diverticula are noted. There is a long segment of wall thickening and edema involving the right colon. This is greatest involving the ascending colon and hepatic flexure, and there are surrounding inflammation. The appearance is consistent with a nonspecific colitis. There is no pneumatosis intestinalis or mesenteric venous gas. There are scattered colonic diverticula without CT evidence of acute diverticulitis. The appendix is well-visualized and normal. Peritoneum: There is no intraperitoneal free air or abdominal ascites. Lymphadenopathy: None. Pelvic viscera: Evaluation of the pelvis is degraded by streak artifact from a right hip arthroplasty. The prostate gland is mildly enlarged and heterogeneous noting median lobe hypertrophy. The bladder wall appears thickened and trabeculated indicating chronic outlet obstruction. There are bilateral fat- containing inguinal hernias. Skeletal structures: The skeletal structures are osteopenic. There is moderate lumbosacral spondylosis. A right hip arthroplasty is in place. No lytic or blastic lesions are seen. IMPRESSION: 1. There is no evidence of pulmonary embolus in the main, lobar, or segmental pulmonary arteries. 2. There is no airspace consolidation or pleural effusion. 3. Cardiomegaly. 4. Findings consistent with a nonspecific colitis of the right colon as detailed above. This could be on an infectious, inflammatory, or ischemic basis and clinical correlation will be essential. 5. No intraperitoneal free air is identified. 6. Additional findings as above. Hospital Course (1) Colitis: -? Infectious versus ischemic vs imflammatory neoplasm (per imaging) -Did have leukocytosis upon admission which has since normalized (? infectious vs reactive from ischemic colitis). -Was treated with empiric antibiotic therapy. Transition Zosyn to Augmentin x 9 additional doses -Initially was NPO. Once pain improved, was started on clear liquids and has since been advanced to full liquids for which he is tolerating. -Seen by GI/GS and vascular surgery (see recommendations as outlined above) -Plan is for completion of abx therapy and FU with GI for c-scope (given concern for inflammatory neoplasm) -There was denotation of near occlusion of the celiac artery (which could be contributing to ischemic colitis-- lactic acid was slightly elevated at 2.9 on admission). Seen by vascular and no added recommendations at this time (other than continuation of ASA). Vascular to Follow as an OP (2) Stenosis of celiac artery: -highly suspect that this is contributing to patient's abdominal pain. Pain intensified after eating. -Vascular surgery consultedappreciate recommendations--> recommend continuation of ASA (3) Prostatitis: -notified on the evening of 11/24/20 that patient was c/o dysuria. UA ordered and unremarkable -when see on 11/25: vocalizes pain in the tip of his penis when urinating that radiated into his rectum as a feeling of "fullness" or "spasm" -UC- NGTD -exam consistent with prostatits -ideally, would transition augmentin to Cipro (x21 days)/flagyl (x7 days)-- for treatment for not only colitis but also prostatitis but pt has a reported allery to cipro/flagyl. -spoke with pharmacy and urology to filemon recommendations as 21 days of augmentin not idea (dontrell as currently causing diarrhea). Recommendations as for completion of Augmentin (9 additional doses) for treatment for colitis AND prostatitis but then transition to Bactrim for 14 addition days (21 days of treatment total). Given his age (despite normal renal function), will use single strength (4) Antibiotic-associated diarrhea: - initially presented with diarrhea (associated with colitis). This improved but then diarrhea returned. - C.Diff negative. Likely antibiotic associated - improving with colestipol. - D/C with colestipol prn along with probiotic and encourage yogurt/cheese with live cultures. (5) Peripheral arterial disease: -Continue aspirin (6) COPD (chronic obstructive pulmonary disease): -Continue Breo Ellipta (7) HTN (hypertension): -BP above goal. -amlodipine increased to 10 mg daily. Continue Coreg. -PCP to follow (8) HLD (hyperlipidemia): -continue lipitor (9) BPH (benign prostatic hyperplasia): -voiding without issues (10) CAD (coronary artery disease): - continue ASA, coreg, and lipitor. - chronic without acute issues. -D/C to home -FU with vascular and GI Total Time Total Time Spent Total Time Spent (In Minutes): 60 Discharge Plan Discharge Items Patient Disposition: Home - Self-Care Reason For Visit: INTRACTABLE ABDOMINAL PAIN Discharge Diagnosis: 1. Colitis-- ? combination of ischemic (from arterial blockage) and infectious (complete full course of antibiotic therapy) 2. Prostatitis- complete full course of antibiotic therapy 3. Diarrhea- likely antibiotic associated at this time 4. Celiac Arterial Occlusion 5. Accelerated HTN (uncontrolled blood pressure) 6. Hypomagnesemia (low magnesium)-- supplementation will also cause loose stools Activity: Resume your previous activity Non-emergency contact: Primary Care Provider, Specialist and Electromechanical Equipment Tester Call non-emergency contact if: you have any medication questions, your symptoms worsen and your pain is not controlled Follow-up/Referrals: Román Valentine III, MD [Primary Care Provider] - 12/03/20 2:00 pm Diet: Low Fiber and Other - See Diet Comment Diet Comment: LOW RESIDUE Addtl Attending Provider Instructions: - You were hospitalized for colitis thought to be related to ischemia (or lack of blood flow) secondary to the blockage seen in the celiac artery (artery supplying blood to the bowel). Infectious etiology can not be ruled out - continue Augmentin (twice a day x 9 more doses with next dose being due tonight) which will treat the gut and the issue with the prostate. - unfortunately, to effectively treat the prostate-- would need a total of 21 days. - Once you complete the 9 doses of Augmentin, switch to the Bactrim (also twice a day) and continue this for an additional 2 weeks for the prostate - Follow up with GI: will need a colonoscopy in approximately 6 weeks - Follow up with vascular: regarding the blockage in the celiac artery - consider referral to urology (can be arranged by PCP) regarding the prostatitis - Return to the ED for new or worsening symptoms Regarding you diarrhea: - likely antibiotic associated - can continue the colestipol as needed for loose stools - can get a probiotic over the counter and/or eat yogurt/cheese WITH LIVE CULTURES - your nexium has been changed to pepcid for now-- just while you are on antibiotic (as nexium can increase risk of diarrhea and also increase risk of a secondary GI infection. In addition to Nexium, antibiotics also increase the risk of a secondary GI infection so we want to minimize your risk factors) In regards to your elevated blood pressure: - norvasc has been increased to 10mg daily - follow up with PCP to determine if additional medication is required as you mentioned that your blood pressure is always elevated Pending Studies at Discharge: No Stand-Alone Forms: [facility] Medications and DC Order Prescriptions: New amlodipine [Norvasc] 10 mg tablet 10 mg PO DAILY Qty: 30 RF: 0 atorvastatin [Lipitor] 40 mg tablet 40 mg PO HS Qty: 30 RF: 0 cholestyramine-aspartame [Cholestyramine Light] 4 gram Powder In Packet 4 g PO TID@1000,1500,2200 PRN (Reason: diarrhea) Qty: 30 RF: 0 famotidine [Pepcid] 20 mg tablet 20 mg PO BID Qty: 60 RF: 0 sulfamethoxazole-trimethoprim [Bactrim] 400-80 mg tablet 1 tab PO BID 14 Days Qty: 28 RF: 0 amoxicillin-pot clavulanate [Augmentin] 875-125 mg tablet 1 tab PO BID Qty: 9 RF: 0 Continued furosemide 20 mg tablet 20 mg PO DAILY Qty: 90 RF: 3 betamethasone, augmented [Diprolene (augmented)] 0.05 % ointment 1 appln TOP BID PRN (Reason: skin irritation) Qty: 45 RF: 0 carvedilol 12.5 mg tablet 12.5 mg PO BID Qty: 180 RF: 3 dutasteride 0.5 mg capsule 0.5 mg PO DAILY Qty: 90 RF: 3 fluticasone furoate-vilanterol [Breo Ellipta] 200-25 mcg/dose blister with device RF: 0 alfuzosin 10 mg tablet extended release 24 hr 10 mg PO DAILY RF: 0 Breo Ellipta 200-25 mcg/dose blister with device 1 inh INHALATION DAILY Qty: 3 RF: 1 Hold Instructions: Home Medication placed on hold at Doctor's office acetaminophen 500 mg Tablet 500 mg PO QID PRN (Reason: Pain) RF: 0 aspirin [Aspir-81] 81 mg Tablet,Delayed Release (Dr/Ec) 81 mg PO QAM RF: 0 nitroglycerin [Nitrostat] 0.4 mg Tablet, Sublingual 0.4 mg sublingual UD PRN (Reason: Chest Pain) RF: 0 multivitamin [Multiple Vitamins] Tablet 1 tab PO QAM RF: 0 Discontinued esomeprazole magnesium 40 mg capsule,delayed release(DR/EC) 40 mg PO QAM Qty: 90 RF: 3 atorvastatin 20 mg tablet 20 mg PO HS Qty: 90 RF: 3 amlodipine 5 mg tablet 5 mg PO DAILY Qty: 90 RF: 3 Discharge Orders: Discharge Order (Routine); Ordered 11/25/20 Ordered By: Miya Luevano/Other Patient Handouts: A1C, Ischemic Colitis, Bacterial Prostatitis Admission Data Admit Date/Time: 11/23/20 11:57 Attending Provider: Zan Kirby Admit Provider: Zac Molina Primary Care Provider: Román Valentine III Other Providers: Lucio Franco ; Elian Conti Matthew D. ; Nader Mendoza Other Interventions: Discharge Summary Assessment (RN) Last Done: 11/25/20 12:11 Supervising Physician Co-Signing Physician Notes I supervised Miya Sharma PA-C on the care of this patient. I interviewed and examined the patient independently of her. The plan is as written in her note except for any following changes/exceptions: None Doing well today. Abdominal pain has resolved. Will finish course of abx for his abdominal pain, but continue for 2 more weeks for prostatitis. Coding Level of Care Code Established Pt D/C DAY MANAGEMENT >30 MINS Patient Type Established Diagnoses Stenosis of celiac artery I77.4 Colitis K52.9 Peripheral arterial disease I73.9 COPD (chronic obstructive pulmonary disease) J44.9 HTN (hypertension) I10 Hypertension type: essential hypertension HLD (hyperlipidemia) E78.5 BPH (benign prostatic hyperplasia) N40.0 CAD (coronary artery disease) I25.10 Antibiotic-associated diarrhea K52.1; T36.95XA Prostatitis N41.9 Time Spent (min) 60
== END 2020-11-25 14:14 | disposition home or self-care (01) | DRG 394 ==
LOC: 2N 21:51 → ED 21:51 → SUATTDRO 11-22 02:09 → 2N 11-22 02:58 → SUATTDRO 11-23 11:57

== ENCOUNTER 2021-01-12 23:58 | Inpatient (IN) ==
--- NOTE | 2021-01-13 00:36 | Emergency Department Note ---
History of Present Illness General Chief complaint: Chest Pain Stated complaint: CHEST PAIN,STOMACH PAIN- PRESSURE INCREASES-3HRS Time Seen by Provider: 01/13/21 00:18 Source: patient Mode of arrival: ambulatory Limitations: no limitations History of Present Illness Provider complaint: abd pain into chest Onset (ago): hour(s) 3 Maximum Pain Intensity: 7 Relieved By: + other Exacerbated By: + none This is an 80-year-old male presents emergency department complaining of abdominal pain and chest pain. He states about 3 hours ago he began noting abdominal pain that begins close to his bellybutton and radiates superiorly up into his chest. He denies any radiation to the back. He denies any accompanying abdominal distention. Patient states the episodes seem to wax and wane and are slightly improved after he belches. Patient states this is similar to an episode where he was hospitalized a little over a month ago with an abdominal infection. He states he did complete 2 weeks of outpatient antibiotics following inpatient treatment and has had diarrhea since then. He states his PCP tried to test him for C. difficile however they could not run the stool specimen he provided. He states he has been using a probiotic and is scheduled to follow-up next week. He denies any fevers or chills, change in diet, or other change in medications. He states he typically has been having 2- 3 episodes of nonbloody diarrhea per day. He states today though he only had one, and was still passing gas. Patient has previously had a cholecystectomy, no other abdominal surgeries. Patient states during his hospitalization he was also found to have prostatitis, and is scheduled to follow-up with urology next week also. Pt seen during a time of high acuity and national emergency pandemic while wearing PPE. Home Medications Medication Instructions Recorded Confirmed Type multivitamin (Multiple Vitamins) 1 tab PO QAM 08/04/18 01/13/21 History nitroglycerin 0.4 mg sublingual 0.4 mg SUBLINGUAL UD PRN 08/04/18 01/13/21 History tablet (Nitrostat) carvedilol 12.5 mg tablet 12.5 mg PO BID #180 tab 01/23/20 01/13/21 Rx alfuzosin 10 mg tablet,extended 10 mg PO QAM 07/23/20 01/13/21 History release 24 hr Potassium Otc 99 mg PO QAM 01/06/21 01/13/21 History aspirin 81 mg tablet,delayed 81 mg PO QAM 01/06/21 01/13/21 History release coQ10 (ubiquinol) 100 mg capsule 100 mg PO QAM 01/06/21 01/13/21 History dutasteride 0.5 mg capsule 0.5 mg PO QPM 01/06/21 01/13/21 History fluticasone furoate 200 1 inh INHALATION QAM 01/06/21 01/13/21 History mcg-vilanterol 25 mcg/dose inhalation powder (Breo Ellipta) furosemide 20 mg tablet 20 mg PO QAM 01/06/21 01/13/21 History indomethacin 50 mg capsule 50 mg PO TID PRN 01/06/21 01/13/21 History sodium,potassium,mag sulfates 17.5 See Rx Instructions PO .COMPLEX 01/06/21 01/13/21 Rx gram-3.13 gram-1.6 gram oral soln #354 ml (Suprep Bowel Prep Kit) amlodipine 10 mg tablet (Norvasc) 10 mg PO QAM #30 tab 01/09/21 01/13/21 Rx atorvastatin 40 mg tablet (Lipitor) 40 mg PO HS #30 tab 01/09/21 01/13/21 Rx esomeprazole magnesium 40 mg 40 mg PO QAM #30 cap 01/09/21 01/13/21 Rx capsule,delayed release (Nexium) Allergies Allergy/AdvReac Type Severity Reaction Status Date / Time tiotropium Allergy Mild CHEST Verified 01/13/21 01:44 PAIN, PRESSURE ciprofloxacin [From Cipro] Allergy Unknown Unknown Verified 01/13/21 01:44 metronidazole Allergy Unknown Unknown Verified 01/13/21 01:44 atorvastatin [From Lipitor] AdvReac Intermediate Nausea Verified 01/13/21 01:44 lisinopril AdvReac Mild Cough Verified 01/13/21 01:44 Past Med/Surg History Medical History Abdominal pain, acute, epigastric Acquired deviated nasal septum Actinic keratosis Acute blood loss anemia BPH (benign prostatic hyperplasia) CAD (coronary artery disease) Cerumen impaction Colitis Common bile duct calculi COPD (chronic obstructive pulmonary disease) Degenerative joint disease (DJD) of hip Essential (primary) hypertension GERD (gastroesophageal reflux disease) Heart attack 20 years ago per patient. No stents/angioplasty. No recent issues. Has never had to use NTG-PT CONFIRMS Hemorrhoids History of DVT (deep vein thrombosis) RLE - 3-4 YEARS AGO - POST OP HIP REPLACEMENT - TREATED WITH AC THERAPY History of DVT (deep vein thrombosis) HLD (hyperlipidemia) Hyperbilirubinemia Hypertension Hypertrophy of nasal turbinates Prostatitis SVT (supraventricular tachycardia) Transaminitis Vomiting Surgical History History of cardiac cath 2000 - [facility] - NO STENTS/ANGIOPLASTY - NO LONGER FOLLOWS WITH DR CONTRERAS OR CARDIOLOGY History of cholecystectomy 08/07/18 [facility] History of colonoscopy (03/06/19) Dr. Conti, 4 polyps removed (2 tubular adenomas and 2 hyperplastic), diverticulosis noted, recheck not recommended due to age History of knee surgery History of left shoulder replacement History of right cataract extraction History of right hip replacement History of shoulder surgery left rotator cuff tear---had pins placed S/P ERCP w/ stenting - 08/06/18 [facility] Family History Mother Coronary heart disease Stroke Myocardial infarction Father Hypertension Brother Alopecia Hypertension Grandmother (Maternal) Coronary heart disease Grandfather (Maternal) Coronary heart disease Uncle Coronary heart disease Other No family history of adverse response to anesthesia Denies family history of Ovarian cancer Prostate cancer Breast cancer Colorectal cancer Social History Smoking Status: Former smoker Tobacco Type: Pipe 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); Hx Alcohol Use: Yes Alcohol type: beer Alcohol Intake Frequency: 2-3 x/Week Alcohol Intake Frequency Comment: 1-2, 6pks Hx Substance Use: No Preferred Language: Indonesian Communication Ability: Effective Visual Impairment: No Limitations Hearing Ability: Normal 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 Required: No Beliefs That Will Affect Care: None marital status: / Current Living Situation: Significant Other Current Living Situation Comment: [facility] LIV[facility] WITH PT current occupational status: retired Other Information That Helps Us Care for You: No Feels Safe at Home: Yes Safety Concerns: Feels Safe At This Time Dental Care, Regularly: No Physical Activity Frequency: Does not Exercise Seatbelt Use: never Assistive Devices: None Review of Systems A total of 10 systems reviewed and were otherwise negative All systems reviewed & are unremarkable except as noted in HPI & below Physical Exam Vital Signs Vital Signs - 24 hr 01/13/21 00:03 01/13/21 00:27 01/13/21 00:30 Temperature 36.8 C Temperature Source Temporal Artery Scan Pulse Rate 74 Pulse Rate from SpO2 Sensor 76 72 Respiratory Rate 16 20 20 Respiratory Depth Normal Blood Pressure 121/79 Blood Pressure Mean 93 Pulse Oximetry 96 97 96 Oxygen Delivery Method Room Air Sepsis Recent Fever Within 48 Hours No Sepsis New/Unexplained Change in Mental Status No Sepsis Action Taken by Nursing No Action Required 01/13/21 00:45 01/13/21 01:30 01/13/21 01:44 Temperature Temperature Source Pulse Rate Pulse Rate from SpO2 Sensor 78 Respiratory Rate 19 Respiratory Depth Blood Pressure 147/93 H Blood Pressure Mean 111 Pulse Oximetry 98 95 Oxygen Delivery Method Room Air Room Air Sepsis Recent Fever Within 48 Hours Sepsis New/Unexplained Change in Mental Status Sepsis Action Taken by Nursing 01/13/21 02:00 01/13/21 02:30 01/13/21 03:00 Temperature Temperature Source Pulse Rate 67 67 67 Pulse Rate from SpO2 Sensor 68 68 65 Respiratory Rate 17 18 14 Respiratory Depth Blood Pressure 158/73 H 146/67 H Blood Pressure Mean 101 93 Pulse Oximetry 91 92 93 Oxygen Delivery Method Sepsis Recent Fever Within 48 Hours Sepsis New/Unexplained Change in Mental Status Sepsis Action Taken by Nursing 01/13/21 03:30 Temperature Temperature Source Pulse Rate 58 L Pulse Rate from SpO2 Sensor Respiratory Rate 21 Respiratory Depth Blood Pressure Blood Pressure Mean Pulse Oximetry 90 Oxygen Delivery Method Sepsis Recent Fever Within 48 Hours Sepsis New/Unexplained Change in Mental Status Sepsis Action Taken by Nursing GENERAL: alert, uncomfortable appearing, well nourished, mild distress, non- toxic EYE EXAM: normal conjunctiva, PERRL and EOM's grossly intact OROPHARYNX: no exudate, no erythema, lips, buccal mucosa, and tongue normal and mucous membranes are moist NECK: supple, no nuchal rigidity, no adenopathy, non-tender LUNGS: Clear to auscultation. Normal chest wall mechanics, no w/r/r HEART: no murmurs, S1 normal and S2 normal ABDOMEN: abdomen soft, non-tender, normo-active bowel sounds, no masses, no rebound or guarding. Small well-healed surgical scars from laparoscopic surgery. BACK: Back is symmetrical on inspection and there is no deformity, no midline tenderness, no CVA tenderness. SKIN: no rashes and no bruising UPPER EXTREMITIES: upper extremities are grossly normal. FROM, nml pulses b/l. LOWER EXTREMITIES: No pitting edema. FROM, nml pulses b/l. NEURO EXAM: Normal sensorium, cranial nerves II-XII grossly intact, normal speech, no gross weakness of arms, no gross weakness of legs. Gross sensation intact. Course Course 0202: Pt updated on results. 0230: Discussed with Dr. Mendoza. Recommends general surgery consult and initiation of heparin drip at this time. 0240: Discussed with Nestor Lomeli PA-C with gen surg. 0255: Discussed with Dr. Marino. Administered Medications Fentanyl Citrate (Fentanyl Citrate 100 Mcg/2 Ml Vial) 50 mcg IV Q15M PRN PRN Reason: Pain Stop: 01/27/21 02:38 Last Admin: 01/13/21 03:06 Dose: 50 mcg Documented by: [id number] Heparin Sodium/Dextrose (Heparin Sodium/Dextrose) 25,000 units in 500 mls @ 23 mls/hr IV .[id number] [facility]; Protocol Stop: 02/12/21 02:59 Last Admin: 01/14/21 02:07 Dose: 1,150 units/hr, 23 mls/hr Documented by: [id number] Cosigned by: [id number] Titration: 01/14/21 02:07 Dose: 1,150 units/hr, 23 mls/hr Documented by: [id number] Cosigned by: [id number] Titration: 01/13/21 19:54 Dose: 1,150 units/hr, 23 mls/hr Documented by: [id number] Cosigned by: [id number] Titration: 01/13/21 19:03 Dose: 1,050 units/hr, 21 mls/hr Documented by: [id number] Cosigned by: [id number] Titration: 01/13/21 12:29 Dose: 1,050 units/hr, 21 mls/hr Documented by: [id number] Cosigned by: [id number] Admin: 01/13/21 03:08 Dose: 950 units/hr, 19 mls/hr Documented by: [id number] Cosigned by: [id number] Potassium Chloride/Sodium Chloride (Normal Saline W/20 Meq Kcl) 20 meq in 1,000 mls @ 125 mls/hr IV .Q8H POLO Stop: 02/12/21 04:29 Last Admin: 01/14/21 03:30 Dose: 125 mls/hr Documented by: [id number] Infusion: 01/14/21 03:30 Dose: 125 mls/hr Documented by: [id number] Admin: 01/13/21 19:45 Dose: 125 mls/hr Documented by: [id number] Infusion: 01/13/21 12:34 Dose: 125 mls/hr Documented by: [id number] Admin: 01/13/21 04:34 Dose: 125 mls/hr Documented by: [id number] Piperacillin Sod/Tazobactam (Sod 3.375 gm/ Dextrose) 115 mls @ 28.75 mls/hr IV Q8H POLO; Protocol Stop: 01/23/21 17:59 Last Admin: 01/14/21 02:06 Dose: 28.8 mls/hr Documented by: [id number] Infusion: 01/13/21 23:45 Dose: 0 mls/hr Documented by: [id number] Admin: 01/13/21 19:45 Dose: 28.8 mls/hr Documented by: [id number] Discontinued Medications Heparin Sodium/Dextrose (Heparin Iv Adult Wt-Based Low-Dose *No* Bolus Protocol) 1 ea IV ONE ONE; Protocol Stop: 01/13/21 02:39 Last Admin: 01/13/21 03:10 Dose: Not Given Documented by: [id number] Sodium Chloride (Nss 1000ml) 1,000 mls @ 125 mls/hr IV .Q8H POLO Stop: 02/12/21 00:44 Last Infusion: 01/13/21 04:35 Dose: 0 mls/hr Documented by: [id number] Admin: 01/13/21 01:16 Dose: 125 mls/hr Documented by: [id number] Acetaminophen (Ofirmev) 1,000 mg in 100 mls @ 400 mls/hr IV NOW STA Stop: 01/13/21 01:44 Last Infusion: 01/13/21 01:55 Dose: 0 mls/hr Documented by: [id number] Admin: 01/13/21 01:40 Dose: 400 mls/hr Documented by: [id number] Piperacillin Sod/Tazobactam Sod (Zosyn) 4.5 gm in 120 mls @ 240 mls/hr IV NOW ONE Stop: 01/13/21 03:55 Last Infusion: 01/13/21 05:04 Dose: 0 mls/hr Documented by: [id number] Admin: 01/13/21 04:34 Dose: 240 mls/hr Documented by: [id number] Piperacillin Sod/Tazobactam (Sod 3.375 gm/ Dextrose) 115 mls @ 28.75 mls/hr IV 1000 ONE; Protocol Stop: 01/13/21 13:59 Last Infusion: 01/13/21 16:42 Dose: 0 mls/hr Documented by: [id number] Admin: 01/13/21 12:24 Dose: 28.8 mls/hr Documented by: [id number] Ioversol (Optiray 320 125ml) 125 ml IV ONCE ONE Stop: 01/13/21 01:17 Last Admin: 01/13/21 01:16 Dose: 119 ml Documented by: [id number] Ondansetron HCl (Ondansetron Inj 2 Mg/Ml 2 Ml Vial) 4 mg IV NOW STA Stop: 01/13/21 01:31 Last Admin: 01/13/21 01:40 Dose: 4 mg Documented by: [id number] Critical Care Time Critical Care Time: Yes Total Critical Care Time: 43 Critical care of 43 min performed to assess and manage high likelihood of life- threatening abdominal pain from ischemic process, involving labs and imaging performed with assessment to evaluate abdominal pain diagnosis with frequent reassessment. This time includes bedside time, treatment discussions with patient/family/consultants, documentation time and excludes procedure time. Medical Decision Making Differential Diagnosis Differential diagnoses includes but is not limited to gastritis, peptic ulcer disease, GERD, gallbladder disease, pancreatitis, small bowel obstruction, acute coronary syndrome, pericarditis, ischemic bowel, irritable bowel disease, irritable bowel syndrome, appendicitis, diverticulitis, malignancy, hernia, urinary tract infection, torsion, [/ectopic (if female)], perforation, trauma, infectious. Medical Records Attestation: I reviewed the patient's medical records. Home Medications Current Medication List: was personally reviewed by me Laboratory Data Attestation: I reviewed the patient's lab results. Result diagrams: 01/14/21 02:17 01/14/21 02:17 Lab Results 10/01/13/21 01/13/21 Range/Units 00:30 00:30 00:30 WBC 11.15 H (4.8-10.8) K/uL RBC 4.22 L (4.7-6.1) M/uL Hgb 14.3 (14.0-18.0) g/dL Hct 39.1 L (42-52) % MCV 92.7 (80-100) fL MCH 33.9 (25-34) pg MCHC 36.6 H (32-36) g/dL RDW Std Deviation 44.3 (36.4-46.3) fL RDW Coeff of Negro 13.4 (11.5-14.5) % Plt Count 254 (130-400) K/uL MPV 9.8 (7.4-10.4) fL Immature Gran % (Auto) 0.2 % Neut % (Auto) 72.8 % Lymph % (Auto) 19.5 % [place] % (Auto) 5.9 % Eos % (Auto) 1.3 % Baso % (Auto) 0.3 % Neut # (Auto) 8.12 H (1.4-6.5) K/uL Lymph # (Auto) 2.17 (1.2-3.4) K/uL [place] # (Auto) 0.66 H (0.11-0.59) K/uL Eos # (Auto) 0.15 (0-0.5) K/uL Baso # (Auto) 0.03 (0-0.2) K/uL Immature Gran # (Auto) 0.02 (0.00-0.02) K/uL APTT 24.0 (21.0-31.0) Seconds PTT Ratio 0.9 Sodium 140 (136-145) mmol/L Potassium 3.4 L (3.5-5.1) mmol/L Chloride 106 (98-107) mmol/L Carbon Dioxide 26 (21-32) mmol/L Anion Gap 8.0 (3-11) BUN 14 (7-18) mg/dl Creatinine 0.83 (0.6-1.4) mg/dl Est Cr Clr Drug Dosing 73.1 ml/min Est GFR ( Amer) 95.0 ml/min Est GFR (Non-Af Amer) 81.9 ml/min BUN/Creatinine Ratio 16.6 (10-20) Glucose 169 H (70-99) mg/dl Lactate (0.4-2.0) mmol/L Calcium 9.2 (8.5-10.1) mg/dl Total Bilirubin 0.7 (0.2-1) mg/dl AST 21 (15-37) U/L ALT 34 (12-78) U/L Alkaline Phosphatase 178 H (45-117) U/L Troponin I < 0.015 (0-0.045) ng/ml Total Protein 6.7 (6.4-8.2) gm/dl Albumin 3.4 (3.4-5.0) gm/dl Globulin 3.3 (2.5-4.0) gm/dl Albumin/Globulin Ratio 1.0 (0.9-2) Lipase 224 (73-393) U/L Procalcitonin (0-0.5) ng/ml 01/13/21 01/13/21 Range/Units 02:19 02:19 WBC (4.8-10.8) K/uL RBC (4.7-6.1) M/uL Hgb (14.0-18.0) g/dL Hct (42-52) % MCV (80-100) fL MCH (25-34) pg MCHC (32-36) g/dL RDW Std Deviation (36.4-46.3) fL RDW Coeff of Negro (11.5-14.5) % Plt Count (130-400) K/uL MPV (7.4-10.4) fL Immature Gran % (Auto) % Neut % (Auto) % Lymph % (Auto) % [place] % (Auto) % Eos % (Auto) % Baso % (Auto) % Neut # (Auto) (1.4-6.5) K/uL Lymph # (Auto) (1.2-3.4) K/uL [place] # (Auto) (0.11-0.59) K/uL Eos # (Auto) (0-0.5) K/uL Baso # (Auto) (0-0.2) K/uL Immature Gran # (Auto) (0.00-0.02) K/uL APTT (21.0-31.0) Seconds PTT Ratio Sodium (136-145) mmol/L Potassium (3.5-5.1) mmol/L Chloride (98-107) mmol/L Carbon Dioxide (21-32) mmol/L Anion Gap (3-11) BUN (7-18) mg/dl Creatinine (0.6-1.4) mg/dl Est Cr Clr Drug Dosing ml/min Est GFR ( Amer) ml/min Est GFR (Non-Af Amer) ml/min BUN/Creatinine Ratio (10-20) Glucose (70-99) mg/dl Lactate 2.0 (0.4-2.0) mmol/L Calcium (8.5-10.1) mg/dl Total Bilirubin (0.2-1) mg/dl AST (15-37) U/L ALT (12-78) U/L Alkaline Phosphatase (45-117) U/L Troponin I (0-0.045) ng/ml Total Protein (6.4-8.2) gm/dl Albumin (3.4-5.0) gm/dl Globulin (2.5-4.0) gm/dl Albumin/Globulin Ratio (0.9-2) Lipase (73-393) U/L Procalcitonin < 0.05 (0-0.5) ng/ml Imaging Data Radiologist's Impression: Chest X-Ray 01/13/21 00:07 XR chest 1V portable CLINICAL HISTORY: Atypical chest pain. COMPARISON STUDY: Chest CT November 21, 2020. FINDINGS: Left shoulder arthroplasty is partially imaged. Cardiomegaly is noted. There is no evidence for pulmonary edema. Lung volumes are mildly diminished. No pneumothorax or pleural effusion is present. Minimal left basilar opacity favors atelectasis. IMPRESSION: No acute cardiopulmonary findings. No change in appearance of the chest. ACT 112: Negative or not required by law. Electronically signed by: Terry Jimenez M.D. 01/13/2021 7:[address] chest with contrast: Normal caliber aorta. No dissection. No pulmonary embolism. No acute abnormality in the lungs. Heart size is normal. Coronary artery calcifications. 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 SHAN is patent. Mild mucosal thickening at the hepatic flexure, under distention versus nonspecific colitis. Cholecystectomy. Liver, pancreas, spleen, and kidneys are unremarkable. Radiologist: Mario Linton MD MDM Narrative This is an 80-year-old male who presents due to concern for abdominal pain and chest pain. Patient with recent admission for colitis and course of antibiotics now with persistent diarrhea in addition. Labs drawn and sent and patient sent for CT imaging. Patient afebrile and hemodynamically stable. Patient started on IV fluids, given medication for pain and nausea. Labs reassuring, lactic acid added. CT with concern for possible vascular process. Called and discussed the case with vascular surgery and then with on-call physician assistant public defender for general surgery. Case discussed with hospitalist for additional evaluation and management. Patient was improved here with IV fluids and symptomatic treatment, although concern exists given known history of peripheral vascular disease. No evidence of dissection or aneurysm. No evidence for bowel obstruction, perforation, GI bleed, or acute colitis. A stool culture for C. difficile was ordered, however no specimen provided while patient was in the emergency room. Patient made hemodynamically stable while here. I do not suspect ACS, PE, occult pneumonia, perforation, or GI bleed. An order was placed for continuous cardiac monitoring. The monitor shows a rate of _70 with _normal sinus_ rhythm. Impression & Plan Abdominal pain, Stenosis of celiac artery, Diarrhea, Chest pain Discharge Plan Visit Data Chief Complaint: Chest Pain Stated Complaint: CHEST PAIN,STOMACH PAIN- PRESSURE INCREASES-3HRS ED Provider: Haley Corbin Discharge Problem: Abdominal pain, Stenosis of celiac artery, Diarrhea, Chest pain Patient Disposition: Admitted As Inpatient Discharge Instructions Interventions: ED Discharge Assessment Last Done: 01/13/21 06:12 Discharge Problem: Abdominal pain Qualifiers: Abdominal location: generalized Qualified Code(s): R10.84 - Generalized abdominal pain Diarrhea Qualifiers: Diarrhea type: unspecified type Qualified Code(s): R19.7 - Diarrhea, unspecified Chest pain Qualifiers: Chest pain type: unspecified Qualified Code(s): R07.9 - Chest pain, unspecified
[2021-01-13 00:43] LABS: Basophils # (auto) 0.03 K/uL (0-0.2); Basophils % (auto) 0.3 %; Eosinophils # (auto) 0.15 K/uL (0-0.5); Eosinophils % (auto) 1.3 %; Hematocrit (blood only) 39.1 % (42-52); Hemoglobin 14.3 g/dL (14.0-18.0); Immature Granulocytes # (auto) 0.02 K/uL (0.00-0.02); Immature Granulocytes % (auto) 0.2 %; Lymphocytes # (auto) 2.17 K/uL (1.2-3.4); Lymphocytes % (auto) 19.5 %; Mean Corpuscular Hemoglobin 33.9 pg (25-34); Mean Corpuscular Hgb Conc 36.6 g/dL (32-36); Mean Corpuscular Volume 92.7 fL (80-100); Mean Platelet Volume 9.8 fL (7.4-10.4); Monocytes # (auto) 0.66 K/uL (0.11-0.59); Monocytes % (auto) 5.9 %; Neutrophils # (auto) 8.12 K/uL (1.4-6.5); Neutrophils % (auto) 72.8 %; Platelet Count 254 K/uL (130-400); RDW Coefficient of Variation 13.4 % (11.5-14.5); RDW Standard Deviation 44.3 fL (36.4-46.3); Red Blood Count 4.22 M/uL (4.7-6.1); White Blood Count 11.15 K/uL (4.8-10.8)
[2021-01-13] MEDS ORDERED: SODIUM CHLORIDE 0.9% 1000ML 1,000 ML IV SCH (00:45)
[2021-01-13 00:48] LABS: Partial Thromboplastin Ratio 0.9
[2021-01-13 01:02] LABS: Alanine Aminotransferase 34 U/L (12-78); Albumin Level 3.4 gm/dl (3.4-5.0); Alkaline Phosphatase 178 U/L (45-117); Aspartate Aminotransferase 21 U/L (15-37); BUN Creatinine Ratio 16.6 (10-20); Bilirubin,Total 0.7 mg/dl (0.2-1); Blood Urea Nitrogen 14 mg/dl (7-18); Calcium 9.2 mg/dl (8.5-10.1); Carbon Dioxide 26 mmol/L (21-32); Chloride 106 mmol/L (98-107); Creatinine Clr Calc Pharmacy 73.1 ml/min; Est GFR (Non-African American) 81.9 ml/min; Globulin 3.3 gm/dl (2.5-4.0); Glucose 169 mg/dl (70-99); Lipase 224 U/L (73-393); Potassium 3.4 mmol/L (3.5-5.1); Sodium 140 mmol/L (136-145); Total Protein 6.7 gm/dl (6.4-8.2); Troponin I < 0.015 ng/ml (0-0.045)
[2021-01-13] MEDS ORDERED: OPTIRAY 320 125ml IV ONE (01:16)
[2021-01-13] MEDS ORDERED: ACETAMINOPHEN 1,000 MG/100 ML VIAL IV STA (01:30)
[2021-01-13] MEDS ORDERED: ONDANSETRON INJ 2 MG/ML 2 ML VIAL IV STA (01:30)
[2021-01-13] MEDS ORDERED: Heparin IV Adult Wt-Based Low-Dose *NO* Bolus Protocol IV ONE (02:38)
[2021-01-13] MEDS ORDERED: fentaNYL citrate 100 MCG/2 ML VIAL IV PRN (02:39)
[2021-01-13] MEDS: HEPARIN SODIUM/DEXTROSE 25,000 UNITS/500 ML BAG IV SCH (03:08)
--- NOTE | 2021-01-13 03:21 | Surgery Consultation ---
Date of Consultation January 13, 2021 Assessment & Plan (1) Colitis: At the present time it appears that the patient's abdominal pain is likely related to chronic ischemic colitis. I discussed with the treating emergency room physician and the patient will be admitted on the hospitalist service and we recommend proceeding as follows: Resuscitate the patient with intravenous fluids Provide broad-spectrum antibiotics Maintain n.p.o. status for the present time Follow serial labs Place patient on a heparin drip as recommended by vascular surgery We will follow closely while in the hospital. If the patient develops clinical deterioration based on his physical exam (worsening abdominal pain, hypotension, tachycardia) or worsening labs he may require exploratory laparotomy. Supervising Physician Co-Signing Physician Notes I personally saw and evaluated the patient with Danis Lomeli PA-C and agree with the assessment and plan 80 yo male with chronic mesenteric ischemia -CT images and results reviewed -He has only mild colitis at the hepatic flexure improved since his last admission -He has no clinical signs of acute mesenteric ischemia -Would keep NPO for now, IV ABX and agree with GI and Vascular surgery consults History of Present Illness Reason for Consultation: Abdominal pain History of Present Illness This is a 80-year-old male who is known to our service. Patient was most recently mated to [facility] from November 22 through November 25 of this year. During that time patient complained of some postprandial epigastric pain along with nausea vomiting. 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 At that time the patient had a peak lactic acid level of 2.9 and a peak white blood cell count of 18,000. His renal function was noted to be normal at that time. The concern is patient had colitis either ischemic or infectious in nature. He was resuscitated with IV fluids and placed on antibiotics and clinical improvement was noted. His diet was able to be advanced and he was able to be discharged home without any surgical intervention. Should be noted that the patient was discharged home on a course of antibiotics. Patient was initially doing well until earlier this evening the patient developed some upper abdominal pain several hours after eating a meal. He said the pain is similar to what he experienced last time he was in the hospital and occurred in a gradual nature.. He experienced nausea without vomiting. He denied any fevers, shakes, chills. He denied any palliative or provocative factors to the pain notes that the pain does not radiate. Patient says that he has been having some loose bowel movements over the past several days but he denies any blood, hematochezia, or melena. He does note that he had some melanotic appearing stools during his previous admission. Since discharged home patient has not been experiencing any postprandial pain. He does note an unspecified weight loss over the past several weeks. Because of his pain he presented to the emergency department where he had labs and imaging which I independently reviewed. CBC revealed white blood cell count was 11.1. His hematocrit is 39.1 and his hemoglobin and platelet count were within normal range. Chemistry profile showed his sodium was 140, potassium 3.4, and his BUN and creatinine were both within the normal range. Lactic acid level was noted to be 2.0. A chest x-ray showed no evidence of pneumonia or free air. CT scan of the chest showed no evidence of aortic dissection. 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 The inferior mesenteric artery was noted to be patent. There was mild mucosal thickening at the hepatic flexure which is felt to represent underdistention versus a nonspecific colitis. The treating emergency room physician has noted that she has discussed the case with vascular surgery who is recommended initiating a heparin drip and requesting general surgical evaluation. At the time of my interview the patient was resting in bed. He had some minor abdominal pain but was in no distress. Allergies Allergy/AdvReac Type Severity Reaction Status Date / Time tiotropium Allergy Mild CHEST Verified 01/13/21 01:44 PAIN, PRESSURE ciprofloxacin [From Cipro] Allergy Unknown Unknown Verified 01/13/21 01:44 metronidazole Allergy Unknown Unknown Verified 01/13/21 01:44 atorvastatin [From Lipitor] AdvReac Intermediate Nausea Verified 01/13/21 01:44 lisinopril AdvReac Mild Cough Verified 01/13/21 01:44 Home Medications Medication Instructions Recorded Confirmed Type multivitamin (Multiple Vitamins) 1 tab PO QAM 08/04/18 01/13/21 History nitroglycerin 0.4 mg sublingual 0.4 mg SUBLINGUAL UD PRN 08/04/18 01/13/21 History tablet (Nitrostat) carvedilol 12.5 mg tablet 12.5 mg PO BID #180 tab 01/23/20 01/13/21 Rx alfuzosin 10 mg tablet,extended 10 mg PO QAM 07/23/20 01/13/21 History release 24 hr Potassium Otc 99 mg PO QAM 01/06/21 01/13/21 History aspirin 81 mg tablet,delayed 81 mg PO QAM 01/06/21 01/13/21 History release coQ10 (ubiquinol) 100 mg capsule 100 mg PO QAM 01/06/21 01/13/21 History dutasteride 0.5 mg capsule 0.5 mg PO QPM 01/06/21 01/13/21 History fluticasone furoate 200 1 inh INHALATION QAM 01/06/21 01/13/21 History mcg-vilanterol 25 mcg/dose inhalation powder (Breo Ellipta) furosemide 20 mg tablet 20 mg PO QAM 01/06/21 01/13/21 History indomethacin 50 mg capsule 50 mg PO TID PRN 01/06/21 01/13/21 History sodium,potassium,mag sulfates 17.5 See Rx Instructions PO .COMPLEX 01/06/21 01/13/21 Rx gram-3.13 gram-1.6 gram oral soln #354 ml (Suprep Bowel Prep Kit) amlodipine 10 mg tablet (Norvasc) 10 mg PO QAM #30 tab 01/09/21 01/13/21 Rx atorvastatin 40 mg tablet (Lipitor) 40 mg PO HS #30 tab 01/09/21 01/13/21 Rx esomeprazole magnesium 40 mg 40 mg PO QAM #30 cap 01/09/21 01/13/21 Rx capsule,delayed release (Nexium) Patient History Medical History Abdominal pain, acute, epigastric Acquired deviated nasal septum Actinic keratosis Acute blood loss anemia BPH (benign prostatic hyperplasia) CAD (coronary artery disease) Cerumen impaction Colitis Common bile duct calculi COPD (chronic obstructive pulmonary disease) Degenerative joint disease (DJD) of hip Essential (primary) hypertension GERD (gastroesophageal reflux disease) Heart attack 20 years ago per patient. No stents/angioplasty. No recent issues. Has never had to use NTG-PT CONFIRMS Hemorrhoids History of DVT (deep vein thrombosis) RLE - 3-4 YEARS AGO - POST OP HIP REPLACEMENT - TREATED WITH AC THERAPY History of DVT (deep vein thrombosis) HLD (hyperlipidemia) Hyperbilirubinemia Hypertension Hypertrophy of nasal turbinates Prostatitis SVT (supraventricular tachycardia) Transaminitis Vomiting Surgical History History of cardiac cath 2000 - [facility] - NO STENTS/ANGIOPLASTY - NO LONGER FOLLOWS WITH DR CONTRERAS OR CARDIOLOGY History of cholecystectomy 08/07/18 [facility] History of colonoscopy (03/06/19) Dr. Conti, 4 polyps removed (2 tubular adenomas and 2 hyperplastic), diverticulosis noted, recheck not recommended due to age History of knee surgery History of left shoulder replacement History of right cataract extraction History of right hip replacement History of shoulder surgery left rotator cuff tear---had pins placed S/P ERCP w/ stenting - 08/06/18 [facility] Family History Mother Coronary heart disease Stroke Myocardial infarction Father Hypertension Brother Alopecia Hypertension Grandmother (Maternal) Coronary heart disease Grandfather (Maternal) Coronary heart disease Uncle Coronary heart disease Other No family history of adverse response to anesthesia Denies family history of Ovarian cancer Prostate cancer Breast cancer Colorectal cancer Social History Smoking Status: Former smoker Tobacco Type: Pipe 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); Hx Alcohol Use: Yes Alcohol type: beer Alcohol Intake Frequency: 2-3 x/Week Alcohol Intake Frequency Comment: 1-2, 6pks Hx Substance Use: No Preferred Language: Chinese Communication Ability: Effective Visual Impairment: No Limitations Hearing Ability: Normal Rewrite Editor Required: No Beliefs That Will Affect Care: None marital status: / Current Living Situation: Significant Other Current Living Situation Comment: [facility] WITH PT current occupational status: retired Feels Safe at Home: Yes Dental Care, Regularly: No Physical Activity Frequency: Does not Exercise Seatbelt Use: never Assistive Devices: Denture - Upper and Glasses Review of Systems Constitutional: no fever and no chills Eyes: no diplopia Ear, Nose, Mouth, Throat: no ear pain and no sore throat Respiratory: no cough and no dyspnea Cardiovascular: no chest pain Gastrointestinal: + abdominal pain, + nausea and + diarrhea/loose stools; no vomiting, no hematemesis and no blood in stools Genitourinary: no dysuria Musculoskeletal: no back pain Integumentary: no rash Neurologic: no localized weakness Physical Exam Constitutional: well developed and well nourished; no acute distress Eyes: no conjunctival abnormality ENMT: Ears: no hearing impairment Mouth: no oropharynx abnormality Neck: trachea midline Respiratory: normal respiratory effort, lungs clear to auscultation Cardiovascular: Rate/Rhythm: regular rate and regular rhythm Vessels: dorsalis pedis pulses present (Pulses palpable bilaterally) and radial pulses present (Pulses palpable bilaterally) Extremities: no calf tenderness Gastrointestinal (Abdomen): Patient's abdomen is soft with mild distention. There is pain noted with palpation in the epigastric area. There is no rebound tenderness or guarding. There is slight tympany noted to percussion. Musculoskeletal: No gross orthopedic abnormalities. No calf tenderness Skin: no rashes Neurologic: moves all extremities Psychiatric: A+Ox3, euthymic affect Results & Data ([facility]) Vital Signs (Past 12 Hours) Vital Signs Temp Pulse Resp BP Pulse Ox 01/13/21 01:30 19 147/93 H 95 01/13/21 00:45 98 01/13/21 00:30 20 96 01/13/21 00:27 20 97 01/13/21 00:03 36.8 C 74 16 121/79 96 PG Care Time/CCT Total # of Minutes Spent Total Time Spent with Patient: Total time spent is greater than 50% in coordination of care (as documented) at patient's floor/unit and/or counseling patient: Coding Level of Care Code 49697 Inpt Consult Level 5 Diagnoses Colitis K52.9
[2021-01-13] MEDS ORDERED: PIPERACILLIN/TAZOBACTAM 4.5 GM/120 ML BAG IV ONE (03:26)
[2021-01-13] MEDS ORDERED: PIPERACILL/TAZOBAC CONSULT ACTIVE PRN ×2 (03:26→06:23)
--- NOTE | 2021-01-13 03:36 | History & Physical Report ---
Date of Service January 13, 2021 Assessment & Plan (1) Ischemic colitis: Plan: De Sharma is an 80-year-old male with PMH significant for coronary artery disease, COPD, peripheral artery disease, hypertension, hyperlipidemia, BPH, stenosis of celiac artery, stenosis of superior mesenteric artery; who presented to the ED for concerns of worsened abdominal pain overnight. Ischemic colitis: -During previous admission had CT abdomen pelvis demonstrating nonspecific colitis with high-grade stenosis/near complete occlusion of the origin of the celiac artery and moderate stenosis of the inferior mesenteric artery, but noted patent superior mesenteric artery -Repeat CT abdomen pelvis with IV contrast on admission demonstrating complete occlusion of celiac artery, severe stenosis of proximal SMA, SHAN patent and mucosal thickening of hepatic flexure -Well-known to both GEN surg and vascular surg services -Vascular surg consulted in ED recommending n.p.o. with heparin drip -GEN surg consulted in ED agreed with vascular recommendations with addition of broad-spectrum antibiotics -Continue Heparin drip -Continue Zosyn -Serial abdominal exams, with repeat imaging in the event of worsening pain or development of nausea or vomiting Hypokalemia: -Potassium 3.4 on admission -Repleted with 20 mEq of KCl in basal fluids -Recheck in a.m. Diet: N.p.o. CODE STATUS: Full code DVT prophylaxis: Heparin drip (2) Hypokalemia: (3) Stenosis of celiac artery: History of Present Illness Primary Care Provider: Román Valentine MD De Sharma is an 80-year-old male with PMH significant for coronary artery disease, COPD, peripheral artery disease, hypertension, hyperlipidemia, BPH, stenosis of celiac artery, stenosis of superior mesenteric artery; who presented to the ED for concerns of worsened abdominal pain overnight. Previously was doing admitted to [facility] at the end of October for similar abdominal pains associated with eating, at during that time had CT scan that demonstrated atherosclerotic disease within abdominal vasculature specifically noting occlusion of celiac artery and stenosis of superior mesenteric artery. After numerous discussions with vascular and general surgery and improvement in his overall pain was deemed that he did not need operative intervention at that moment in time. He was doing well up until earlier this evening when he continued to notice this gassy feeling and pain returned. Initially felt like it was getting better with burping, but the pain resided for multiple hours ultimately causing him to present to the emergency department. Over the last several weeks he has had looser bowel movements but not had any blood or dark tarry stools. Allergies Allergy/AdvReac Type Severity Reaction Status Date / Time tiotropium Allergy Mild CHEST Verified 01/13/21 01:44 PAIN, PRESSURE ciprofloxacin [From Cipro] Allergy Unknown Unknown Verified 01/13/21 01:44 metronidazole Allergy Unknown Unknown Verified 01/13/21 01:44 atorvastatin [From Lipitor] AdvReac Intermediate Nausea Verified 01/13/21 01:44 lisinopril AdvReac Mild Cough Verified 01/13/21 01:44 Home Medications Medication Instructions Recorded Confirmed Type multivitamin (Multiple Vitamins) 1 tab PO QAM 08/04/18 01/13/21 History nitroglycerin 0.4 mg sublingual 0.4 mg SUBLINGUAL UD PRN 08/04/18 01/13/21 History tablet (Nitrostat) carvedilol 12.5 mg tablet 12.5 mg PO BID #180 tab 01/23/20 01/13/21 Rx alfuzosin 10 mg tablet,extended 10 mg PO QAM 07/23/20 01/13/21 History release 24 hr Potassium Otc 99 mg PO QAM 01/06/21 01/13/21 History aspirin 81 mg tablet,delayed 81 mg PO QAM 01/06/21 01/13/21 History release coQ10 (ubiquinol) 100 mg capsule 100 mg PO QAM 01/06/21 01/13/21 History dutasteride 0.5 mg capsule 0.5 mg PO QPM 01/06/21 01/13/21 History fluticasone furoate 200 1 inh INHALATION QAM 01/06/21 01/13/21 History mcg-vilanterol 25 mcg/dose inhalation powder (Breo Ellipta) furosemide 20 mg tablet 20 mg PO QAM 01/06/21 01/13/21 History indomethacin 50 mg capsule 50 mg PO TID PRN 01/06/21 01/13/21 History sodium,potassium,mag sulfates 17.5 See Rx Instructions PO .COMPLEX 01/06/21 01/13/21 Rx gram-3.13 gram-1.6 gram oral soln #354 ml (Suprep Bowel Prep Kit) amlodipine 10 mg tablet (Norvasc) 10 mg PO QAM #30 tab 01/09/21 01/13/21 Rx atorvastatin 40 mg tablet (Lipitor) 40 mg PO HS #30 tab 01/09/21 01/13/21 Rx esomeprazole magnesium 40 mg 40 mg PO QAM #30 cap 01/09/21 01/13/21 Rx capsule,delayed release (Nexium) Past Med/Surg History Medical History Abdominal pain, acute, epigastric Acquired deviated nasal septum Actinic keratosis Acute blood loss anemia BPH (benign prostatic hyperplasia) CAD (coronary artery disease) Cerumen impaction Colitis Common bile duct calculi COPD (chronic obstructive pulmonary disease) Degenerative joint disease (DJD) of hip Essential (primary) hypertension GERD (gastroesophageal reflux disease) Heart attack 20 years ago per patient. No stents/angioplasty. No recent issues. Has never had to use NTG-PT CONFIRMS Hemorrhoids History of DVT (deep vein thrombosis) RLE - 3-4 YEARS AGO - POST OP HIP REPLACEMENT - TREATED WITH AC THERAPY History of DVT (deep vein thrombosis) HLD (hyperlipidemia) Hyperbilirubinemia Hypertension Hypertrophy of nasal turbinates Prostatitis SVT (supraventricular tachycardia) Transaminitis Vomiting Surgical History History of cardiac cath 2000 - [facility] - NO STENTS/ANGIOPLASTY - NO LONGER FOLLOWS WITH DR CONTRERAS OR CARDIOLOGY History of cholecystectomy 08/07/18 [facility] History of colonoscopy (03/06/19) Dr. Conti, 4 polyps removed (2 tubular adenomas and 2 hyperplastic), diverticulosis noted, recheck not recommended due to age History of knee surgery History of left shoulder replacement History of right cataract extraction History of right hip replacement History of shoulder surgery left rotator cuff tear---had pins placed S/P ERCP w/ stenting - 08/06/18 [facility] Family History Mother Coronary heart disease Stroke Myocardial infarction Father Hypertension Brother Alopecia Hypertension Grandmother (Maternal) Coronary heart disease Grandfather (Maternal) Coronary heart disease Uncle Coronary heart disease Other No family history of adverse response to anesthesia Denies family history of Ovarian cancer Prostate cancer Breast cancer Colorectal cancer Social History Smoking Status: Former smoker Tobacco Type: Pipe 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); Hx Alcohol Use: Yes Alcohol type: beer Alcohol Intake Frequency: 2-3 x/Week Alcohol Intake Frequency Comment: 1-2, 6pks Hx Substance Use: No Preferred Language: German Communication Ability: Effective Visual Impairment: No Limitations Hearing Ability: Normal Residential Carpenter Required: No Beliefs That Will Affect Care: None marital status: / Current Living Situation: Significant Other Current Living Situation Comment: [facility] WITH [facility] current occupational status: retired Other Information That Helps Us Care for You: No Feels Safe at Home: Yes Safety Concerns: Feels Safe At This Time Dental Care, Regularly: No Physical Activity Frequency: Does not Exercise Seatbelt Use: never Assistive Devices: Denture - Upper and Glasses Review of Systems Review of Systems: All systems reviewed & are unremarkable except as noted in HPI & below Physical Exam Constitutional: WD/WN, vitals as above Eyes: PERRL, conjunctivae normal, anicteric sclerae Respiratory: normal respiratory effort, lungs clear to auscultation Auscultation: no crackles, no rales, no rhonchi and no wheezes Cardiovascular: Rate/Rhythm: regular rate and regular rhythm Heart Sounds: no gallop, no murmur and no cardiac rub Vessels: normal peripheral pulses; no JVD Extremities: no edema Gastrointestinal (Abdomen): Inspection/Auscultation: abdomen normal to inspection and normal bowel sounds; abdomen not distended and no abdominal wall ecchymosis Percussion/Palpation: + abdomen tender, + guarding, abdomen soft and normal to percussion; no hepatosplenomegaly Musculoskeletal: no cyanosis or clubbing, extremities motor strength 5/5 Skin: no rashes, warm and dry Neurologic: PERRL, EOMI, accommodation nl, no face palsy, no dysarthria CN's II-XI intact bilaterally and moves all extremities Psychiatric: Orientation: alert and oriented x 3 Results & Data Results & Data ([facility]) Vital Signs (Past 12 Hours) Vital Signs Temp Pulse Resp BP Pulse Ox 01/13/21 03:00 67 14 146/67 H 93 01/13/21 02:30 67 18 92 01/13/21 02:00 67 17 158/73 H 91 01/13/21 01:30 19 147/93 H 95 01/13/21 00:45 98 01/13/21 00:30 20 96 01/13/21 00:27 20 97 01/13/21 00:03 36.8 C 74 16 121/79 96 Laboratory Results 01/13/21 01/13/21 01/13/21 Range/Units 02: 02: 00:30 WBC (4.8-10.8) K/uL RBC (4.7-6.1) M/uL Hgb (14.0-18.0) g/dL Hct (42-52) % MCV (80-100) fL MCH (25-34) pg MCHC (32-36) g/dL RDW Std Deviation (36.4-46.3) fL RDW Coeff of Negro (11.5-14.5) % Plt Count (130-400) K/uL MPV (7.4-10.4) fL Immature Gran % (Auto) % Neut % (Auto) % Lymph % (Auto) % Izard % (Auto) % Eos % (Auto) % Baso % (Auto) % Neut # (Auto) (1.4-6.5) K/uL Lymph # (Auto) (1.2-3.4) K/uL Izard # (Auto) (0.11-0.59) K/uL Eos # (Auto) (0-0.5) K/uL Baso # (Auto) (0-0.2) K/uL Immature Gran # (Auto) (0.00-0.02) K/uL APTT (21.0-31.0) Seconds PTT Ratio Sodium 140 (136-145) mmol/L Potassium 3.4 L (3.5-5.1) mmol/L Chloride 106 (98-107) mmol/L Carbon Dioxide 26 (21-32) mmol/L Anion Gap 8.0 (3-11) BUN 14 (7-18) mg/dl Creatinine 0.83 (0.6-1.4) mg/dl Est Cr Clr Drug Dosing 73.1 ml/min Est GFR ( Amer) 95.0 ml/min Est GFR (Non-Af Amer) 81.9 ml/min BUN/Creatinine Ratio 16.6 (10-20) Glucose 169 H (70-99) mg/dl Lactate 2.0 (0.4-2.0) mmol/L Calcium 9.2 (8.5-10.1) mg/dl Total Bilirubin 0.7 (0.2-1) mg/dl AST 21 (15-37) U/L ALT 34 (12-78) U/L Alkaline Phosphatase 178 H (45-117) U/L Troponin I < 0.015 (0-0.045) ng/ml Total Protein 6.7 (6.4-8.2) gm/dl Albumin 3.4 (3.4-5.0) gm/dl Globulin 3.3 (2.5-4.0) gm/dl Albumin/Globulin Ratio 1.0 (0.9-2) Lipase 224 (73-393) U/L Procalcitonin < 0.05 (0-0.5) ng/ml 01/13/21 01/13/21 Range/Units 00:30 00:30 WBC 11.15 H (4.8-10.8) K/uL RBC 4.22 L (4.7-6.1) M/uL Hgb 14.3 (14.0-18.0) g/dL Hct 39.1 L (42-52) % MCV 92.7 (80-100) fL MCH 33.9 (25-34) pg MCHC 36.6 H (32-36) g/dL RDW Std Deviation 44.3 (36.4-46.3) fL RDW Coeff of Negro 13.4 (11.5-14.5) % Plt Count 254 (130-400) K/uL MPV 9.8 (7.4-10.4) fL Immature Gran % (Auto) 0.2 % Neut % (Auto) 72.8 % Lymph % (Auto) 19.5 % Izard % (Auto) 5.9 % Eos % (Auto) 1.3 % Baso % (Auto) 0.3 % Neut # (Auto) 8.12 H (1.4-6.5) K/uL Lymph # (Auto) 2.17 (1.2-3.4) K/uL Izard # (Auto) 0.66 H (0.11-0.59) K/uL Eos # (Auto) 0.15 (0-0.5) K/uL Baso # (Auto) 0.03 (0-0.2) K/uL Immature Gran # (Auto) 0.02 (0.00-0.02) K/uL APTT 24.0 (21.0-31.0) Seconds PTT Ratio 0.9 Sodium (136-145) mmol/L Potassium (3.5-5.1) mmol/L Chloride (98-107) mmol/L Carbon Dioxide (21-32) mmol/L Anion Gap (3-11) BUN (7-18) mg/dl Creatinine (0.6-1.4) mg/dl Est Cr Clr Drug Dosing ml/min Est GFR ( Amer) ml/min Est GFR (Non-Af Amer) ml/min BUN/Creatinine Ratio (10-20) Glucose (70-99) mg/dl Lactate (0.4-2.0) mmol/L Calcium (8.5-10.1) mg/dl Total Bilirubin (0.2-1) mg/dl AST (15-37) U/L ALT (12-78) U/L Alkaline Phosphatase (45-117) U/L Troponin I (0-0.045) ng/ml Total Protein (6.4-8.2) gm/dl Albumin (3.4-5.0) gm/dl Globulin (2.5-4.0) gm/dl Albumin/Globulin Ratio (0.9-2) Lipase (73-393) U/L Procalcitonin (0-0.5) ng/ml Diagnostic Findings CT CHEST With Contrast: Normal caliber aorta. No dissection. No pulmonary embolism. No acute abnormality in the lungs. Heart size is normal. Coronary artery calcifications. Radiologist: Mario Linton MD CTA ABDOMEN & PELVIS With Contrast: Celiac artery is occluded proximally. Severe stenosis in the proximal SMA. SHAN is patent. Mild mucosal thickening at the hepatic flexure, underdistention versus nonspecific colitis. Cholecystectomy. Liver, pancreas, spleen, and kidneys are unremarkable. Radiologist: Mario Linton MD Medications Administered Current Inpatient Medications Fentanyl Citrate (Fentanyl Citrate 100 Mcg/2 Ml Vial) 50 mcg IV Q15M PRN PRN Reason: Pain Stop: 01/27/21 02:38 Last Admin: 01/13/21 03:06 Dose: 50 mcg Documented by: Sodium Chloride (Nss 1000ml) 1,000 mls @ 125 mls/hr IV .Q8H POLO Stop: 02/12/21 00:44 Last Admin: 01/13/21 01:16 Dose: 125 mls/hr Documented by: Heparin Sodium/Dextrose (Heparin Sodium/Dextrose) 25,000 units in 500 mls @ 0.02 mls/hr IV .Q24H POLO; Protocol Stop: 02/12/21 02:59 Last Admin: 01/13/21 03:08 Dose: 950 units/hr, 19 mls/hr Documented by: Miscellaneous Information (Piperacill/T[place]ac Consult Active) 1 ea N/A UD PRN PRN Reason: Consult Stop: 02/12/21 03:25 Supervising Physician Co-Signing Physician Notes Patient seen and examined, chart reviewed, case discussed with Dr. Molina and I agree with the assessment and plan as documented above. In brief, patien tis an 80yo male with history of CAD, PAD, HTN, HLP, vascular stenosis of celiac and SMA presenting with worsening abdominal pain. Patient admitted with similar symptoms requiring admission to an outside facility. On exam he is afebrile, HD stable, nontoxic in appearance HEENT - NC/AT, PERRL, MMM, Neck supple Heart - +S1/S2, regular, no m/r/g Lungs - CTA Abd - +BS, soft ND, tenderness in mid lower abdomen with voluntary guarding, no rebound Ext - No edema Labs and images reviewed CT Abdomen with near complete occlusion fo the origin of the celiac artery. Mild mucosal thickening at the hepatic flexure, ?nonspecific colitis Assessment/Plan - 80yo male with concern for ischemic colitis - ?symptoms of intestinal angina prior to this, acutely worsening abdominal pain. Lactate=2, abdominal pain has improved at this time. CT with complete occlusion of celiac artery, severe stenosis of proximal SMA -Heparin gtt -Zosyn -Consultation with General Surgery and Vascular surgery appreciated Resident Activity Tracking Resident Involvement: Resident Care Provided Care Provided: Adult Hospital Medicine
[2021-01-13] MEDS ORDERED: POTASSIUM CHLORIDE 20 MEQ in SODIUM CHLORIDE 0.9% 1000ML 1,000 ML IV SCH (04:10)
[2021-01-13] MEDS: NSS + 20MEQ KCL 20 MEQ/1,000 ML BAG IV SCH ×2 (04:34→19:45)
[2021-01-13] MEDS ORDERED: ONDANSETRON INJ 2 MG/ML 2 ML VIAL IV PRN (06:17)
--- NOTE | 2021-01-13 07:06 | XRay Report ---
XR chest 1V portable CLINICAL HISTORY: Atypical chest pain. COMPARISON STUDY: Chest CT November 21, 2020. FINDINGS: Left shoulder arthroplasty is partially imaged. Cardiomegaly is noted. There is no evidence for pulmonary edema. Lung volumes are mildly diminished. No pneumothorax or pleural effusion is pres ent. Minimal left basilar opacity favors atelectasis. IMPRESSION: No acute cardiopulmonary findings. No change in appearance of the chest. ACT 112: Negative or not required by law. Electronically signed by: Terry Jimenez M.D. 01/13/2021 7:05 AM
--- NOTE | 2021-01-13 08:19 | CT Scan Report ---
CHEST CT WITH CONTRAST CT DOSE: 901.48 mGy.cm HISTORY: Atypical chest pain TECHNIQUE: Multiaxial CT images of the chest were performed following the intravenous administration of contrast. A dose lowering technique was utilized adhering to the principles of ALARA. COMPARISON: Chest CTA 11/22/2020 FINDINGS: There is a small hiatus hernia. A 7 mm nodule within the right thyroid lobe. This does not meet CT criteria for follow-up. No mediastinal or hilar lymphadenopathy. The heart is normal in size. No pleural or pericardial effusions. No evidence for an aortic dissection. The main pulmonary arteri es are patent. There is a left shoulder prosthesis. No suspicious lytic or blastic osseous lesions. T he central airways are patent. No pneumothorax. No focal lung consolidations to suggest pneumonia. No evidence for pulmonary edema. Punctate calcified granuloma within the right upper lobe. IMPRESSION: 1. No focal lung consolidations to suggest pneumonia. 2. No evidence for an aortic dissection. 3. The main pulmonary arteries are patent. ACT 112: Negative or not required by law. Electronically signed by: Claudio Mallory M.D. 01/13/2021 8:18 AM
--- NOTE | 2021-01-13 08:28 | CT Scan Report ---
CT angio abdomen pelvis w con HISTORY: Generalized abd pain, diarrhea TECHNIQUE: Multiaxial CT images of the abdomen and pelvis performed following the use of intravenous contrast to evaluate the major arterial structures. Maximal intensity projection images were also obt ained. COMPARISON STUDY: CT angiogram abdomen and pelvis 11/22/2020. FINDINGS: There is an 8 mm hypodense lesion within the right hepatic lobe on image 150. This demonstr ates discontinuous peripheral nodular enhancement. Therefore, this favors a small hemangioma. Cholecy stectomy. The main portal vein and superior mesenteric vein are patent. Capsular calcifications withi n the spleen, unchanged. There is a small hiatus hernia. Diverticula again noted at the second portio n of the duodenum. Small fat-containing bilateral hernias. The right total hip arthroplasty. Mild solomon dder wall thickening, unchanged. This is likely chronic from the enlarged prostate gland. Mild focal thickening within the hepatic flexure of the colon with adjacent pericolonic fat stranding. This is b est seen on image 152. There is an inflamed diverticulum at this location. Therefore, this could repr esent residual colitis or an acute diverticulitis. Normal appendix. No dilated loops of bowel to sugg est an obstruction. The adrenal glands unremarkable. Small foci of gas within the main pancreatic buddy t, unchanged. No peripancreatic inflammatory change. Stable bilateral renal cysts. No hydronephrosis. No retroperitoneal lymphadenopathy. No fractures within the visualized osseous structures. Moderate calcified plaque within the aorta and iliac arteries without significant stenosis or dissection. The inferior mesenteric artery and bilateral renal arteries are widely patent. There is approximately 50% stenosis at the proximal superior mesenteric artery. There is occlusion of the proximal to mid adina c artery. There is distal reconstitution of the celiac artery likely due to retrograde flow. The jerry r arterial branches of the celiac artery are patent. IMPRESSION: 1. Mild focal thickening within the hepatic flexure of the colon. This is improved compared the prior study and could represent a mild residual nonspecific colitis or diverticulitis. 2. Occlusion of the proximal celiac artery with distal reconstitution. 3. Moderate stenosis within the proximal superior mesenteric artery. 4. Additional findings as described above. ACT 112: Negative or not required by law. Electronically signed by: Claudio Mallory M.D. 01/13/2021 8:27 AM
--- NOTE | 2021-01-13 09:57 | Hospitalist Progress Note ---
Date of Service January 13, 2021 Assessment & Plan (1) Ischemic colitis: Plan: De Sharma is an 80-year-old male with PMH significant for coronary artery disease, COPD, peripheral artery disease, hypertension, hyperlipidemia, BPH, stenosis of celiac artery, stenosis of superior mesenteric artery admitted for concern possible ischemic colitis. Ischemic colitis: -CT abd/pelvis 11/21 - nonspecific colitis with near complete occlusion celiac artery and moderate stenosis SHAN, but noted patent superior mesenteric artery -Repeat CT abdomen pelvis with IV contrast on admission complete occlusion of celiac artery, severe stenosis of proximal SMA, SHAN patent and mucosal thickening of hepatic flexure -Vascular surg consulted in ED recommending n.p.o. with heparin drip -Gen surg consulted in ED agreed with vascular recommendations on conservative management with addition of broad-spectrum antibiotics. -IV zosyn -Serial abdominal exams with repeat imaging in the event of worsening pain or development of nausea or vomiting. -Progress diet to clear liquids. Diarrhea: -May be secondary to 2/2 colitis vs IBS/IBD -On Zosyn for possible colitis. -As per GI, Miralax added. -Will cont to monitor BM. Hypokalemia: -Potassium 3.4 on admission -Repleted with 20 mEq of KCl in basal fluids -Recheck in a.m. Diet: N.p.o. CODE STATUS: Full code DVT prophylaxis: Heparin drip (2) Hypokalemia: (3) Stenosis of celiac artery: Admission and Anticipated Discharge Date Admission Date: January 13, 2021 Supervising Physician Co-Signing Physician Notes Resident Physician Supervision Note: I independently interviewed and examined the patient and verified the truong history and physical, reviewed labs and image studies and agree with resident Dr. Tai findings and care plan. Subjective Patient seen at the bedside this morning. Patient stated he is feeling much b davin than when he first came in last night. His pain coming in was 8/10, right now it is barely noticeable. Patient denies any current fevers, chills, nausea, vomiting, chest pain, shortness of breath. Physical Exam Constitutional: WD/WN, vitals as above Eyes: PERRL, sclerae mild vasodilation. Respiratory: normal respiratory effort, lungs clear to auscultation Cardiovascular: RRR, no murmur, no edema Gastrointestinal (Abdomen): normal bowel sounds, soft, nontender, no hepatosplenomegaly Psychiatric: A+Ox3, euthymic affect Results & Data Results & Data ([facility]) Vital Signs (Past 12 Hours) Vital Signs Temp Pulse Resp BP Pulse Ox 01/13/21 05:30 66 15 95 01/13/21 05:00 62 13 141/60 H 92 01/13/21 04:30 61 17 91 01/13/21 04:00 60 16 93 01/13/21 03:30 58 L 21 90 01/13/21 03:00 67 14 146/67 H 93 01/13/21 02:30 67 18 92 01/13/21 02:00 67 17 158/73 H 91 01/13/21 01:30 19 147/93 H 95 01/13/21 00:45 98 01/13/21 00:30 20 96 01/13/21 00:27 20 97 01/13/21 00:03 36.8 C 74 16 121/79 96 Resident Activity Tracking Resident Involvement: Resident Care Provided Care Provided: Adult Hospital Medicine
[2021-01-13] MEDS ORDERED: PIPERACILLIN/TAZOBACTAM 3.375 GM in DEXTROSE 5% 100 ML IV ONE (10:00)
[2021-01-13 10:07] LABS: Basophils # (auto) 0.02 K/uL (0-0.2); Basophils % (auto) 0.2 %; Eosinophils # (auto) 0.11 K/uL (0-0.5); Hemoglobin 13.5 g/dL (14.0-18.0); Immature Granulocytes # (auto) 0.02 K/uL (0.00-0.02); Immature Granulocytes % (auto) 0.2 %; Lymphocytes # (auto) 2.16 K/uL (1.2-3.4); Lymphocytes % (auto) 20.5 %; Mean Corpuscular Hemoglobin 31.8 pg (25-34); Mean Corpuscular Hgb Conc 34.6 g/dL (32-36); Mean Corpuscular Volume 91.8 fL (80-100); Monocytes # (auto) 0.83 K/uL (0.11-0.59); Monocytes % (auto) 7.9 %; Neutrophils # (auto) 7.41 K/uL (1.4-6.5); Neutrophils % (auto) 70.2 %; Nucleated RBC # (auto) 0.07 K/uL (0-0); Nucleated RBC % (auto) 0.7 %; Platelet Count 221 K/uL (130-400); RDW Coefficient of Variation 13.5 % (11.5-14.5); Red Blood Count 4.25 M/uL (4.7-6.1); White Blood Count 10.55 K/uL (4.8-10.8)
--- NOTE | 2021-01-13 10:15 | Gastrointestinal Consultation ---
Date of Consultation January 13, 2021 Assessment & Plan (1) Ischemic colitis: -Endoscopic evaluation is contraindicated in the setting of ischemic colitis due to increased risk of perforation -Agree with broad spectrum IV antibiotic coverage -Agree with general surgery--if no improvement, consider surgical intervention -Heparin per vascular surgery recommendations & guidance -Miralax 17 gm daily as motility is likely affected by ongoing inflammation/altered blood supply to the colon -Supportive care per primary team Supervising Physician Co-Signing Physician Notes Agree with Ivanna Forte, as above Abd: Soft, NT, ND, + BS States he feels much better at present Recommend continuing supportive care Will need outpatient colonoscopy which will be arranged by my office. History of Present Illness Reason for Consultation: "Ischemic colitis, ? need for inpatient colonoscopy" Attending Physician: Carlota Mendoza MD History of Present Illness Patient is an 80 yo male with CAD, COPD, PAD, HTN, HLD, BPH, stenosis of the celiac artery, and stenosis of the superior mesentery artery who returns to the ED with abdominal pain. Patient has had multiple admissions for ischemic colitis since October 2020. During his last admission, he did not require operative intervention but was evaluated by general surgery & vascular surgery evaluation. He notes his abdominal pain had resolved, but returned yesterday. He denies rectal bleeding. H/H is 13.5/39.0. There is no leukocytosis. Last colonoscopy was 2018 and indicated 4 polyps, diverticulosis, & internal hemorrhoids. His CTA during this admission showed thickening at the hepatic flexure, occlusion of the proximal celiac artery with distal reconstruction, and moderated stenosis. CT suggested that though it has persisted, his ischemic colitis was improved from previous CT. He reports 1-2 loose stools daily. He reports his abdominal pain is up the left side of his abdomen. He is presently on Zosyn. Patient notes he was scheduled for an outpatient colonoscopy tomorrow. Allergies Allergy/AdvReac Type Severity Reaction Status Date / Time tiotropium Allergy Mild CHEST Verified 01/13/21 01:44 PAIN, PRESSURE ciprofloxacin [From Cipro] Allergy Unknown Unknown Verified 01/13/21 01:44 metronidazole Allergy Unknown Unknown Verified 01/13/21 01:44 atorvastatin [From Lipitor] AdvReac Intermediate Nausea Verified 01/13/21 01:44 lisinopril AdvReac Mild Cough Verified 01/13/21 01:44 Home Medications Medication Instructions Recorded Confirmed Type multivitamin (Multiple Vitamins) 1 tab PO QAM 08/04/18 01/13/21 History nitroglycerin 0.4 mg sublingual 0.4 mg SUBLINGUAL UD PRN 08/04/18 01/13/21 History tablet (Nitrostat) carvedilol 12.5 mg tablet 12.5 mg PO BID #180 tab 01/23/20 01/13/21 Rx alfuzosin 10 mg tablet,extended 10 mg PO QAM 07/23/20 01/13/21 History release 24 hr Potassium Otc 99 mg PO QAM 01/06/21 01/13/21 History aspirin 81 mg tablet,delayed 81 mg PO QAM 01/06/21 01/13/21 History release coQ10 (ubiquinol) 100 mg capsule 100 mg PO QAM 01/06/21 01/13/21 History dutasteride 0.5 mg capsule 0.5 mg PO QPM 01/06/21 01/13/21 History fluticasone furoate 200 1 inh INHALATION QAM 01/06/21 01/13/21 History mcg-vilanterol 25 mcg/dose inhalation powder (Breo Ellipta) furosemide 20 mg tablet 20 mg PO QAM 01/06/21 01/13/21 History indomethacin 50 mg capsule 50 mg PO TID PRN 01/06/21 01/13/21 History sodium,potassium,mag sulfates 17.5 See Rx Instructions PO .COMPLEX 01/06/21 1 Rx gram-3.13 gram-1.6 gram oral soln #354 ml (Suprep Bowel Prep Kit) amoxicillin 875 mg-potassium 1 tab PO BID 5 Days #10 tab 01/14/21 Rx clavulanate 125 mg tablet amlodipine 10 mg tablet (Norvasc) 10 mg PO QAM #90 tab 01/15/21 Rx atorvastatin 40 mg tablet (Lipitor) 40 mg PO HS #90 tab 01/15/21 Rx esomeprazole magnesium 40 mg 40 mg PO QAM #90 cap 01/15/21 Rx capsule,delayed release (Nexium) Patient History Medical History (Updated 01/15/21 @ 08:31 by Vani Conteh) Abdominal pain, acute, epigastric Acquired deviated nasal septum Actinic keratosis Acute blood loss anemia BPH (benign prostatic hyperplasia) CAD (coronary artery disease) Cerumen impaction Colitis Common bile duct calculi COPD (chronic obstructive pulmonary disease) Degenerative joint disease (DJD) of hip Essential (primary) hypertension GERD (gastroesophageal reflux disease) Heart attack 20 years ago per patient. No stents/angioplasty. No recent issues. Has never had to use NTG-PT CONFIRMS Hemorrhoids History of DVT (deep vein thrombosis) RLE - 3-4 YEARS AGO - POST OP HIP REPLACEMENT - TREATED WITH AC THERAPY History of DVT (deep vein thrombosis) HLD (hyperlipidemia) Hyperbilirubinemia Hypertension Hypertrophy of nasal turbinates Prostatitis SVT (supraventricular tachycardia) Transaminitis Vomiting Surgical History History of cardiac cath 2000 - [facility] - NO STENTS/ANGIOPLASTY - NO LONGER FOLLOWS WITH DR CONTRERAS OR CARDIOLOGY History of cholecystectomy 08/07/18 [facility] History of colonoscopy (03/06/19) Dr. Conti, 4 polyps removed (2 tubular adenomas and 2 hyperplastic), diverticulosis noted, recheck not recommended due to age History of knee surgery History of left shoulder replacement History of right cataract extraction History of right hip replacement History of shoulder surgery left rotator cuff tear---had pins placed S/P ERCP w/ stenting - 08/06/18 [facility] Family History Mother Coronary heart disease Stroke Myocardial infarction Father Hypertension Brother Alopecia Hypertension Grandmother (Maternal) Coronary heart disease Grandfather (Maternal) Coronary heart disease Uncle Coronary heart disease Other No family history of adverse response to anesthesia Denies family history of Ovarian cancer Prostate cancer Breast cancer Colorectal cancer Social History Smoking Status: Former smoker Tobacco Type: Pipe 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); Hx Alcohol Use: Yes Alcohol type: beer Alcohol Intake Frequency: 2-3 x/Week Alcohol Intake Frequency Comment: 1-2, 6pks Hx Substance Use: No Preferred Language: Sri Lankan Communication Ability: Effective Visual Impairment: No Limitations Hearing Ability: Normal Nursing Educator Required: No Beliefs That Will Affect Care: None marital status: / Current Living Situation: Significant Other Current Living Situation Comment: E[facility] BR[facility] LIVES WITH PT current occupational status: retired How many Children do You have: 1 Feels Safe at Home: Yes Dental Care, Regularly: No Physical Activity Frequency: Does not Exercise Seatbelt Use: never Assistive Devices: Cane and Walker Review of Systems Constitutional: no fever and no chills Respiratory: no cough and no dyspnea Cardiovascular: no chest pain Gastrointestinal: + abdominal pain and + bloating; no change in bowel habits and no blood in stools Integumentary: no problem reported Psychiatric: no problem reported Hematologic / Lymphatic: no problem reported Physical Exam Constitutional: WD/WN, vitals as above Respiratory: normal respiratory effort, lungs clear to auscultation Cardiovascular: RRR, no murmur, no edema Gastrointestinal (Abdomen): Inspection/Auscultation: normal bowel sounds Percussion/Palpation: + abdomen tender Musculoskeletal: no cyanosis or clubbing, extremities motor strength 5/5 Psychiatric: A+Ox3, euthymic affect Results & Data ([facility]) Vital Signs (Past 12 Hours) Vital Signs Temp Pulse Resp BP Pulse Ox 01/13/21 05:30 66 15 95 01/13/21 05:00 62 13 141/60 H 92 01/13/21 04:30 61 17 91 01/13/21 04:00 60 16 93 01/13/21 03:30 58 L 21 90 01/13/21 03:00 67 14 146/67 H 93 01/13/21 02:30 67 18 92 01/13/21 02:00 67 17 158/73 H 91 01/13/21 01:30 19 147/93 H 95 01/13/21 00:45 98 01/13/21 00:30 20 96 01/13/21 00:27 20 97 01/13/21 00:03 36.8 C 74 16 121/79 96 PG Care Time/CCT Total # of Minutes Spent Total Time Spent with Patient: Total time spent is greater than 50% in coordination of care (as documented) at patient's floor/unit and/or counseling patient: Coding Level of Care Code 20459 Initial Inpt Care Lvl 3 Diagnoses Ischemic colitis K55.9
[2021-01-13 10:17] LABS: Partial Thromboplastin Ratio 1.5; Partial Thromboplastin Time 39.7 Seconds (21.0-31.0)
--- NOTE | 2021-01-13 11:09 | Consultation ---
Date of Consultation January 13, 2021 Assessment & Plan (1) Stenosis of celiac artery: Pt with mild mesenteric arterial disease; celiac art near occlusion vs occlusion, mild (<50%) stenosis of SMA origin, and no signifcant stenosis of SHAN. Pt discussed at length with Dr Mendoza. No indications for vascular surgical intervention at this time. Recommend conservative management. Recommend pt be seen as outpt in 3-6 months to reeval sx. Pt agreeable. Please call if needed. History of Present Illness Reason for Consultation: abd pain, celiac art occlusion Attending Physician: Carlota Mendoza MD History of Present Illness 80 yo m with hx of HTN, hyperlipidemia, PAD, COPD, DVT, BPH, osteoarthritis, CAD, DJD, gout, admitted with severe abd pain last evening, seen in consultation today for possible ischemic colitis d/t celiac art stenosis/occlusion. Pt was previously seen by our vascular service during admission for same problem about 2 months ago. No intervention was advised at the time. Last evening he ate his usual meal and developed severe epigastric pressure associated with belching about 2 hr later. This pain radiated up into his chest and was partially relieved with belching, but not resolved. He was concerned about an AL, so came to [facility] for eval. Pt states he continues to have abd cramping with associated diarrhea about 1-2 hr after eating nearly every day. Despite this, he continues to eat normal sized meals and has lost 5-10 lbs over past 2 months. Denies abd pain while eating or food fear or changes in eating habits. Denies fever, chills, N/V, SOB, [place], constipation, claudication, rest pain, nonhealing ulcerations. CTA abd/pelvis demonstrates celiac artery severe stenosis vs occlusion, less than 50% stenosis at SMA origin, and no signifcant stenosis of SHAN. THis is similar in appearance to previous CTA. Allergies Allergy/AdvReac Type Severity Reaction Status Date / Time tiotropium Allergy Mild CHEST Verified 01/13/21 01:44 PAIN, PRESSURE ciprofloxacin [From Cipro] Allergy Unknown Unknown Verified 01/13/21 01:44 metronidazole Allergy Unknown Unknown Verified 01/13/21 01:44 atorvastatin [From Lipitor] AdvReac Intermediate Nausea Verified 01/13/21 01:44 lisinopril AdvReac Mild Cough Verified 01/13/21 01:44 Home Medications Medication Instructions Recorded Confirmed Type multivitamin (Multiple Vitamins) 1 tab PO QAM 08/04/18 01/13/21 History nitroglycerin 0.4 mg sublingual 0.4 mg SUBLINGUAL UD PRN 08/04/18 01/13/21 History tablet (Nitrostat) carvedilol 12.5 mg tablet 12.5 mg PO BID #180 tab 01/23/20 01/13/21 Rx alfuzosin 10 mg tablet,extended 10 mg PO QAM 07/23/20 01/13/21 History release 24 hr Potassium Otc 99 mg PO QAM 01/06/21 01/13/21 History aspirin 81 mg tablet,delayed 81 mg PO QAM 01/06/21 01/13/21 History release coQ10 (ubiquinol) 100 mg capsule 100 mg PO QAM 01/06/21 01/13/21 History dutasteride 0.5 mg capsule 0.5 mg PO QPM 01/06/21 01/13/21 History fluticasone furoate 200 1 inh INHALATION QAM 01/06/21 01/13/21 History mcg-vilanterol 25 mcg/dose inhalation powder (Breo Ellipta) furosemide 20 mg tablet 20 mg PO QAM 01/06/21 01/13/21 History indomethacin 50 mg capsule 50 mg PO TID PRN 01/06/21 01/13/21 History sodium,potassium,mag sulfates 17.5 See Rx Instructions PO .COMPLEX 01/06/21 01/13/21 Rx gram-3.13 gram-1.6 gram oral soln #354 ml (Suprep Bowel Prep Kit) amlodipine 10 mg tablet (Norvasc) 10 mg PO QAM #30 tab 01/09/21 01/13/21 Rx atorvastatin 40 mg tablet (Lipitor) 40 mg PO HS #30 tab 01/09/21 01/13/21 Rx esomeprazole magnesium 40 mg 40 mg PO QAM #30 cap 01/09/21 01/13/21 Rx capsule,delayed release (Nexium) Patient History Medical History Abdominal pain, acute, epigastric Acquired deviated nasal septum Actinic keratosis Acute blood loss anemia BPH (benign prostatic hyperplasia) CAD (coronary artery disease) Cerumen impaction Colitis Common bile duct calculi COPD (chronic obstructive pulmonary disease) Degenerative joint disease (DJD) of hip Essential (primary) hypertension GERD (gastroesophageal reflux disease) Heart attack 20 years ago per patient. No stents/angioplasty. No recent issues. Has never had to use NTG-PT CONFIRMS Hemorrhoids History of DVT (deep vein thrombosis) RLE - 3-4 YEARS AGO - POST OP HIP REPLACEMENT - TREATED WITH AC THERAPY History of DVT (deep vein thrombosis) HLD (hyperlipidemia) Hyperbilirubinemia Hypertension Hypertrophy of nasal turbinates Prostatitis SVT (supraventricular tachycardia) Transaminitis Vomiting Surgical History History of cardiac cath 2000 - [facility] - NO STENTS/ANGIOPLASTY - NO LONGER FOLLOWS WITH DR CONTRERAS OR CARDIOLOGY History of cholecystectomy 08/07/18 [facility] History of colonoscopy (03/06/19) Dr. Conti, 4 polyps removed (2 tubular adenomas and 2 hyperplastic), diverticulosis noted, recheck not recommended due to age History of knee surgery History of left shoulder replacement History of right cataract extraction History of right hip replacement History of shoulder surgery left rotator cuff tear---had pins placed S/P ERCP w/ stenting - 08/06/18 [facility] Family History Mother Coronary heart disease Stroke Myocardial infarction Father Hypertension Brother Alopecia Hypertension Grandmother (Maternal) Coronary heart disease Grandfather (Maternal) Coronary heart disease Uncle Coronary heart disease Other No family history of adverse response to anesthesia Denies family history of Ovarian cancer Prostate cancer Breast cancer Colorectal cancer Social History Smoking Status: Former smoker Tobacco Type: Pipe 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); Hx Alcohol Use: Yes Alcohol type: beer Alcohol Intake Frequency: 2-3 x/Week Alcohol Intake Frequency Comment: 1-2, 6pks Hx Substance Use: No Preferred Language: Amharic Communication Ability: Effective Visual Impairment: No Limitations Hearing Ability: Normal 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 Required: No Beliefs That Will Affect Care: None marital status: / Current Living Situation: Significant Other Current Living Situation Comment: [facility] LIVES WITH PT current occupational status: retired Feels Safe at Home: Yes Dental Care, Regularly: No Physical Activity Frequency: Does not Exercise Seatbelt Use: never Assistive Devices: Denture - Upper and Glasses Review of Systems Review of Systems: 14 systems reviewed and negative aside from HPI Physical Exam Constitutional: WD/WN, vitals as above well developed, + obese, healthy appearing, cooperative and comfortable; not in distress and not malnourished Neck: trachea midline Respiratory: normal respiratory effort, lungs clear to auscultation Auscultation: + diminished lung sounds Cardiovascular: Rate/Rhythm: regular rate and regular rhythm Vessels: femoral pulses present, posterior tibial pulses present, dorsalis pedis pulses present and radial pulses present; + abnormal peripheral pulses Extremities: normal capillary refill; no edema Gastrointestinal (Abdomen): Inspection/Auscultation: + abdomen distended (mildly) and normal bowel sounds Percussion/Palpation: abdomen soft; abdomen nontender Musculoskeletal: no cyanosis or clubbing, extremities motor strength 5/5 Skin: no rashes, warm and dry Neurologic: moves all extremities and awake; no focal motor deficits and not confused Psychiatric: A+Ox3, euthymic affect Eye Contact: good eye contact Results & Data ([facility]) Vital Signs (Past 12 Hours) Vital Signs Temp Pulse Resp BP Pulse Ox 01/13/21 05:30 66 15 95 01/13/21 05:00 62 13 141/60 H 92 01/13/21 04:30 61 17 91 01/13/21 04:00 60 16 93 01/13/21 03:30 58 L 21 90 01/13/21 03:00 67 14 146/67 H 93 01/13/21 02:30 67 18 92 01/13/21 02:00 67 17 158/73 H 91 01/13/21 01:30 19 147/93 H 95 01/13/21 00:45 98 01/13/21 00:30 20 96 01/13/21 00:27 20 97 01/13/21 00:03 36.8 C 74 16 121/79 96
--- NOTE | 2021-01-13 13:07 | Surgery Progress Note ---
Date of Service January 13, 2021 Assessment & Plan (1) Ischemic colitis: Plan: -He seems to be improving -Would recommend clears today as long as no other interventions are planned -Only indication for surgery from my perspective would be if there was concern for acute mesenteric ischemia with bowel compromise -Will defer duration of heparin gtt and further anticoagulation/antiplatelet to vascular surgery -Continue IV ABX -Will need to have his outpatient colonoscopy at some point -Will follow Admission and Anticipated Discharge Date Admission Date: January 13, 2021 Subjective Pt seen and examined. Abdominal pain improved. Afebrile. No blood in the stool. No N/V. Review of Systems Constitutional: no fever and no chills Eyes: no diplopia Ear, Nose, Mouth, Throat: no ear pain and no sore throat Respiratory: no cough and no dyspnea Cardiovascular: no chest pain Gastrointestinal: + abdominal pain, + nausea and + diarrhea/loose stools; no vomiting, no hematemesis and no blood in stools Genitourinary: no dysuria Musculoskeletal: no back pain Integumentary: no rash Neurologic: no localized weakness Physical Exam Constitutional: well developed and well nourished; no acute distress Eyes: no conjunctival abnormality ENMT: Ears: no hearing impairment Mouth: no oropharynx abnormality Neck: trachea midline Respiratory: normal respiratory effort, lungs clear to auscultation Cardiovascular: Rate/Rhythm: regular rate and regular rhythm Vessels: dorsalis pedis pulses present (Pulses palpable bilaterally) and radial pulses present (Pulses palpable bilaterally) Extremities: no calf tenderness Gastrointestinal (Abdomen): Soft/mild TTP to deep palpation, no rebound or guarding Musculoskeletal: No gross orthopedic abnormalities. No calf tenderness Skin: no rashes Neurologic: moves all extremities Psychiatric: A+Ox3, euthymic affect Results & Data ([facility]) Vital Signs (Past 12 Hours) Vital Signs Pulse Resp BP Pulse Ox 01/13/21 05:30 66 15 95 01/13/21 05:00 62 13 141/60 H 92 01/13/21 04:30 61 17 91 01/13/21 04:00 60 16 93 01/13/21 03:30 58 L 21 90 01/13/21 03:00 67 14 146/67 H 93 01/13/21 02:30 67 18 92 01/13/21 02:00 67 17 158/73 H 91 01/13/21 01:30 19 147/93 H 95 PG Care Time/CCT Total # of Minutes Spent Total Time Spent with Patient: Total time spent is greater than 50% in coordination of care (as documented) at patient's floor/unit and/or counseling patient: Coding Level of Care Code 35668 Subseq Hosp Care Lvl 2 Diagnoses Ischemic colitis K55.9
[2021-01-13 19:35] LABS: Partial Thromboplastin Ratio 1.5; Partial Thromboplastin Time 40.4 Seconds (21.0-31.0)
[2021-01-13] MEDS: PIPERACILLIN/TAZOBACTAM 3.375 GM in DEXTROSE 5% 100 ML IV SCH (19:45)
--- NOTE | 2021-01-13 19:57 | Billing Data ---
Date of Service January 13, 2021 Coding Level of Care Code 11040 Initial Inpt Care Lvl 2
[2021-01-14] MEDS: PIPERACILLIN/TAZOBACTAM 3.375 GM in DEXTROSE 5% 100 ML IV SCH ×2 (02:06→09:00)
[2021-01-14] MEDS: HEPARIN SODIUM/DEXTROSE 25,000 UNITS/500 ML BAG IV SCH (02:07)
[2021-01-14 02:37] LABS: Basophils # (auto) 0.02 K/uL (0-0.2); Basophils % (auto) 0.2 %; Eosinophils # (auto) 0.08 K/uL (0-0.5); Eosinophils % (auto) 0.9 %; Hematocrit (blood only) 34.2 % (42-52); Hemoglobin 11.7 g/dL (14.0-18.0); Immature Granulocytes # (auto) 0.03 K/uL (0.00-0.02); Immature Granulocytes % (auto) 0.3 %; Lymphocytes # (auto) 2.31 K/uL (1.2-3.4); Lymphocytes % (auto) 26.8 %; Mean Corpuscular Hemoglobin 31.2 pg (25-34); Mean Corpuscular Hgb Conc 34.2 g/dL (32-36); Mean Corpuscular Volume 91.2 fL (80-100); Mean Platelet Volume 9.5 fL (7.4-10.4); Monocytes # (auto) 0.76 K/uL (0.11-0.59); Monocytes % (auto) 8.8 %; Neutrophils # (auto) 5.43 K/uL (1.4-6.5); Platelet Count 197 K/uL (130-400); RDW Coefficient of Variation 13.6 % (11.5-14.5); RDW Standard Deviation 44.9 fL (36.4-46.3); Red Blood Count 3.75 M/uL (4.7-6.1); White Blood Count 8.63 K/uL (4.8-10.8)
[2021-01-14 02:57] LABS: Partial Thromboplastin Ratio 2.3
[2021-01-14 02:58] LABS: Partial Thromboplastin Time 59.9 Seconds (21.0-31.0)
[2021-01-14 03:12] LABS: Albumin Globulin Ratio 0.9 (0.9-2); Albumin Level 2.4 gm/dl (3.4-5.0); BUN Creatinine Ratio 11.9 (10-20); Bilirubin,Total 0.8 mg/dl (0.2-1); Calcium 7.6 mg/dl (8.5-10.1); Est GFR (African American) 99.6 ml/min; Est GFR (Non-African American) 85.9 ml/min; Globulin 2.7 gm/dl (2.5-4.0); Potassium 3.4 mmol/L (3.5-5.1); Total Protein 5.1 gm/dl (6.4-8.2)
[2021-01-14] MEDS: NSS + 20MEQ KCL 20 MEQ/1,000 ML BAG IV SCH ×3 (03:30→13:45)
--- NOTE | 2021-01-14 06:55 | Hospitalist Progress Note ---
Date of Service January 14, 2021 Assessment & Plan (1) Ischemic colitis: Plan: De Sharma is an 80-year-old male with PMH significant for coronary artery disease, COPD, peripheral artery disease, hypertension, hyperlipidemia, BPH, stenosis of celiac artery, stenosis of superior mesenteric artery admitted for concern possible ischemic colitis. Ischemic colitis: -CT abd/pelvis 11/21 - nonspecific colitis with near complete occlusion celiac artery and moderate stenosis SHAN, but noted patent superior mesenteric artery -Repeat CT abdomen pelvis with IV contrast on admission complete occlusion of celiac artery, severe stenosis of proximal SMA, SHAN patent and mucosal thickening of hepatic flexure -Vascular surg consulted in ED recommending n.p.o. with heparin drip -Gen surg consulted in ED agreed with vascular recommendations on conservative management with addition of broad-spectrum antibiotics. -IV zosyn -Serial abdominal exams with repeat imaging in the event of worsening pain or development of nausea or vomiting. -Progress diet to clear liquids. Diarrhea: -May be secondary to 2/2 colitis vs IBS/IBD -On Zosyn for possible colitis. -As per GI, Miralax added. -Will cont to monitor BM. Hypokalemia: -Potassium 3.4 on admission -Repleted with 20 mEq of KCl in basal fluids -Recheck in a.m. Diet: N.p.o. CODE STATUS: Full code DVT prophylaxis: Heparin drip (2) Hypokalemia: (3) Stenosis of celiac artery: Admission and Anticipated Discharge Date Admission Date: January 13, 2021 Subjective Patient seen at bedside this morning. Physical Exam Constitutional: WD/WN, vitals as above Respiratory: normal respiratory effort, lungs clear to auscultation Cardiovascular: RRR, no murmur, no edema Gastrointestinal (Abdomen): normal bowel sounds, soft, nontender, no hepatosplenomegaly Psychiatric: A+Ox3, euthymic affect Results & Data Results & Data ([facility]) Vital Signs (Past 12 Hours) Vital Signs Temp Pulse Pulse Resp BP Pulse Ox 01/14/21 03:31 37 C 67 16 143/71 H 91 01/14/21 00:49 72 01/13/21 23:31 37.7 C H 62 16 113/60 92 01/13/21 19:37 37.6 C H 75 16 134/75 91
--- NOTE | 2021-01-14 07:44 | Surgery Progress Note ---
Date of Service January 14, 2021 Assessment & Plan (1) Ischemic colitis: Plan: -He continues to improve -Has tolerated clears, would advance as tolerated -Will defer duration of heparin gtt and further anticoagulation/antiplatelet to vascular surgery -Continue IV ABX, can be transitioned to PO ABX upon discharge for 10-14 days -Will need to have his outpatient colonoscopy at some point -General surgery to sign off at this point, please call back with any questions or concerns Admission and Anticipated Discharge Date Admission Date: January 13, 2021 Subjective Pt seen and examined. Abdominal pain resolved. No N/V. Tolerated clears. afebrile. Review of Systems Constitutional: no fever and no chills Physical Exam Constitutional: well developed and well nourished; no acute distress Eyes: no conjunctival abnormality ENMT: Ears: no hearing impairment Mouth: no oropharynx abnormality Neck: trachea midline Respiratory: normal respiratory effort, lungs clear to auscultation Cardiovascular: Rate/Rhythm: regular rate and regular rhythm Vessels: dorsalis pedis pulses present (Pulses palpable bilaterally) and radial pulses present (Pulses palpable bilaterally) Extremities: no calf tenderness Gastrointestinal (Abdomen): Soft/nontender, no rebound or guarding Musculoskeletal: No gross orthopedic abnormalities. No calf tenderness Skin: no rashes Neurologic: moves all extremities Psychiatric: A+Ox3, euthymic affect Results & Data ([facility]) Vital Signs (Past 12 Hours) Vital Signs Temp Pulse Pulse Resp BP Pulse Ox 01/14/21 03:31 37 C 67 16 143/71 H 91 01/14/21 00:49 72 01/13/21 23:31 37.7 C H 62 16 113/60 92 PG Care Time/CCT Total # of Minutes Spent Total Time Spent with Patient: Total time spent is greater than 50% in coordination of care (as documented) at patient's floor/unit and/or counseling patient: Coding Level of Care Code 63110 Subseq Hosp Care Lvl 1 Diagnoses Ischemic colitis K55.9
[2021-01-14] MEDS ORDERED: POLYETHYLENE (MIRALAX) 17 GM PACK PO SCH (09:00)
--- NOTE | 2021-01-14 10:03 | Communication Note ---
Date of Service: January 14, 2021 Will arrange for outpatient colonoscopy in 6-8 weeks. Our office will be in contact with patient for further follow-up and scheduling needs.
--- NOTE | 2021-01-14 11:37 | Electrocardiogram Report ---
Test Reason : Blood Pressure : / mmHG Vent. Rate : 072 BPM Atrial Rate : 072 BPM P-R Int : 280 ms QRS Dur : 110 ms QT Int : 380 ms P-R-T Axes : 047 -17 -35 degrees QTc Int : 416 ms Poor data quality, interpretation may be adversely affected Sinus rhythm with 1st degree A-V block with Premature atrial complexes Inferior infarct (cited on or before 19-AUG-2019) Anteroseptal infarct (cited on or before 19-AUG-2019) Abnormal ECG When compared with ECG of 21-NOV-2020 22:00, Premature atrial complexes are now Present Questionable change in initial forces of Anterior leads Confirmed by Endy Clay ([id number]) on 01/14/2021 11:37:30 AM Referred By: REFERRED SELF Confirmed By:Endy Clay
--- NOTE | 2021-01-14 12:00 | Communication Note ---
Date of Service: January 14, 2021 Would stop the heparin and place on [id number] Will follow up as outpatient
--- NOTE | 2021-01-14 20:41 | Discharge Summary ---
Date of Service January 14, 2021 Admission HPI Per Admitting Provider De Sharma is an 80-year-old male with PMH significant for coronary artery disease, COPD, peripheral artery disease, hypertension, hyperlipidemia, BPH, stenosis of celiac artery, stenosis of superior mesenteric artery; who presented to the ED for concerns of worsened abdominal pain overnight. Previously was doing admitted to [facility] at the end of October for similar abdominal pains associated with eating, at during that time had CT scan that demonstrated atherosclerotic disease within abdominal vasculature specifically noting occlusion of celiac artery and stenosis of superior mesenteric artery. After numerous discussions with vascular and general surgery and improvement in his overall pain was deemed that he did not need operative intervention at that moment in time. He was doing well up until earlier this evening when he continued to notice this gassy feeling and pain returned. Initially felt like it was getting better with burping, but the pain resided for multiple hours ultimately causing him to present to the emergency department. Over the last several weeks he has had looser bowel movements but not had any blood or dark tarry stools. Principal Diagnosis SMA occlusion Discharge Exam Constitutional WD/WN, vitals as above Respiratory normal respiratory effort, lungs clear to auscultation Cardiovascular RRR, no murmur, no edema Gastrointestinal (Abdomen) normal bowel sounds, soft, nontender, no hepatosplenomegaly Psychiatric A+Ox3, euthymic affect Discharge Data Allergies Allergy/AdvReac Type Severity Reaction Status Date / Time tiotropium Allergy Mild CHEST Verified 01/13/21 01:44 PAIN, PRESSURE ciprofloxacin [From Cipro] Allergy Unknown Unknown Verified 01/13/21 01:44 metronidazole Allergy Unknown Unknown Verified 01/13/21 01:44 atorvastatin [From Lipitor] AdvReac Intermediate Nausea Verified 01/13/21 01:44 lisinopril AdvReac Mild Cough Verified 01/13/21 01:44 Consultations 01/13/21 02:57 Consult Vascular Surgery Stat ED Decision to Admit Stat 01/13/21 03:35 Consult General Surgery Stat 01/13/21 09:52 Consult Gastroenterology Routine Ordered Studies 01/13/21 00:31 CT angio abdomen pelvis w con Urgent CT chest diagnostic w con Urgent Hospital Course (1) Ischemic colitis: De Sharma is an 80-year-old male with PMH significant for coronary artery disease, COPD, peripheral artery disease, hypertension, hyperlipidemia, BPH, stenosis of celiac artery, stenosis of superior mesenteric artery admitted for concern possible ischemic colitis. Ischemic colitis: -CT abd/pelvis 11/21 - nonspecific colitis with near complete occlusion celiac artery and moderate stenosis SHAN, but noted patent superior mesenteric artery -Repeat CT abdomen pelvis with IV contrast on admission complete occlusion of celiac artery, severe stenosis of proximal SMA, SHAN patent and mucosal thickening of hepatic flexure -Gen surg and vascular recommended conservative management with antibiotic treatment and aspirin 81mg daily. -Will follow up with Dr. Mendoza (vascular surgery) in outpatient setting. -Recommend outpatient colonoscopy 6-8 weeks. -Sent home with 5 days Augmentin for colitis. Diarrhea: -May be secondary to 2/2 colitis vs IBS/IBD -Patient to continue Augmentin for 5 additional days outpatient for possible colitis. -As per GI, Miralax added for outpatient use. (2) Hypokalemia: (3) Stenosis of celiac artery: Total Time Total Time Spent Total Time Spent (In Minutes): Please see attending attestation. Discharge Plan Discharge Items Patient Disposition: Home - Self-Care Reason For Visit: SMA OCCLUSION Discharge Diagnosis: ischemic colitis Activity: Per Instructions section Non-emergency contact: Primary Care Provider Call non-emergency contact if: your symptoms worsen Follow-up/Referrals: Román Valentine III, MD [Primary Care Provider] - 01/21/21 11:00 am (Jan 21 @ 11 am with Aarti Brownlee ) Diet: Regular Addtl Attending Provider Instructions: Blocked blood vessels of the abdomen: You have had blocked blood vessels of your abdomen that supply your intestines. You were placed on blood thinning medications and were seen by our vascular surgeon. They recommended that you go on Aspirin 81 mg per day. We will also have you take an antibiotic for concern of infection that can develop in these situations. You will take the antibiotic twice a day for 5 days. The GI or Gastroenterologists recommended that you take Miralax one capful per day and they will follow up with you to have a colonoscopy in 6-8 weeks. Follow up: Gastroenterology - 6-8 weeks Primary doctor - 1 week Vascular Surgery with Dr. Mendoza Return precautions: If you are having severe abdominal pain, severe diarrhea, blood in your stool, dizziness or lightheadedness when you wake up we will want you to call or come in to get evaluated. Pending Studies at Discharge: No Stand-Alone Forms: My [employer], Smoking Cessation Medications and DC Order Prescriptions: New amoxicillin-pot clavulanate 875-125 mg tablet 1 tab PO BID 5 Days Qty: 10 RF: 0 Continued Suprep Bowel Prep Kit 17.5-3.13-1.6 gram recon soln See Rx Instructions PO .COMPLEX Qty: 354 RF: 0 amlodipine [Norvasc] 10 mg tablet 10 mg PO QAM Qty: 30 RF: 5 atorvastatin [Lipitor] 40 mg tablet 40 mg PO HS Qty: 30 RF: 5 esomeprazole magnesium [Nexium] 40 mg capsule,delayed release(DR/EC) 40 mg PO QAM Qty: 30 RF: 5 carvedilol 12.5 mg tablet 12.5 mg PO BID Qty: 180 RF: 3 fluticasone furoate-vilanterol [Breo Ellipta] 200-25 mcg/dose blister with device 1 inh inhalation QAM RF: 0 alfuzosin 10 mg tablet extended release 24 hr 10 mg PO QAM RF: 0 nitroglycerin [Nitrostat] 0.4 mg Tablet, Sublingual 0.4 mg sublingual UD PRN (Reason: Chest Pain) RF: 0 multivitamin [Multiple Vitamins] Tablet 1 tab PO QAM RF: 0 dutasteride 0.5 mg capsule 0.5 mg PO QPM RF: 0 indomethacin 50 mg capsule 50 mg PO TID PRN (Reason: Pain) RF: 0 furosemide 20 mg tablet 20 mg PO QAM RF: 0 Breo Ellipta 200-25 mcg/dose blister with device 1 inh INHALATION QAM RF: 0 aspirin 81 mg Tablet,Delayed Release (Dr/Ec) 81 mg PO QAM RF: 0 coQ10 (ubiquinol) 100 mg Capsule 100 mg PO QAM RF: 0 Potassium Otc 99 mg PO QAM RF: 0 Discharge Orders: Discharge Order (Routine); Ordered 01/14/21 Ordered By: James Adams Admission Data Admit Date/Time: 01/13/21 03:57 Attending Provider: Carlota Mendoza Admit Provider: Zac Molina Primary Care Provider: Román Valentine III Other Providers: Natalio Choudhary ; Nader Mendoza ; Julieth Marino ; Mikel Henriquez Other Interventions: Discharge Summary Assessment (RN) Last Done: 01/14/21 16:49 Supervising Physician Co-Signing Physician Notes Resident Physician Supervision Note: I independently interviewed and examined the patient and verified the truong history and physical, reviewed labs and image studies and agree with resident Dr. Tai findings and care plan. Resident Activity Tracking Resident Involvement: Resident Care Provided Care Provided: Adult Hospital Medicine
== END 2021-01-14 17:30 | disposition home or self-care (01) | DRG 395 ==
LOC: ED 23:58 → EDINP 01-13 03:57 → SUATTDRO 01-13 03:57 → 2S 01-13 06:12